=== PATIENT | female | born 1985 | race Caucasian/White ===

== ENCOUNTER 2025-01-03 09:51 | Outpatient (OUT) | payer BC, SELFPAY ==
[2025-01-03 11:17] LABS: Free T4 0.97 ng/dL (0.76-1.46)
[2025-01-03 11:21] LABS: Thyroid Stimulating Hormone 3.365 uIU/mL (0.358-3.740)
== END 2025-01-03 09:52 | disposition home or self-care (01) ==
LOC: LAB 10:00
PROVIDERS: Visit Provider Obstetrics & Gynecology
DX: N92.6 Irregular menstruation, unspecified (principal); N93.8 Other specified abnormal uterine and vaginal bleeding; R79.89 Other specified abnormal findings of blood chemistry; I10 Essential (primary) hypertension
CPT/HCPCS: 36415; 83516; 84439; 84443

== ENCOUNTER 2025-01-19 11:07 | Outpatient (OUT) | payer BC, SELFPAY ==
--- OUTSIDE RECORDS SUMMARY | 2025-01-30 11:30 | XMS_ITS | CCD ---
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 Anion gap [Moles/Vol] 11 mmol/L Normal 5-15 [facility] Comment on above: Performed By: #### C BCA, CMP, 12961-3 ####[facility] ([id number])[address] [place] [address] 28070#### 72427-0, HA1C ####[facility] ([id number])[address] [place] [address], [address] [place] [address] 17748 AST [Catalytic activity/Vol] 24 U/L Normal 0-41 [facility] Comment on above: Performed By: #### C BCA, CMP, 12663-7 ####[facility] ([id number])[address] [place] [address] 20105#### 11978-2, HA1C ####[facility] ([id number])[address] [facility], [address] [place] [address] 36004 Bilirubin [Mass/Vol] 0.2 mg/dL Low 0.3-1.2 [facility] Comment on above: Performed By: #### C BCA, CMP, ####[facility] ([id number])[address] [place] [address] 67566#### 89867-8, HA1C ####[facility] ([id number])[address] [facility], [address] [place] [address] 50004 Calcium [Mass/Vol] 8.8 mg/dL Normal 8.5-10.5 [facility] Comment on above: Performed By: #### C BCA, CMP, 20959-1 ####[facility] ([id number])[address] [place] [address] 18243#### 73041-3, HA1C ####[facility] ([id number])[address] [place] [address], [address] [place] [address] 88937 Chloride [Moles/Vol] 103 mmol/L Normal 98-109 [facility] Comment on above: Performed By: #### C BCA, CMP, 21885-2 ####[facility] ([id number])[address] [place] [address] 35852#### 37763-9, HA1C ####[facility] ([id number])[address] [place] [address], [address] [place] [address] 82853 CO2 [Moles/Vol] 23 mmol/L Normal 22-32 [facility] Comment on above: Performed By: #### C BCA, CMP, 32531-7 ####[facility] ([id number])[address] [place] [address] 61718#### 93252-9, HA1C ####[facility] ([id number])[address] [facility], [address], [place] [address] Creatinine [Mass/Vol] 0.86 mg/dL Normal 0.40-1.00 [facility] Comment on above: Result Comment: METH OD TRACEABLE TO IDMS STANDARD Performed By: #### C BCA, CMP, ####[facility] ([id number])[address] [place] [address] 01557#### 13620-2, HA1C ####[facility] ([id number])[address] [address] GFR/1.73 sq M.predicted among non-blacks MDRD (S/P/Bld) [Vol rate/Area] 89 mL/min/{1.73_m2} Normal >59 [facility] Comment on above: Result Comment: Reported eGFR is based on the CKD-EPI 2020 equation that does not use a race coefficient. Performed By: #### C BCA, CMP, 03018-2 ####[facility] ([id number])[address] [place] [address] 80964#### 59122-1, HA1C ####[facility] ([id number])[address] [address] Glucose [Mass/Vol] 102 mg/dL High 65-99 [facility] Comment on above: Performed By: #### C BCA, CMP, 05770-1 ####[facility] ([id number])[address] [place] [address] 01113#### 94239-5, HA1C ####[facility] ([id number])[address] [address] Potassium [Moles/Vol] 3.8 mmol/L Normal 3.5-5.0 [facility] Comment on above: Performed By: #### C BCA, CMP, 30343-0 ####[facility] ([id number])[address] [place] [address] 44498#### 14548-0, HA1C ####[facility] ([id number])[address] [address] Protein [Mass/Vol] 6.6 g/dL Normal 6.0-8.0 [facility] Comment on above: Performed By: #### C BCA, CMP, 88433-0 ####[facility] ([id number])[address] [place] [address] 60219#### 64772-8, HA1C ####[facility] ([id number])[address], [address] [address] Sodium [Moles/Vol] 137 mmol/L Normal 134-146 [facility] Comment on above: Performed By: #### C BCA, CMP, 85297-7 ####[facility] ([id number])[address] [place] [address] 99779#### 80115-3, HA1C ####[facility] ([id number])[address], [address], [place] [address] Urea nitrogen [Mass/Vol] 18 mg/dL Normal 5-23 [facility] Comment on above: Performed By: #### C BCA, CMP, 17940-1 ####[facility] ([id number])[address] [place] [address] 24920#### 69016-6, HA1C ####[facility] ([id number])[address], [address] [place] [address] HGB A1C (GLYCO-HGB)on 2024 Glucose [Mass/Vol] 117 mg/dL Normal [facility] Comment on above: Performed By: #### C BCA, CMP, 62325-2 ####[facility] ([id number])[address] [place] [address] 09418#### 42290-6, HA1C ####[facility] ([id number])[address], [place] [address] HbA1c (Bld) [Mass fraction] 5.7 % High 4.4-5.6 [facility] Comment on above: Result Comment: NOTE ADA Guidelines Result HgbA1c Normal : less than 5.7 % Prediabetes : 5.7 % to 6.4 % Diabetes : > 6.4 % Use with caution in patients with abnormal hemoglobin variants as the half-life of red blood cells and in vivo glycation rates are affected. Performed By: #### C BRENDA, THAO, 31364-6 ####[facility] ([id number])[address] [place] [address] 47276#### 72004-7, HA1C ####[facility] ([id number])[address] [place] [address], [address] [address] Lipid 1996 panelon 5 Cholesterol [Mass/Vol] 166 mg/dL Normal 150-200 [facility] Comment on above: Performed By: #### Reid GUTIERREZ CMP, 91724-4 ####[facility] ([id number])[address] [place] [address] 75293#### 21525-4, HA1C ####[facility] ([id number])[address] [place] [address], [address] [address] Cholesterol in HDL [Mass/Vol] 51 mg/dL Normal >39 [facility] Comment on above: Result Comment: HDL <40 mg/dL - High Risk HDL > or = 40mg/dL- Desirable HDL >60 mg/dL - Negative Risk Performed By: #### Reid GUTIERREZ, CMP, 63472-8 ####[facility] ([id number])[address] [place] [address] 40453#### 75294-6, HA1C ####[facility] ([id number])[address], [address] [place] [address] 13815 Cholesterol in LDL [Mass/Vol] 85 mg/dL Normal <130 [facility] Comment on above: Result Comment: LDL <100 mg/dL - Desirable LDL >160 mg/dL - High Risk Performed By: #### C BCA, CMP, 33927-8 ####[facility] ([id number])[address] [place] [address] 53294#### 60311-0, HA1C ####[facility] ([id number])[address] [facility], [address] [address] Cholesterol in VLDL [Mass/Vol] 30 mg/dL Normal 0-30 [facility] Comment on above: Performed By: #### C BCA, CMP, 51782-8 ####[facility] ([id number])[address] [place] [address] 06720#### 28512-6, HA1C ####[facility] ([id number])[address] [facility], [address] [address] CHOLESTEROL:HDL 3.3 Normal 1.0-5.0 [facility] Comment on above: Performed By: #### C BCA, CMP, 23976-7 ####[facility] ([id number])[address] [place] [address] 83819#### 35823-0, HA1C ####[facility] ([id number])[address], [address] [place] [address]6734 Triglyceride [Mass/Vol] 152 mg/dL High 27-150 [facility] Comment on above: Performed By: #### C BCA, CMP, ####[facility] ([id number])[address] [place] [address] 68431#### 67482-9, HA1C ####[facility] ([id number])[address] [place] [address], [address] [place] [address] MAGNESIUMon 11-02-2024 Magnesium [Mass/Vol] 2.0 mg/dL Normal 1.8-2.6 [facility] Comment on above: Performed By: #### C BCA, CMP, 69643-4 ####[facility] ([id number])[address] [place] [address] 70285#### 94492-1, HA1C ####[facility] ([id number])[address] [place] [address], [address] [place] [address] 32528 MR BRAIN WO CONTon 5 MR BRAIN WO CONT MR BRAIN WO CONT MR BRAIN WO CONT CLINICAL HISTORY: Transient ischemic attack COMPARISON: No prior Multiplanar T1 and T2-weighted MR imaging conducted no contrast administered obtained. FINDINGS: Ventricles, sulci and basal cisterns are periods orbits are unremarkable. Small polyp or retention cyst in the left maxillary sinus No acute infarct on diffusion weighted images. Midline structures in appropriate position on T1 sagittal images. No FLAIR signal abnormality No mass effect or midline shift. IMPRESSION: * No acute intracranial abnormality. No diffusion evidence of acute infarct. Finalized by Matt Wasserman MD on 11/02/2024 7:51 AM Normal [facility] BASIC METABOLIC PANLon 11-01 Anion gap [Moles/Vol] 10 mmol/L Normal 5-15 [facility] Comment on above: Performed By: #### C BCA, PINR, 02140-4, BMP, 53500-3 #### [facility] ([id number]) [address] [place] [address]39 Calcium [Mass/Vol] 9.0 mg/dL Normal 8.5-10.5 [facility] Comment on above: Performed By: #### C BCA, PINR, 89032-7, BMP, 22055-9 #### [facility] ([id number]) [address] [place] [address] 10181 Chloride [Moles/Vol] 98 mmol/L Normal 98-109 [facility] Comment on above: Performed By: #### C BCA, PINR, 01067-1, BMP, 64193-6 #### [facility] ([id number]) [address] [place] [address] 89194 CO2 [Moles/Vol] 29 mmol/L Normal 22-32 [facility] Comment on above: Performed By: #### C BCA, PINR, 98208-4, BMP, 21041-6 #### [facility] ([id number]) [address] [place] [address] 36401 Creatinine [Mass/Vol] 0.86 mg/dL Normal 0.40-1.00 [facility] Comment on above: Result Comment: METH OD TRACEABLE TO IDMS STANDARD Performed By: #### C BCA, PINR, 30625-9, BMP, 16362-4 #### [facility] ([id number]) [address] [place] [address] 28507 GFR/1.73 sq M.predicted among non-blacks MDRD (S/P/Bld) [Vol rate/Area] 89 mL/min/{1.73_m2} Normal >59 [facility] Comment on above: Result Comment: Reported eGFR is based on the CKD-EPI 1 equation that does not use a race coefficient. Performed By: #### C BCA, PINR, 29268-3, BMP, 97872-9 #### [facility] ([id number]) [address] [place] [address] 36488 Glucose [Mass/Vol] 112 mg/dL High 65-99 [facility] Comment on above: Performed By: #### C BCA, PINR, 77455-9, BMP, 16407-1 #### [facility] ([id number]) [address] [place] [address] 83993 Potassium [Moles/Vol] 4.1 mmol/L Normal 3.5-5.0 [facility] Comment on above: Performed By: #### C BCA, PINR, 96222-5, BMP, 80463-1 #### [facility] ([id number]) [address] [place] [address] 84280 Sodium [Moles/Vol] 137 mmol/L Normal 134-146 [facility] Comment on above: Performed By: #### C BCA, PINR, 93123-8, BMP, 93446-6 #### [facility] ([id number]) [address] [place] [address] 25847 Urea nitrogen [Mass/Vol] 15 mg/dL Normal 5-23 [facility] Comment on above: Performed By: #### C BCA, PINR, 14907-7, BMP, 13630-3 #### [facility] ([id number]) [address] [place] [address] 65301 CBC AND AUTO DIFFon 11-01-19 25 ABSOLUTE BASOPHIL 0.0 X10E9/L Normal 0.0-0.2 [facility] Comment on above: Performed By: #### C BCA, PINR, 66291-1, BMP, 16983-7 #### [facility] ([id number]) [address] [place] [address] 55994 ABSOLUTE NEUTROPHIL 2.0 X10E9/L Normal 1.5-6.6 [facility] Comment on above: Performed By: #### C BCA, PINR, 31345-6, BMP, 14235-8 #### [facility] ([id number]) [address] [place] [address] 16235 Basophils/100 WBC (Bld) 0.9 % Normal [facility] Comment on above: Performed By: #### C BCA, PINR, 43063-4, BMP, 14800-6 #### [facility] ([id number]) [address] [place] [address] 05959 Eosinophils (Bld) [#/Vol] 0.1 10*3/uL Normal 0.0-0.4 [facility] Comment on above: Performed By: #### C BCA, PINR, 50448-3, BMP, 00639-6 #### [facility] ([id number]) [address] [place] [address] 49870 Eosinophils/100 WBC (Bld) 2.0 % Normal [facility] Comment on above: Performed By: #### C BCA, PINR, 65155-3, BMP, 79822-7 #### [facility] ([id number]) [address] [place] [address] 19364 Erythrocyte distribution width (RBC) [Ratio] 13.6 % Normal 11.5-15.0 [facility] Comment on above: Performed By: #### C BCA, PINR, 72593-0, BMP, 12982-0 #### [facility] ([id number]) [address] [place] [address] 99584 Hematocrit (Bld) [Volume fraction] 39.8 % Normal 35-47 [facility] Comment on above: Performed By: #### C BCA, PINR, 49312-4, BMP, 00038-0 #### [facility] ([id number]) [address] [place] [address] 66190 Hemoglobin (Bld) [Mass/Vol] 13.4 g/dL Normal 11.7-15.5 [facility] Comment on above: Performed By: #### C BCA, PINR, 47225-0, BMP, 25515-5 #### [facility] ([id number]) [address] [place] [address] 91184 Lymphocytes (Bld) [#/Vol] 1.8 10*3/uL Normal 1.0-3.5 [facility] Comment on above: Performed By: #### C BCA, PINR, 17691-3, BMP, 19752-4 #### [facility] ([id number]) [address] [place] [address] 61432 Lymphocytes/100 WBC (Bld) 39.4 % Normal [facility] Comment on above: Performed By: #### C BCA, PINR, 18749-1, BMP, 57338-2 #### [facility] ([id number]) [address] [place] [address] 02357 MCH (RBC) [Entitic mass] 28.3 pg Normal 27-34 [facility] Comment on above: Performed By: #### Reid BCA, PINR, 83590-7, BMP, 30498-4 #### [facility] ([id number]) [address] [place] [address] 39666 MCHC (RBC) [Mass/Vol] 33.6 g/dL Normal 32-36 [facility] Comment on above: Performed By: #### Reid BCA, PINR, 71971-7, BMP, 66214-9 #### [facility] ([id number]) [address] [place] [address] 09001 MCV (RBC) [Entitic vol] 84 fL Normal 80-100 [facility] Comment on above: Performed By: #### C BCA, PINR, 21429-1, BMP, 02274-5 #### [facility] ([id number]) [address] [place] [address] 02645 Monocytes (Bld) [#/Vol] 0.6 10*3/uL Normal 0-0.9 [facility] Comment on above: Performed By: #### Reid BCA, PINR, 25239-5, BMP, 34489-6 #### [facility] ([id number]) [address] [place] [address] 20304 Monocytes/100 WBC (Bld) 13.3 % Normal [facility] Comment on above: Performed By: #### C BCA, PINR, 41845-1, BMP, 15875-1 #### [facility] ([id number]) [address] [place] [address] 13370 Neutrophils/100 WBC (Bld) 44.4 % Normal [facility] Comment on above: Performed By: #### C BCA, PINR, 61739-0, BMP, 44289-7 #### [facility] ([id number]) [address] [place] [address] 48589 Platelet mean volume (Bld) [Entitic vol] 8.4 fL Normal 7-12 [facility] Comment on above: Performed By: #### Reid BCA, PINR, 00411-7, BMP, 72560-9 #### [facility] ([id number]) [address] [place] [address] 56127 Platelets (Bld) [#/Vol] 252 10*3/uL Normal 150-450 [facility] Comment on above: Performed By: #### C BCA, PINR, 03423-3, BMP, 25748-8 #### [facility] ([id number]) [address] [place] [address] 91550 RBC COUNT 4.73 X10E12/L Normal 3.80-5.20 [facility] Comment on above: Performed By: #### C BCA, PINR, 90343-0, BMP, 99821-4 #### [facility] ([id number]) [address] [place] [address] 63671 WBC (Bld) [#/Vol] 4.5 10*3/uL Normal 4.0-11.0 [facility] Comment on above: Performed By: #### C BCA, PINR, 40913-7, [facility], 91787-8 #### [facility] ([id number]) [address] [facility] [place] [address] CT BRAIN WO CONT STROKE ALER Britton 11-01-2024 CT BRAIN WO CONT STROKE ALERT CT BRAIN WO CONT STROKE ALERT Examination: Noncontrast brain CT Date of Exam:11/01/2024 Clinical History:Right facial numbness, dizziness Comparison:None Procedure: Multi-detector CT performed through the brain without IV contrast. Automatic exposure control (AEC) was utilized. Findings: There is no intracranial hemorrhage, extra-axial fluid collection, mass effect, or hydrocephalus. Velásquez-white matter differentiation is appropriate. Infarcts may be occult on CT, but grossly no acute infarct identified There is no midline shift. The sinuses are clear. IMPRESSION: 1. No acute findings. All CT scans at this facility use dose modulation, iterative reconstruction, and/or weight based dosing when appropriate to reduce radiation dose to as low as reasonably achievable. Finalized by Terry Sam MD on 11/01/2024 7:36 PM Normal [facility] CT CTA CAROTIDon 11-01-[address] CTA CAROTID STUDY: CT angiogram carotid artery with contrast CLINICAL HISTORY: CVA, TIA, Stroke acute neurologic symptoms. Right-sided facial numbness. Dizziness. CVA. TIA. COMPARISON: None. TECHNIQUE: CT angiogram performed following intravenous administration of 100 mL Omnipaque 350 nonionic intravenous contrast. Coronal and sagittal and 3-D volume rendered maximum intensity projection images generated and reviewed under concurrent physician supervision. Automated exposure control utilized. The [place] Symptomatic Carotid Endarterectomy Trial (NASCET) method for calculating the degree of stenosis was utilized for stenosis measurements. FINDINGS: 3 vessel aortic arch. Bilateral common carotid arteries are patent. Bilateral internal carotid arteries are patent. There is no hemodynamically stable stenosis or plaque. Bilateral vertebral arteries are patent throughout their cervical course. There is unremarkable appearance of the visualized lung apices. Parotid and submandibular glands are symmetric. Thyroid is grossly unremarkable. No prevertebral soft tissue swelling. Mild mucosal thickening of the maxillary sinuses. IMPRESSION: 1. No evidence of large vessel vascular occlusion or hemodynamically severe stenosis identified. All CT scans at this facility use dose modulation, iterative reconstruction, and/or weight based dosing when appropriate to reduce radiation dose to as low as reasonably achievable. Finalized by Sai Garvey MD on 11/01/2024 8:04 PM Normal [facility] CT CTA HEADon 11-01-[address] HEAD CT angiogram head with contrast History: Stroke. CVA. TIA. Facial numbness. Dizziness. Blurred vision. Hypertension. Technique: CT angiogram of the head was performed following intravenous administration of 100 cc Omnipaque 350 nonionic intravenous contrast. 3-D maximum intensity projection images generated and reviewed under concurrent physician supervision. Automated exposure control was utilized. Arterial blood flow was measured to assist the stroke clinical team in the diagnosis of large vessel occlusion in patients undergoing screening for acute ischemic stroke using Rapid AI software when clinically indicated. Findings: The visualized extracranial internal carotid arteries are patent. The petrosal, cavernous or supraclinoid internal carotid arteries are patent. There is symmetric arborization of the middle cerebral anterior cerebral arteries. Anatomic variant of the anterior circulation is noted. The vertebral arteries converge to form a normal-appearing basilar artery. The posterior cerebral arteries are symmetric. Impression: No evidence of large vessel vascular occlusion or intracranial aneurysm identified within the limitations of the CT angiographic technique. All CT scans at this facility use dose modulation, iterative reconstruction, and/or weight based dosing when appropriate to reduce radiation dose to as low as reasonably achievable. Finalized by Sai Garvey MD on 11/01/2024 7:56 PM Normal [facility] Glucose Glucometer (BldC) [M ass/Vol]on 11-01-2024 Glucose [Mass/Vol] 110 mg/dL High 65-99 [facility] HCG ( test) Ql (U)o n 11-01-2024 Beta HCG ( test) Ql (U) Negative Normal NEG [facility] Comment on above: Performed By: #### 2 106-3 #### [facility] ([id number]) [address] [place] [address], [place] [address] PROTIME AND INRon 11-01-2024 INR Coag (PPP) [Relative time] 1.0 {INR} Normal 0.8-1.1 [facility] Comment on above: Performed By: #### C BCA, PINR, 09905-4, BMP, 53607-9 #### [facility] ([id number]) [address] [place] [id number] PT Coag (PPP) [Time] 11.5 s Normal 9.8-13.2 [facility] Comment on above: Result Comment: NEW REFERENCE RANGE Performed By: #### C BCA, PINR, 11742-8, BMP, 73307-5 #### [facility] ([id number]) [address] [place] [id number] Troponin I.cardiac High sens itivity method [Mass/Vol]on 11-01-2024 1 HOUR TROP I, HIGH SENSITIVITY 4 ng/L Normal <16 [facility] Comment on above: Performed By: #### 8 9579-7 ####[facility] [facility] ([id number])[address] [place] [address] TROPONIN I, HIGH SENSITIVITY 3 ng/L Normal <16 [facility] Comment on above: Performed By: #### C BCA, PINR, 56331-3, BMP, 34921-3 #### [facility] ([id number]) [address] [place] [address] URN MACROSCOPIC NURon 2024 BILIRUBIN SAMAN Negative Normal NEG [facility] Comment on above: Performed By: #### N UM ####[facility] ([id number])[address] [place] [address], [place] [address] BLOOD/HGB SAMAN Negative Normal NEG [facility] Comment on above: Performed By: #### N UM ####[facility] ([id number])[address] [place] [address], [place] [address] GLUCOSE SAMAN Negative Normal NEG [facility] Comment on above: Performed By: #### N UM ####[facility] ([id number])[address] [place] [address] [place] [address] KETONES SAMAN Negative Normal NEG [facility] Comment on above: Performed By: #### N UM ####[facility] ([id number])[address] [place] [address] [place] [address] LEUKOCYTE ESTERASE SAMAN Negative Normal NEG [facility] Comment on above: Performed By: #### N UM ####[facility] ([id number])[address] [place] [address] [place] [address] NITRITE SAMAN Negative Normal NEG [facility] Comment on above: Performed By: #### N UM ####[facility] ([id number])[address] [place] [address] PH SAMAN 7.0 Normal 5.0-8.5 [facility] Comment on above: Performed By: #### N UM ####[facility] ([id number])[address] [place] [address] PROTEIN SAMAN Negative Normal NEG [facility] Comment on above: Performed By: #### N UM ####[facility] ([id number])[address] [place] [address] [place] [address] SPECIFIC GRAVITY SAMAN 1.010 Normal 1.003-1 .03 5 [facility] Comment on above: Performed By: #### N UM ####[facility] ([id number])[address] [place] [address] [place] [address] UROBILINOGEN SAMAN 0.2 eu/dL Normal <1.1 [facility] Comment on above: Performed By: #### N UM ####[facility] ([id number])[address] [place] [address] [place] [address] aPTT Coag (PPP) [Time]on aPTT Coag (Bld) [Time] 34 s Normal 26-37 [facility] Comment on above: Result Comment: NEW REFERENCE RANGE Performed By: #### C BCA, PINR, 24205-5, BMP, 68320-8 #### [facility] ([id number]) [address] [place] [address], [place] [address] THYROID PROFILEon 05-24-2024 Free T4 [Mass/Vol] 0.81 ng/dL Normal 0.61-1.60 [facility] Comment on above: Performed By: #### T HYR #### [facility] ([id number]) [address] [place] [address] TSH 4.17 uIU/mL Normal 0.49-4.67 [facility] Comment on above: Performed By: #### T HYR #### [facility] ([id number]) [address], [address] [place] [address] US PELVIS TRANSVAGINALon US PELVIS TRANSVAGINAL TITLE OF EXAM: US PELVIC AND ENDOVAGINAL REASON FOR EXAM: Thick endometrium TECHNIQUE: Grayscale, color, and spectral Doppler ultrasound evaluation of the pelvis. COMPARISON: Pelvic ultrasound 05/05/2024 FINDINGS: Measurements: Uterus: 7.3 x 5.6 x 4.7 cm Right ovary: 2.5 x 0.8 x 1.3 cm Left ovary: 2.3 x 1.6 x 1.6 cm Endometrium: 0.5 cm thickness The uterus is anteverted. There are no fibroids. The endometrial stripe is normal in thickness for early proliferative or late proliferative/preovulatory phases. The right ovary demonstrates physiologic follicles and normal low resistance arterial inflow and present venous flow on color and pulsed Doppler. The left ovary demonstrates physiologic follicles and normal low resistance arterial inflow and present venous flow on color and pulsed Doppler. Thin-walled, anechoic, avascular cyst or dominant follicle measures 1.0 x 1.1 x 0.8 cm. There is no urinary bladder wall thickening. Anechoic luminal contents. Ureteral jets were visualized bilaterally. Physiologic volume/distribution free fluid in the pelvis. No concerning adnexal mass visualized. IMPRESSION: No acute/concerning sonographic abnormality of the evaluated structures of the pelvis. DICTATED ON: 05/20/2024 2:27 PM This report has been electronically signed and approved by the interpreting radiologist. Electronically Signed Varun Frost M.D. 2024-05-20 14:28:57 Normal Not Available US PELVIS TRANSVAGINALon US PELVIS TRANSVAGINAL EXAM: Pelvic Ultrasound, Transvaginal. REASON FOR EXAM: Irregular bleeding. COMPARISON: None TECHNIQUE: High-resolution ultrasound is performed in the pelvis with color Doppler. FINDINGS: Transabdominal imaging is not performed. Transvaginal Imaging: Uterus is slightly lobulated in contour. Endometrium is mixed hypo and hyperechoic, measuring at least 1.6 cm, particularly in the fundal segment. Right ovary is not well visualized but is typical in size. Doppler flow is difficult to demonstrate. Left ovary contains a dominant follicle at 1 cm and appears to demonstrate color Doppler flow. There is mild free pelvic fluid. Measurements: Uterus: 8.98 x 6.27 x 5.16 cm EM: 1.52 cm Right Ovary: 3.24 x 1.73 x 2.12 cm Left Ovary: 2.47 x 1.99 x 1.24 cm IMPRESSION: 1. Thickened and heterogeneous endometrium particularly near the fundus. This should be carefully correlated with patients menstrual status. In the setting of abnormal bleeding, hyperplasia or neoplasia would be a possibility. 2. Mild free pelvic fluid, nonspecific. *This report is generated using voice recognition reporting ([email or web address]). On occasion [email or web address].[email or web address] erroneously drops words from the report or replaces the spoken word with similar sounding words. Please call with any questions/concerns regarding this report.* Dictated and transcribed 05/05/2024/ This report has been electronically signed and approved by the interpreting radiologist. Electronically Signed Javed Samuel M.D. 2024-05-05 16:43:20 Normal Not Available BI MAMMOGRAM SCREENING TOMOS YNTHESIS BILATERALon 04-01-2024 BI MAMMOGRAM SCREENING TOMOSYNTHESIS BILATERAL This is a summary report. The complete report is available in the patient's medical record. If you cannot access the medical record, please contact the sending organization for a detailed fax or copy. EXAMINATION: BI MAMMOGRAM SCREENING TOMOSYNTHESIS BILATERAL CLINICAL HISTORY:screening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 the administration of 75 mL Isovue 370 intravenous contrast. Multiplanar reformatted images are provided for review. Automated exposure control, iterative reconstruction, and/or weight based adjustment of the mA/kV was utilized to reduce the radiation dose to as low as reasonably achievable. COMPARISON: None. HISTORY: Intermittent right upper quadrant pain for the past few weeks. FINDINGS: Lower Chest: Unremarkable. Organs: Hepatomegaly with possible mild steatosis. Remaining solid abdominal organs and the gallbladder are unremarkable. GI/Bowel: No acute abnormality. Normal appendix. Minimal sigmoid diverticulosis. Pelvis: Bladder and uterus are unremarkable. No lymphadenopathy. Mild free fluid is typically physiologic. Peritoneum/Retroperitoneum : No lymphadenopathy or ascites. Bones/Soft Tissues: 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 [facility] Chan Blakely MD - 02/05/2022 EXAMINATION: CT OF THE ABDOMEN AND PELVIS WITH CONTRAST 02/04/2022 11:32 pm TECHNIQUE: CT of the abdomen and pelvis was performed with the administration of 75 mL Isovue 370 intravenous contrast. Multiplanar reformatted images are provided for review. Automated exposure control, iterative reconstruction, and/or weight based adjustment of the mA/kV was utilized to reduce the radiation dose to as low as reasonably achievable. COMPARISON: None. HISTORY: Intermittent right upper quadrant pain for the past few weeks. FINDINGS: Lower Chest: Unremarkable. Organs: Hepatomegaly with possible mild steatosis. Remaining solid abdominal organs and the gallbladder are unremarkable. GI/Bowel: No acute abnormality. Normal appendix. Minimal sigmoid diverticulosis. Pelvis: Bladder and uterus are unremarkable. No lymphadenopathy. Mild free fluid is typically physiologic. Peritoneum/Retroperitoneum : No lymphadenopathy or ascites. Bones/Soft Tissues: 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 IMPRESSION: Hepatomegaly with possible mild steatosis. Minimal sigmoid diverticulosis. [employer] Work Phone: CT ABDOMEN PELVIS W IV CONTR AST Additional Contrast? NoneOrdered By: Chan Olivas on 02-05-2022 [employer] Work Phone: Hepatic Function Panelon Albumin [Mass/Vol] 4.1 g/dL 3.5 - 5.2 g/dL [employer] ALP (Bld) [Catalytic activity/Vol] 105 U/L High 35 - 104 U/L [employer] ALT [Catalytic activity/Vol] 16 U/L 5 - 33 U/L [facility] AST [Catalytic activity/Vol] 20 U/L <32 [facility] Bilirubin [Mass/Vol] 0.19 mg/dL Low 0.3 - 1 .2 mg/dL [facility] Bilirubin, Indirect Can not be calculated 0.00 - 1.00 mg/dL [facility] Bilirubin.indirect [Mass/Vol] mg/dL <0.31 mg/dL [facility] Free PSA/Total PSA [Mass fraction] 7.0 g/dL 6.4 - 8.3 g/dL [facility] Magnesiumon 02-05-2022 Magnesium [Mass/Vol] 2.0 mg/dL 1.6 - 2 .6 mg/dL [facility] NM HEPATOBILIARYon No acute cholecystit is. Gallbladder ejection fraction is approximately 34%. [facility] CONSOLIDATED EXAMINATION: NUCLEAR MEDICINE HEPATOBILIARY SCINTIGRAPHY (HIDA SCAN) WITH EJECTION FRACTION. TECHNIQUE: Approximately 5.4 millicuries Tc99m Mebrofenin (Choletec) was administered IV. Then, dynamic images of the abdomen were obtained in the anterior projection for 60 mins. Due to a shortage/inavailability of CCK, one can (237 ml) Ensure plus was substitued orally. Images were obtained in the GERMAN projection and regions of interest were drawn around the gallbladder and ejection fraction was calculated. COMPARISON: No prior for comparison. HISTORY: ORDERING SYSTEM PROVIDED HISTORY: upper abd pain TECHNOLOGIST PROVIDED HISTORY: upper abd pain Decision Support Exception - unselect if not a suspected or confirmed emergency medical condition->Emergency Medical Condition (MA) Is the patient ?->No Reason for Exam: upper abd pain FINDINGS: Prompt, homogenous uptake by the liver is noted with normal appearance of radiotracer excretion into the biliary system. Clearance of bloodpool activity appears appropriate. Gallbladder and small bowel is visualized in appropriate sequence and time. Gallbladder ejection fraction measured 34%. Normal value is >33% for Ensure protocol. Note, Ensure normal range is based on a limited study. [facility] CONSOLIDATED Clement Elder MD - 02/05/2022 EXAMINATION: NUCLEAR MEDICINE HEPATOBILIARY SCINTIGRAPHY (HIDA SCAN) WITH EJECTION FRACTION. TECHNIQUE: Approximately 5.4 millicuries Tc99m Mebrofenin (Choletec) was administered IV. Then, dynamic images of the abdomen were obtained in the anterior projection for 60 mins. Due to a shortage/inavailability of CCK, one can (237 ml) Ensure plus was substitued orally. Images were obtained in the GERMAN projection and regions of interest were drawn around the gallbladder and ejection fraction was calculated. COMPARISON: No prior for comparison. HISTORY: ORDERING SYSTEM PROVIDED HISTORY: upper abd pain TECHNOLOGIST PROVIDED HISTORY: upper abd pain Decision Support Exception - unselect if not a suspected or confirmed emergency medical condition->Emergency Medical Condition (MA) Is the patient ?->No Reason for Exam: upper abd pain FINDINGS: Prompt, homogenous uptake by the liver is noted with normal appearance of radiotracer excretion into the biliary system. Clearance of bloodpool activity appears appropriate. Gallbladder and small bowel is visualized in appropriate sequence and time. Gallbladder ejection fraction measured 34%. Normal value is >33% for Ensure protocol. Note, Ensure normal range is based on a limited study. IMPRESSION: No acute cholecystitis. Gallbladder ejection fraction is approximately 34%. [employer] Work Phone: Radiology Study observation (narrative) [employer] Phone: [place] HEPATOBILIARYOrdered By: Clement Elder on 02-05-2022 [employer] Phone: No Panel Informationon 02-05 Interpretation and review of laboratory results Abnormal [employer] US GALLBLADDER RUQon 2 022 Pancreas/right kidne y: Limited visualization/assessment Increased echogenicity of the hepatic parenchyma suggests steatosis Otherwise unremarkable right upper quadrant sonogram RECOMMENDATIONS: Unavailable [facility] RIS CONSOLIDATED EXAMINATION: RIGHT UPPER QUADRANT ULTRASOUND 02/05/2022 11:44 am COMPARISON: CT abdomen pelvis February 04, 2022 HISTORY: ORDERING SYSTEM PROVIDED HISTORY: upper abd pain TECHNOLOGIST PROVIDED HISTORY: upper abd pain FINDINGS: LIVER: The liver demonstrates increased echogenicity without evidence of intrahepatic biliary ductal dilatation. 16 cm craniocaudad dimension, hepatopedal flow BILIARY SYSTEM: Gallbladder is unremarkable without evidence of pericholecystic fluid, wall thickening or stones. Negative sonographic Arambula's sign. Common bile duct is within normal limits measuring 3 mm. RIGHT KIDNEY: Was not assessed PANCREAS: Limited visualization/assessment OTHER: No evidence of right upper quadrant ascites. [facility] RIS CONSOLIDATED Rosangela Cortes M D - 02/05/2022 EXAMINATION: RIGHT UPPER QUADRANT ULTRASOUND 02/05/2022 11:44 am COMPARISON: CT abdomen pelvis February 04, 2022 HISTORY: ORDERING SYSTEM PROVIDED HISTORY: upper abd pain TECHNOLOGIST PROVIDED HISTORY: upper abd pain FINDINGS: LIVER: The liver demonstrates increased echogenicity without evidence of intrahepatic biliary ductal dilatation. 16 cm craniocaudad dimension, hepatopedal flow BILIARY SYSTEM: Gallbladder is unremarkable without evidence of pericholecystic fluid, wall thickening or stones. Negative sonographic Arambula's sign. Common bile duct is within normal limits measuring 3 mm. RIGHT KIDNEY: Was not assessed PANCREAS: Limited visualization/assessment OTHER: No evidence of right upper quadrant ascites. IMPRESSION: Pancreas/right kidney: Limited visualization/assessment Increased echogenicity of the hepatic parenchyma suggests steatosis Otherwise unremarkable right upper quadrant sonogram RECOMMENDATIONS: Unavailable [employer] Work Phone: Radiology Study observation (narrative) [employer] Work Phone: [place] GALLBLADDER RUQOrdered By : Rosangela Cortes on 02-05-2022 [employer] Work Phone: CBC with Auto Differentialon 02-04-2022 Absolute Eos # 0.10 [facility] [address] [employer] Absolute Lymph # 2.00 [facility] [place] # 0.50 [facility] [place] [employer] Basophils (Bld) [#/Vol] 0.10 10*3/uL [facility] Basophils/100 WBC (Bld) 1 % 0 - 2 % [facility] Eosinophils/100 WBC (Bld) 1 % 0 - 4 % [facility] Hematocrit (Bld) [Volume fraction] 40.9 % 36 - 46 % [facility] Hemoglobin.gastrointe stinal spec 1 Ql (Stl) 14.0 g/dL 12.0 - 16.0 g/dL [facility] Interpretation and review of laboratory results Abnormal [facility] Lymphocytes/100 WBC (Bld) 17 % Low 24 - 44 % [facility] MCH (RBC) [Entitic mass] 28.6 pg 26 - 34 pg [facility] MCHC (RBC) [Mass/Vol] 34.3 g/dL 31 - 3 7 g/dL [facility] MCV (RBC) [Entitic vol] 83.3 fL 80 - 100 fL [facility] Monocytes/100 WBC (Bld) 4 % 1 - 7 % [facility] Platelet distribution width (Bld) [Ratio] 14.7 % 11.5 - 14.9 % [facility] Platelet mean volume (Bld) [Entitic vol] 8.2 fL 6.0 - 12.0 fL [facility] Platelets (Bld) [#/Vol] 350 10*3/uL [facility] RBC (Bld) [#/Vol] 4.91 10*6/uL 4.0 - 5.2 m/uL [facility] Segmented neutrophils/100 WBC (Bld) 77 % High 36 - 66 % [facility] Segs Absolute 9.00 [facility] WBC (Bld) [#/Vol] 11.7 10*3/uL High [facility] S [facility] CT ABDOMEN PELVIS W IV CONTR AST Additional Contrast? Noneon 02-04-2022 Radiology Study observation (narrative) [facility] Work Phone: Comprehensive Metabolic Pane john 02-04-2022 Albumin [Mass/Vol] 4.8 g/dL 3.5 - 5.2 g/dL [facility] ALP (Bld) [Catalytic activity/Vol] 120 U/L High 35 - 104 U/L [facility] ALT [Catalytic activity/Vol] 18 U/L 5 - 33 U/L [facility] Anion gap [Moles/Vol] 12 mmol/L 9 - 17 mmol/L [facility] AST [Catalytic activity/Vol] 23 U/L <32 [facility] Bilirubin [Mass/Vol] 0.16 mg/dL Low 0.3 - 1 .2 mg/dL [facility] Calcium [Mass/Vol] 9.9 mg/dL 8.6 - 10. 4 mg/dL [facility] Chloride [Moles/Vol] 98 mmol/L 98 - 10 7 mmol/L [facility] CO2 [Moles/Vol] 28 mmol/L 20 - 31 mmol/L [facility] Creatinine [Mass/Vol] 1 mg/dL High 0.50 - 0.90 mg/dL [facility] Free PSA/Total PSA [Mass fraction] 7.9 g/dL 6.4 - 8.3 g/dL [facility] GFR >60 >60 mL/min [facility] GFR Non- >60 >60 mL/min [facility] GFR/1.73 sq M.predicted MDRD (S/P/Bld) [Vol rate/Area] [facility] Comment on above: Average GFR for 30-3 9 years old: 107 mL/min/1.73sq m Chronic Kidney Disease: <60 mL/min/1.73sq m Kidney failure: <15 mL/min/1.73sq m eGFR calculated using average adult body mass. Additional eGFR calculator available at: http://www.ClinicalBox/multiple_crcl_2012.htm Glucose [Mass/Vol] 115 mg/dL High 70 - 99 mg/dL [facility] Interpretation and review of laboratory results Abnormal [facility] Potassium [Moles/Vol] 3.7 mmol/L 3.7 - 5.3 mmol/L [facility] Sodium [Moles/Vol] 138 mmol/L 135 - 144 mmol/L [facility] Urea nitrogen (BldV) [Mass/Vol] 13 mg/dL 6 - 20 mg/dL [facility] HCG Qualitative, Serumon hCG Qual Negative NEGATIVE [facility] Comment on above: Specimens with hCG l evels near the threshold of the test (25 mIU/mL) may give a negative or indeterminate result. In such cases, another test should be performed with a new specimen in 48-72 hours. If early is suspected clinically in this setting, correlation with quantitative serum b-hCG level is suggested. [facility] Lipaseon 02-04-2022 Lipase [Catalytic activity/Vol] 41 U/L 13 - 60 U/L [facility] Microscopic Urinalysison Bacteria, UA FEW Abnormal None [facility] Casts UA 0 TO 2 /LPF [facility] Epithelial Cells UA 3 to 5 /HPF [facility] Interpretation and review of laboratory results Abnormal [facility] RBC, UA 0 TO 2 /HPF [facility] WBC, UA 3 to 5 /HPF [facility] No Panel Informationon 02-04 [facility] Urinalysis with Reflex to Cu ltureon 02-04-2022 Bilirubin Urine Negative NEGATIVE [facility] Color, UA Yellow Yellow [facility] Glucose, Ur Negative NEGATIVE [facility] Interpretation and review of laboratory results Abnormal [facility] Ketones Ql (U) TRACE Abnormal NEGATIVE [facility] Leukocyte esterase Test strip Ql (U) SMALL Abnormal NEGATIVE [facility] Nitrite, Urine Negative NEGATIVE [facility] pH, UA 6.5 [facility] Protein, UA Negative NEGATIVE [facility] Specific [place], UA 1.018 [facility] Turbidity UA Cloudy Abnormal Clear [facility] Urine Hgb Negative NEGATIVE [facility] Urobilinogen, Urine Normal Normal [facility] US Gallbladderon 01-23-2022 US Gallbladder FINDINGS: The liver is somewhat homogeneous, appearance suggestive of diffuse fatty infiltration. with focal sparing near the gallbladder fossa. No focal mass lesions or biliary dilatation, however, is identified. The gallbladder and biliary tree are unremarkable. No gallstones, pericholecystic fluid or gallbladder wall thickening is identified. The biliary tree is non-dilated. The common bile duct measures 4 mm in greatest dimension. The pancreas and right kidney are grossly unremarkable. No ascites is seen. IMPRESSION: 1. Normal gallbladder and biliary tree 2. 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 However, the narrative phrase printed from the coding software may appear abbreviated, or result in slightly different terminology. Coded By: Mina Murrieta Date Saved: 06/29/2018 12:10 pm [facility] Provider Orderson 06-14-2018 Protein mass conc [id number] [facility] .Auto Diff 106-11-2018 Auto Baso % 0.6 % Normal 0.2-2.0 [facility] Comment on above: Performed By: #### 1 0303002, 5265891017, 1262619, 3914211475, 2414054, 7697331 ####[facility] (DEFAULT)[address] [place] [address] Auto [place] % 6 % Normal 1-12 [facility] Comment on above: Performed By: #### 1 6395274, 2343611648, 2319453, 0642411609, 0647480, 2478479 ####[facility] (DEFAULT)[address] [place] [address] Auto Neut % 59 % Normal 44-88 [facility] Comment on above: Performed By: #### 1 2798600, 8237692647, 5538992, 0514105811, 8481623, 0359852 ####[facility] (DEFAULT)[address] [place] [address] Baso Abs# 0.0 x10 Normal 0.0-0.2 [facility] Comment on above: Performed By: #### 1 2875292, 3651527780, 3309052, 7507282492, 7566833, 9156949 ####[facility] (DEFAULT)[address] [place] [address] Eos Abs# 0.2 x10 Normal 0.0-0.4 [facility] Comment on above: Performed By: #### 1 1407087, 3572508218, 8538057, 7899726376, 7307404, 1074519 ####[facility] (DEFAULT)[address] [place] [address] 76640 Eosinophils/100 WBC Auto (Bld) 2.9 % Normal 0.9-4.0 [facility] Comment on above: Performed By: #### 1 2025218, 7707166018, 8939358, 7538818134, 1185954, 8504920 ####[facility] (DEFAULT)[address] [place] [address] 55931 Lymphocytes Auto #/vol (Bld) 2.2 x10 Normal 1.3-2.9 [facility] Comment on above: Performed By: #### 1 8106814, 9119709784, 0327199, 2770839923, 6721096, 8980755 ####[facility] (DEFAULT)[address] [place] [address] 48166 Lymphocytes/100 WBC Auto (Bld) 32 % Normal 14-48 [facility] Comment on above: Performed By: #### 1 1017332, 4069088011, 6821490, 0627238969, 6555458, 8284061 ####[facility] (DEFAULT)[address] [place] [address] [place] Abs# 0.4 x10 Normal 0.0-0.8 [facility] Comment on above: Performed By: #### 1 7562733, 1713269167, 9802952, 9332581052, 4956572, 4827794 ####[facility] (DEFAULT)[address] [place] [address] Neut Abs# 4.1 x10 Normal 1.5-9.2 [facility] Comment on above: Performed By: #### 1 2511100, 8510535569, 1693510, 3375436188, 9186676, 3884726 ####[facility] (DEFAULT)[address] [place] [address] CBC w/ Auto Diffon 8 Erythrocyte distribution width Auto Ratio (RBC) 13.0 % Normal 11.5-15.0 [facility] Comment on above: Performed By: #### 1 3363596, 8406103637, 8227529, 8472347651, 3819577, 7628655 ####[facility] (DEFAULT)[address] [place] [address] Hematocrit Auto Volume Fraction (Bld) 40.1 % Normal 33.7-40.4 [facility] Comment on above: Performed By: #### 1 2560292, 3350687031, 2065531, 6863639475, 6081502, 1230110 ####[facility] (DEFAULT)[address] [place] [address] Hemoglobin mass conc (Bld) 14.1 g/dL Normal 11.3-15.9 [facility] Comment on above: Performed By: #### 1 8178828, 0513433388, 6805825, 3503454518, 1929224, 9653060 ####[facility] (DEFAULT)[address] [place] [address] Man Diff? Auto Normal [facility] Comment on above: Performed By: #### 1 0095705, 4771773572, 8171528, 6022776040, 1814894, 3298087 ####[facility] (DEFAULT)[address] [place] [address] MCH Auto Entitic mass (RBC) 30 pg Normal 24-34 [facility] Comment on above: Performed By: #### 1 0163455, 9981046990, 1182776, 9647751984, 3521409, 0427652 ####[facility] (DEFAULT)[address] [place] [address] MCHC Auto mass conc (RBC) 35 g/dL Normal 26-37 [facility] Comment on above: Performed By: #### 1 6681728, 1893965878, 0911347, 2722475799, 2582453, 9824080 ####[facility] (DEFAULT)[address] [place] [address] MCV Auto Entitic volume (RBC) 84 fL Normal 81-100 [facility] Comment on above: Performed By: #### 1 4055178, 9204567058, 7983098, 7980464051, 9938645, 2870170 ####[facility] (DEFAULT)[address] [place] [address] Platelet mean volume Auto Entitic volume (Bld) 10.2 fL Normal 6.3-10.2 [facility] Comment on above: Performed By: #### 1 3419999, 7623401716, 2216130, 2978756270, 0000742, 1083702 ####[facility] (DEFAULT)[address] [place] [address] Platelets Auto #/vol (Bld) 289 x10 Normal 138-427 [facility] Comment on above: Performed By: #### 1 3016309, 0501159531, 7428811, 7081641361, 6231718, 5697864 ####[facility] (DEFAULT)[address] [place] [address] RBC Auto #/vol (Bld) 4.76 x10 Normal 3.70-5.30 [facility] Comment on above: Performed By: #### 1 6593790, 6284595976, 0127765, 8813260132, 9004690, 7568391 ####[facility] (DEFAULT)[address] [place] [address] WBC Auto #/vol (Bld) 7.0 x10 Normal 3.5-10.5 [facility] Comment on above: Performed By: #### 1 2005869, 7999476672, 2355916, 9106640316, 6233401, 5836711 ####[facility] (DEFAULT)[address] [place] [address] CMP Standardon 06-11-2018 eGFR Non AA >60 Invalid Interpretation Code [facility] Comment on above: Performed By: #### 1 2808405, 7453362502, 9164344, 0319014141, 0834662, 7141987 ####[facility] (DEFAULT)[address] [place] [address] eGFR AA >60 Invalid Interpretation Code [facility] Comment on above: Result Comment: Drosophere Operator daryl Kidney disease could be indicated at eGFRs of less than 60 ml/min/1.73m2. Kidney Failure is indicated at less than 15 ml/min/1.73m2 Performed By: #### 1 3207789, 4732329419, 5293875, 8864130266, 2307280, 6196658 ####[facility] (DEFAULT)[address] [place] [address] 38696 Albumin mass conc 4.1 g/dL Normal 3.5-5.0 [facility] Comment on above: Performed By: #### 1 0046459, 0437515797, 1471977, 5115218437, 0297275, 5000624 ####[facility] (DEFAULT)[address] [place] [address] Albumin/Globulin mass ratio 1.1 {ratio} Low 1.4-2.6 [facility] Comment on above: Performed By: #### 1 2189432, 3901615148, 4686819, 0701138166, 5367646, 6330749 ####[facility] (DEFAULT)[address] [place] [address] 79497 Alk Phos 76 IU/L Normal 32-91 [facility] Comment on above: Performed By: #### 1 1669185, 2081499287, 2243045, 7095212447, 3660934, 6472595 ####[facility] (DEFAULT)[address] [place] [address] 91514 ALT/SGPT 21.0 IU/L Normal 14.0-54.0 [facility] Comment on above: Performed By: #### 1 4403987, 4006523413, 8825546, 6679442331, 2269463, 3777535 ####[facility] (DEFAULT)[address] [place] [address] 40050 Anion gap 3 molar conc 12.0 mmol/L Normal 5.0-19.0 [facility] Comment on above: Performed By: #### 1 7539927, 8863260760, 1175805, 5348412474, 8975611, 2387060 ####[facility] (DEFAULT)[address] [place] [address] 87236 AST/SGOT 23 IU/L Normal 15-41 [facility] Comment on above: Performed By: #### 1 9915482, 1230743195, 1195197, 3440754007, 0360989, 9431643 ####[facility] (DEFAULT)[address] [place] [address] Bili Total 0.5 mg/dL Normal 0.3-1.2 [facility] Comment on above: Performed By: #### 1 8890097, 6941742482, 3960825, 4131247061, 4149564, 9748327 ####[facility] (DEFAULT)[address] [place] [address] Calcium mass conc 9.3 mg/dL Normal 8.9-10.3 [facility] Comment on above: Performed By: #### 1 4692670, 6837962353, 3219140, 5731199646, 9019116, 6400398 ####[facility] (DEFAULT)[address] [place] [address] Chloride molar conc 102 mmol/L Normal 101-111 [facility] Comment on above: Performed By: #### 1 1830910, 0191229489, 9618652, 8809244579, 0915327, 1651605 ####[facility] (DEFAULT)[address] [place] [address] CO2 molar conc 26 mmol/L Normal 21-32 [facility] Comment on above: Performed By: #### 1 7027404, 9754242150, 4347965, 8861046941, 0098905, 7416692 ####[facility] (DEFAULT)[address] [place] [address] 08620 Creatinine mass conc 0.90 mg/dL Normal 0.60-1.30 [facility] Comment on above: Performed By: #### 1 3912361, 6400943458, 2552053, 6353870443, 7226997, 1755190 ####[facility] (DEFAULT)[address] [place] [address] 23533 Globulin Calculated mass conc (S) 3.6 g/dL Normal 1.5-4.3 [facility] Comment on above: Performed By: #### 1 1583097, 2395358474, 8557722, 7002385011, 1099647, 8971761 ####[facility] (DEFAULT)[address] [place] [address] 40594 Glucose mass conc 99.0 mg/dL Normal 74.0-118.0 [facility] Comment on above: Performed By: #### 1 5314600, 1027756960, 7009170, 4574925983, 9974199, 3734682 ####[facility] (DEFAULT)[address] [place] [address] 78005 Osmolality 273 mOsm/L Invalid Interpretation Code [facility] Comment on above: Performed By: #### 1 2564234, 6690328412, 2149449, 4828102487, 7607458, 7097143 ####[facility] (DEFAULT)[address] [place] [address] 73328 Potassium molar conc 4.4 mmol/L Normal 3.6-5.1 [facility] Comment on above: Performed By: #### 1 1469469, 6533919029, 3776621, 0221802614, 7435703, 0187160 ####[facility] (DEFAULT)[address] [place] [address] 23734 Protein mass conc 7.7 g/dL Normal 6.5-8.1 [facility] Comment on above: Performed By: #### 1 0649715, 2206099143, 0744567, 4842892789, 5740825, 1387517 ####[facility] (DEFAULT)[address] [place] [address] 71891 Sodium molar conc 136.0 mmol/L Normal 136.0-144. 0 [facility] Comment on above: Performed By: #### 1 6835098, 3141634212, 8519864, 3056122809, 2664864, 9726795 ####[facility] (DEFAULT)[address] [place] [address] 55951 Urea nitrogen mass conc 16 mg/dL Normal 8-26 [facility] Comment on above: Performed By: #### 1 3324977, 0588316710, 3492418, 1762444833, 1871944, 2532066 ####[facility] (DEFAULT)[address] [place] [address] 17451 Urea nitrogen/Creatinine mass ratio 18.0 mg/mg High 4.6-16.2 [facility] Comment on above: Performed By: #### 1 6000889, 2709182905, 4338811, 5956942241, 2674202, 4095519 ####[facility] (DEFAULT)[address] [place] [address] 62887 Lipid Panel Standardon 06-11 Cholesterol in HDL mass conc 65 mg/dL Normal 40-71 [facility] Comment on above: Result Comment: High risk - <40 mg/dL. Performed By: #### 1 8376463, 4205620444, 9275761, 2490920313, 9702133, 5220811 ####[facility] (DEFAULT)[address] [place] [address] 51105 Cholesterol in LDL mass conc 126 mg/dL High 1-100 [facility] Comment on above: Result Comment: Opti mal - Less than 100 mg/dL Borderline high risk - 130-159 mg/dL High risk - 160-189 mg/dL. Performed By: #### 1 4223897, 9353084514, 0909133, 1050440578, 6554013, 5708470 ####[facility] (DEFAULT)[address] [place] [address] 45873 Cholesterol mass conc 215.0 mg/dL High 66.0-200.0 [facility] Comment on above: Result Comment: Erica rable - Less than 200 mg/dL Borderline high risk - 200-239 mg/dL High risk - 240 mg/dL and over. Performed By: #### 1 8540414, 2843797796, 0140941, 6340301799, 0653852, 7495098 ####[facility] (DEFAULT)[address] [place] [address] 59605 Cholesterol.total/Cho lesterol in HDL mass ratio 3.3 {ratio} Normal 0.0-4.5 [facility] Comment on above: Performed By: #### 1 2544060, 1975051409, 3960177, 9494256868, 5569171, 1445898 ####[facility] (DEFAULT)[address] [place] [address] 16516 Triglyceride mass conc 123.0 mg/dL Normal 0.0-150.0 [facility] Comment on above: Performed By: #### 1 2591738, 6432694615, 1843573, 0751614344, 7155732, 9660563 ####[facility] (DEFAULT)[address] [place] [address] 31007 VLDL. 25 mg/dL Normal 5-40 [facility] Comment on above: Performed By: #### 1 5787651, 0601766206, 5893498, 4189942962, 6800929, 8242422 ####[facility] (DEFAULT)[address] [place] [address] 37842 Provider Orderson 01-08-2018 Protein mass conc [id number]#[id number] [facility] Coding Summaryon 01-07-2018 Coding Summary CODING DATE: 018 [facility] STATUS: Home 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 APC DESCRIPTION 5722 Level 2 Diagnostic Tests and Related Services ADMIT DX: REASON FOR VISIT DX: R06.02 Shortness of breath FINAL DX: PRINCIPAL: R06.02 Shortness of breath SECONDARY: PYMT PROC APC STAT DESCRIPTION DOCTOR NAME DATE NOTE: The code number assigned matches the documented diagnosis and / or procedure in the patient's chart. However, the narrative phrase printed from the coding software may appear abbreviated, or result in slightly different terminology. Coded By: Laura Lu Date Saved: 01/07/2018 01:43 pm [facility] Consultation/Specialist Note on 01-06-2018 Consultation/Speciali st Note Patient: DYAN JONES : 32 years Sex: FEMALE : 87Associated Diagnoses: Shortness of breathAuthor: Mummert DO, TimothyProcedurePulmonary function test with bronchodilator challenge procedureDate/ Time: 01/05/18 09:59:00.Performed by: [facility] .Referred by: TASH ESTEBAN.Indication: R06.02.Spirometry: FVC was 2.84 L which is 73% of that predicted, FEV1 was 2.06 L which is 67% of predicted, the FEV1 FVC ratio was 72.33% which is 91% of predicted, and the FEF 25-75% is 0.7 L which is 25% of the predicted. Following bronchodilator therapy the FEV1 improved by 50% and the FEF 2575 percent improved by 233% indicating a marked positive response to bronchodilator therapy.Lung volumes by body plethysmograph: The total lung capacity is 4.72 L which is 85% of predicted, the residual vomitus 1.95 L which is 117% of predicted and the residual volume to total lung capacity is 41.3% which is 138% of predicted. This indicates borderline air trapping but no hyperinflation.Diffusion capacity: The diffusion capacity is normalFlow volume loop: Flow volume loop has normal pink cavity and expiratory flow loop on the pre-bronchodilator attempt, with marked improvement on the post bronchodilator attempt. There is no evidence of a fixed or variable intrathoracic or extrathoracic obstruction..Impression and PlanDiagnosisShortness of breath (QCP85-SD R06.02).In summary the patient demonstrates 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 There is a marked bronchodilator response. There is no evidence of a diffusion impairment. There is no hyperinflation, borderline air trapping is noted. There is no evidence of fixed or variable intrathoracic or extrathoracic obstruction. Please correlate clinically.[Electronically Signed on: 01/06/2018 15:47 EDT] Flaco Tran DO[Verified on: 01/06/2018 15:47 EDT] Flaco Tran DO Normal [facility] Pulmonary Procedureon 2017 Protein mass conc [id number]#[id number] [facility] Coding Summaryon 01-04-2018 Coding Summary CODING DATE: [facility] STATUS: Home 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 ADMIT DX: REASON FOR VISIT DX: R06.02 Shortness of breath FINAL DX: PRINCIPAL: R06.00 Dyspnea, unspecified SECONDARY: R07.89 Other chest pain I10 Essential (primary) hypertension PROCEDURES DOCTOR NAME DATE NOTE: The code number assigned matches the documented diagnosis and / or procedure in the patient's chart. However, the narrative phrase printed from the coding software may appear abbreviated, or result in slightly different terminology. Coded By: Celeste Cai Date Saved: 01/04/2018 04:58 pm [facility] Coding Summary CODING DATE: [facility] STATUS: Home 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 APC DESCRIPTION 5791 Pulmonary Treatment ADMIT DX: REASON FOR VISIT DX: R06.02 Shortness of breath FINAL DX: PRINCIPAL: R06.00 Dyspnea, unspecified SECONDARY: R07.89 Other chest pain I10 Essential (primary) hypertension PYMT PROC APC STAT DESCRIPTION DOCTOR NAME DATE NOTE: The code number assigned matches the documented diagnosis and / or procedure in the patient's chart. However, the narrative phrase printed from the coding software may appear abbreviated, or result in slightly different terminology. Coded By: Celeste Cai Date Saved: 01/04/2018 04:57 pm [facility] Coding Summaryon 12-31-2017 Coding Summary CODING DATE: [facility] STATUS: Home 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 APC DESCRIPTION 5521 Level 1 Imaging without Contrast ADMIT DX: REASON FOR VISIT DX: R06.02 Shortness of breath FINAL DX: PRINCIPAL: R06.02 Shortness of breath SECONDARY: PYMT PROC APC STAT DESCRIPTION DOCTOR NAME DATE NOTE: The code number assigned matches the documented diagnosis and / or procedure in the patient's chart. However, the narrative phrase printed from the coding software may appear abbreviated, or result in slightly different terminology. Coded By: Laura Lu Date Saved: 12/31/2017 08:02 am [facility] Provider Orderson 12-31-2017 Protein mass conc [id number] Normal [facility] .Auto Diff 1on 12-30-2017 Auto Baso % 0.4 % Normal 0.2-2.0 [facility] Comment on above: Performed By: #### 1 3193321, 0797493291, 5794056, 9043210250, 2747979, 1443174 ####[facility] (DEFAULT)[address] [place] [address] Auto [place] % 6 % Normal 1-12 [facility] Comment on above: Performed By: #### 1 0880197, 2487283743, 4704795, 7260018889, 7925824, 3887549 ####[facility] (DEFAULT)[address] [place] [address] Auto Neut % 58 % Normal 44-88 [facility] Comment on above: Performed By: #### 1 0521844, 9456745727, 5411707, 7702308487, 6039511, 7256539 ####[facility] (DEFAULT)[address] [place] [address] Baso Abs# 0.0 x10 Normal 0.0-0.2 [facility] Comment on above: Performed By: #### 1 1464975, 2466172647, 1034114, 6225806356, 5734400, 6095758 ####[facility] (DEFAULT)[address] [place] [address] Eos Abs# 0.2 x10 Normal 0.0-0.4 [facility] Comment on above: Performed By: #### 1 6641553, 1329502012, 9615159, 2591149564, 9586415, 2667146 ####[facility] (DEFAULT)[address] [place] [address] Eosinophils/100 WBC Auto (Bld) 2.0 % Normal 0.9-4.0 [facility] Comment on above: Performed By: #### 1 3650477, 2939701456, 4184133, 6815557984, 4782302, 0106803 ####[facility] (DEFAULT)[address] [place] [address] Lymphocytes Auto #/vol (Bld) 3.2 x10 High 1.3-2.9 [facility] Comment on above: Performed By: #### 1 1040785, 8556886330, 5202722, 9205314278, 6828243, 8200440 ####[facility] (DEFAULT)[address] [place] [address] Lymphocytes/100 WBC Auto (Bld) 33 % Normal 14-48 [facility] Comment on above: Performed By: #### 1 1791933, 7260390776, 1077576, 9338717036, 0692270, 7302283 ####[facility] (DEFAULT)[address] [place] [address] [place] Abs# 0.6 x10 Normal 0.0-0.8 [facility] Comment on above: Performed By: #### 1 6933869, 6807220651, 8881323, 2694738332, 6001441, 7485856 ####[facility] (DEFAULT)[address] [place] [address] Neut Abs# 5.5 x10 Normal 1.5-9.2 [facility] Comment on above: Performed By: #### 1 2555588, 8977765786, 3071340, 7841414119, 3480140, 8088249 ####[facility] (DEFAULT)[address] [place] [address] CBC w/ Auto Diffon 8 Erythrocyte distribution width Auto Ratio (RBC) 13.5 % Normal 11.5-15.0 [facility] Comment on above: Performed By: #### 1 9509402, 0588661332, 3847851, 2392360521, 7870096, 4298810 ####[facility] (DEFAULT)[address] [place] [address] Hematocrit Auto Volume Fraction (Bld) 38.8 % Normal 33.7-40.4 [facility] Comment on above: Performed By: #### 1 1237918, 5917851965, 4021843, 2353836234, 9667658, 0274057 ####[facility] (DEFAULT)[address] [place] [address] Hemoglobin mass conc (Bld) 13.7 g/dL Normal 11.3-15.9 [facility] Comment on above: Performed By: #### 1 0306850, 9883114981, 0361068, 9769083408, 8280796, 9572758 ####[facility] (DEFAULT)[address] [place] [address] Man Diff? Auto Normal [facility] Comment on above: Performed By: #### 1 4084328, 8832291077, 6907673, 7283567618, 2033891, 7634777 ####[facility] (DEFAULT)[address] [place] [address] MCH Auto Entitic mass (RBC) 30 pg Normal 24-34 [facility] Comment on above: Performed By: #### 1 8425196, 4349905818, 7701914, 5088785341, 6477584, 3289295 ####[facility] (DEFAULT)[address] [place] [address] MCHC Auto mass conc (RBC) 35 g/dL Normal 26-37 [facility] Comment on above: Performed By: #### 1 8073374, 9151290515, 7543849, 6131953255, 1837683, 6436585 ####[facility] (DEFAULT)[address] [place] [address] MCV Auto Entitic volume (RBC) 85 fL Normal 81-100 [facility] Comment on above: Performed By: #### 1 3902624, 5222089325, 5102624, 4480966412, 5757864, 4192631 ####[facility] (DEFAULT)[address] [place] [address] Platelet mean volume Auto Entitic volume (Bld) 10.1 fL Normal 6.3-10.2 [facility] Comment on above: Performed By: #### 1 9228719, 1961635616, 4938072, 6549003515, 1478791, 8985266 ####[facility] (DEFAULT)[address] [place] [address] Platelets Auto #/vol (Bld) 336 x10 Normal 138-427 [facility] Comment on above: Performed By: #### 1 8233373, 3128239105, 4738126, 0852178608, 3006493, 4468862 ####[facility] (DEFAULT)[address] [place] [address] RBC Auto #/vol (Bld) 4.57 x10 Normal 3.70-5.30 [facility] Comment on above: Performed By: #### 1 3578443, 0101455258, 9716282, 9285831217, 1845062, 2231416 ####[facility] (DEFAULT)[address] [place] [address] WBC Auto #/vol (Bld) 9.5 x10 Invalid Interpretation Code [facility] Comment on above: Performed By: #### 1 [id number], [id number], [id number], [id number], [id number], [id number] ####[facility] (DEFAULT)[address] [place] [address] CMP Standardon 12-30-2017 eGFR Non AA >60 Invalid Interpretation Code [facility] Comment on above: Performed By: #### 1 [id number], [id number], [id number], [id number], 6025255, [id number] ####[facility] (DEFAULT)[address] [place] [address] eGFR AA >60 Invalid Interpretation Code [facility] Comment on above: Result Comment: Drosophere Operator daryl Kidney disease could be indicated at eGFRs of less than 60 ml/min/1.73m2. Kidney Failure is indicated at less than 15 ml/min/1.73m2 Performed By: #### 1 [id number], [id number], 2548448, [id number], 1030093, [id number] ####[facility] (DEFAULT)[address] [place] [address] Albumin mass conc 4.3 g/dL Normal 3.5-5.0 [facility] Comment on above: Performed By: #### 1 [id number], [id number], 0571652, [id number], 8201123, 7679450 ####[facility] (DEFAULT)[address] [place] [address] Albumin/Globulin mass ratio 1.4 {ratio} Normal 1.4-2.6 [facility] Comment on above: Performed By: #### 1 [id number], [id number], 0836997, [id number], 1527818, 3181155 ####[facility] (DEFAULT)[address] [place] [address] Alk Phos 70 IU/L Normal 32-91 [facility] Comment on above: Performed By: #### 1 [id number], [id number], 9543527, [id number], 7528821, 6615166 ####[facility] (DEFAULT)[address] [place] [address] ALT/SGPT 19.0 IU/L Normal 14.0-54.0 [facility] Comment on above: Performed By: #### 1 [id number], [id number], 2105893, [id number], 5566233, 1957651 ####[facility] (DEFAULT)[address] [place] [address] Anion gap 3 molar conc 12.0 mmol/L Normal 5.0-19.0 [facility] Comment on above: Performed By: #### 1 4757810, [id number], 3053755, [id number], 3383574, 7417554 ####[facility] (DEFAULT)[address] [place] [address] AST/SGOT 24 IU/L Normal 15-41 [facility] Comment on above: Performed By: #### 1 [id number], [id number], 0415957, [id number], 0860267, 8226770 ####[facility] (DEFAULT)[address] [place] [address] Bili Total 0.2 mg/dL Low 0.3-1.2 [facility] Comment on above: Performed By: #### 1 [id number], [id number], 4923026, [id number], 6860774, 0049324 ####[facility] (DEFAULT)[address] [place] [address] Calcium mass conc 9.3 mg/dL Normal 8.9-10.3 [facility] Comment on above: Performed By: #### 1 [id number], [id number], 5842379, [id number], 5815310, 4949568 ####[facility] (DEFAULT)[address] [place] [address] Chloride molar conc 99 mmol/L Low 101-111 [facility] Comment on above: Performed By: #### 1 6995575, [id number], 1009569, [id number], 6344923, 8830495 ####[facility] (DEFAULT)[address] [place] [address] CO2 molar conc 28 mmol/L Normal 21-32 [facility] Comment on above: Performed By: #### 1 [id number], [id number], 5993695, [id number], 7490433, 3340648 ####[facility] (DEFAULT)[address] [place] [address] Creatinine mass conc 0.94 mg/dL Normal 0.60-1.30 [facility] Comment on above: Performed By: #### 1 [id number], [id number], 6580208, [id number], 6172811, 9394144 ####[facility] (DEFAULT)[address] [place] [address] Globulin Calculated mass conc (S) 3.1 g/dL Normal 1.5-4.3 [facility] Comment on above: Performed By: #### 1 [id number], [id number], 9142691, [id number], 7489044, 5499901 ####[facility] (DEFAULT)[address] [place] [address] Glucose mass conc 114.0 mg/dL Normal 74.0-118.0 [facility] Comment on above: Performed By: #### 1 7566835, [id number], 4745438, [id number], 5033823, 0986254 ####[facility] (DEFAULT)[address] [place] [address] Osmolality 272 mOsm/L Invalid Interpretation Code [facility] Comment on above: Performed By: #### 1 4806063, [id number], 0823146, [id number], 3626078, 5102208 ####[facility] (DEFAULT)[address] [place] [address] Potassium molar conc 4.0 mmol/L Normal 3.6-5.1 [facility] Comment on above: Performed By: #### 1 6915618, [id number], 3093552, 0129291350, 3646322, 3967006 ####[facility] (DEFAULT)[address] [place] [address] Protein mass conc 7.4 g/dL Normal 6.5-8.1 [facility] Comment on above: Performed By: #### 1 5326049, [id number], 9409212, 4468926547, 0968217, 9557799 ####[facility] (DEFAULT)[address] [place] [address] Sodium molar conc 135.0 mmol/L Low 136.0-144. 0 [facility] Comment on above: Performed By: #### 1 [id number], [id number], 4030884, [id number], 1751299, 4288503 ####[facility] (DEFAULT)[address] [place] [address] Urea nitrogen mass conc 17 mg/dL Normal 8-26 [facility] Comment on above: Performed By: #### 1 8437071, [id number], 9358141, [id number], 9829985, 1054725 ####[facility] (DEFAULT)[address] [place] [address] Urea nitrogen/Creatinine mass ratio 18.0 mg/mg High 4.6-16.2 [facility] Comment on above: Performed By: #### 1 4317349, [id number], 1242306, 0480725232, 0083484, 4605119 ####[facility] (DEFAULT)[address] [place] [address] D-Dimeron 12-30-2017 D-Dimer 0.28 mg/L FEU Normal 0.19-0.50 [facility] Comment on above: Performed By: #### 1 8277528, [id number], 6417207, [id number], 3720167, 9128567 ####[facility] (DEFAULT)[address] [place] [address] ED Clinical Summaryon 2017 ED Clinical Summary [facility] - Emergency [address] [place] [id number] ed Clinical SummaryPERSON INFORMATIONName: DYAN JONES Age: 32 Years Sex: FEMALEDOB: [birth year] MRN: Acct#:Visit Reason: Chest pain; Shortness of breath; SOB, MID BACK PAIN Arrival: 12/30/17 19:08:00 Discharge: 12/30/17 20:26:00LOS: 000 01:18 Check In: 12/30/17 19:08:00 Checkout:12/30/17 20:26:00Address:[address] [place] [id number]: TASH ESTEBANPROSEKOU INFORMATIONProvider Role Assigned UnassSoila Nuñez ED PA 12/30/17 19:12:27NesGaye santizo ED Nurse 12/30/17 19:14:25VITALS INFORMATIONVital Sign Triage LatestTemperature TympanicTemperature Temporal ArteryPulse Rate 89 bpm 69 bpmO2 Sat 100 % 97 %Respiratory Rate 18 br/min 14 br/minBlood Pressure 118 mmHg/88 mmHg 118 mmHg/88 mmHgMEDICAL INFORMATIONMedications Given:Medication Dose Routealbuterol-ipratropium 3 mL NEBaspirin 324 mg Chewedlorazepam 0.5 mg POketorolac 60 mg IMAllergy Information:No Known Medication AllergiesPHYSICIAN DOCUMENTATIONDISCHARGE INFORMATION:Discharge Disposition: HomeDischarge Location:PATIENT EDUCATION INFORMATIONInstructions: Shortness of Breath, Adult; Nonspecific Chest PainFollow-Up:With: Address: When:TASH ESTEBAN [address] [place] [address], [address] [place], [place] [id number] Business (1) Within 3 to 5 daysDIAGNOSIS:Atypical chest pain; DyspneaPatient Understands: Yes - Patient/family/caregiver verbalizes understanding of instructions givenComment: Normal [facility] ED Note - Physicianon 2017 ED Note - Physician Patient: BYRON JONES : 32 years Sex: FEMALE : [birth year]Associated Diagnoses: Dyspnea; Atypical chest painAuthor: Dino Rivas InformationTime seen: Date & time 12/30/17 19:12:00.History source: Patient.Arrival mode: Private vehicle.History limitation: None.Additional information: Chief Complaint from Nursing Triage Note : Chief Djvtfccne50/18/18 19:12 EDT Chief Complaint Patient states she became SOB a few days ago and can't catch her breath/feel like she can fully expand. Was seen by her PCP today and had a CXR, but this afternoon states she developed chest pressure and L shoulder pain, radiating to her jaw 4/10 .History of Present Fzdcici80-wwzi-gef female presents to the emergency department complaining of shortness of breath. She states her symptoms started a few days ago. She states she feels like she can't get her breath. She was seen by her primary care physician today and had a chest x-ray completed which was read as normal by the radiologist. She states upon her function test is ordered as well. She states that today she began having some chest pressure that radiated into her posterior left shoulder and her jaw. She stated was a 4 and a 10 scale. She did not take any eqat-iwd-bnupltn or prescriptions medication for her symptoms. She denies any history of asthma. She is a nonsmoker. She denies any leg pain or swelling. She denied any recent travel, hospitalizations or surgeries.Review of SystemsConstitutional symptoms: No fever, no chills.ENMT symptoms: No ear pain, no sore throat.Respiratory symptoms: Shortness of breath, no cough, no stridor, no wheezing.Cardiovascular symptoms: Chest pain, no palpitations, no tachycardia, no syncope, no diaphoresis.Gastrointestin al symptoms: Negative except as documented in HPI.Musculoskeletal symptoms: Negative except as documented in HPI. Additional review of systems information: All other systems reviewed and otherwise negative.Health StatusAllergies:Allergic Reactions (Selected)No known allergies.Medications: (Selected)PrescriptionsPre scribedZithromax Z-Jr 250 mg oral tablet: 1 packet(s), PO, Once, as directed on package labeling, 6 tab(s), 0 Refill(s)cyclobenzaprine 5 mg oral tablet: 5 mg, 1 tab(s), PO, TID, Take 1 tab every 8 hours as needed for muscle pain, can take 2 tabs prior to bed. Do not drink alcohol when taking this medication. Do not drive or operate machinery when taking this medication., 10 tab(s), 0 Refill(s)Documented MedicationsDocumentedhydro CHLOROthiazide-losartan 12.5 mg-100 mg oral tablet: 1 tab(s), PO, Daily, 0 Refill(s).Past Medical/ Family/ Social HistoryMedical history:No active or resolved past medical history items have been selected or recorded..Surgical history:No active procedure history items have been selected or recorded..Family history:No family history items have been selected or recorded..Social history:Social & Psychosocial OaportKwqgilz47/09/2016 Smoking tobacco use: Never Smoker.Problem list:Active Problems (1)HTN (hypertension).Physical Examination Vital SignsVital Signs12/30/17 20:14 EDT Peripheral Pulse Rate 69 bpm Respiratory Rate 14 br/min Systolic Blood Pressure 117 mmHg Diastolic Blood Pressure 78 mmHg SpO2 97 % Oxygen Therapy Room air12/30/17 19:25 EDT Peripheral Pulse Rate 96 bpm Peripheral Pulse Rate 89 bpm Respiratory Rate 18 br/min Respiratory Rate 18 br/min SpO2 98 % SpO2 100 %12/30/17 19:12 EDT Temperature Oral 36.7 DegC Peripheral Pulse Rate 84 bpm Respiratory Rate 18 br/min Systolic Blood Pressure 118 mmHg Diastolic Blood Pressure 88 mmHg SpO2 99 % Oxygen Therapy Room air.General: Alert, no acute distress.Skin: Warm, dry, pink, intact.Head: Normocephalic, atraumatic.Neck: Supple, trachea midline, no tenderness, no JVD.Eye: Pupils are equal, round and reactive to light, normal conjunctiva.Ears, nose, mouth and throat: Oral mucosa moist.Cardiovascular: Regular rate and rhythm, No murmur, Normal peripheral perfusion, No edema.Respiratory: Lungs are clear to auscultation, respirations are non-labored, breath sounds are equal, Symmetrical chest wall expansion.Gastrointestinal : Soft, Nontender.Musculoskeletal: Normal ROM, normal strength.Neurological: Alert and oriented to person, place, time, and situation, normal motor observed, normal speech observed, normal coordination observed.Psychiatric: Cooperative, appropriate mood & affect.Medical Decision MakingDifferential Diagnosis: Bronchitis, asthma, anxiety not pulmonary embolism, not upper respiratory infection, not influenza, not sinusitis.Documents reviewed: Emergency department nurses' notes, prior records.Orders Launch OrdersPharmacy:DuoNeb 0.5 mg-2.5 mg/3 mL inhalation solution (Order): 3 mL, NEB, Once, Launch OrdersLaboratory:D-Dimer (Order): Blood, Stat collect, 12/30/17 19:18 EDT, Lab CollectTroponin I (Order): Blood, Stat collect, 12/30/17 19:17 EDT, Lab CollectCMP Standard (Order): Blood, Stat collect, 12/30/17 19:17 EDT, Lab CollectCBC w/ Auto Diff (Order): Blood, Stat collect, 12/30/17 19:17 EDT, Lab CollectPatient Care:Cardiac Monitoring (Order): 12/30/17 19:17 EDT, Constant OrderPharmacy:Toradol (Order): 60 mg, IM, OnceAtivan (Order): 0.5 mg, PO, Onceaspirin (Order): 324 mg, Chewed, OnceCardiovascular:EKG (Order): 12/30/17 19:17 EDT, Dyspnea[SOB], No.Results review: Lab results : Lab Sscaotnft00/18/18 19:37 EDT Sodium Level 135.0 mmol/L LOW Potassium Level 4.0 mmol/L Chloride Level 99 mmol/L LOW CO2 28 mmol/L Anion Gap 12.0 mmol/L Glucose Level 114.0 mg/dL BUN 17 mg/dL Creatinine Level 0.94 mg/dL BUN/Creat Ratio 18.0 HI eGFR AA >60 mL/min/1.73m2 NA eGFR Non AA >60 mL/min/1.73m2 NA Calcium Level 9.3 mg/dL Bili Total 0.2 mg/dL LOW Alk Phos 70 IU/L AST/SGOT 24 IU/L ALT/SGPT 19.0 IU/L Protein Total 7.4 gm/dL Albumin Level 4.3 gm/dL Globulin 3.1 gm/dL A/G Ratio 1.4 Osmolality 272 mOsm/L NA Troponin-I <0.03 ng/mL WBC 9.5 x103/mcL RBC 4.57 x106/mcL Hgb 13.7 gm/dL Hct 38.8 % MCV 85 fL MCH 30 pg MCHC 35 gm/dL RDW 13.5 % Platelet 336 x103/mcL MPV 10.1 fL Auto Neut % 58 % Auto Lymph % 33 % Auto [place] % 6 % Auto Eos % 2.0 % Auto Baso % 0.4 % Neut Abs# 5.5 x103/mcL Lymph Abs# 3.2 x103/mcL HI [place] Abs# 0.6 x103/mcL Eos Abs# 0.2 x103/mcL Baso Abs# 0.0 x103/mcL D-Dimer 0.28 mg/L FEU Tube Collected Yes.Chest X-Ray: Chest x-ray was completed earlier in the day as an outpatient. This was interpreted by the radiologist and showed no active disease..Impression and PlanDiagnosisDyspnea (VKM10-TC R06.0, Discharge, Medical)Atypical chest pain (KAD07-LY R07.89, Discharge, Medical)PlanCondition: Improved, Stable.Disposition: Discharged: Time 12/30/17 20:18:00, to home.Patient was given the following educational materials: Nonspecific Chest Pain, Shortness of Breath, Adult.Follow up with: TASH ESTEBAN Within 3 to 5 days.Counseled: Patient, Regarding diagnosis, Regarding diagnostic results, Regarding treatment plan, Regarding prescription, Patient indicated understanding of instructions.Notes: This young lady presented to the emergency department complaining of feeling short of breath for a few days and today developed anterior chest pain. EKG showed sinus rhythm. Chest x-ray was completed as an outpatient earlier today and shows no disease. Laboratory studies that showed a leukocytosis. Troponin is normal and d-dimer was negative as well. Patient was given a nebulizer treatment although her lung sounds are clear. She did state that she felt slightly better after treatment. Patient was reassured that all results tonight are normal. We did discuss possible need of asthma type medications, however I feel that it is low primary care to prescribe these after pulmonary function testing is completed. Patient is aware to follow up with primary care and return for any worsening or concerning symptoms..[Electronically Signed on: 12/30/2017 21:10 EDT] Soila Rivas[Electronically Signed on: 01/01/2018 00:12 EDT] HandMaurice sharma MD[Verified on: 12/30/2017 21:10 EDT] Soila Rivas [facility] ED Patient Education Noteon 12-30-2017 ED Patient Education Note Education MaterialsGastroenterologyN onspecific Chest PainChest pain can be caused by many different conditions. There is always a chance that your pain could be related to something serious, such as a heart attack or a blood clot in your lungs. Chest pain can also be caused by conditions that are not life-threatening. If you have chest pain, it is very important to follow up with your health care provider. What are the causes?Causes of this condition include:? Heartburn.? Pneumonia or bronchitis.? Anxiety or stress.? Inflammation around your heart (pericarditis) or lung (pleuritis orpleurisy).? A blood clot in your lung.? A collapsed lung (pneumothorax). This can develop suddenly on its own (spontaneous pneumothorax) or from trauma to the chest.? Shingles infection (varicella-zoster virus).? Heart attack.? Damage to the bones, muscles, and cartilage that make up your chest wall. This can include:? Bruised bones due to injury.? Strained muscles or cartilage due to frequent or repeated coughing or overwork.? Fracture to one or more ribs.? Sore cartilage due to inflammation (costochondritis).What increases the risk?Risk factors for this condition may include:? Activities that increase your risk for trauma or injury to your chest.? Respiratory infections or conditions that cause frequent coughing.? Medical conditions or overeating that can cause heartburn.? Heart disease or family history of heart disease.? Conditions or health behaviors that increase your risk of developing a blood clot.? Having had chicken pox (varicella zoster).What are the signs or symptoms?Chest pain can feel like:? Burning or tingling on the surface of your chest or deep in your chest.? Crushing, pressure, aching, or squeezing pain.? Dull or sharp pain that is worse when you move, cough, or take a deep breath.? Pain that is also felt in your back, neck, shoulder, or arm, or pain that spreads to any of these areas.Your chest pain may come and go, or it may stay constant.How is this diagnosed?Lab tests or other studies may be needed to find the cause of your pain. Your health care provider may have you take a test called an ECG (electrocardiogram). An ECG records your heartbeat patterns at the time the test is performed. You may also have other tests, such as:? Transthoracic echocardiogram (TTE). In this test, sound waves are used to create a picture of the heart structures and to look at how blood flows through your heart.? Transesophageal echocardiogram (YAYA).?This is a more advanced imaging test that takes images from inside your body. It allows your health care provider to see your heart in finer detail.? Cardiac monitoring. This allows your health care provider to monitor your heart rate and rhythm in real time.? Holter monitor. This is a portable device that records your heartbeat and can help to diagnose abnormal heartbeats. It allows your health care provider to track your heart activity for several days, if needed.? Stress tests. These can be done through exercise or by taking medicine that makes your heart beat more quickly.? Blood tests.? Other imaging tests.How is this treated?Treatment depends on what is causing your chest pain. Treatment may include:? Medicines. These may include:? Acid blockers for heartburn.? Anti-inflammatory medicine.? Pain medicine for inflammatory conditions.? Antibiotic medicine, if an infection is present.? Medicines to dissolve blood clots.? Medicines to treat coronary artery disease (CAD).? Supportive care for conditions that do not require medicines. This may include:? Resting.? Applying heat or cold packs to injured areas.? Limiting activities until pain decreases.Follow these instructions at home:Medicines? If you were prescribed an antibiotic, take it as told by your health care provider. Do not stop taking the antibiotic even if you start to feel better.? Take cpdb-tnw-njgmnwc and prescription medicines only as told by your health care provider.Lifestyle? Do notuse any products that contain nicotine or tobacco, such as cigarettes and e-cigarettes. If you need help quitting, ask your health care provider.? Do notdrink alcohol.? Make lifestyle changes as directed by your health care provider. These may include: ? Getting regular exercise. Ask your health care provider to suggest some activities that are safe for you.? Eating a heart-healthy diet. A registered dietitian can help you to learn healthy eating options.? Maintaining a healthy weight.? Managing diabetes, if necessary.? Reducing stress, such as with yoga or relaxation techniques.General instructions? Avoid any activities that bring on chest pain.? If heartburn is the cause for your chest pain, raise (elevate) the head of your bed about 6 inches (15 cm) by putting blocks under the legs. Sleeping with more pillows does not effectively relieve heartburn because it only changes the position of your head.? Keep all follow-up visits as told by your health care provider. This is important. This includes any further testing if your chest pain does not go away.Contact a health care provider if:? Your chest pain does not go away.? You have a rash with blisters on your chest.? You have a fever.? You have chills.Get help right away if:? Your chest pain is worse.? You have a cough that gets worse, or you cough up blood.? You have severe pain in your abdomen.? You have severe weakness.? You faint.? You have sudden, unexplained chest discomfort.? You have sudden, unexplained discomfort in your arms, back, neck, or jaw.? You have shortness of breath at any time.? You suddenly start to sweat, or your skin gets clammy.? You feel nauseous or you vomit.? You suddenly feel light-headed or dizzy.? Your heart begins to beat quickly, or it feels like it is skipping beats.These symptoms may represent a serious problem that is an emergency. Do not wait to see if the symptoms will go away. Get medical help right away. Call your local emergency services (911 in the [place] Do not drive yourself to the hospital.This information is not intended to replace advice given to you by your health care provider. Make sure you discuss any questions you have with your health care provider.Document Released: 06/10/2006 Document Revised: 05/25/2017 Document Reviewed: 05/25/2017[employer] Patient Education ? 2017 LP Amina.Pulmonary MedicineShortness of Breath, AdultShortness of breath is when a person has trouble breathing enough air, or when a person feels like she or he is having trouble breathing in enough air. Shortness of breath could be a sign of medical problem. Follow these instructions at home:Pay attention to any changes in your symptoms. Take these actions to help with your condition:? Do notsmoke. Smoking is a common cause of shortness of breath. If you smoke and you need help quitting, ask your health care provider.? Avoid things that can irritate your airways, such as:? Mold.? Dust.? Air pollution.? Chemical fumes.? Things that can cause allergy symptoms (allergens), if you have allergies.? Keep your living space clean and free of mold and dust.? Rest as needed. Slowly return to your usual activities.? Take fxfx-teo-eyxznhh and prescription medicines, including oxygen and inhaled medicines, only as told by your health care provider.? Keep all follow-up visits as told by your health care provider. This is important.Contact a health care provider if:? Your condition does not improve as soon as expected.? You have a hard time doing your normal activities, even after you rest.? You have new symptoms.Get help right away if:? Your shortness of breath gets worse.? You have shortness of breath when you are resting.? You feel light-headed or you faint.? You have a cough that is not controlled with medicines.? You cough up blood.? You have pain with breathing.? You have pain in your chest, arms, shoulders, or abdomen.? You have a fever.? You cannot walk up stairs or exercise the way that you normally do.This information is not intended to replace advice given to you by your health care provider. Make sure you discuss any questions you have with your health care provider.Document Released: 05/26/2002 Document Revised: 03/21/2017 Document Reviewed: 02/05/2017[employer] Patient Education ? 2017 LP Amina. Normal [facility] ED Patient Summaryon 018 ED Patient Summary [facility] - Emergency [address] [place] [id number] pATIENT DISCHARGE INSTRUCTIONSPatient InformationName: DYAN JONES Age: 32 YearsDate of : [birth year]MRN: [id number] For Visit: Chest pain; Shortness of breath; SOB, MID BACK PAINArrival Time: 12/30/17 19:08:00Phone: [facility] Physician: Kiersten ESTEBAN Physician: Edison Mcallister MDComment:Visit Diagnosis:Diagnoses This Visit Atypical chest pain (R07.89) Chest pain ([id number]) Dyspnea (R06.0) Shortness of breath ([id number])If you received any narcotics, sedation, or any other medication that causes drowsiness for the next 24 hours, unless otherwise directed:? Do not drive a car.? Do not operate machinery such as power tools, lawn mowers, drills, sewing machines, or stoves? Avoid alcoholic beverages and drugs for allergies, nerves, or sleep? Do not make important personal or business decisions or sign any legal documentsWith: Address: When:TASH EULALIA [address] [place] [address], [address] [place], [place] [id number] Business (1) Within 3 to 5 daysMedication Information:The exam and treatment you received today in the [facility] Emergency Department were for an urgent problem and are not intended as complete care. It is important for you to follow up with a doctor, nurse practitioner, or physician?s sales assistant for ongoing care. If your symptoms become worse or you do not improve as expected and you are unable to reach your usual health care provider, you should return to the Emergency Department, we are available 24 hours a day.For those patients who have received Radiology results, the interpretation of your X-ray as given to you by our Emergency Department physician is only a preliminary report. The Radiologist will review your films and if there is a change in the diagnosis you will be notified by phone. Please make sure you have provided a working phone number so we can reach you if necessary.In the event that you had a lab culture while you were a patient in the Emergency Department, you will be notified by phone if there is a need to change your antibiotic. Please make sure you have provided a working phone number so we can reach you if necessary.[facility] Emergency Department has provided you with a complete list of medications post discharge. Please inform your patent drafter/provider of your visit and for further instruction on these medications. Any specific questions regarding your chronic medications and dosages should be discussed with your primary care physician(s) and/or pharmacist. Medications to Continue That Have Not ChangedOther Medicationshydrochlorothia zide-losartan (hydrochlorothiazide-losar joy 12.5 mg-50 mg oral tablet) 1 tab(s) Oral every day.Visit InformationAllergies:Subst ance Reaction Symptoms Type CommentsNo Known Medication Allergies DrugVital Signs: Vitals and Measurements this Visit (last charted value for your 12/30/2017 visit) Vital Signs This Visit Temperature Oral: 36.7 DegC Peripheral Pulse Rate: 69 bpm Respiratory Rate: 14 br/min Systolic Blood Pressure: 117 mmHg Diastolic Blood Pressure: 78 mmHg SpO2: 97 % Oxygen Therapy: Room air Measurements This Visit Height/Length Dosin.000 cm Height/Length Estimated: 165.000 cm Weight Dosin.000 kg Weight Estimated: 98.000 kgProblems List:Problem Onset CommentsHTN (hypertension)Patient EducationShortness of Breath, AdultShortness of breath is when a person has trouble breathing enough air, or when a person feels like she or he is having trouble breathing in enough air. Shortness of breath could be a sign of medical problem. Follow these instructions at home:Pay attention to any changes in your symptoms. Take these actions to help with your condition:? Do notsmoke. Smoking is a common cause of shortness of breath. If you smoke and you need help quitting, ask your health care provider.? Avoid things that can irritate your airways, such as:? Mold.? Dust.? Air pollution.? Chemical fumes.? Things that can cause allergy symptoms (allergens), if you have allergies.? Keep your living space clean and free of mold and dust.? Rest as needed. Slowly return to your usual activities.? Take wzwj-qks-mueuxea and prescription medicines, including oxygen and inhaled medicines, only as told by your health care provider.? Keep all follow-up visits as told by your health care provider. This is important.Contact a health care provider if:? Your condition does not improve as soon as expected.? You have a hard time doing your normal activities, even after you rest.? You have new symptoms.Get help right away if:? Your shortness of breath gets worse.? You have shortness of breath when you are resting.? You feel light-headed or you faint.? You have a cough that is not controlled with medicines.? You cough up blood.? You have pain with breathing.? You have pain in your chest, arms, shoulders, or abdomen.? You have a fever.? You cannot walk up stairs or exercise the way that you normally do.This information is not intended to replace advice given to you by your health care provider. Make sure you discuss any questions you have with your health care provider.Document Released: 05/26/2002 Document Revised: 03/21/2017 Document Reviewed: 02/05/2017[employer] Patient Education ? 2017 [employer]Nonspecific Chest PainChest pain can be caused by many different conditions. There is always a chance that your pain could be related to something serious, such as a heart attack or a blood clot in your lungs. Chest pain can also be caused by conditions that are not life-threatening. If you have chest pain, it is very important to follow up with your health care provider. What are the causes?Causes of this condition include:? Heartburn.? Pneumonia or bronchitis.? Anxiety or stress.? Inflammation around your heart (pericarditis) or lung (pleuritis orpleurisy).? A blood clot in your lung.? A collapsed lung (pneumothorax). This can develop suddenly on its own (spontaneous pneumothorax) or from trauma to the chest.? Shingles infection (varicella-zoster virus).? Heart attack.? Damage to the bones, muscles, and cartilage that make up your chest wall. This can include:? Bruised bones due to injury.? Strained muscles or cartilage due to frequent or repeated coughing or overwork.? Fracture to one or more ribs.? Sore cartilage due to inflammation (costochondritis).What increases the risk?Risk factors for this condition may include:? Activities that increase your risk for trauma or injury to your chest.? Respiratory infections or conditions that cause frequent coughing.? Medical conditions or overeating that can cause heartburn.? Heart disease or family history of heart disease.? Conditions or health behaviors that increase your risk of developing a blood clot.? Having had chicken pox (varicella zoster).What are the signs or symptoms?Chest pain can feel like:? Burning or tingling on the surface of your chest or deep in your chest.? Crushing, pressure, aching, or squeezing pain.? Dull or sharp pain that is worse when you move, cough, or take a deep breath.? Pain that is also felt in your back, neck, shoulder, or arm, or pain that spreads to any of these areas.Your chest pain may come and go, or it may stay constant.How is this diagnosed?Lab tests or other studies may be needed to find the cause of your pain. Your health care provider may have you take a test called an ECG (electrocardiogram). An ECG records your heartbeat patterns at the time the test is performed. You may also have other tests, such as:? Transthoracic echocardiogram (TTE). In this test, sound waves are used to create a picture of the heart structures and to look at how blood flows through your heart.? Transesophageal echocardiogram (YAYA).?This is a more advanced imaging test that takes images from inside your body. It allows your health care provider to see your heart in finer detail.? Cardiac monitoring. This allows your health care provider to monitor your heart rate and rhythm in real time.? Holter monitor. This is a portable device that records your heartbeat and can help to diagnose abnormal heartbeats. It allows your health care provider to track your heart activity for several days, if needed.? Stress tests. These can be done through exercise or by taking medicine that makes your heart beat more quickly.? Blood tests.? Other imaging tests.How is this treated?Treatment depends on what is causing your chest pain. Treatment may include:? Medicines. These may include:? Acid blockers for heartburn.? Anti-inflammatory medicine.? Pain medicine for inflammatory conditions.? Antibiotic medicine, if an infection is present.? Medicines to dissolve blood clots.? Medicines to treat coronary artery disease (CAD).? Supportive care for conditions that do not require medicines. This may include:? Resting.? Applying heat or cold packs to injured areas.? Limiting activities until pain decreases.Follow these instructions at home:Medicines? If you were prescribed an antibiotic, take it as told by your health care provider. Do not stop taking the antibiotic even if you start to feel better.? Take nwht-qnt-bzchdfy and prescription medicines only as told by your health care provider.Lifestyle? Do notuse any products that contain nicotine or tobacco, such as cigarettes and e-cigarettes. If you need help quitting, ask your health care provider.? Do notdrink alcohol.? Make lifestyle changes as directed by your health care provider. These may include: ? Getting regular exercise. Ask your health care provider to suggest some activities that are safe for you.? Eating a heart-healthy diet. A registered dietitian can help you to learn healthy eating options.? Maintaining a healthy weight.? Managing diabetes, if necessary.? Reducing stress, such as with yoga or relaxation techniques.General instructions? Avoid any activities that bring on chest pain.? If heartburn is the cause for your chest pain, raise (elevate) the head of your bed about 6 inches (15 cm) by putting blocks under the legs. Sleeping with more pillows does not effectively relieve heartburn because it only changes the position of your head.? Keep all follow-up visits as told by your health care provider. This is important. This includes any further testing if your chest pain does not go away.Contact a health care provider if:? Your chest pain does not go away.? You have a rash with blisters on your chest.? You have a fever.? You have chills.Get help right away if:? Your chest pain is worse.? You have a cough that gets worse, or you cough up blood.? You have severe pain in your abdomen.? You have severe weakness.? You faint.? You have sudden, unexplained chest discomfort.? You have sudden, unexplained discomfort in your arms, back, neck, or jaw.? You have shortness of breath at any time.? You suddenly start to sweat, or your skin gets clammy.? You feel nauseous or you vomit.? You suddenly feel light-headed or dizzy.? Your heart begins to beat quickly, or it feels like it is skipping beats.These symptoms may represent a serious problem that is an emergency. Do not wait to see if the symptoms will go away. Get medical help right away. Call your local emergency services (911 in the [place] Do not drive yourself to the hospital.This information is not intended to replace advice given to you by your health care provider. Make sure you discuss any questions you have with your health care provider.Document Released: 06/10/2006 Document Revised: 05/25/2017 Document Reviewed: 05/25/2017[employer] Patient Education ? 2017 [employer]. Viruses or BacteriaWhat?s got you sick?Antibiotics only treat bacterial infections. Viral illnesses cannot be treated with antibiotics. When an antibiotic is not prescribed, ask your healthcare professional for tips on how to relieve symptoms and feel better. Usual CauseIllnessVirusesBacteri a Antibiotic NeededCold/Runny Nose NOBronchitis/Chest Cold (in otherwise healthy children and adults) NOWhooping Cough YesFlu NOStrep Throat YesSore Throat (except strep) NOFluid in the middle ear (otitis media with effusion) NOUrinary Tract Infection YesAntibiotics Aren?t Always the Answerwww.cdc.gov/getsmart GET SMART Know When Antibiotics [place] Department of Health and Human ServicesCenters for Disease Control and Prevention May 2014 Normal [facility] Extra Redon 12-30-2017 Tube Collected Yes Invalid Interpretation Code [facility] Comment on above: Performed By: #### 1 [id number] ####[facility] (DEFAULT)[address] [place] [address] Troponin Ion 12-30-2017 Troponin I.cardiac mass conc ng/mL Normal <=0.03 [facility] Comment on above: Performed By: #### 1 [id number] ####[facility] (DEFAULT)[address] [place] [address] XR Chest 2 Viewson 8 XR Chest 2 Views ADDENDUMAdditional l ateral view of the chest was obtained which fails to demonstratethe small linear opacity overlying the thoracic spine noted originally,confirming that the original finding is related to overlying artifact and notan opaque foreign body.JEY Rae #: [id number]: 12/31/2017T: 12/31/2017 Final Dictated by: Eliseo Lyn MD DT/TM: 12/31/17 6:29Signed (Electronic Signature): Eliseo Lyn MD 12/31/17 10:27 aTechnologist: ANALI TWO VIEWSCLINICAL DATA: Shortness of breath for over one weekPA and lateral views of the chest were obtained and compared to the priorexam dated 07/23/2013. Heart and mediastinal contours are unremarkable inappearance. No acute infiltrate or consolidations are seen. There is slightconvexity of the dorsal spine to the right. There are minimal degenerativechanges in the dorsal spine. On the lateral view, there is small linearopacity overlying the thoracic spine felt to be related to overlyingartifact, not identified on the PA view.IMPRESSION: NO ACUTE PROCESS SEEN IN THE CHEST.JEY Rae #: [id number]: 12/30/2017T: 12/30/2017 Final Dictated by: Eliseo Lyn MD DT/TM: 12/30/17 1:02Signed (Electronic Signature): Eliseo Lyn MD 12/31/17 5:39 amTechnologist: ASHELY Samaniego [facility] Coding Summaryon 07-15-2017 Coding Summary CODING DATE: 017 [facility] STATUS: Home 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 APC DESCRIPTION 5692 Level 2 Drug Administration ADMIT DX: REASON FOR VISIT DX: M25.561 Pain in right knee M25.551 Pain in right hip FINAL DX: PRINCIPAL: M54.31 Sciatica, right side SECONDARY: I10 Essential (primary) hypertension PYMT PROC APC STAT DESCRIPTION DOCTOR NAME DATE NOTE: The code number assigned matches the documented diagnosis and / or procedure in the patient's chart. However, the narrative phrase printed from the coding software may appear abbreviated, or result in slightly different terminology. Revised Coded By: Mihir Cai' Revised Date Saved: 04/06/2017 04:11 pm [facility] Vital Signs Date Time Vital Sign Value Performing Clinician Facility 01-19-2025 10:05-0400 Body mass index (BMI) [Ratio] 40.83 kg/m2 Matt Blanquita DO Work Phone: [facility] 01-19-2025 10:05-0400 Body weight 112.15 kg Matt Blanquita DO Work Phone: [facility] 01-19-2025 10:05-0400 Diastolic blood pressure 86 mm[Hg] Matt Blanquita DO Work Phone: [facility] 01-19-2025 10:05-0400 Systolic blood pressure 128 mm[Hg] Matt Blanquita DO Work Phone: [facility] 01-03-2025 08:47-0400 Body mass index (BMI) [Ratio] 41.28 kg/m2 Matt Blanquita DO Work Phone: [facility] 01-03-2025 08:47-0400 Body weight 113.4 kg Matt Blanquita DO Work Phone: [facility] 01-03-2025 08:47-0400 Diastolic blood pressure 90 mm[Hg] Matt Blanquita DO Work Phone: [facility] 01-03-2025 08:47-0400 Systolic blood pressure 128 mm[Hg] Matt Blanquita DO Work Phone: [facility] 12-07-2024 08:52-0400 Body mass index (BMI) [Ratio] 39.94 kg/m2 Lon Bustos MD Work Phone: [facility] 12-07-2024 08:52-0400 Body weight 108.86 kg Lon Bustos MD Work Phone: [facility] 12-07-2024 08:52-0400 Diastolic blood pressure 106 mm[Hg] Lon Bustos MD Work Phone: [facility] 12-07-2024 08:52-0400 Heart rate 83 /min Lon Bustos MD Work Phone: [facility] 12-07-2024 08:52-0400 Systolic blood pressure 141 mm[Hg] Lon Bustos MD Work Phone: [facility] 09-20-2024 08:42-0500 Body mass index (BMI) [Ratio] 39.14 kg/m2 Tiffanie Waters CNM Work Phone: [facility] 09-20-2024 08:42-0500 Body weight 107.5 kg Tiffanie Waters CNM Work Phone: [facility] 09-20-2024 08:42-0500 Diastolic blood pressure 80 mm[Hg] Tiffanie Waters CNM Work Phone: [facility] 09-20-2024 08:42-0500 Systolic blood pressure 122 mm[Hg] Tiffanie Waters CNM Work Phone: [facility] 02-07-2022 15:40-0400 Body temperature 97.7 [degF] Edilma Chan DO [facility] 02-07-2022 15:40-0400 Diastolic blood pressure 90 mm[Hg] Edilma Chan DO [facility] 02-07-2022 15:40-0400 Heart rate 86 /min Edilma Chan DO Work Phone[facility] [place] Ayi Laile 02-07-2022 15:40-0400 Respiratory rate 16 /min Edilma Chan DO Work Phone: [facility] Ayi Laile 02-07-2022 15:40-0400 SaO2% (BldA) [Mass fraction] 93 % Edilma Chan [employer] Work Phone: [employer] 02-07-2022 15:40-0400 Systolic blood pressure 137 mm[Hg] Edilma Chan [employer] Work Phone: [facility] 02-04-2022 20:33-0400 Body height 165.1 cm Edilma Chan [employer] Work Phone: [employer] 02-04-2022 20:33-0400 Body mass index (BMI) [Ratio] 39.11 kg/m2 Edilma Chan [employer] Work Phone: [facility] 02-04-2022 20:33-0400 Body weight 106.59 kg Edilma Chan [employer] Phone: [employer] Encounters Encounter Date Encounter Type Care Provider Facility Start: 01-19-2025 End: 01-24-2025 External Result Encounter Matt Blanquita DO Work Phone: [facility] External Department Unsolicited Start: 01-19-2025 End: 01-24-2025 External Result Encounter Matt Blanquita DO Work Phone: [facility] External Department Unsolicited Start: 01-19-2025 End: 01-19-2025 Patient encounter procedure Matt Blanquita DO Work Phone: [facility] Comment on above: Pre-op examination; Menorrhagia with regular cycle; Abnormal uterine bleeding; Pelvic pain in female; Skin tag of labia Start: 01-19-2025 End: 01-19-2025 Preprocedural examination done Matt Blanquita DO Work Phone: [facility] Start: 01-19-2025 End: 01-19-2025 ambulatory MATT BLANQUITA Not Available Start: 01-16-2025 End: 01-16-2025 ambulatory MATT BLANQUITA Not Available Start: 01-03-2025 End: 01-03-2025 Bamboo flowsheet Matt Blanquita DO Work Phone: [facility] Start: 01-03-2025 End: 01-03-2025 Bamboo flowsheet Matt Blanquita DO Work Phone: [facility] Start: 01-03-2025 End: 01-03-2025 Clinisync Result Encounter Matt Blanquita DO Work Phone: [facility] External Department Unsolicited Start: 01-03-2025 End: 01-03-2025 Office outpatient visit 15 minutes Matt Blanquita DO Work Phone: [facility] Comment on above: Irregular bleeding; DUB (dysfunctional uterine bleeding); Elevated TSH; Hypertension, unspecified type ([facility]/HCC) Start: 01-03-2025 End: 01-03-2025 ambulatory MATT BLANQUITA Not Available Start: 12-07-2024 End: 12-07-2024 Office outpatient new 45 minutes Lon Bustos MD Work Phone: [facility] - Lon Bustos MD Comment on above: TIA (transient ische kellen attack) (Primary Dx); Hypertensive crisis Start: 12-07-2024 End: 12-07-2024 ambulatory LON BUSTOS [facility] Start: 11-29-2024 End: 11-29-2024 Telephone encounter Amee Kan [facility], A Department of [facility] Comment on above: New Patient Start: 11-28-2024 End: 11-28-2024 Refolegario Addison MD Work Phone: [facility] Start: 11-01-2024 End: 11-02-2024 [facility] Start: 09-20-2024 End: 09-20-2024 Bamboo flowsheet Tiffanie CARRILLO Work Phone: [facility] Start: 09-20-2024 End: 09-20-2024 Bamboo flowsheet Tiffanie CARRILLO Work Phone: [facility] Start: 09-20-2024 End: 09-20-2024 Office outpatient visit 15 minutes Tiffanie Waters CNM Work Phone: [facility] Comment on above: Irregular bleeding ( Primary Dx) Start: 09-20-2024 End: 09-20-2024 ambulatory TIFFANIE Howell FLORO Not Available Start: 05-24-2024 End: 05-24-2024 ambulatory ISAIAH Ortega [facility] Start: 05-20-2024 End: 05-20-2024 ambulatory TIFFANIE KAURO Not Available Start: 05-05-2024 End: 05-05-2024 ambulatory TIFFANIE Dante FLORO Not Available Start: 04-21-2024 End: 04-21-2024 ambulatory TIFFANIE Dante FLORO Not Available Start: 04-01-2024 End: 04-01-2024 ambulatory ISAIAH DAVIS Not Available Start: 03-02-2024 End: 03-02-2024 ambulatory ISAIAH Ortega [facility] Start: 12-26-2023 End: 12-29-2023 ambulatory ISAIAH Ortega [facility] Start: 11-26-2023 End: 11-27-2023 ambulatory ISAIAH [facility] Start: 11-26-2023 Encounter for genera l adult medical examination without abnormal findings [facility] Start: 09-01-2023 End: 09-01-2023 Emergency department patient visit CRISTINA FUNEZ [facility] Start: 02-04-2022 End: 02-07-2022 Emergency department patient visit Edilma Chan DO Work Phone: [facility] Comment on above: Pain of upper abdome n (Primary Dx); Chronic GERD; Cholecystitis Start: 06-12-2018 End: 06-12-2018 Patient encounter TASH M [facility] Facility:[facility] Start: 01-05-2018 End: 01-06-2018 Patient encounter [facility] Facility:[facility] Start: 12-31-2017 End: 01-04-2018 Patient encounter TASH Hernandez [facility] Facility:[facility] Start: 12-30-2017 End: 01-04-2018 [facility] Procedures Date Procedure Procedure Detail Performing Clinician Start: 01-19-2025 PATHOLOGY REQUEST FO R LAB BETSEY Matt Bainso DO Work Phone: Start: 01-03-2025 ALL THYROID STIM HORMONE Matt Blanquita DO Work Phone: Start: 01-03-2025 ALL THYROXINE (T4) FREE Conversion Sound DO Work Phone: Start: 04-21-2024 Microscopic observat ion [Identifier] in Cervix by Cyto stain RallyCauseo DO Work Phone: Start: 02-07-2022 End: 02-07-2022 Laparoscopy surg cholecystectomy Alejandro Vora MD Work Phone: Start: 02-07-2022 BASIC METABOLIC PANE L W/ REFLEX TO MG FOR LOW K Alejandro Vora MD Work Phone: Start: 02-07-2022 Blood count complete auto&auto difrntl wbc Alejandro Vora MD Work Phone: Start: 02-07-2022 Hepatic function panel Alejandro Vora MD Work Phone: Start: 02-06-2022 SURGICAL PATHOLOGY REPORT Alejandro Vora MD Work Phone: Start: 02-06-2022 End: 02-06-2022 Egd transoral biopsy single/multiple Alejandro Vora MD Work Phone: Start: 02-06-2022 BASIC METABOLIC PANE L W/ REFLEX TO MG FOR LOW K Alejandro Vora MD Work Phone: Start: 02-06-2022 Blood count complete auto&auto difrntl wbc Alejandro Vora MD Work Phone: Start: 02-06-2022 Hepatic function panel Alejandro Vora MD Work Phone: Start: 02-05-2022 Hepatobiliary syst i maging including gallbladder Vera Arteaga MD Work Phone: Start: 02-05-2022 Us abdominal real ti me w/image limited Vera Arteaga MD Work Phone: Start: 02-05-2022 Assay of magnesium Santos n Matrisciano PA Start: 02-05-2022 BASIC METABOLIC PANE L W/ REFLEX TO MG FOR LOW K Latonia Matrisciano PA Start: 02-05-2022 Hepatic function panel Latonia Kelvinisciano PA Start: 02-04-2022 Ct abdomen & pelvis w/contrast material Edilma Salcidorodolfo DO Work Phone: Start: 02-04-2022 Urinalysis microscopic only Edilma Salcidolesallyson DO Work Phone: Start: 02-04-2022 Urnls dip stick/tabl et rgnt auto w/o microscopy Edilma Salcidorodolfo DO Work Phone: Start: 02-04-2022 Comprehensive metabo lic panel Edilma Salcidolesallyson DO Work Phone: Start: 11-23-2018 Microscopic observat ion [Identifier] in Cervix by Cyto stain Félix Addison MD Work Phone: Plan of Treatment Date Care Activity Detail Author Start: 04-21-2027 Screening for malign ant neoplasm of cervix [facility] Start: 02-20-2026 DTaP,Tdap and Td Vaccines (7 - Td or Tdap) DTaP,Tdap and Td Vaccines (7 - Td or Tdap) [facility] Start: 02-20-2026 DTaP/Tdap/Td vaccine (7 - Td or Tdap) DTaP/Tdap/Td vaccine (7 - Td or Tdap) [facility] Start: 12-07-2025 Adult BMI Screening Adult BMI Screen ing [facility] Start: 12-07-2025 Tobacco Screening Tobacco Screening [facility] Start: 11-02-2025 Tobacco Screening Tobacco Screening [facility] Start: 11-01-2025 Adult BMI Screening Adult BMI Screen ing [facility] Start: 06-20-2025 Screening for malign ant neoplasm of cervix [facility] Start: 05-15-2025 Influenza vaccination Influenz a Vaccine (Season Ended) [facility] Start: 04-26-2025 End: 04-26-2025 Patient encounter procedure 04/26/2025 9:00 AM EDT Office Visit [facility] [address] [facility] [place] [id number] Evelin Tiffanie L, CNM [address] [facility], [place] [id number] [facility] Start: 03-07-2025 End: 03-07-2025 Patient encounter procedure 03/07/2025 8:45 AM EDT Office Visit [facility] - Lon Bustos MD [address] [place] [address] [address] [place] [address] Lon Bustos MD [address] [place] [address] [address] [place] [address] [facility] - Lon Bustos MD Start: 03-01-2025 End: 03-01-2025 Patient encounter procedure 03/01/2025 9:00 AM EDT Procedure visit [facility] - Vargas Valdivia MD [address] [place] [address] [address] [place] [address] [facility] Renetta Valdivia MD Start: 02-23-2025 End: 02-23-2025 Patient encounter procedure 02/23/2025 8:30 AM EDT Office Visit [facility] [address] [place] [address] Parvin Moreland PA [address] [place], [place] [address] [facility] Start: 01-19-2025 End: 01-19-2025 Patient encounter procedure 01/19/2025 9:30 AM EDT Procedure Visit [facility] [address] [place] [address] Matt Juares, DO [address] [place] [address] [facility] Start: 01-03-2025 End: 01-03-2026 21 HYDROXYLASE ANTIBODY 21 HYDROXYLASE ANTIBODY Lab Routine Irregular bleeding DUB (dysfunctional uterine bleeding) Hypertension, unspecified type (CMS/HCC) Expected: 01/03/2025 (Approximate), Expires: 01/03/2026 [facility] Work Phone: Comment on above: Expected: 01/03/2025 (Approximate), Expires: 01/03/2026 Start: 01-03-2025 End: 07-05-2025 US Pelvis US Pelvis w/ TV Imaging Routine Irregular bleeding DUB (dysfunctional uterine bleeding) Expected: 01/03/2025, Expires: 07/05/2025 [facility] Comment on above: Expected: 01/03/2025 , Expires: 07/05/2025 Start: 01-03-2025 End: 01-03-2025 Patient encounter procedure 01/03/2025 8:50 AM EDT Office Visit [facility] [address] [place] [phone] Matt Juares, DO [address] [place] [address] Irregular bleeding; DUB (dysfunctional uterine bleeding) [facility] Comment on above: Irregular bleeding; DUB (dysfunctional uterine bleeding) Start: 12-07-2024 End: 12-07-2024 Patient encounter procedure 12/07/2024 9:00 AM EDT Office Visit [facility] - Lon Bustos MD [address] [place] [phone] Lon Bustos MD [address] [place] [phone] [facility] - Lon Bustos MD Start: 09-20-2024 End: 09-20-2024 Patient encounter procedure 09/20/2024 8:30 AM EST Office Visit [facility] [address] [place] [address] Tiffanie Waters, LISETTE [address] [place] [address] Arrived [facility] Comment on above: Arrived Start: 05-15-2024 COVID-19 Vaccine ( season) COVID-19 Vaccine ( season) [facility] [employer] [facility] Start: 05-15-2024 Influenza vaccination [facility] Start: 05-15-2022 Influenza vaccination Flu vacc ine (Season Ended) [facility] Start: 11-23-2021 Screening for malign ant neoplasm of cervix Pap Smear [facility] Start: 2021 Diabetes screen Diabetes screen [facility] Start: 08-01-2021 COVID-19 Vaccine (3 - Booster for Moderna series) COVID-19 Vaccine (3 - Booster for Moderna series) [facility] Start: 2016 Screening for malign ant neoplasm of cervix [facility] Start: 11-17-2007 Screening for malign ant neoplasm of cervix Pap smear [facility] Start: 2004 Adult BMI Follow Up Plan Adult BMI Follow Up Plan [facility] [employer] Start: 2004 Hepatitis C screening Hepatitis C sc reen [facility] Start: 2001 HIV screening HIV screen [facility] [employer] Start: 1998 Depression Screen Depression Screen [facility] [facility] Start: 1998 Depression Screening Depression Scre ening [facility] [employer] Start: 11-17-1987 Varicella vaccine (1 of 2 - 2-dose childhood series) Varicella vaccine (1 of 2 - 2-dose childhood series) [facility] [email or web address] Basic Metabolic Pane l w/ Reflex to MG Basic Metabolic Panel w/ Reflex to MG Lab Routine Daily until discontinued starting 02/05/2022, 2 completed [facility] Work Phone: Comment on above: Daily until disconti nued starting 02/05/2022, 2 completed CBC W Auto Different ial panel - Blood CBC with Auto Differential Lab Routine Daily until discontinued starting 02/05/2022, 2 completed [employer] Phone: Comment on above: Daily until disconti nued starting 02/05/2022, 2 completed End: 12-07-2025 EEG EEG Neurology Routine Hypertensive crisis 1 Occurrences starting 12/07/2024 until 12/07/2025 [facility] Work Phone: Comment on above: 1 Occurrences starti ng 12/07/2024 until 12/07/2025 Hepatic function 200 0 panel - Serum or Plasma Hepatic Function Panel Lab Routine Daily until discontinued starting 02/05/2022, 2 completed [employer] Phone: Comment on above: Daily until disconti nued starting 02/05/2022, 2 completed Oxygen therapy [[facility] Data Set] Initiate Oxygen Therapy Protocol Respiratory Care Routine As Needed until discontinued starting 02/05/2022 [employer] Phone: Comment on above: As Needed until disc ontinued starting 02/05/2022 Surgical Pathology Surgical Path ology Lab Routine Chronic GERD Release Upon Ordering for 1 Occurrences starting 02/06/2022 [employer] Phone: Comment on above: Release Upon Orderin g for 1 Occurrences starting 02/06/2022 Surgical Pathology Surgical Path ology Lab Routine Cholecystitis Release Upon Ordering for 1 Occurrences starting 02/07/2022 [employer] Phone: Comment on above: Release Upon Orderin g for 1 Occurrences starting 02/07/2022 End: 02-07-2022 SURGICAL PATHOLOGY REPORT SURGICAL PATHOLOGY REPORT Lab Routine Once for 1 Occurrences starting 02/07/2022 until 02/07/2022 [employer] Phone: Comment on above: Once for 1 Occurrenc es starting 02/07/2022 until 02/07/2022 Thyrotropin [Units/volume] in Serum or Plasma TSH Lab Routine Irregular bleeding DUB (dysfunctional uterine bleeding) Elevated TSH Ordered: 01/03/2025 [facility] Comment on above: Ordered: 01/03/2025 Thyroxine (T4) free [Mass/volume] in Serum or Plasma T4, free Lab Routine Irregular bleeding DUB (dysfunctional uterine bleeding) Elevated TSH Ordered: 01/03/2025 [facility] Comment on above: Ordered: 01/03/2025 Immunizations Immunization Date Immunization Notes Care Provider Urvashi rosebal 11-23-2018 influenza virus vaccine, unspecified formulation Félix Addison MD [facility]2016 tetanus toxoid, redu amer[place] diphtheria toxoid, and acellular pertussis vaccine, adsorbed Tiffanie Floro CNM Work Phone: [facility] Payers Date Payer Category Payer Blue [place] [employer] [facility] Managed Care - Other ANTHEM [id number] 2023 Unknown [id number] 2023 Unknown [id number] [id number] 2021 Unknown [id number]. [id number] 2021 Unknown [id number] 2017 Unknown [id number] 1986 Unknown [id number] 2.16.840.1.137823.3.579.2. 1286 1986 Unknown [id number] 2.16.840.1.669990.3.579.2. 176 1986 Unknown [id number] 2.16.840.1.717689.3.579.2. 176 1986 Unknown [id number] 2.16.840.1.036152.3.579.2. 1286 1986 Unknown [id number] 2.16.840.1.998794.3.579.2. 1286 1986 Unknown [id number] 2.16.840.1.244808.3.579.2. 1286 1986 Unknown [id number] 2.16.840.1.169389.3.579.2. 1286 1986 Unknown [id number] 2.16.840.1.562894.3.579.2. 1259 1986 Unknown [id number] 2.16.840.1.048345.3.579.2. 1259 1986 Unknown [id number] 2.16.840.1.297096.3.579.2. 1259 1986 Unknown [id number] 2.16.840.1.293093.3.579.2. 1259 1986 Unknown [id number] 2.16.840.1.613729.3.579.2. 1259 1986 Unknown [id number] 2.16.840.1.242069.3.579.2. 1259 1986 Unknown [id number] 2.16.840.1.499364.3.579.2. 1259 1986 Unknown [id number] 2.16.840.1.449806.3.579.2. 1259 Social History Date Type Detail Facility Start: 01-28-2013 End: 04-21-2024 Tobacco smoking status NHIS Never smoked tobacco [employer] Phone: Start: 01-28-2013 End: 04-21-2024 Tobacco use and exposure Smokeless tobacco non-user [employer] Phone: Start: 02-07-2022 Alcohol intake Current non-drinker of alcohol (finding) [employer] Phone: Start: 02-07-2022 End: 09-20-2024 Alcohol intake [facility] Start: 02-05-2022 History SDOH Alcohol Frequency 1 [employer] Phone: Start: 1985 Sex Assigned At Not on file [employer] Phone: Start: 01-26-2022 End: 02-05-2022 Exposure to SARS-CoV-2 (event) Not sure [employer] Phone: Start: 04-21-2024 End: 01-03-2025 Alcoholic beverage intake Current drinker of alcohol (finding) [facility] Start: 04-21-2024 End: 09-20-2024 Tobacco use panel [facility] Start: 1985 Sex assigned at Female [facility] Start: 11-26-2022 Gender identity Identifies as female gender (finding) [facility] Start: 04-20-2024 Sexual orientation Choose not to disclose [facility] Has the electric, ga s, oil, or water company threatened to shut off services in your home in past 12Mo No [facility] In the past 12 month s, has lack of transportation kept you from medical appointments or from getting medications? No [facility] Start: 11-23-2018 Alcohol [facility] Start: 04-19-2015 Sex Female (finding) [facility] [employer] [facility] Goals Date Patient Goal Desired Activity /State Personal health goal Comment on above: Formatting of this n ote might be different from the original. Evaluation of progress towards goal: feeling most issues resolved, some hand numbness, await testing Clinical Notes 02-07-2022 to 01-19-2025 Rosangela Roach LPN - 01/19/2025 9:30 AM EDTTash Weber LPN - 01/03/2025 8:50 AM Sosa Bustos MD - 12/07/2024 9:00 AM EDTTelephone Encounter - Amee Loreta - 11/29/2024 10:02 AM EDT Note Date & Type Note Facility 01-19-2025 History of Presen t illness Narrative Reason for Appointment: Patient ID: Dyan Aguilar is a 39 y.o. female who presents for Pre-op Visit and Endometrial Biopsy Patient presents today for Pre Op/Endometrial Biopsy appointment. Patient is scheduled to undergo Endometrial Ablation with Azra and skin tag removal left labia on 02/10/[address] Juares at [facility]. MEDICATIONS Current Outpatient Medications Medication Instructions amLODIPine (Norvasc) 10 MG tablet Daily aspirin 81 mg, Daily RT atorvastatin (LIPITOR) 20 mg, Daily RT levothyroxine (Synthroid, Levoxyl) 25 MCG tablet TAKE 1 TABLET BY MOUTH ONCE DAILY IN THE MORNING ON AN EMPTY STOMACH losartan (COZAAR) 100 mg, Daily metFORMIN XR (GLUCOPHAGE-XR) 500 mg, Daily with breakfast ALLERGIES No Known Allergies PROBLEMS Active Ambulatory Problems Diagnosis Date Noted Abnormal mammogram 07/08/2023 Acquired hypothyroidism (CMS/HCC) 07/08/2023 Anxiety 07/08/2023 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 07/08/2023 Chronic fatigue 07/08/2023 Chronic obstructive pulmonary disease (CMS/HCC) 07/08/2023 Daytime hypersomnia 07/08/2023 Hyperlipidemia (CMS/HCC) 07/08/2023 Hypertension (CMS/HCC) 07/08/2023 Hypoglycemia 07/08/2023 Lipoprotein deficiency disorder (CMS/HCC) 07/08/2023 Major depressive disorder, single episode, unspecified (CMS/HCC) 07/08/2023 Moderate asthma with exacerbation (CMS/HCC) 07/08/2023 Obesity 07/08/2023 Resolved Ambulatory Problems Diagnosis Date Noted No Resolved Ambulatory Problems Past Medical History: Diagnosis Date Hypothyroid (CMS/HCC) TIA (transient ischemic attack) 11/02/2024 HISTORY PAST MEDICAL HISTORY SOCIAL HISTORY Past Medical History: Diagnosis Date Hypertension (CMS/HCC) Hypothyroid (CMS/HCC) TIA (transient ischemic attack) 11/02/2024 Social History Tobacco Use Smoking status: Never Smokeless tobacco: Never Substance Use Topics Alcohol use: Yes Drug use: Never FAMILY HISTORY Family History Problem Relation Name Age of Onset Uterine cancer Mother Prostate cancer Father Melanoma Father Breast cancer Father's Sister All 4 Aunts had Breast Cancer Ovarian cancer Maternal Grandmother Cervical cancer Paternal Grandmother SURGICAL HISTORY Past Surgical History: Procedure Laterality Date CT GUIDED TRANSVAGINAL TRANSRECTAL FLUID DRAIN 11/01/2024 CT GUIDED TRANSVAGINAL TRANSRECTAL FLUID DRAIN 11/01/2024 [facility] 2021 REVIEW OF SYSTEMS Review of Systems: Review of Systems Constitutional: Negative. HENT: Negative. Eyes: Negative. Respiratory: Negative. Cardiovascular: Negative. Gastrointestinal: Negative. Genitourinary: Positive for menstrual problem, pelvic pain and vaginal bleeding. Musculoskeletal: Negative. Skin: Negative. Neurological: Negative. All other systems reviewed and are negative. Hematological: Negative. Endocrine: Negative. Allergic/Immunologic: Negative. OBJECTIVE Objective: Physical Exam Constitutional: Appearance: Normal appearance. Genitourinary: Genitourinary Comments: Skin tag noted/visualized during exam on left labia Right Adnexa: not tender and no mass present. Left Adnexa: not tender and no mass present. No cervical discharge. HENT: Head: Normocephalic. Nose: Nose normal. Mouth/Throat: Mouth: Mucous membranes are moist. Cardiovascular: Rate and Rhythm: Normal rate. Pulmonary: Effort: Pulmonary effort is normal. Abdominal: General: Bowel sounds are normal. Palpations: Abdomen is soft. Musculoskeletal: General: Normal range of motion. Cervical back: Normal range of motion. Neurological: General: No focal deficit present. Mental Status: She is alert. Skin: General: Skin is warm and dry. Psychiatric: Mood and Affect: Mood normal. Vitals and nursing note reviewed. Exam conducted with a pattern illustrator present. Vitals: Estimated body mass index is 40.83 kg/m as calculated from the following: Height as of 01/01/23: 5' 5.25 . Weight as of this encounter: 247 lb 4 oz. BP: 128/86 Patient's last menstrual period was 01/08/2025 (exact date). ASSESSMENT & PLAN ICD-10-CM 1. Pre-op examination Z01.818 POCT , urine manually resulted 2. Menorrhagia with regular cycle N92.0 3. Abnormal uterine bleeding N93.9 4. Pelvic pain in female R10.2 5. Skin tag of labia N90.89 EMBX: Patient was placed in dorsal lithotomy position with feet in stirrups. A sterile speculum was placed into the vagina and the cervix was visualized. The cervix was grasped with a single tooth tenaculum. The endometrial pipette was placed through the cervix into the uterus, endometrial curettage was performed and sampling was obtained, endometrial curettings were placed in formalin, and single tooth tenaculum was removed. Excellent hemostasis was assured. All instruments were removed from vagina. Pre Op: Patient is doing well but has complaints of bleeding and pelvic pain. Patient has tried hormone therapy in the past but all attempts to subside patients issues have failed. I have discussed conservative management vs. surgical management with the patient in detail and patient desires surgical management at this time. Patient will undergo Endometrial Ablation with Azra and skin tag removal left labia on 02/10/2025. Surgical consents were signed, mmc was reviewed, and patient is to proceed to [facility] OR. Follow Up: Patient is to follow up between 1-2 weeks post op to assess proper healing and recovery from procedure. Documented by Rosangela Roach LPN on behalf of: Matt Juares DO documented in this encounter [facility] 01-16-2025 Note EXAM: US PELVIC COMP LETE W/ TV HISTORY: Heavy menses, pre-ablation surgery evaluation. COMPARISON: Pelvic ultrasound 05/20/2024. TECHNIQUE: Two-dimensional transabdominal grayscale ultrasound imaging of the pelvis was performed. Color flow Doppler imaging of the ovaries was also performed. Transvaginal was performed. FINDINGS: UTERUS 8.3 x 5.3 x 5.7 cm The uterus is anteverted in position and demonstrates a normal, homogeneous echotexture. ENDOMETRIUM 0.4 cm The endometrium demonstrates a normal, homogeneous echotexture. RIGHT OVARY 3.5 x 1.8 x 2.9 cm The right ovary demonstrates a normal echotexture. There is normal color Doppler flow. LEFT OVARY 2.4 x 1.2 x 1.5 cm The left ovary demonstrates a normal echotexture. There is normal color Doppler flow. No fluid is present within the cul-de-sac. IMPRESSION: 1. Unremarkable ultrasound of the pelvis. 2. Normal color Doppler flow within the bilateral ovaries. Interpreted by: Electronically signed by EDILMA HANSON II, MD, PHD at 24-Jan-2025 08:11:53 AM [facility] Not Available Comment on above: Order Comment: US PE LVIS-TRANSVAG IF INDICATED Patient's last menstrual period was 12/12/2024. 01-03-2025 History of Presen t illness Narrative Reason for Appointment: Patient ID: Dyan Aguilar is a 39 y.o. female who presents for Irregular Bleeding Patient presents today for Acute Visit. and Consult appointment. MEDICATIONS Current Outpatient Medications Medication Instructions amLODIPine (NORVASC) 5 mg, Daily aspirin 81 mg, Daily RT atorvastatin (LIPITOR) 20 mg, Daily RT levothyroxine (Synthroid, Levoxyl) 25 MCG tablet TAKE 1 TABLET BY MOUTH ONCE DAILY IN THE MORNING ON AN EMPTY STOMACH losartan (COZAAR) 100 mg, Daily metFORMIN XR (GLUCOPHAGE-XR) 500 mg, Daily with breakfast metoprolol succinate XL (TOPROL-XL) 25 mg, Daily ALLERGIES No Known Allergies PROBLEMS Active Ambulatory Problems Diagnosis Date Noted Abnormal mammogram 07/08/2023 Acquired hypothyroidism (CMS/HCC) 07/08/2023 Anxiety 07/08/2023 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 07/08/2023 Chronic fatigue 07/08/2023 Chronic obstructive pulmonary disease (CMS/HCC) 07/08/2023 Daytime hypersomnia 07/08/2023 Hyperlipidemia (CMS/HCC) 07/08/2023 Hypertension (CMS/HCC) 07/08/2023 Hypoglycemia 07/08/2023 Lipoprotein deficiency disorder (CMS/HCC) 07/08/2023 Major depressive disorder, single episode, unspecified (CMS/HCC) 07/08/2023 Moderate asthma with exacerbation (CMS/HCC) 07/08/2023 Obesity 07/08/2023 Resolved Ambulatory Problems Diagnosis Date Noted No Resolved Ambulatory Problems Past Medical History: Diagnosis Date Hypothyroid (CMS/HCC) TIA (transient ischemic attack) 11/02/2024 HISTORY PAST MEDICAL HISTORY SOCIAL HISTORY Past Medical History: Diagnosis Date Hypertension (CMS/HCC) Hypothyroid (CMS/HCC) TIA (transient ischemic attack) 11/02/2024 Social History Tobacco Use Smoking status: Never Smokeless tobacco: Never Substance Use Topics Alcohol use: Yes Drug use: Never FAMILY HISTORY Family History Problem Relation Name Age of Onset Uterine cancer Mother Prostate cancer Father Melanoma Father Breast cancer Father's Sister All 4 Aunts had Breast Cancer Ovarian cancer Maternal Grandmother Cervical cancer Paternal Grandmother SURGICAL HISTORY Past Surgical History: Procedure Laterality Date CT GUIDED TRANSVAGINAL TRANSRECTAL FLUID DRAIN 11/01/2024 CT GUIDED TRANSVAGINAL TRANSRECTAL FLUID DRAIN 11/01/2024 GALLBLADDER SURGERY 2021 REVIEW OF SYSTEMS Review of Systems: Review of Systems Constitutional: Negative. HENT: Negative. Eyes: Negative. Respiratory: Negative. Cardiovascular: Negative. Gastrointestinal: Negative. Genitourinary: Negative. Musculoskeletal: Negative. Skin: Negative. Neurological: Negative. All other systems reviewed and are negative. Hematological: Negative. Endocrine: Negative. Allergic/Immunologic: Negative. OBJECTIVE Objective: Physical Exam Constitutional: Appearance: Normal appearance. She is well-developed. Cardiovascular: Rate and Rhythm: Normal rate and regular rhythm. Pulmonary: Effort: Pulmonary effort is normal. Breath sounds: Normal breath sounds. Abdominal: General: Bowel sounds are normal. There is no distension. Palpations: Abdomen is soft. Tenderness: There is no abdominal tenderness. There is no guarding or rebound. Musculoskeletal: General: No swelling. Normal range of motion. Right lower leg: No edema. Left lower leg: No edema. Neurological: Mental Status: She is alert and oriented to person, place, and time. Skin: General: Skin is warm and dry. Psychiatric: Mood and Affect: Mood normal. Behavior: Behavior normal. Vitals and nursing note reviewed. Exam conducted with a pattern illustrator present. Vitals: Estimated body mass index is 41.28 kg/m as calculated from the following: Height as of 01/01/23: 5' 5.25 . Weight as of this encounter: 250 lb. BP: 128/90 Patient's last menstrual period was 12/12/2024. ASSESSMENT & PLAN ICD-10-CM 1. Irregular bleeding N92.6 Ambulatory referral to Obstetrics / Gynecology 2. DUB (dysfunctional uterine bleeding) N93.8 Ambulatory referral to Obstetrics / Gynecology Pt presents as a referral from [facility] with complaints of heavy irregular bleeding. Pt given labs to have obtained, pt partner has had a vasectomy. Pt had a TIA in October- has had high blood pressure since 24 y/o given labs. Pt given ultrasound as well to have obtained. Pt to be scheduled for endometrial ablation. Pt to return for preop/embx. Documented by Tash Weber LPN on behalf of: Matt Juares DO documented in this encounter [facility] 12-07-2024 History of Presen t illness Narrative Images from the original note were not included. Neurology 12/07/2024 History of Present Illness: I appreciate being asked to see this nice lady for a neurologic evaluation. She is 39 years old in his here because of a recent episode of confusion and probable TIA. About a month ago, she had onset of right facial numbness along with some dizziness. There was confusion at the time. Her is a passementerie worker who assessed her and took her to the emergency room. An NIH stroke scale was 3. She has a headache at the time. Her presenting blood pressure was significantly elevated at 186/129. Testing including a normal CT of the brain. A CT angiogram of the head neck showed no significant vascular stenosis. An MRI of the brain was normal. An echocardiogram showed no embolic source. She now is on 81 mg of aspirin and Lipitor 20 mg daily. She feels back to normal. Very occasionally she feels a little fogginess in her thinking. She has started a new job recently, which she tells me she loves. There is a custody campbell with her and ex-, which contributes to her stress. Past Medical History: Diagnosis Date Hypertension Mononucleosis Family History Problem Relation Age of Onset Hypertension Father Hyperlipidemia Father Thyroid disease Father Breast cancer Maternal Aunt Heart disease Maternal Uncle Stroke Paternal Aunt Ovarian cancer Maternal Grandmother Cervical cancer Paternal Grandmother Stroke Paternal Grandfather Diabetes Mother Diverticulitis Mother Hypertension Mother Colon cancer Paternal Uncle No Known Allergies Current Outpatient Medications Medication Instructions aspirin 81 mg, Daily atorvastatin (LIPITOR) 20 mg, Daily levothyroxine (SYNTHROID, LEVOTHROID) 25 mcg, Daily losartan (COZAAR) 100 mg, Daily metFORMIN XR (GLUCOPHAGE XR) 500 mg, Daily with breakfast Review of systems: Other than what is mentioned above, a review of systems is negative for HEENT, cardiovascular, pulmonary, gastrointestinal, urinary, musculoskeletal, skin, endocrine, and immunologic. Physical Examination: Vitals: 12/07/24 0852 BP: (!) 141/106 BP Site: Left Wrist BP Postition: Sitting Pulse: 83 Weight: 108.9 kg (240 lb) Neurological Examination: Normal conjugate ocular movements. Equal pupils. Symmetric face. Intact speech. No dysarthria or aphasia. Oriented. Friendly and pleasant. No deficit of sensation to light touch. 5/5 motor strength in her arms and legs. 1+ deep tendon reflexes throughout. No tremor or other abnormal movements. Eyes closed opukbi-[id number] testing is accurate. No ataxia. Normal gait. Assessment/Plan: 1. TIA (transient ischemic attack) - [facility] - [place], [place] 2. Hypertensive crisis - EEG; Future In summary, her symptoms were likely secondary to hypertensive crisis. A TIA is an appropriate term for what happened to her. She has had testing as described above. Because of some mild intermittent confusion, an EEG will be arranged. She shows me blood pressures on her phone that she keeps track of. Almost all of them are significantly elevated, and I have told her to please see Isaiah Cartagena regarding treatment for this. Low-dose aspirin and Lipitor should continue. Follow Up: Three months. Lon Bustos MD documented in this encounter [facility] [facility] 11-29-2024 Miscellaneous Notes Please ask the following questions to the new patient that you are scheduling: Patient scheduled from New Patient Referral 1. IS THIS DUE TO AN ACCIDENT? - NO 2. IS THIS WORKER'S COMP? PLEASE VERIFY IF THIS IS WORKERS COMP AND DOCUMENT (We do not accept any new workers comp cases) - NO 3. WHAT INSURANCE? - [place]/ BCBS out of state o/trust 4. HAVE YOU EVER BEEN SEEN BY A NEUROLOGIST BEFORE? IF YES, WHO AND WHEN? IS THIS A SECOND OPINION? -NO 5. ANY CHANCE OF NOW OR BEFORE YOUR APPOINTMENT? - NO 6. OFFERED RAIN FOR SOONER APPOINTMENT? -NO 7. PATIENT IS SCHEDULED ON/WITH: - 12/07/[address] at [address] Bustos 8. WHO CALLED TO SCHEDULE APPOINTMENT? -[facility] Telephone encounter Note Please ask the following questions to the new patient that you are scheduling: Patient scheduled from New Patient Referral 1. IS THIS DUE TO AN ACCIDENT? - NO 2. IS THIS WORKER'S COMP? PLEASE VERIFY IF THIS IS WORKERS COMP AND DOCUMENT (We do not accept any new workers comp cases) - NO 3. WHAT INSURANCE? - [place]/ BCBS out of state o/trust 4. HAVE YOU EVER BEEN SEEN BY A NEUROLOGIST BEFORE? IF YES, WHO AND WHEN? IS THIS A SECOND OPINION? -NO 5. ANY CHANCE OF NOW OR BEFORE YOUR APPOINTMENT? - NO 6. OFFERED RAIN FOR SOONER APPOINTMENT? -NO 7. PATIENT IS SCHEDULED ON/WITH: - 12/07/24 at [address] Bustos 8. WHO CALLED TO SCHEDULE APPOINTMENT? -[facility] History of Presen t illness Narrative PROBLEM VISIT Dyan Aguilar is 38 y.o. a patient of [facility] for heavy periods Last pap: 04/21/24 Last mammogram: Patient's last menstrual period was 09/20/2024 (exact date). History: Past Medical History: Diagnosis Date Hypertension (CMS/HCC) Hypothyroid (CMS/HCC) Past Surgical History: Procedure Laterality Date GALLBLADDER SURGERY 2021 Family History Problem Relation Name Age of Onset Uterine cancer Mother Prostate cancer Father Melanoma Father Ovarian cancer Maternal Grandmother Cervical cancer Paternal Grandmother @[email or web address]@ Allergies: No Known Allergies Medications: Current Outpatient Medications on File Prior to Visit Medication Sig Dispense Refill levothyroxine (Synthroid, Levoxyl) 25 MCG tablet TAKE 1 TABLET BY MOUTH ONCE DAILY IN THE MORNING ON AN EMPTY STOMACH 30 tablet 0 losartan (Cozaar) 50 MG tablet Take 1 tablet by mouth once daily 90 tablet 0 No current facility-administered medications on file prior to visit. Vitals: 09/20/24 0842 BP: 122/80 HPI: ROS: Review of Systems Physical exam: Physical Exam Cardiovascular: Rate and Rhythm: Normal rate and regular rhythm. Pulses: Normal pulses. Heart sounds: Normal heart sounds. Pulmonary: Effort: Pulmonary effort is normal. Breath sounds: Normal breath sounds. Abdominal: General: Bowel sounds are normal. Palpations: Abdomen is soft. Tenderness: There is no abdominal tenderness. Assessment and Plan: There are no diagnoses linked to this encounter. Patient and I discussed options for her heavy bleeding such as OCPs, endometrial ablation, IUD. She will let me know if the periods continue to be heavy and abnormal. No follow-ups on file. There are no Patient Instructions on file for this visit. Laura Boothe MA,09/20/2024 8:50 AM documented in this encounter [facility] 02-07-2022 History of Presen t illness Narrative Patient discharged from unit to home. Follow up appointments gone over with patient. Instructions and education also provided to patient before departure from unit. All questions answered at this time. Patient taken down for surgery at this time. Patient in bathroom for CHG shower. Hospitalist Progress Note 02/06/2022 2:37 PM Subjective: Admit Date: 02/04/2022 PCP: Adilene Gracia APRN - [facility] Full Code C/c: Chief Complaint Patient presents with Abdominal Pain Interval History: planning for gb surgery tomorrow, pt had hida scan Negative for cholecystitis, had egd Which showed smaall gastritis Diet: ADULT DIET; Regular Diet NPO ip days:0 Medications: Scheduled Meds: losartan 50 mg Oral Daily sodium chloride flush 5-40 mL IntraVENous 2 times per day [Held by provider] enoxaparin 30 mg SubCUTAneous BID famotidine (PEPCID) injection 20 mg IntraVENous Daily Continuous Infusions: sodium chloride sodium chloride 125 mL/hr at 02/06/22 1334 PRN Meds:.sodium chloride flush, sodium chloride, ondansetron OR ondansetron, polyethylene glycol, acetaminophen OR acetaminophen, sodium chloride flush, potassium chloride OR potassium alternative oral replacement OR potassium chloride, morphine, sodium chloride flush CBC: Recent Labs 02/04/22222602/05/22 0848 02/06/22 0520 WBC 11.7* 7.1 6.8 HGB 14.0 13.4 13.4 PLT 350 301 316 BMP: Recent Labs 02/04/22222602/05/22 0848 02/06/22 0520 NA 138 136 141 K 3.7 3.5* 4.2 CL 98 100 106 CO2 28 24 27 BUN 13 9 9 CREATININE 1.00* 0.75 0.78 GLUCOSE 115* 94 94 Hepatic: Recent Labs 02/04/22222602/05/22 0848 02/06/22 0520 AST 23 20 17 ALT 18 16 13 BILITOT 0.16* 0.19* 0.17* ALKPHOS 120* 105* 102 Troponin: No results for input(s): TROPONINI in the last 72 hours. BNP: No results for input(s): BNP in the last 72 hours. Lipids: No results for input(s): CHOL, HDL in the last 72 hours. Invalid input(s): LDLCALCU INR: No results for input(s): INR in the last 72 hours. Objective: Vitals: BP (!) 148/104 Pulse 88 Temp 97.9 F (36.6 C) (Oral) Resp 18 Ht 5' 5 (1.651 m) Wt 235 lb (106.6 kg) SpO2 100% BMI 39.11 kg/m General appearance: alert, appears stated age and cooperative Skin: Skin color, texture, turgor normal. No rashes or lesions Lungs: clear to auscultation bilaterally Heart: regular rate and rhythm, S1, S2 normal, no murmur, click, rub or gallop Abdomen: soft, non-tender; bowel sounds normal; no masses, no organomegaly Extremities: extremities normal, atraumatic, no cyanosis or edema Neurologic: Mental status: Alert, oriented, thought content appropriate Prophylaxis: DVT with [] lovenox [] heparin [] Scd [x] none: Radiology: NM HEPATOBILIARY Result Date: 02/05/2022 EXAMINATION: NUCLEAR MEDICINE HEPATOBILIARY SCINTIGRAPHY (HIDA SCAN) WITH EJECTION FRACTION. TECHNIQUE: Approximately 5.4 millicuries Tc99m Mebrofenin (Choletec) was administered IV. Then, dynamic images of the abdomen were obtained in the anterior projection for 60 mins. Due to a shortage/inavailability of CCK, one can (237 ml) Ensure plus was substitued orally. Images were obtained in the GERMAN projection and regions of interest were drawn around the gallbladder and ejection fraction was calculated. COMPARISON: No prior for comparison. HISTORY: ORDERING SYSTEM PROVIDED HISTORY: upper abd pain TECHNOLOGIST PROVIDED HISTORY: upper abd pain Decision Support Exception - unselect if not a suspected or confirmed emergency medical condition->Emergency Medical Condition (MA) Is the patient ?->No Reason for Exam: upper abd pain FINDINGS: Prompt, homogenous uptake by the liver is noted with normal appearance of radiotracer excretion into the biliary system. Clearance of bloodpool activity appears appropriate. Gallbladder and small bowel is visualized in appropriate sequence and time. Gallbladder ejection fraction measured 34%. Normal value is >33% for Ensure protocol. Note, Ensure normal range is based on a limited study. No acute cholecystitis. Gallbladder ejection fraction is approximately 34%. CT ABDOMEN PELVIS W IV CONTRAST Additional Contrast? None Result Date: 02/05/2022 EXAMINATION: CT OF THE ABDOMEN AND PELVIS WITH CONTRAST 02/04/2022 11:32 pm TECHNIQUE: CT of the abdomen and pelvis was performed with the administration of 75 mL Isovue 370 intravenous contrast. Multiplanar reformatted images are provided for review. Automated exposure control, iterative reconstruction, and/or weight based adjustment of the mA/kV was utilized to reduce the radiation dose to as low as reasonably achievable. COMPARISON: None. HISTORY: Intermittent right upper quadrant pain for the past few weeks. FINDINGS: Lower Chest: Unremarkable. Organs: Hepatomegaly with possible mild steatosis. Remaining solid abdominal organs and the gallbladder are unremarkable. GI/Bowel: No acute abnormality. Normal appendix. Minimal sigmoid diverticulosis. Pelvis: Bladder and uterus are unremarkable. No lymphadenopathy. Mild free fluid is typically physiologic. Peritoneum/Retroperitoneum: No lymphadenopathy or ascites. Bones/Soft Tissues: 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 Hepatomegaly with possible mild steatosis. Minimal sigmoid diverticulosis. US GALLBLADDER RUQ Result Date: 02/05/2022 EXAMINATION: RIGHT UPPER QUADRANT ULTRASOUND 02/05/2022 11:44 am COMPARISON: CT abdomen pelvis February 04, 2022 HISTORY: ORDERING SYSTEM PROVIDED HISTORY: upper abd pain TECHNOLOGIST PROVIDED HISTORY: upper abd pain FINDINGS: LIVER: The liver demonstrates increased echogenicity without evidence of intrahepatic biliary ductal dilatation. 16 cm craniocaudad dimension, hepatopedal flow BILIARY SYSTEM: Gallbladder is unremarkable without evidence of pericholecystic fluid, wall thickening or stones. Negative sonographic Arambula's sign. Common bile duct is within normal limits measuring 3 mm. RIGHT KIDNEY: Was not assessed PANCREAS: Limited visualization/assessment OTHER: No evidence of right upper quadrant ascites. Pancreas/right kidney: Limited visualization/assessment Increased echogenicity of the hepatic parenchyma suggests steatosis Otherwise unremarkable right upper quadrant sonogram RECOMMENDATIONS: Unavailable Assessment : 1. RUQ PAIN/SURGERY SEEING 2. h hernia Plan: 1. As per surgery 2. Possible d/c soon Patient Active Problem List: Anxiety Migraine headache Hypertension Upper abdominal pain Anticipated Disposition upon discharge: [] Home [] Home with Home Health [] Retirement Facility [] [facility] Patient is admitted as inpatient status because of co-morbidities listed above, severity of signs and symptoms as outlined, requirement for current medical therapies and most importantly because of direct risk to patient if care not provided in a hospital setting. Sanford Saldaña MD, MD [facility] Hospitalist [facility]per spoke with Dr. Saldaña regarding patients increase in pain that was not controlled by Tylenol. Hog Scraper received order for Morphine 1 mg q6hPRN. Order placed at this time. Dr. Vora notified of consult. Admitted to room 2057 from ED per wheelchair. Oriented to room and call light. Vitals and assessment completed. No distress noted. documented in this encounter [facility] [employer] Phone: 02-07-2022 Hospital course Narrative Hospitalist Discharge Summary Dyan Aguilar : 1985 Admit date: 02/04/2022 Discharge date: 02/07/22 Admitting Physician: Vera Arteaga MD Discharge Diagnoses: Patient Active Problem List Diagnosis Anxiety Migraine headache Hypertension Pain of upper abdomen Admission Condition: fair Discharged Condition: good Hospital Course/Treatments Admitted with ac abdomen, pt had hida scan and was consulted with general surgery, pt Had egd which positive for Gastritis, pt was taken to OR and had robotic gall bladder removal, pt tolerated procedure well. Pt will be d/c with following meds Discharge Medications: Medication List START taking these medications cephALEXin 500 MG capsule Commonly known as: KEFLEX 500 mgTake three times daily ondansetron 4 MG tablet Commonly known as: Zofran Take every six hours as needed oxyCODONE-acetaminophen 5-325 MG per tablet Commonly known as: Percocet Take 1 tablet by mouth every 6 hours as needed for Pain for up to 7 days. . Take lowest dose possible to manage pain CONTINUE taking these medications escitalopram 10 MG tablet Commonly known as: LEXAPRO famotidine 40 MG tablet Commonly known as: PEPCID losartan 50 mg tablet Commonly known as: COZAAR losartan-hydroCHLOROthiazide 50-12.5 MG per tablet Commonly known as: Hyzaar Take 1 tablet by mouth daily Where to Get Your Medications These medications were sent to [facility] [address] - [place], [place] - [address] [address] - P [phone] - F [phone] [address] [address] [address] cephALEXin 500 MG capsule ondansetron 4 MG tablet oxyCODONE-acetaminophen 5-325 MG per tablet Consults: IP CONSULT TO GENERAL SURGERY Significant Diagnostic Studies: NM HEPATOBILIARY Result Date: 02/05/2022 EXAMINATION: NUCLEAR MEDICINE HEPATOBILIARY SCINTIGRAPHY (HIDA SCAN) WITH EJECTION FRACTION. TECHNIQUE: Approximately 5.4 millicuries Tc99m Mebrofenin (Choletec) was administered IV. Then, dynamic images of the abdomen were obtained in the anterior projection for 60 mins. Due to a shortage/inavailability of CCK, one can (237 ml) Ensure plus was substitued orally. Images were obtained in the GERMAN projection and regions of interest were drawn around the gallbladder and ejection fraction was calculated. COMPARISON: No prior for comparison. HISTORY: ORDERING SYSTEM PROVIDED HISTORY: upper abd pain TECHNOLOGIST PROVIDED HISTORY: upper abd pain Decision Support Exception - unselect if not a suspected or confirmed emergency medical condition->Emergency Medical Condition (MA) Is the patient ?->No Reason for Exam: upper abd pain FINDINGS: Prompt, homogenous uptake by the liver is noted with normal appearance of radiotracer excretion into the biliary system. Clearance of bloodpool activity appears appropriate. Gallbladder and small bowel is visualized in appropriate sequence and time. Gallbladder ejection fraction measured 34%. Normal value is >33% for Ensure protocol. Note, Ensure normal range is based on a limited study. No acute cholecystitis. Gallbladder ejection fraction is approximately 34%. CT ABDOMEN PELVIS W IV CONTRAST Additional Contrast? None Result Date: 02/05/2022 EXAMINATION: CT OF THE ABDOMEN AND PELVIS WITH CONTRAST 02/04/2022 11:32 pm TECHNIQUE: CT of the abdomen and pelvis was performed with the administration of 75 mL Isovue 370 intravenous contrast. Multiplanar reformatted images are provided for review. Automated exposure control, iterative reconstruction, and/or weight based adjustment of the mA/kV was utilized to reduce the radiation dose to as low as reasonably achievable. COMPARISON: None. HISTORY: Intermittent right upper quadrant pain for the past few weeks. FINDINGS: Lower Chest: Unremarkable. Organs: Hepatomegaly with possible mild steatosis. Remaining solid abdominal organs and the gallbladder are unremarkable. GI/Bowel: No acute abnormality. Normal appendix. Minimal sigmoid diverticulosis. Pelvis: Bladder and uterus are unremarkable. No lymphadenopathy. Mild free fluid is typically physiologic. Peritoneum/Retroperitoneum: No lymphadenopathy or ascites. Bones/Soft Tissues: 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 Hepatomegaly with possible mild steatosis. Minimal sigmoid diverticulosis. US GALLBLADDER RUQ Result Date: 02/05/2022 EXAMINATION: RIGHT UPPER QUADRANT ULTRASOUND 02/05/2022 11:44 am COMPARISON: CT abdomen pelvis February 04, 2022 HISTORY: ORDERING SYSTEM PROVIDED HISTORY: upper abd pain TECHNOLOGIST PROVIDED HISTORY: upper abd pain FINDINGS: LIVER: The liver demonstrates increased echogenicity without evidence of intrahepatic biliary ductal dilatation. 16 cm craniocaudad dimension, hepatopedal flow BILIARY SYSTEM: Gallbladder is unremarkable without evidence of pericholecystic fluid, wall thickening or stones. Negative sonographic Arambula's sign. Common bile duct is within normal limits measuring 3 mm. RIGHT KIDNEY: Was not assessed PANCREAS: Limited visualization/assessment OTHER: No evidence of right upper quadrant ascites. Pancreas/right kidney: Limited visualization/assessment Increased echogenicity of the hepatic parenchyma suggests steatosis Otherwise unremarkable right upper quadrant sonogram RECOMMENDATIONS: Unavailable Disposition: home Discharge Instructions: Activity: activity as tolerated Diet: regular diet Follow up with RADHA Amador CNP in 1 weeks. Signed: Sanford Saldaña MD 02/07/2022, 5:54 PM Time spent in discharge of this pt is more than 30 minutes in examination,evaluvation, counseling and review of medication and discharge plan documented in this encounter [facility] [employer] Phone: 02-07-2022 Hospital Discharg e Alex Selby RN - 02/07/2022 Your information: Name: Dyan Aguilar DOB: 1985 Your instructions: What to do after you leave the hospital: Recommended diet: regular diet Recommended activity: activity as tolerated and no heavy lifting for 2 weeks The following personal items were collected during your admission and were returned to you: Belongings Dental Appliances: None Vision - Corrective Lenses: Eyeglasses (with pt) Hearing Aid: None Clothing: Footwear,Shirt,Shorts,Socks,Und ergarments Jewelry: Ring (in glass case) Body Piercings Removed: Yes (nipple rings in glass case) Electronic Devices: Cell Phone Other Valuables: Purse,Wallet Home Medications: None Valuables Given To: Patient Responsible person(s) in the waiting room: -Halrey Patient approves for provider to speak to responsible person post operatively: Yes Information obtained by: By signing below, I understand that if any problems occur once I leave the hospital I am to contact my PCP or go to the ER. I understand and acknowledge receipt of the instructions indicated above. Dr. Vora Post-Op Orders for Outpatient 1.) Diet: [x] As tolerated [] Special 2.) Activity: [x] No lifting more than five to ten pounds 2 weeks [x] May Shower tomorrow [x] No driving until off pain medications 3.) Dressing: [x] Remove top dressing in 48 hours [x] Leave steri strips on [x] Remove and change dressing sooner if soaked 4.) Medication: [x] Take medication as prescribed [] Resume blood thinners in days [x] Resume home medications per AVS Summary 5.) Office visit: Follow up with Dr. Vora. Call to schedule an appointment if one has not been made. 6.) Call [phone] if you have any questions or concerns. The following attachments cannot be sent through Care Everywhere.cephalexin (Mosotho)ondansetron (oral) (Mosotho)acetaminophen and oxycodone (Mosotho)Cholecystectomy: Post-op (Mosotho)documented in this encounter [facility] [employer] Phone: Evaluation note Diagnosis Pain of upper abdomen- Primary Abdominal pain, other specified site Chronic GERD Cholecystitis Cholecystitis, unspecified documented in this encounter [employer] [employer] Work Phone: evaluation note* Diagnosis Irregular bleeding- Primary Irregular menstrual cycle [facility] Diagnosis TIA (transient ischemic attack)- Primary Unspecified transient cerebral ischemia Hypertensive crisis Hypertensive encephalopathy [facility] Diagnosis Irregular bleeding Irregular menstrual cycle DUB (dysfunctional uterine bleeding) Other disorder of menstruation and other abnormal bleeding from female genital tract Elevated TSH Other abnormal blood chemistry Hypertension, unspecified type (CMS/HCC) documented [facility]* Diagnosis Pre-op examination Menorrhagia with regular cycle Abnormal uterine bleeding Unspecified disorder of menstruation and other abnormal bleeding from female genital tract Pelvic pain in female Unspecified symptom associated with female genital organs Skin tag of labia documented in this encounter [facility] HealthcareInstructionsNot on filedocumented in this encounterProWay[facility] SystemInstructionsNot on filedocumented in this encounterProWayne Healthcare [facility] SystemInstructionsNot on filedocumented in this encounterProWayne Healthcare [facility] System Summary Purpose Family History No Family History Records FoundNo Family History Records FoundNo Family History Records FoundNo Family History Records FoundNo Family History Records FoundNo Family History Records FoundNo Family History Records FoundNo Family History Records Found Advance Directives No Advanced Directives Records FoundDocuments on File Type Date Recorded Patient Sap Ppm Consultant Expl anation ACP-Advance Directive ACP-Power of Juvenile Officer Latest Code Status on File Code Status Date Activated Date Inactivated Comments Full Code 02/05/2022 3:12 AM Date Activated Date Inactivated Comments 11/01/2024 8:38 PM 11/02/2024 5:58 PM Date Activated Date Inactivated Comments 11/01/2024 8:38 PM 11/02/2024 5:58 PM Additional Source Comments INFORMATION SOURCE (unrecogn ized section and content) DATE CREATED AUTHOR 07/12/2018 [facility] DATE CREATED AUTHOR AUTHOR'S ORGANIZ ATION 07/22/2022 [facility] dical Specialist DATE CREATED AUTHOR AUTHOR'S ORGANIZ ATION 11/27/2023 [facility] DATE CREATED AUTHOR AUTHOR'S ORGANIZ ATION 12/29/2023 [facility] DATE CREATED AUTHOR AUTHOR'S ORGANIZ ATION 05/26/2024 [facility] DATE CREATED AUTHOR AUTHOR'S ORGANIZ ATION 11/03/2024 [facility] DATE CREATED AUTHOR AUTHOR'S ORGANIZ ATION 12/08/2024 [facility] DATE CREATED AUTHOR AUTHOR'S ORGANIZ ATION 01/25/2025 [facility] dical Specialists EPIC Reason for Visit (unrecogniz ed section and content) Reason Comments Abdominal Pain Specialty Diagnoses / Procedures Referred By Jasmine kilgore Referred To Contact Diagnoses Upper abdominal pain Pain of upper abdomen Vera Arteaga MD [address] [place] [address] [facility] [address] [place] [address] Referral ID Status Reason Start Date Expiration Date Visits Re quested Visits Authorized [id number] 1 1 Reason Comments Menstrual Problem Reason Comments Med Refill Reason Onset Date Comments New Patient 11/29/2024 Reason Comments 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 Ct was done and results on chart. Specialty Diagnoses / Procedures Referred By Jasmine kilgore Referred To Contact Neurology Diagnoses TIA (transient ischemic attack) Vera Arteaga MD [address] , [address] [address] Phone: tel: fax: [facility] [address] [facility] [place] [address] Phone: tel: fax: Referral ID Status Reason Start Date Expiration Date Visits Requested Visits Authorized [id number] Pending Review Specialty Services Required 11/02/2024 11/02/2025 1 1 Reason Comments Irregular Bleeding Specialty Diagnoses / Procedures Referred By Jasmine kilgore Referred To Contact Obstetrics and Gynecology Diagnoses Irregular bleeding DUB (dysfunctional uterine bleeding) Procedures CA OFFICE/OUTPATIENT NEW HIGH MDM 60 MINUTES Tiffanie Waters, CNM [address] [place] [address] Phone: tel: fax: Matt Juares, [address] Richard Mathews [place], [place] [id number] Phone: tel: fax: Referral ID Status Reason Start Date Expiration Date V isits Requested Visits Authorized [id number] Closed Specialty Services Required 11/01/2024 04/30/2025 1 1 Reason Comments Pre-op Visit Endometrial Biopsy Ordered Prescriptions (unrec ognized section and content) Prescription Sig Dispensed Refills Start Date End Da te oxyCODONE-acetaminophen (PERCOCET) 5-325 MG per tabletIndications:Ran cystitis Take 1 tablet by mouth every 6 hours as needed for Pain for up to 7 days. . Take lowest dose possible to manage pain 28 tablet 0 02/07/2022 02/14/2022 ondansetron (ZOFRAN) 4 MG tablet Take every six hours as needed 20 tablet 0 02/07/2022 cephALEXin (KEFLEX) 500 MG capsule 500 mgTake three times daily 21 capsule 0 02/07/2022 Scheduled Active and Recently Administ ered Medications (unrecognized section and content) Medication Order 02/05/2022 02/06/2022 02/07/2022 ceFAZolin (ANCEF) 2000 mg in dextrose 5 % 50 mL IVPB (COMPLETED) 2,000 mg, IntraVENous, ONCE, 1 dose, On Thu02/07/22 at 1245, Antimicrobial Indications: Surgical Prophylaxis, Pre-op (day of surgery) 1308 (Given - Provider: Edilma Chakraborty APRN - CAREER SERVICES DIRECTOR) ceFAZolin (ANCEF) 2000 mg in dextrose 5 % 50 mL IVPB 2,000 mg, IntraVENous, EVERY 8 HOURS, 3 doses, First dose on Thu02/07/22 at 2100, Last dose on Thu02/08/22 at 1300, Antimicrobial Indications: Surgical Prophylaxis 2100 (Due) enoxaparin Sodium (LOVENOX) injection 30 mg 30 mg, SubCUTAneous, 2 TIMES DAILY, First dose on Thu02/05/22 at 0900, Until Discontinued, Indication of Use: Prophylaxis-DVT/PE 0801 (Given - Provider: Karlo Mccray RN)1618 (Held by provider - Provider: Alejandro Vora MD - Reason: Other)2100 (Automatically Held - Provider: Alejandro Vora MD) 0900 (Automatically Held - Provider: Alejandro Vora MD)2100 (Automatically Held - Provider: Alejandro Vora MD) 0900 (Not Given - Provider: Alex Robbins RN - Reason: Other - Comment: Held by provider for procedure)2100 (Automatically Held - Provider: Alejandro Vora MD) escitalopram (LEXAPRO) tablet 10 mg (COMPLETED) 10 mg, Oral, ONCE, 1 dose, On Thu02/05/22 at 0100 0056 (Given - Provider: Kaley Carrasco RN) famotidine (PEPCID) 20 mg in sodium chloride (PF) 10 mL injection 20 mg, IntraVENous, DAILY, First dose on Thu02/05/22 at 0900, Until Discontinued, IV Push over minimum of 2 minutes - Dilute with 10 mL NS 0813 (Given - Provider: Karlo Mccray RN) 0824 (Given - Provider: Karlo Mccray RN)1028 (MAR Hold - Provider: Annie Autohold - Reason: Unreviewed Transfer Orders)1319 ([facility] Unhold - Provider: Karlo Mccray RN) 0759 (Given - Provider: Alex Robbins RN)1205 ([facility] Hold - Provider: [facility] - Reason: Unreviewed Transfer Orders)1534 ([facility] Unhold - Provider: Alex Robbins RN) famotidine (PEPCID) tablet 40 mg (COMPLETED) 40 mg, Oral, ONCE, 1 dose, On Thu02/05/22 at 0100 0056 (Given - Provider: Kaley Carrasco RN) lidocaine viscous hcl (XYLOCAINE) 2 % solution 15 mL (COMPLETED) 15 mL, Mouth/Throat, ONCE, 1 dose, On Thu02/06/22 at 1100 1110 (Given - Provider: Shahid Saravia RN) losartan (COZAAR) tablet 50 mg 50 mg, Oral, DAILY, First dose on Thu02/06/22 at 1430, Until Discontinued 1501 (Given - Provider: Karlo Mccray RN) 0758 (Given - Provider: Alex Robbins RN)1205 ([facility] Hold - Provider: Annie Autohold - Reason: Unreviewed Transfer Orders)1534 (N[facility] Unhold - Provider: Alex Robbins RN) morphine sulfate (PF) injection 4 mg (COMPLETED) 4 mg, IntraVENous, ONCE, 1 dose, On Thu02/05/22 at 0015 0036 (Given - Provider: Kaley Carrasco RN) sodium chloride flush 0.9 % injection 5-40 mL 5-40 mL, IntraVENous, EVERY 12 HOURS SCHEDULED (2 times per day), First dose on Thu02/05/22 at 0900, Until Discontinued, For Line Patency: Peripheral IV = 5 mL; Midline or Central Line = 10 mL/lumen. If following IV push medication, administer flush at same rate as the IV push. Flush volume is determined by type of infusion therapy being given. For non-viscous solutions use: Peripheral IV = 5 mL Midline or Central Line = 10 mL/lumen For viscous solutions (i.e. blood components, parenteral nutrition, contrast media, or after obtaining blood sample) use: Peripheral IV = 10 mL Midline or Central Line = 20 mL/lumen 0816 (Given - Provider: Karlo Mccray RN)2014 (Not Given - Provider: Enoc Mendes RN - Reason: IV Fluid Infusing) 0824 (Given - Provider: Karlo Mccray RN)1028 (MAR Hold - Provider: Annie Autohold - Reason: Unreviewed Transfer Orders)1319 (MAR Unhold - Provider: Karlo Mccray RN)2037 (Not Given - Provider: Enoc Mendes RN - Reason: IV Fluid Infusing) 0807 (Given - Provider: Alex Robbins RN)1205 (MAR Hold - Provider: Annie Autohold - Reason: Unreviewed Transfer Orders)1534 (MAR Unhold - Provider: Alex Robbins RN)2100 (Due - Provider: Alex Robbins RN) Continuous Medication Order 02/05/2022 02/06/2022 02/07/2022 0.9 % sodium chloride infusion IntraVENous, at 125 mL/hr, CONTINUOUS, Starting on Thu02/05/22 at 0330 0322 (New Bag - Provider: Meaghan Anguiano RN)0325 (Rate/Dose Verify - Provider: Enoc Mendes RN)1251 (Rate/Dose Change - Provider: Enoc Mendes RN)1251 (Paused - Provider: Enoc Mendes RN)1444 (Rate/Dose Change - Provider: Enoc Mendes RN) 0503 (Rate/Dose Verify - Provider: Enoc Mendes RN)0713 (Rate/Dose Change - Provider: Enoc Mendes RN)0815 (Paused - Provider: Enoc Mendes RN)0815 (New Bag - Provider: Karlo Mccray RN)1028 (MAR Hold - Provider: Mar Autohold - Reason: Unreviewed Transfer Orders)1319 (MAR Unhold - Provider: Karlo Mccray RN)1334 (New Bag - Provider: Kalro Mccray RN)2108 (New Bag - Provider: Enoc Mendes RN) 0510 (Rate/Dose Change - Provider: Enoc Mendes RN)0515 (Paused - Provider: Enoc Mendes RN)0515 (New Bag - Provider: Enoc Mendes RN)0705 (Rate/Dose Verify - Provider: Enoc Mendes RN)1205 (MAR Hold - Provider: Mar Autohold - Reason: Unreviewed Transfer Orders)1213 (New Bag - Provider: Kaley Payne RN)1534 (MAR Unhold - Provider: Alex Robbins RN)1612 (New Bag - Provider: Alex Robbins, IZABELLA)1757 (Stopped - Provider: Alex Robbins RN) PRN Medication Order 02/05/2022 02/06/2022 02/07/2022 0.9 % sodium chloride infusion IntraVENous, at 5-250 mL/hr, PRN, if patient receiving piggyback infusions and maintenance fluids are not ordered OR KVO fluids to protect IV site / prevent frequent line interruptions/ long duration, Starting on Thu02/05/22 at 0312, For piggyback infusion, administer at same rate as piggyback for a total of 25 mL. Enter 25 mL into dose field and piggyback rate into rate field of order. If piggyback is infusing at a rate less than 100 mL/hr, enter 25 mL into dose field and 100 mL/hr into rate field of order. For KVO fluids, enter rate of 20 mL/hr or less into rate field of order. 1028 (MAR Hold - Provider: Mar Autohold - Reason: Unreviewed Transfer Orders)1138 (New Bag - Provider: Kristy Pritchett)1155 (Anesthesia Volume Adjustment - Provider: Kristy Pritchett)1319 ([facility] Unhold - Provider: Karlo Mccray RN) 1205 ([facility] Hold - Provider: [facility] [employer] - Reason: Unreviewed Transfer Orders)1534 (MAR Unhold - Provider: Alex Robbins RN)1758 (Stopped - Provider: Alex Robbins RN) acetaminophen (TYLENOL) suppository 650 mg(Linked Group 1) 650 mg, Rectal, EVERY 6 HOURS PRN, Starting on Thu02/05/22 at 0312, Until Discontinued, Pain Mild (1-3), Fever, For temp greater than 100.4 F (38 C), Administer if oral route cannot be used. 1449 (See Alternative - Provider: Alex Robbins RN) 1028 ([facility] Hold - Provider: [facility] [employer] - Reason: Unreviewed Transfer Orders)1319 ([facility] Unhold - Provider: Karlo Mccray RN) 1205 ([facility] Hold - Provider: [facility] [employer] - Reason: Unreviewed Transfer Orders)1534 ([facility] Unhold - Provider: Alex Robbins RN) acetaminophen (TYLENOL) tablet 650 mg(Linked Group 1) 650 mg, Oral, EVERY 6 HOURS PRN, Starting on Thu02/05/22 at 0312, Until Discontinued, Pain Mild (1-3), Fever, For temp greater than 100.4 F (38 C), Maximum dose of acetaminophen is 4000 mg from all sources in 24 hours. 1449 (Given - Provider: Alex Robbins RN) 1028 ([facility] Hold - Provider: [facility] [employer] - Reason: Unreviewed Transfer Orders)1319 ([facility] Unhold - Provider: Karlo Mccray RN) 1205 ([facility] Hold - Provider: [facility] [employer] - Reason: Unreviewed Transfer Orders)1534 ([facility] Unhold - Provider: Alex Robbins RN) bupivacaine (PF) (MARCAINE) 0.5 % injection (CANCELED) PRN, Starting on Thu02/07/22 at 1403, Until Thu02/07/22 at 1425, Intra-op 1403 (Given - Provider: Alejandro Vora MD - Comment: OP SITES) fentaNYL (SUBLIMAZE) injection 100 mcg 100 mcg, IntraVENous, EVERY 2 HOURS PRN, Starting on Thu02/07/22 at 1534, Until Discontinued, Pain Severe (7-10), If oral and IV narcotics ordered, use oral first and only use IV if oral is ineffective or cannot take oral. Do Not give oral and IV within 1 hour of each other unless specifically ordered. fentaNYL (SUBLIMAZE) injection 50 mcg 50 mcg, IntraVENous, EVERY 2 HOURS PRN, Starting on Thu02/07/22 at 1534, Until Discontinued, Pain Moderate (4-6), If oral and IV narcotics ordered, use oral first and only use IV if oral is ineffective or cannot take oral. Do Not give oral and IV within 1 hour of each other unless specifically ordered. HYDROmorphone (DILAUDID) injection 0.5 mg (CANCELED) HYDROmorphone (DILAUDID) 1.5mg IV is equivalent to morphine 10mg IV, 0.5 mg, IntraVENous, EVERY 5 MIN PRN, 4 doses, Starting on Thu02/07/22 at 1446, Until Thu02/07/22 at 1535, Pain Moderate (4-6), If oral and IV narcotics ordered, use oral first and only use IV if oral is ineffective or cannot take oral. Do Not give oral and IV within 1 hour of each other unless specifically ordered., PACU only 1453 (Given - Provider: Alexandr Brothers RN)1515 (Given - Provider: Alexandr Brothers RN) morphine (PF) injection 1 mg 1 mg, IntraVENous, EVERY 6 HOURS PRN, Starting on Thu02/05/22 at 1644, Until Discontinued, Pain Moderate (4-6), Pain Severe (7-10), If oral and IV narcotics ordered, use oral first and only use IV if oral is ineffective or cannot take oral. Do Not give oral and IV within 1 hour of each other unless specifically ordered. 1718 (Given - Provider: Alex Robbins RN) 1028 (MAR Hold - Provider: Mar Autohold - Reason: Unreviewed Transfer Orders)1319 (MAR Unhold - Provider: Karlo Mccray RN) 1205 (MAR Hold - Provider: Mar Autohold - Reason: Unreviewed Transfer Orders)1534 ([facility] Unhold - Provider: Alex Robbins RN) ondansetron (ZOFRAN) injection 4 mg(Linked Group 2) 4 mg, IntraVENous, EVERY 6 HOURS PRN, Starting on Thu02/05/22 at 0312, Until Discontinued, Nausea, Vomiting, Administer if oral route cannot be used. 1028 ([facility] Hold - Provider: [facility] [employer] - Reason: Unreviewed Transfer Orders)1319 ([facility] Unhold - Provider: Karlo Mccray RN) 1205 ([facility] Hold - Provider: [facility] [employer] - Reason: Unreviewed Transfer Orders)1534 ([facility] Unhold - Provider: Alex Robbins RN) ondansetron (ZOFRAN-ODT) disintegrating tablet 4 mg(Linked Group 2) 4 mg, Oral, EVERY 8 HOURS PRN, Starting on Thu02/05/22 at 0312, Until Discontinued, Nausea, Vomiting 1028 ([facility] Hold - Provider: [facility] [employer] - Reason: Unreviewed Transfer Orders)1319 ([facility] Unhold - Provider: Karlo Mccray RN) 1205 ([facility] Hold - Provider: [facility] [employer] - Reason: Unreviewed Transfer Orders)1534 ([facility] Unhold - Provider: Alex Robbins RN) oxyCODONE-acetaminophen (PERCOCET) 5-325 MG per tablet 1 tablet Mg/kg dosing is based on the oxycodone component., 1 tablet, Oral, EVERY 4 HOURS PRN, Starting on Thu02/07/22 at 1534, Until Discontinued, Pain Moderate (4-6), Maximum dose of acetaminophen is 4000 mg from all sources in 24 hours. 1607 (Given - Provider: Alex Robbins RN) polyethylene glycol (GLYCOLAX) packet 17 g 17 g, Oral, DAILY PRN, Starting on Thu02/05/22 at 0312, Until Discontinued, Constipation, First line therapy for constipation 1028 ([facility] Hold - Provider: [facility] [employer] - Reason: Unreviewed Transfer Orders)1319 ([facility] Unhold - Provider: Karlo Mccray RN) 1205 ([facility] Hold - Provider: [facility] [employer] - Reason: Unreviewed Transfer Orders)1534 ([facility] Unhold - Provider: Alex Robbins RN)1608 (Given - Provider: Alex Robbins RN) potassium bicarb-citric acid (EFFER-K) effervescent tablet 40 mEq(Linked Group 3) 40 mEq, Oral, PRN, Starting on Thu02/05/22 at 1231, Until Discontinued, Per Potassium Replacement Protocol, Administer as alternative if patient unable to tolerate oral tablet. K Lab Replacement Action 3.1 to 3.5 40 mEq ORAL x 1 Under 3.1 Refer to IV replacement protocol Recheck K level in AM. Protocol not for use in patients with CrCl less than 30 mL/min. Do not chew or crush. Dissolve flavored tablets completely in 3 to 4 ounces of cold water; unflavored tablets may be dissolved in 3 to 4 ounces of cold juice. Patient to sip slowly over a 5 to 10 minute period. May further dilute if GI adverse effects occur. 1449 (See Alternative - Provider: Alex Robbins RN) 1028 (MAR Hold - Provider: Annie Autohold - Reason: Unreviewed Transfer Orders)1319 (MAR Unhold - Provider: Karlo Mccray RN) 1205 (MAR Hold - Provider: Mar Autohold - Reason: Unreviewed Transfer Orders)1534 (MAR Unhold - Provider: Alex Robbins RN) potassium chloride (KLOR-CON M) extended release tablet 40 mEq(Linked Group 3) 40 mEq, Oral, PRN, Starting on Thu02/05/22 at 1231, Until Discontinued, Potassium Replacement, May give alternative linked oral order (ordered as effervescent, packet, or liquid solution) if patient unable to tolerate tablet. K Lab Replacement Action 3.1 to 3.5 40 mEq ORAL x 1 Under 3.1 Refer to IV replacement protocol Recheck K level in AM. Protocol not for use in patients with CrCl less than 30 mL/min. 1449 (Given - Provider: Alex Robbins RN) 1028 (MAR Hold - Provider: Annie Autohold - Reason: Unreviewed Transfer Orders)1319 (MAR Unhold - Provider: Karlo Mccray RN) 1205 (MAR Hold - Provider: [facility] [employer] - Reason: Unreviewed Transfer Orders)1534 (MAR Unhold - Provider: Alex Robbins RN) potassium chloride 10 mEq/100 mL IVPB (Peripheral Line)(Linked Group 3) 10 mEq, IntraVENous, PRN, Starting on Thu02/05/22 at 1231, Until Discontinued, at 100 mL/hr, Potassium Replacement, K Lab Replacement Action 2.7 to 3.0 10 mEq IVPB x 6 doses (60 mEq Total) Under 2.7 CALL PROVIDER and administer 10 mEq IVPB x 6 doses (60 mEq Total) Infuse at 10 mEq/hr. Repeat Potassium lab 1 hour after final administration. Protocol not for use in patients with CrCl less than 30 mL/min. 1449 (See Alternative - Provider: Alex Robbins RN) 1028 ([facility] Hold - Provider: Annie Autohold - Reason: Unreviewed Transfer Orders)1319 ([facility] Unhold - Provider: Karlo Mccray RN) 1205 ([facility] Hold - Provider: [facility] [employer] - Reason: Unreviewed Transfer Orders)1534 ([facility] Unhold - Provider: Alex Robbins RN) sodium chloride flush 0.9 % injection 10 mL 10 mL, IntraVENous, PRN, Starting on Thu02/05/22 at 1129, Until Discontinued, Line Care, Other, flushing radioactive doses 1202 (Given - Provider: Allie Reynoso) 1028 ([facility] Hold - Provider: [facility] [employer] - Reason: Unreviewed Transfer Orders)1319 ([facility] Unhold - Provider: Karlo Mccray RN) 1205 ([facility] Hold - Provider: [facility] [employer] - Reason: Unreviewed Transfer Orders)1534 ([facility] Unhold - Provider: Alex Robbins RN) sodium chloride flush 0.9 % injection 10 mL 10 mL, IntraVENous, PRN, Starting on Thu02/04/22 at 2337, Until Discontinued, Line Care 1028 ([facility] Hold - Provider: [facility] [employer] - Reason: Unreviewed Transfer Orders)1319 ([facility] Unhold - Provider: Karlo Mccray RN) 1205 ([facility] Hold - Provider: [facility] [employer] - Reason: Unreviewed Transfer Orders)1534 ([facility] Unhold - Provider: Alex Robbins RN) sodium chloride flush 0.9 % injection 5-40 mL 5-40 mL, IntraVENous, PRN, Starting on Thu02/05/22 at 0312, Until Discontinued, Line Care, After every IV line use, For Line Patency: Peripheral IV = 5 mL; Midline or Central Line = 10 mL/lumen. If following IV push medication, administer flush at same rate as the IV push. Flush volume is determined by type of infusion therapy being given. For non-viscous solutions use: Peripheral IV = 5 mL Midline or Central Line = 10 mL/lumen For viscous solutions (i.e. blood components, parenteral nutrition, contrast media, or after obtaining blood sample) use: Peripheral IV = 10 mL Midline or Central Line = 20 mL/lumen 1028 (NOV Hold - Provider: Annie Autohold - Reason: Unreviewed Transfer Orders)1319 (NOV Unhold - Provider: Karlo Mccray, IZABELLA) 1205 (NOV Hold - Provider: [facility] [employer] - Reason: Unreviewed Transfer Orders)1534 (NOV Unhold - Provider: Alex Robbins RN) technetium mebrofenin (CHOLETEC) injection 6 millicurie (COMPLETED) 6 millicurie, IntraVENous, IMG ONCE PRN, 1 dose, Starting on Thu02/05/22 at 1129, Until Thu02/05/22 at 1202, Other 1202 (Given - Provider: Allie Reynoso) Linked Groups Order Group 1: acetaminophen (TYLENOL) tablet 650 mgJump to med 650 mg, Oral, EVERY 6 HOURS PRN, Starting on Thu02/05/22 at 0312, Until Discontinued, Pain Mild (1-3), Fever, For temp greater than 100.4 F (38 C)
Maximum dose of acetaminophen is 4000 mg from all sources in 24 hours.
Or acetaminophen (TYLENOL) suppository 650 mgJump to med 650 mg, Rectal, EVERY 6 HOURS PRN, Starting on Thu02/05/22 at 0312, Until Discontinued, Pain Mild (1-3), Fever, For temp greater than 100.4 F (38 C)
Administer if oral route cannot be used.
Group 2: ondansetron (ZOFRAN-ODT) disintegrating tablet 4 mgJump to med 4 mg, Oral, EVERY 8 HOURS PRN, Starting on Thu02/05/22 at 0312, Until Discontinued, Nausea, Vomiting Or ondansetron (ZOFRAN) injection 4 mgJump to med 4 mg, IntraVENous, EVERY 6 HOURS PRN, Starting on Thu02/05/22 at 0312, Until Discontinued, Nausea, Vomiting
Administer if oral route cannot be used.
Group 3: potassium chloride (KLOR-CON M) extended release tablet 40 mEqJump to med 40 mEq, Oral, PRN, Starting on Thu02/05/22 at 1231, Until Discontinued, Potassium Replacement
May give alternative linked oral order (ordered as effervescent, packet, or liquid solution) if patient unable to tolerate tablet. K Lab Repla cemen t Action 3.1 to 3.5 40 mEq ORAL x 1 Under 3.1 Refer to IV replacement protocol Recheck K level in AM. Protocol not for use in patients with CrCl less than 30 mL/min.
Or potassium bicarb-citric acid (EFFER-K) effervescent tablet 40 mEqJump to med 40 mEq, Oral, PRN, Starting on Thu02/05/22 at 1231, Until Discontinued, Per Potassium Replacement Protocol
Administer as alternative if patient unable to tolerate oral tablet. K Lab Repla cemen t Action 3.1 to 3.5 40 mEq ORAL x 1 Under 3.1 Refer to IV replacement protocol Recheck K level in AM. Protocol not for use in patients with CrCl less than 30 mL/min. Do not chew or crush. Dissolve flavored tablets completely in 3 to 4 ounces of cold water; unflavored tablets may be dissolved in 3 to 4 ounces of cold juice. Patient to sip slowly over a 5 to 10 minute period. May further dilute if GI adverse effects occur.
Or potassium chloride 10 mEq/100 mL IVPB (Peripheral Line)Jump to med 10 mEq, IntraVENous, PRN, Starting on Thu02/05/22 at 1231, Until Discontinued, at 100 mL/hr, Potassium Replacement
K Lab Replacement Action 2.7 to 3.0 10 mEq IVPB x 6 doses (60 mEq Total) Under 2.7 CALL PROVIDER and administer 10 mEq IVPB x 6 doses (60 mEq Total) Infuse at 10 mEq/hr. Repeat Potassium lab 1 hour after final administration. Protocol not for use in patients with CrCl less than 30 mL/min.
Care Teams (unrecognized sec tion and content) Commercial Sales Manager Relationship Specialty Start Date End Date Adilene Gracia, ASSOCIATE PROFESSOR OF BIOSTATISTICS - ORTHOPEDIC TECH [address] [place] [address] PCP - General Family Medicine 02/05/22 Commercial Sales Manager Relationship Specialty Start Date End Date Isaiah Davis NP [address] [place] [address] PCP - General Family Medicine 03/03/24 Commercial Sales Manager Relationship Specialty Start Date End Date Isaiah Davis, SHEET METAL DUCT INSTALLER [address] [facility] [place] [address] PCP - General Family Medicine 03/03/24 Commercial Sales Manager Relationship Specialty Start Date End Date Isaiah Santos, ASSOCIATE PROFESSOR OF BIOSTATISTICS-ORTHOPEDIC TECH [address] [place] [address] PCP - General Family Medicine 11/26/23 Commercial Sales Manager Relationship Specialty Start Date End Date Isaiah Santos, ASSOCIATE PROFESSOR OF BIOSTATISTICS-ORTHOPEDIC TECH [address] [place] [address] PCP - General Family Medicine 11/26/23 Commercial Sales Manager Relationship Specialty Start Date End Date Isaiah Santos, ASSOCIATE PROFESSOR OF BIOSTATISTICS-ORTHOPEDIC TECH [address] [place] [address] PCP - General Family Medicine 11/26/23 Commercial Sales Manager Relationship Specialty Start Date End Date Isaiah Davis, SHEET METAL DUCT INSTALLER [address] [place] [address] PCP - General Family Medicine 03/03/24 Commercial Sales Manager Relationship Specialty Start Date End Date Isaiah Davis, SHEET METAL DUCT INSTALLER [address] [place] [address] PCP - General Family Medicine 03/03/24 Commercial Sales Manager Relationship Specialty Start Date End Date Isaiah Davis, SHEET METAL DUCT INSTALLER [address] [place] [address] PCP - General Family Medicine 03/03/24 Commercial Sales Manager Relationship Specialty Start Date End Date Isaiah Davis NP [address] [place] [address] PCP - General Family Medicine 03/03/24 FOR RECORDS PERTAINING TO PATIENTS WHO ARE OR HAVE BEEN ENROLLED IN A CHEMICAL DEPENDENCY/SUBSTANCEABUSE PROGRAM, SOME INFORMATION MAY BE OMITTED. This clinical summary was aggregated from multiple sources. Caution should be exercised in using it in the provision of clinical care. This summary normalizes information from multiple sources, and as a consequence, information in this document may materially change the coding, format and clinical context of patient data. In addition, data may be omitted in some cases. CLINICAL DECISIONS SHOULD BE BASED ON THE PRIMARY CLINICAL RECORDS. [facility]. provides no warranty or guarantee of the accuracy or completeness of information in this document.
--- OUTSIDE RECORDS SUMMARY | 2025-01-31 00:47 | XMS_ITS | CCD ---
Author Organization [facility] Care Team Providers Care Knowledge Architect Name Role Phone HEMMER, TASH M Unavailable Unavailable HEMMER, TASH M Unavailable Unavailable HEMMER, TASH M Unavailable Unavailable HEMMER, TSAH M Unavailable Unavailable Joseph, Soila Unavailable Unavailable [...] Adilene Westbrook APRN, CNP Primary Care Provider [phone] ISAIAH SANTOS Referring Unavail able ISAIAH SANTOS [...] Propensity to adverse reactions to drug (disorder) [facility] Repository (1 source) No known allergies; Translations: [No known allergies] Propensity to adverse reactions to drug (disorder) [facility] Repository Medications Current Medications Medication Drug Class(es) [...] Daily 12/30/2024 01/19/2025 Discontinued polyethylene glycol 3350 43408 mg powder for oral solution (1 source) [...] RPon 01-24-2025 PATHOLOGY REQUEST FOR LAB BETSEY [facility] Comment on above: See report. Scanned copy available in EMR. [facility] ALL THYROID STIM HORMONEon 0 01-03-2025 TSH Qn 3.365 m[IU]/L [facility] ALL THYROXINE (T4) FREEon Free T4 [Mass/Vol] 0.97 ng/dL 0.76 - 1.46 ng/dL [facility] No Panel Informationon 01-03 [facility] CBC AND AUTO DIFFon 11-02-19 25 ABSOLUTE BASOPHIL 0.0 X10E9/L Normal 0.0-0.2 [facility] Comment on above: Performed By: #### C BRENDA CMP, 59950-7 ####[facility] ([id number])[address] [place] [address], [place] [address]#### 33897-6, HA ####[facility] ([id number])2130 [facility], [address] [place] [address] ABSOLUTE NEUTROPHIL 1.6 X10E9/L Normal 1.5-6.6 [facility] Comment on above: Performed By: #### C BRENDA CMP, ####[facility] ([id number])[address] [place] [address]#### 09221-7, HA1C ####[facility] ([id number])[address], [address], [place] [address] Basophils/100 WBC (Bld) 0.8 % Normal [facility] Comment on above: Performed By: #### C BCA, CMP, ####[facility] ([id number])[address] [place] [address] 87113#### 27093-5, HA1C ####[facility] ([id number])[address], [address], [place] [address] Eosinophils (Bld) [#/Vol] 0.1 10*3/uL Normal 0.0-0.[address] [facility] Comment on above: Performed By: #### C BCA, CMP, ####[facility] ([id number])[address] [place] [address] 38965#### 71548-2, HA1C ####[facility] ([id number])[address], [address], [place] [address] Eosinophils/100 WBC (Bld) 3.2 % Normal [facility] Comment on above: Performed By: #### C BCA, CMP, ####[facility] ([id number])[address] [place] [address] 36646#### 93315-7, HA1C ####[facility] ([id number])[address], [address], [place] [address] Erythrocyte distribution width (RBC) [Ratio] 13.6 % Normal 11.5-15.[address] [facility] Comment on above: Performed By: #### C BCA, CMP, ####[facility] ([id number])[address] [place] [address] 62635#### 79034-7, HA1C ####[facility] ([id number])[address], [address], [place] [address] Hematocrit (Bld) [Volume fraction] 38.4 % Normal 35-[address] [facility] Comment on above: Performed By: #### C BCA, CMP, ####[facility] ([id number])[address] [place] [address] 59899#### 51734-1, HA1C ####[facility] ([id number])[address], [address] [place] [address] Hemoglobin (Bld) [Mass/Vol] 13.3 g/dL Normal 11.7-15.[address] [facility] Comment on above: Performed By: #### C BCA, CMP, ####[facility] ([id number])[address] [place] [address] 37716#### 28766-2, HA1C ####[facility] ([id number])[address], [address] [place] [address] Lymphocytes (Bld) [#/Vol] 1.8 10*3/uL Normal 1.0-3.[address] [facility] Comment on above: Performed By: #### C BCA, CMP, ####[facility] ([id number])[address] [place] [address] 55648#### 81501-3, HA1C ####[facility] ([id number])[address], [address], [place] [address] Lymphocytes/100 WBC (Bld) 44.6 % Normal [facility] Comment on above: Performed By: #### C BCA, CMP, ####[facility] ([id number])[address] [place] [address] 97616#### 95347-0, HA1C ####[facility] ([id number])[address], [address], [place] [address] MCH (RBC) [Entitic mass] 29.1 pg Normal 27-[address] [facility] Comment on above: Performed By: #### C BCA, CMP, ####[facility] ([id number])[address] [place] [address] 40129#### 42955-8, HA1C ####[facility] ([id number])[address] [facility], [address] [place] [address] MCHC (RBC) [Mass/Vol] 34.6 g/dL Normal 32-36 [facility] Comment on above: Performed By: #### C BCA, CMP, ####[facility] ([id number])[address] [place] [address] 36310#### 50577-1, HA1C ####[facility] ([id number])[address], [address] [place] [address] 17347 MCV (RBC) [Entitic vol] 84 fL Normal 80-[address] [facility] Comment on above: Performed By: #### C BCA, CMP, ####[facility] ([id number])[address] [place] [address] 23087#### 88622-1, HA1C ####[facility] ([id number])[address], [address] [place] [address] 51918 Monocytes (Bld) [#/Vol] 0.5 10*3/uL Normal 0-0.[address] [facility] Comment on above: Performed By: #### C BCA, CMP, ####[facility] ([id number])[address] [place] [address] 34951#### 07988-0, HA1C ####[facility] ([id number])[address] [facility], [address], [place] [address] Monocytes/100 WBC (Bld) 11.9 % Normal [facility] Comment on above: Performed By: #### C BCA, CMP, 36842-3 ####[facility] ([id number])[address] [place] [address] 03444#### 88116-7, HA1C ####[facility] ([id number])[address] [facility], [address] [place] [address] 96445 Neutrophils/100 WBC (Bld) 39.5 % Normal [facility] Comment on above: Performed By: #### Reid BCA, CMP, 66814-6 ####[facility] ([id number])[address] [place] [address] 16731#### 41228-3, HA1C ####[facility] ([id number])[address] [facility], [address] [place] [address] 72094 Platelet mean volume (Bld) [Entitic vol] 8.6 fL Normal 7-[address] [facility] Comment on above: Performed By: #### Reid BCA, CMP, 47803-2 ####[facility] ([id number])[address] [place] [address] 59342#### 37771-9, HA1C ####[facility] ([id number])[address] [facility], [address], [place] [address] Platelets (Bld) [#/Vol] 249 10*3/uL Normal 150-[address] [facility] Comment on above: Performed By: #### C BCA, CMP, ####[facility] ([id number])[address] [place] [address] 36727#### 91889-8, HA1C ####[facility] ([id number])[address] [place] [address], [address] [place] [address] 86[address] RBC COUNT 4.57 X10E12/L Normal 3.80-5.[address] [facility] Comment on above: Performed By: #### C BCA, CMP, 30591-2 ####[facility] ([id number])[address] [place] [address] 68238#### 40101-4, HA1C ####[facility] ([id number])[address] [place] [address], [address] [place] [address] 91582 WBC (Bld) [#/Vol] 4.0 10*3/uL Normal 4.0-11.0 [facility] Comment on above: Performed By: #### C BCA, CMP, 80240-9 ####[facility] ([id number])[address] [place] [address] 04394#### 32275-1, HA1C ####[facility] ([id number])[address] [place] [address], [address] [place] [address] 14741 COMPREHENSIVE METABOLIC PANE John 11-02-2024 Albumin [Mass/Vol] 3.6 g/dL Normal 3.2-5.3 [facility] Comment on above: Performed By: #### C BCA, CMP, 06460-7 ####[facility] ([id number])[address] [place] [address] 36187#### 85676-4, HA1C ####[facility] ([id number])[address] [place] [address], [address] [place] [address] 76519 ALP [Catalytic activity/Vol] 76 U/L Normal 39-[address] [facility] Comment on above: Performed By: #### C BCA, CMP, ####[facility] ([id number])[address] [place] [address] 96320#### 13177-6, HA1C ####[facility] ([id number])[address] [facility], [address], [place] [address] ALT [Catalytic activity/Vol] 30 U/L Normal 0-[address] [facility] Comment on above: Performed By: #### C BCA, CMP, 60931-5 ####[facility] ([id number])[address] [place] [address] 36714#### 90342-4, HA1C ####[facility] ([id number])[address] [facility], [address] [place] [address] Anion gap [Moles/Vol] 11 mmol/L Normal 5-15 [facility] Comment on above: Performed By: #### C BCA, CMP, 83479-5 ####[facility] ([id number])[address] [place] [address] 86053#### 48950-5, HA1C ####[facility] ([id number])[address] [place] [address], [address] [place] [address] 19505 AST [Catalytic activity/Vol] 24 U/L Normal 0-[address] [facility] Comment on above: Performed By: #### C BCA, CMP, 40993-8 ####[facility] ([id number])[address] [place] [address] 70467#### 27476-9, HA1C ####[facility] ([id number])[address] [facility], [address] [place] [address] 34925 Bilirubin [Mass/Vol] 0.2 mg/dL Low 0.3-1.2 [facility] Comment on above: Performed By: #### C BCA, CMP, ####[facility] ([id number])[address] [place] [address] 17690#### 48645-2, HA1C ####[facility] ([id number])[address] [facility], [address] [place] [address] 46298 Calcium [Mass/Vol] 8.8 mg/dL Normal 8.5-10.5 [facility] Comment on above: Performed By: #### C BCA, CMP, 25817-6 ####[facility] ([id number])[address] [place] [address] 54474#### 17058-3, HA1C ####[facility] ([id number])[address] [place] [address], [address] [place] [address] 98229 Chloride [Moles/Vol] 103 mmol/L Normal 98-109 [facility] Comment on above: Performed By: #### C BCA, CMP, 00450-5 ####[facility] ([id number])[address] [place] [address] 34007#### 94847-4, HA1C ####[facility] ([id number])[address] [place] [address], [address] [place] [address] 85257 CO2 [Moles/Vol] 23 mmol/L Normal 22-[address] [facility] Comment on above: Performed By: #### C BCA, CMP, 85983-5 ####[facility] ([id number])[address] [place] [address] 71428#### 56798-2, HA1C ####[facility] ([id number])[address] [facility], [address], [place] [address] Creatinine [Mass/Vol] 0.86 mg/dL Normal 0.40-1.00 [facility] Comment on above: Result Comment: METH OD TRACEABLE TO IDMS STANDARD Performed By: #### C BCA, CMP, ####[facility] ([id number])[address] [place] [address] 04366#### 76420-0, HA1C ####[facility] ([id number])[address] [address] GFR/1.73 sq M.predicted among non-blacks MDRD (S/P/Bld) [Vol rate/Area] 89 mL/min/{1.73_m2} Normal >[address] [facility] Comment on above: Result Comment: Reported eGFR is based on the CKD-EPI 2020 equation that does not use a race coefficient. Performed By: #### C BCA, CMP, 91685-2 ####[facility] ([id number])[address] [place] [address] 73143#### 35682-4, HA1C ####[facility] ([id number])[address] [address] Glucose [Mass/Vol] 102 mg/dL High 65-99 [facility] Comment on above: Performed By: #### C BCA, CMP, 54195-8 ####[facility] ([id number])[address] [place] [address] 08153#### 89127-1, HA1C ####[facility] ([id number])[address] [address] Potassium [Moles/Vol] 3.8 mmol/L Normal 3.5-5.0 [facility] Comment on above: Performed By: #### C BCA, CMP, 71965-9 ####[facility] ([id number])[address] [place] [address] 01858#### 73856-3, HA1C ####[facility] ([id number])[address] [address] Protein [Mass/Vol] 6.6 g/dL Normal 6.0-8.0 [facility] Comment on above: Performed By: #### C BCA, CMP, 65118-9 ####[facility] ([id number])[address] [place] [address] 45585#### 25639-5, HA1C ####[facility] ([id number])[address], [place] [address] Sodium [Moles/Vol] 137 mmol/L Normal 134-146 [facility] Comment on above: Performed By: #### C BCA, CMP, 87950-6 ####[facility] ([id number])[address] [place] [address] 69881#### 75404-9, HA1C ####[facility] ([id number])[address], [address], [place] [address] Urea nitrogen [Mass/Vol] 18 mg/dL Normal 5-[address] [facility] Comment on above: Performed By: #### C BCA, CMP, 70963-2 ####[facility] ([id number])[address] [place] [address] 48047#### 90657-8, HA1C ####[facility] ([id number])[address], [address] [place] [place] [address] HGB A1C (GLYCO-HGB)on 2024 Glucose [Mass/Vol] 117 mg/dL Normal [facility] Comment on above: Performed By: #### C BCA, CMP, 49181-2 ####[facility] ([id number])[address] [place] [address] 06820#### 92765-3, HA1C ####[facility] ([id number])[address], [place] [address] HbA1c (Bld) [Mass fraction] 5.7 % High 4.4-5.[address] [facility] Comment on above: Result Comment: NOTE ADA Guidelines Result HgbA1c Normal : less than 5.7 % Prediabetes : 5.7 % to 6.4 % Diabetes : > 6.4 % Use with caution in patients with abnormal hemoglobin variants as the half-life of red blood cells and in vivo glycation rates are affected. Performed By: #### C BRENDA, THAO, 49722-3 ####[facility] ([id number])[address] [place] [address] 30488#### 38828-5, HA1C ####[facility] ([id number])[address] [place] [address], [address] [address] Lipid 1996 panelon 5 Cholesterol [Mass/Vol] 166 mg/dL Normal 150-[address] [facility] Comment on above: Performed By: #### Reid GUTIERREZ CMP, 63127-3 ####[facility] ([id number])[address] [place] [address] 57027#### 60156-2, HA1C ####[facility] ([id number])[address] [place] [address], [address] [address] Cholesterol in HDL [Mass/Vol] 51 mg/dL Normal >[address] [facility] Comment on above: Result Comment: HDL <40 mg/dL - High Risk HDL > or = 40mg/dL- Desirable HDL >60 mg/dL - Negative Risk Performed By: #### Reid GUTIERREZ, CMP, 83915-6 ####[facility] ([id number])[address] [place] [address] 56256#### 26048-0, HA1C ####[facility] ([id number])[address], [address] [place] [address] 03222 Cholesterol in LDL [Mass/Vol] 85 mg/dL Normal <[address] [facility] Comment on above: Result Comment: LDL <100 mg/dL - Desirable LDL >160 mg/dL - High Risk Performed By: #### C BCA, CMP, 01784-1 ####[facility] ([id number])[address] [place] [address] 88676#### 23210-1, HA1C ####[facility] ([id number])[address] [facility], [address] [address] Cholesterol in VLDL [Mass/Vol] 30 mg/dL Normal 0-[address] [facility] Comment on above: Performed By: #### C BCA, CMP, 82793-7 ####[facility] ([id number])[address] [place] [address] 60708#### 19957-2, HA1C ####[facility] ([id number])[address] [facility], [address] [address] CHOLESTEROL:HDL 3.3 Normal 1.0-5.[address] [facility] Comment on above: Performed By: #### C BCA, CMP, 33149-8 ####[facility] ([id number])[address] [place] [address] 42326#### 05931-5, HA1C ####[facility] ([id number])[address], [address] [place] [address]383 Triglyceride [Mass/Vol] 152 mg/dL High 27-[address] [facility] Comment on above: Performed By: #### C BCA, CMP, ####[facility] ([id number])[address] [place] [address] 72809#### 34322-4, HA1C ####[facility] ([id number])[address] [place] [address], [address] [place] [address] MAGNESIUMon 11-02-2024 Magnesium [Mass/Vol] 2.0 mg/dL Normal 1.8-2.6 [facility] Comment on above: Performed By: #### C BCA, CMP, 82678-7 ####[facility] ([id number])[address] [place] [address] 73934#### 96901-7, HA1C ####[facility] ([id number])[address] [place] [address], [address] [place] [address] 44652 MR BRAIN WO CONTon 5 MR BRAIN [...] Wasserman MD on 11/02/2024 7:51 AM Normal [facility] BASIC METABOLIC PANLon 11-01 Anion gap [Moles/Vol] 10 mmol/L Normal 5-15 [facility] Comment on above: Performed By: #### C BCA, PINR, 69588-7, BMP, 21550-7 #### [facility] ([id number]) [address] [place] [address]328 Calcium [Mass/Vol] 9.0 mg/dL Normal 8.5-10.5 [facility] Comment on above: Performed By: #### C BCA, PINR, 91723-7, BMP, 43205-4 #### [facility] ([id number]) [address] [place] [address]0734 Chloride [Moles/Vol] 98 mmol/L Normal 98-109 [facility] Comment on above: Performed By: #### C BCA, PINR, 87397-5, BMP, 01917-7 #### [facility] ([id number]) [address] [place] [address] 10458 CO2 [Moles/Vol] 29 mmol/L Normal 22-[address] [facility] Comment on above: Performed By: #### C BCA, PINR, 18822-9, BMP, 63753-3 #### [facility] ([id number]) [address] [place] [address] 87766 Creatinine [Mass/Vol] 0.86 mg/dL Normal 0.40-1.00 [facility] Comment on above: Result Comment: METH OD TRACEABLE TO IDMS STANDARD Performed By: #### C BCA, PINR, 97686-9, BMP, 13384-2 #### [facility] ([id number]) [address] [place] [address] 01336 GFR/1.73 sq M.predicted among non-blacks MDRD (S/P/Bld) [Vol rate/Area] 89 mL/min/{1.73_m2} Normal >[address] [facility] Comment on above: Result Comment: Reported eGFR is based on the CKD-EPI 1 equation that does not use a race coefficient. Performed By: #### C BCA, PINR, 04283-8, BMP, 81370-7 #### [facility] ([id number]) [address] [place] [address] 84018 Glucose [Mass/Vol] 112 mg/dL High 65-99 [facility] Comment on above: Performed By: #### C BCA, PINR, 07232-2, BMP, 28205-2 #### [facility] ([id number]) [address] [place] [address] 39962 Potassium [Moles/Vol] 4.1 mmol/L Normal 3.5-5.0 [facility] Comment on above: Performed By: #### C BCA, PINR, 59147-1, BMP, 09291-4 #### [facility] ([id number]) [address] [place] [address] 82004 Sodium [Moles/Vol] 137 mmol/L Normal 134-146 [facility] Comment on above: Performed By: #### C BCA, PINR, 62247-1, BMP, 03196-6 #### [facility] ([id number]) [address] [place] [address] 40718 Urea nitrogen [Mass/Vol] 15 mg/dL Normal 5-[address] [facility] Comment on above: Performed By: #### C BCA, PINR, 07365-8, BMP, 03184-4 #### [facility] ([id number]) [address] [place] [address] 15148 CBC AND AUTO DIFFon 11-01-19 25 ABSOLUTE BASOPHIL 0.0 X10E9/L Normal 0.0-0.2 [facility] Comment on above: Performed By: #### C BCA, PINR, 52420-6, BMP, 62785-2 #### [facility] ([id number]) [address] [place] [address]64[address] ABSOLUTE NEUTROPHIL 2.0 X10E9/L Normal 1.5-6.6 [facility] Comment on above: Performed By: #### C BCA, PINR, 27556-2, BMP, 79656-6 #### [facility] ([id number]) [address] [place] [address] 46319 Basophils/100 WBC (Bld) 0.9 % Normal [facility] Comment on above: Performed By: #### C BCA, PINR, 14158-7, BMP, 43634-9 #### [facility] ([id number]) [address] [place] [address] 03259 Eosinophils (Bld) [#/Vol] 0.1 10*3/uL Normal 0.0-0.[address] [facility] Comment on above: Performed By: #### C BCA, PINR, 47134-6, BMP, 36281-6 #### [facility] ([id number]) [address] [place] [address] 51724 Eosinophils/100 WBC (Bld) 2.0 % Normal [facility] Comment on above: Performed By: #### C BCA, PINR, 62142-2, BMP, 19263-0 #### [facility] ([id number]) [address] [place] [address] 32941 Erythrocyte distribution width (RBC) [Ratio] 13.6 % Normal 11.5-15.[address] [facility] Comment on above: Performed By: #### C BCA, PINR, 80582-6, BMP, 07549-2 #### [facility] ([id number]) [address] [place] [address] 09501 Hematocrit (Bld) [Volume fraction] 39.8 % Normal 35-[address] [facility] Comment on above: Performed By: #### C BCA, PINR, 12469-5, BMP, 98551-3 #### [facility] ([id number]) [address] [place] [address] 47253 Hemoglobin (Bld) [Mass/Vol] 13.4 g/dL Normal 11.7-15.[address] [facility] Comment on above: Performed By: #### C BCA, PINR, 10183-2, BMP, 45485-7 #### [facility] ([id number]) [address] [place] [address] 24425 Lymphocytes (Bld) [#/Vol] 1.8 10*3/uL Normal 1.0-3.[address] [facility] Comment on above: Performed By: #### C BCA, PINR, 96161-4, BMP, 72246-6 #### [facility] ([id number]) [address] [place] [address] 21072 Lymphocytes/100 WBC (Bld) 39.4 % Normal [facility] Comment on above: Performed By: #### C BCA, PINR, 85882-7, BMP, 46090-7 #### [facility] ([id number]) [address] [place] [address] 91156 MCH (RBC) [Entitic mass] 28.3 pg Normal 27-[address] [facility] Comment on above: Performed By: #### Reid BCA, PINR, 92895-0, BMP, 43457-2 #### [facility] ([id number]) [address] [place] [address] 12114 MCHC (RBC) [Mass/Vol] 33.6 g/dL Normal 32-36 [facility] Comment on above: Performed By: #### Reid BCA, PINR, 66589-3, BMP, 13475-2 #### [facility] ([id number]) [address] [place] [address] 19394 MCV (RBC) [Entitic vol] 84 fL Normal 80-[address] [facility] Comment on above: Performed By: #### C BCA, PINR, 14208-5, BMP, 44114-5 #### [facility] ([id number]) [address] [place] [address] 78246 Monocytes (Bld) [#/Vol] 0.6 10*3/uL Normal 0-0.[address] [facility] Comment on above: Performed By: #### Reid BCA, PINR, 32070-9, BMP, 12856-7 #### [facility] ([id number]) [address] [place] [address] 09435 Monocytes/100 WBC (Bld) 13.3 % Normal [facility] Comment on above: Performed By: #### C BCA, PINR, 61453-2, BMP, 51036-6 #### [facility] ([id number]) [address] [place] [address] 73422 Neutrophils/100 WBC (Bld) 44.4 % Normal [facility] Comment on above: Performed By: #### C BCA, PINR, 42880-9, BMP, 35050-4 #### [facility] ([id number]) [address] [place] [address] 78746 Platelet mean volume (Bld) [Entitic vol] 8.4 fL Normal 7-[address] [facility] Comment on above: Performed By: #### Reid BCA, PINR, 47642-9, BMP, 44825-1 #### [facility] ([id number]) [address] [place] [address] 57472 Platelets (Bld) [#/Vol] 252 10*3/uL Normal 150-[address] [facility] [facility] Comment on above: Performed By: #### C BCA, PINR, 72895-0, BMP, 22888-7 #### [facility] ([id number]) [address] [place] [address] RBC COUNT 4.73 X10E12/L Normal 3.80-5.[address] [facility] Comment on above: Performed By: #### C BCA, PINR, 83981-4, BMP, 33222-7 #### [facility] ([id number]) [address] [place] [address] WBC (Bld) [#/Vol] 4.5 10*3/uL Normal 4.0-11.0 [facility] Comment on above: Performed By: #### C BCA, PINR, 13326-8, [facility], 06993-7 #### [facility] ([id number]) 5 [facility], [place] [address] CT BRAIN WO CONT STROKE ALER Britton [...] Sam MD on 11/01/2024 7:36 PM Normal [facility] CT CTA CAROTIDon 11-01-2024 CT CTA CAROTID [...] supervision. Automated exposure control utilized. The [place] Symptomatic Carotid Endarterectomy Trial (NASCET) method for [...] Garvey MD on 11/01/2024 8:04 PM Normal [facility] CT CTA HEADon 11-01-2024 CT CTA HEAD [...] Garvey MD on 11/01/2024 7:56 PM Normal [facility] Glucose Glucometer (BldC) [M ass/Vol]on 11-01-2024 Glucose [Mass/Vol] 110 mg/dL High 65-99 [facility] HCG ( test) Ql (U)o n 11-01-2024 Beta HCG ( test) Ql (U) Negative Normal NEG [facility] Comment on above: Performed By: #### 2 106-3 #### [facility] ([id number]) [address] [place] [address], [place] [address] PROTIME AND INRon 11-01-2024 INR Coag (PPP) [Relative time] 1.0 {INR} Normal 0.8-1.[address] [facility] Comment on above: Performed By: #### C BCA, PINR, 16521-8, BMP, 88418-7 #### [facility] ([id number]) [address] [place] [address] PT Coag (PPP) [Time] 11.5 s Normal 9.8-13.2 [facility] Comment on above: Result Comment: NEW REFERENCE RANGE Performed By: #### C BCA, PINR, 26308-9, BMP, 83286-7 #### [facility] ([id number]) [address] [place] [address] Troponin I.cardiac High sens itivity method [Mass/Vol]on 11-01-2024 1 HOUR TROP I, HIGH SENSITIVITY 4 ng/L Normal <[address] [facility] Comment on above: Performed By: #### 8 9579-7 ####[facility] ([id number])[address] [place] [address] TROPONIN I, HIGH SENSITIVITY 3 ng/L Normal <[address] [facility] Comment on above: Performed By: #### C BCA, PINR, 10139-8, BMP, 70078-3 #### [facility] ([id number]) [address] [place] [address] URN MACROSCOPIC NURon 2024 BILIRUBIN SAMAN Negative Normal NEG [facility] Comment on above: Performed By: #### N UM ####[facility] ([id number])[address] [place] [address], [place] [address] BLOOD/HGB SAMAN Negative Normal NEG [facility] Comment on above: Performed By: #### N UM ####[facility] ([id number])[address] [place] [address], [place] [address] GLUCOSE SAMAN Negative Normal NEG [facility] Comment on above: Performed By: #### N UM ####[facility] ([id number])[address] [place] [address] [place] [address] KETONES SAMAN Negative Normal NEG [facility] Comment on above: Performed By: #### N UM ####[facility] ([id number])[address] [place] [address] [place] [address] LEUKOCYTE ESTERASE SAMAN Negative Normal NEG [facility] Comment on above: Performed By: #### N UM ####[facility] ([id number])[address] [place] [address] [place] [address] NITRITE SAMAN Negative Normal NEG [facility] Comment on above: Performed By: #### N UM ####[facility] ([id number])[address] [place] [address] PH SAMAN 7.0 Normal 5.0-8.[address] [facility] Comment on above: Performed By: #### N UM ####[facility] ([id number])[address] [place] [address] PROTEIN SAMAN Negative Normal NEG [facility] Comment on above: Performed By: #### N UM ####[facility] ([id number])[address] [place] [address] [place] [address] SPECIFIC GRAVITY SAMAN 1.010 Normal 1.003-1 .[address] [facility] Comment on above: Performed By: #### N UM ####[facility] ([id number])[address] [place] [address] [place] [address] UROBILINOGEN SAMAN 0.2 eu/dL Normal <1.1 [facility] Comment on above: Performed By: #### N UM ####[facility] ([id number])[address] [place] [address] [place] [address] aPTT Coag (PPP) [Time]on aPTT Coag (Bld) [Time] 34 s Normal 26-37 [facility] Comment on above: Result Comment: NEW REFERENCE RANGE Performed By: #### C BCA, PINR, 84330-9, BMP, 30428-7 #### [facility] ([id number]) [address] [place] [address], [place] [address] THYROID PROFILEon 05-24-2024 Free T4 [Mass/Vol] 0.81 ng/dL Normal 0.61-1.60 [facility] Comment on above: Performed By: #### T HYR #### [facility] ([id number]) [address] [place] [address] TSH 4.17 uIU/mL Normal 0.49-4.67 [facility] Comment on above: Performed By: #### T HYR #### [facility] ([id number]) [address], [address] [place] [address] US PELVIS TRANSVAGINALon US PELVIS TRANSVAGINAL TITLE [...] report is generated using voice recognition reporting (Recommend). On occasion [employer] erroneously drops words from the report or [...] IS VERY IMPORTANT TO YOUR HEALTH. THE [employer] GUIDELINES RECOMMEND THAT WOMEN 40 [...] Free T4 [Mass/Vol] 0.69 ng/dL Normal 0.61-1.60 [facility] Comment on above: Performed By: #### T [facility], 3024-7 #### [facility] ([id number]) [address], [address] [place] [address] TSH WITH REFLEXon 03-02-2024 TSH 4.80 uIU/mL High 0.49-4.67 [facility] Comment on above: Performed By: #### T [facility], 3024-7 #### [facility] ([id number]) [address], [address] [place] [address] CBC AND AUTO DIFFon 11-26-19 24 ABSOLUTE BASOPHIL 0.1 X10E9/L Normal 0.0-0.2 [facility] Comment on above: Performed By: #### C BCA, CMP, 17688-2, TSHR, 4-7, 2132-9, 56543-1 #### [facility] ([id number]) [address], [address] [place] [address] ABSOLUTE NEUTROPHIL 4.2 X10E9/L Normal 1.5-6.[address] [facility] Comment on above: Performed By: #### C BCA, CMP, 63203-5, TSHR, 4-7, 2132-05, 90816-7 #### [facility] ([id number]) [address], [address] [place] [address] Basophils/100 WBC (Bld) 1.2 % Normal [facility] Comment on above: Performed By: #### C BCA, CMP, 09405-4, TSHR, 3023-7, 2132-05, 76737-0 #### [facility] ([id number]) [address], [address] [place] [address] Eosinophils (Bld) [#/Vol] 0.3 10*3/uL Normal 0.0-0.4 [facility] Comment on above: Performed By: #### C BCA, CMP, 27680-8, TSHR, 7, 2132-05, 48807-8 #### [facility] ([id number]) [address], [address] [place] [address] Eosinophils/100 WBC (Bld) 3.6 % Normal [facility] Comment on above: Performed By: #### C BCA, CMP, 96273-1, TSHR, 3024-03, 2132-05, 86729-3 #### [facility] ([id number]) [address], [address] [place] [address] Erythrocyte distribution width (RBC) [Ratio] 13.9 % Normal 11.5-15.0 [facility] Comment on above: Performed By: #### C BCA, CMP, 05215-3, TSHR, 3023-7, 2132-05, 06871-6 #### [facility] ([id number]) [address], [address] [place] [address] Hematocrit (Bld) [Volume fraction] 39.4 % Normal 35-47 [facility] Comment on above: Performed By: #### C BCA, CMP, 43947-1, TSHR, 3024-7, 9, 93146-4 #### [facility] ([id number]) [address], [address] [place] [address] Hemoglobin (Bld) [Mass/Vol] 13.3 g/dL Normal 11.7-15.5 [facility] Comment on above: Performed By: #### C BCA, CMP, 69588-5, TSHR, 3024-7, 9, 92159-7 #### [facility] ([id number]) [address], [address] [place] [address] Lymphocytes (Bld) [#/Vol] 2.3 10*3/uL Normal 1.0-3.5 [facility] Comment on above: Performed By: #### C BCA, CMP, 14514-1, TSHR, 3023-7, 2132-05, 58464-9 #### [facility] ([id number]) [address], [address] [place] [address] Lymphocytes/100 WBC (Bld) 30.9 % Normal [facility] Comment on above: Performed By: #### C BCA, CMP, 11147-5, TSHR, 3023-7, 2132-05, 60099-9 #### [facility] ([id number]) [address], [address] [place] [address] MCH (RBC) [Entitic mass] 28.6 pg Normal 27-34 [facility] Comment on above: Performed By: #### C BCA, CMP, 28222-1, TSHR, 3024-7, 9, 08605-0 #### [facility] ([id number]) [address], [address] [place] [address] MCHC (RBC) [Mass/Vol] 33.6 g/dL Normal 32-36 [facility] Comment on above: Performed By: #### C BCA, CMP, 99945-1, TSHR, 3024-7, 2132-05, 58737-5 #### [facility] ([id number]) [address], [address] [place] [address] MCV (RBC) [Entitic vol] 85 fL Normal 80-100 [facility] Comment on above: Performed By: #### C BCA, CMP, 68039-5, TSHR, 3023-7, 2132-05, 94488-2 #### [facility] ([id number]) [address], [address] [place] [address] Monocytes (Bld) [#/Vol] 0.5 10*3/uL Normal 0-0.9 [facility] Comment on above: Performed By: #### C BCA, CMP, 06368-7, TSHR, 3023-7, 2132-05, 90443-1 #### [facility] ([id number]) [address], [address] [place] [address] Monocytes/100 WBC (Bld) 6.3 % Normal [facility] Comment on above: Performed By: #### C BCA, CMP, 76108-2, TSHR, 3023-7, 2132-05, 24862-4 #### [facility] ([id number]) [address], [address] [place] [address] Neutrophils/100 WBC (Bld) 58.0 % Normal [facility] Comment on above: Performed By: #### C BCA, CMP, 20526-2, TSHR, 3023-7, 2132-05, 44897-6 #### [facility] ([id number]) [address], [address] [place] [address] Platelet mean volume (Bld) [Entitic vol] 8.7 fL Normal 7-12 [facility] Comment on above: Performed By: #### C BCA, CMP, 79226-2, TSHR, 3024-7, 2132-05, 53613-9 #### [facility] ([id number]) [address], [address] [place] [address] Platelets (Bld) [#/Vol] 278 10*3/uL Normal 150-450 [facility] Comment on above: Performed By: #### C BCA, CMP, 07443-6, TSHR, 3024-7, 9, 24030-2 #### [facility] ([id number]) [address], [address] [place] [address] RBC COUNT 4.63 X10E12/L Normal 3.80-5.20 [facility] Comment on above: Performed By: #### C BCA, CMP, 74246-9, TSHR, 4-7, 9, 94058-3 #### [facility] ([id number]) [address], [address] [place] [address] WBC (Bld) [#/Vol] 7.3 10*3/uL Normal 4.0-11.0 [facility] Comment on above: Performed By: #### C BCA, CMP, 14056-5, TSHR, 3024-7, 2132-05, 45462-4 #### [facility] ([id number]) [address], [address] [place] [address] COMPREHENSIVE METABOLIC PANE John 11-26-2023 Albumin [Mass/Vol] 4.2 g/dL Normal 3.2-5.3 [facility] Comment on above: Performed By: #### C BCA, CMP, 21689-7, TSHR, 3024-7, 2131-9, 59933-8 #### [facility] ([id number]) [address], [address] [place] [address] ALP [Catalytic activity/Vol] 92 U/L Normal 39-130 [facility] Comment on above: Performed By: #### C BCA, CMP, 48382-4, TSHR, 3024-7, 2132-05, 66540-4 #### [facility] ([id number]) [address], [address] [place] [address] ALT [Catalytic activity/Vol] 27 U/L Normal 0-31 [facility] Comment on above: Performed By: #### C BCA, CMP, 55128-7, TSHR, 3024-7, 2131-9, 13501-2 #### [facility] ([id number]) [address], [address] [place] [address] Anion gap [Moles/Vol] 11 mmol/L Normal 5-15 [facility] Comment on above: Performed By: #### C BCA, CMP, 18716-6, TSHR, 3023-7, 2132-05, 28814-4 #### [facility] ([id number]) [address], [address] [place] [address] AST [Catalytic activity/Vol] 27 U/L Normal 0-41 [facility] Comment on above: Performed By: #### C BCA, CMP, 47585-7, TSHR, 4-7, 9, 11516-0 #### [facility] ([id number]) [address], [address] [place] [address] Bilirubin [Mass/Vol] 0.4 mg/dL Normal 0.3-1.[address] [facility] Comment on above: Performed By: #### C BCA, CMP, 39361-6, TSHR, 4-7, 9, 10245-2 #### [facility] ([id number]) [address], [address] [place] [address] Calcium [Mass/Vol] 9.0 mg/dL Normal 8.5-10.5 [facility] Comment on above: Performed By: #### C BCA, CMP, 48052-3, TSHR, 4-7, 9, 35890-3 #### [facility] ([id number]) [address], [address] [place] [address] Chloride [Moles/Vol] 103 mmol/L Normal 98-[address] [facility] Comment on above: Performed By: #### C BCA, CMP, 48968-7, TSHR, 3024-7, 9, 69897-9 #### [facility] ([id number]) [address], [address] [place] [address] CO2 [Moles/Vol] 24 mmol/L Normal 22-32 [facility] Comment on above: Performed By: #### C BCA, CMP, 95049-9, TSHR, 3023-7, 9, 46535-3 #### [facility] ([id number]) [address], [address] [place] [address] Creatinine [Mass/Vol] 0.92 mg/dL Normal 0.40-1.00 [facility] Comment on above: Result Comment: METH OD TRACEABLE TO IDMS STANDARD Performed By: #### C BCA, CMP, 79700-0, TSHR, 3023-7, 9, 70999-2 #### [facility] ([id number]) [address], [address] [place] [address] GFR/1.73 sq M.predicted among non-blacks MDRD (S/P/Bld) [Vol rate/Area] 82 mL/min/{1.73_m2} Normal >59 [facility] Comment on above: Result Comment: Reported eGFR is based on the CKD-EPI 2020 equation that does not use a race coefficient. Performed By: #### C BCA, CMP, 24869-9, TSHR, 4-7, 9, 30886-4 #### [facility] ([id number]) [address], [address] [place] [address] Glucose [Mass/Vol] 96 mg/dL Normal 65-99 [facility] Comment on above: Performed By: #### C BCA, CMP, 98436-8, TSHR, 3024-7, 2131-9, 68786-1 #### [facility] ([id number]) [address], [address] [place] [address] Potassium [Moles/Vol] 3.8 mmol/L Normal 3.5-5.0 [facility] Comment on above: Performed By: #### C BCA, CMP, 13536-8, TSHR, 3024-7, 9, 58256-5 #### [facility] ([id number]) [address], [address] [place] [address] Protein [Mass/Vol] 7.2 g/dL Normal 6.0-8.0 [facility] Comment on above: Performed By: #### C BCA, CMP, 34718-9, TSHR, 4-7, 9, 80669-9 #### [facility] ([id number]) [address], [address] [place] [address] Sodium [Moles/Vol] 138 mmol/L Normal 134-146 [facility] Comment on above: Performed By: #### C BCA, CMP, 84478-4, TSHR, 3023-7, 9, 22036-7 #### [facility] ([id number]) [address], [address] [place] [address] Urea nitrogen [Mass/Vol] 14 mg/dL Normal 5-23 [facility] Comment on above: Performed By: #### C BCA, CMP, 78764-3, TSHR, 3024-7, 2131-9, 61562-2 #### [facility] ([id number]) [address] [place] [address] FREE T4on 11-26-2023 Free T4 [Mass/Vol] 0.75 ng/dL Normal 0.61-1.60 [facility] Comment on above: Performed By: #### C BCA, CMP, 77404-2, TSHR, 3023-7, 2132-05, 97851-3 #### [facility] ([id number]) [address], [facility] [place] [address] HGB A1C (GLYCO-HGB)on 2023 Glucose [Mass/Vol] 117 mg/dL Normal [facility] Comment on above: Performed By: #### C BCA, CMP, 64900-8, TSHR, 7, 2132-05, 44158-4 #### [facility] ([id number]) [address], [facility] [place] [address] HbA1c (Bld) [Mass fraction] 5.7 % High 4.4-5.6 [facility] Comment on above: Result Comment: NOTE ADA Guidelines Result HgbA1c Normal : less than 5.7 % Prediabetes : 5.7 % to 6.4 % Diabetes : > 6.4 % Use with caution in patients with abnormal hemoglobin variants as the half-life of red blood cells and in vivo glycation rates are affected. Performed By: #### C BCA, CMP, 47134-7, TSHR, 7, 2132-05, 93415-4 #### [facility] ([id number]) [address], [address] [place] [address] Lipid 1996 panelon 4 Cholesterol [Mass/Vol] 202 mg/dL High 150-200 [facility] Comment on above: Performed By: #### C BCA, CMP, 62497-3, TSHR, 7, 2132-05, 50761-8 #### [facility] ([id number]) [address], [address] [place] [address] Cholesterol in HDL [Mass/Vol] 51 mg/dL Normal >39 [facility] Comment on above: Result Comment: HDL <40 mg/dL - High Risk HDL > or = 40mg/dL- Desirable HDL >60 mg/dL - Negative Risk Performed By: #### C BCA, CMP, 73074-1, TSHR, 3024-7, 2132-9, 95314-7 #### [facility] ([id number]) [address], [address] [place] [address] Cholesterol in LDL [Mass/Vol] 117 mg/dL Normal <130 [facility] Comment on above: Result Comment: LDL <100 mg/dL - Desirable LDL >160 mg/dL - High Risk Performed By: #### C BCA, CMP, 76414-2, TSHR, 3024-7, 2132-9, 34692-9 #### [facility] ([id number]) [address], [address] [place] [address] Cholesterol in VLDL [Mass/Vol] 34 mg/dL High 0-30 [facility] Comment on above: Performed By: #### C BCA, CMP, 39079-0, TSHR, 3024-7, 2132-9, 21614-9 #### [facility] ([id number]) [address], [address] [place] [address] CHOLESTEROL:HDL 4.0 Normal 1.0-5.0 [facility] Comment on above: Performed By: #### C BCA, CMP, 98677-1, TSHR, 3024-7, 2132-9, 84177-8 #### [facility] ([id number]) [address], [address] [place] [address] Triglyceride [Mass/Vol] 171 mg/dL High 27-150 [facility] Comment on above: Performed By: #### C BCA, CMP, 66801-8, TSHR, 3024-7, 2131-9, 22565-7 #### [facility] ([id number]) [address], [address] [place] [address] TSH WITH REFLEXon 11-26-2023 TSH 6.46 uIU/mL High 0.49-4.67 [facility] Comment on above: Performed By: #### C BCA, CMP, 18144-8, TSHR, 4-7, 2131-9, 00106-5 #### [facility] ([id number]) [address], [address] [place] [address] VITAMIN B12on 11-26-2023 Cobalamin (Vitamin B12) [Mass/Vol] 415 pg/mL Normal 180-914 [facility] Comment on above: Performed By: #### C BCA, CMP, 43515-9, TSHR, 3023-7, 9, 98338-5 #### [facility] ([id number]) [address], [address] [place] [address] Vitamin D+Metabolites [Mass/ Vol]on 11-26-2023 VITAMIN D 25 HYD TOT 18.4 ng/mL Low 30-[address] [facility] Comment on above: Result Comment: Vitamin D status 25 [place] Vitamin D Deficiency <20 ng/mL Insufficiency 20-29 ng/mL Sufficiency 30-100 ng/mL Toxicity >100 ng/mL NOTE: A pediatric reference range has not been established by the strap making machine operator of this kit. The [place] [employer] recommends a Vitamin D level of = or >20ng/mL in infants and children. Performed By: #### C BCA, CMP, 70346-6, TSHR, 3024-7, 2131-9, 44461-3 #### [facility] ([id number]) [address], [address] [place] [address] XR SHOULDER LEFT (MIN 2 VIEW S)on [...] Edilma Richter MD 09/01/23 Final result Normal [facility] SCREENING MAMMOGRAM W/DAYDAY, BILATERAL*on 07-18-2022 [...] VERY IMPORTANT TO YOUR HEALTH. THE CURRENT [employer] GUIDELINES RECOMMENDS ANNUAL MAMMOGRAPHY BEGINNING AT AGE 40 THIS FACILITY USES A REMINDER SYSTEM TO ENSURE ALL PATIENTS RECEIVE REMINDER NOTIFICATIONS AT THE APPROPRIATE TIME BASED ON THE RECOMMENDATIONS OF THIS EXAM. Report reported and signed by Rudolph Dixon on 07/22/2022 0744 Normal [facility] [employer] Basic Metabolic Panel w/ Ref whitney to MGon 02-07-2022 Anion gap [Moles/Vol] 8 mmol/L Low 9 - 17 mmol/L [email or web address] Calcium [Mass/Vol] 8.8 mg/dL 8.6 - 10. 4 mg/dL [facility] Chloride [Moles/Vol] 105 mmol/L 98 - 10 7 mmol/L [facility] CO2 [Moles/Vol] 25 mmol/L 20 - 31 mmol/L [facility] Creatinine [Mass/Vol] 0.83 mg/dL 0.50 - 0.90 mg/dL [facility] GFR >60 >60 mL/min [facility] GFR Non- >60 >60 mL/min [facility] GFR/1.73 sq M.predicted MDRD (S/P/Bld) [Vol rate/Area] [facility] Comment on above: Average GFR for 30-3 9 years old: 107 mL/min/1.73sq m Chronic Kidney Disease: <60 mL/min/1.73sq m Kidney failure: <15 mL/min/1.73sq m eGFR calculated using average adult body mass. Additional eGFR calculator available at: http://[email or web address]/multiple_crcl_2012.htm Glucose [Mass/Vol] 105 mg/dL High 70 - 99 mg/dL [facility] Interpretation and review of laboratory results Abnormal [facility] Potassium [Moles/Vol] 4.1 mmol/L 3.7 - 5.3 mmol/L [facility] Sodium [Moles/Vol] 138 mmol/L 135 - 144 mmol/L [facility] Urea nitrogen (BldV) [Mass/Vol] 12 mg/dL 6 - 20 mg/dL [facility] CBC with Auto Differentialon 02-07-2022 [facility] Absolute Lymph # 2.[facility] Absolute [place] # 0.40 [facility] Basophils (Bld) [#/Vol] 0.00 10*3/uL [facility] Basophils/100 WBC (Bld) 1 % 0 - 2 % [facility] Eosinophils/100 WBC (Bld) 5 % High 0 - 4 % [facility] Hematocrit (Bld) [Volume fraction] 37.5 % 36 - 46 % [facility] Hemoglobin.gastrointe stinal spec 1 Ql (Stl) 12.7 g/dL 12.0 - 16.0 g/dL [facility] Interpretation and review of laboratory results Abnormal [facility] Lymphocytes/100 WBC (Bld) 32 % 24 - 44 % [facility] MCH (RBC) [Entitic mass] 28.7 pg 26 - 34 pg [facility] MCHC (RBC) [Mass/Vol] 33.9 g/dL 31 - 3 7 g/dL [facility] MCV (RBC) [Entitic vol] 84.8 fL 80 - 100 fL [facility] Monocytes/100 WBC (Bld) 6 % 1 - 7 % [facility] Platelet distribution width (Bld) [Ratio] 14.6 % 11.5 - 14.9 % [facility] Platelet mean volume (Bld) [Entitic vol] 8.0 fL 6.0 - 12.0 fL [facility] Platelets (Bld) [#/Vol] 280 10*3/uL [facility] RBC (Bld) [#/Vol] 4.42 10*6/uL 4.0 - 5.2 m/uL [facility] Segmented neutrophils/100 WBC (Bld) 56 % 36 - 66 % [facility] Segs Absolute 3.90 [facility] WBC (Bld) [#/Vol] 7.0 10*3/uL [facility] Hepatic Function Panelon Albumin [Mass/Vol] 3.7 g/dL 3.5 - 5.2 g/dL [facility] ALP (Bld) [Catalytic activity/Vol] 90 U/L 35 - 104 U/L [facility] ALT [Catalytic activity/Vol] 12 U/L 5 - 33 U/L [facility] AST [Catalytic activity/Vol] 13 U/L <32 [facility] Bilirubin [Mass/Vol] mg/dL Low 0.3 - 1 .2 mg/dL [facility] Bilirubin, Indirect Can not be calculated 0.00 - 1.00 mg/dL [facility] Bilirubin.indirect [Mass/Vol] mg/dL <0.31 mg/dL [facility] Free PSA/Total PSA [Mass fraction] 6.4 g/dL 6.4 - 8.3 g/dL [facility] Interpretation and review of laboratory results Abnormal [facility] PATHOLOGY REPORTon 02-07-2022 Surgical Pathology Report [...] SURGICAL PATHOLOGY CONSULTATION Patient Name: DYAN AGUILAR [facility] Rec: [id number] Path Number: [id number] [facility] ANATOMIC PATHOLOGY [address] [place] [address]. [place], [place] [address] [facility] Basic Metabolic Panel w/ Ref whitney to MGon 02-06-2022 Anion gap [Moles/Vol] 8 mmol/L Low 9 - 17 mmol/L [facility] Calcium [Mass/Vol] 8.8 mg/dL 8.6 - 10. 4 mg/dL [facility] Chloride [Moles/Vol] 106 mmol/L 98 - 10 7 mmol/L [facility] CO2 [Moles/Vol] 27 mmol/L 20 - 31 mmol/L [facility] Creatinine [Mass/Vol] 0.78 mg/dL 0.50 - 0.90 mg/dL [facility] GFR >60 >60 mL/min [facility] GFR Non- >60 >60 mL/min [facility] GFR/1.73 sq M.predicted MDRD (S/P/Bld) [Vol rate/Area] [facility] Comment on above: Average GFR for 30-3 9 years old: 107 mL/min/1.73sq m Chronic Kidney Disease: <60 mL/min/1.73sq m Kidney failure: <15 mL/min/1.73sq m eGFR calculated using average adult body mass. Additional eGFR calculator available at: http://www.Baremetrics/multiple_crcl_2011.htm Glucose [Mass/Vol] 94 mg/dL 70 - 99 mg/dL [facility] Potassium [Moles/Vol] 4.2 mmol/L 3.7 - 5.3 mmol/L [facility] Sodium [Moles/Vol] 141 mmol/L 135 - 144 mmol/L [facility] Urea nitrogen (BldV) [Mass/Vol] 9 mg/dL 6 - 20 mg/dL [facility] CBC with Auto Differentialon 02-06-2022 Absolute Eos # 0.50 High [facility] Absolute Lymph # 2.30 [facility] SEC[facility] Absolute [place] # 0.40 [facility] RS [facility] Basophils (Bld) [#/Vol] 0.00 10*3/uL [facility] Basophils/100 WBC (Bld) 1 % 0 - 2 % [facility] Eosinophils/100 WBC (Bld) 8 % High 0 - 4 % [facility] Hematocrit (Bld) [Volume fraction] 39.4 % 36 - 46 % [facility] Hemoglobin.gastrointe stinal spec 1 Ql (Stl) 13.4 g/dL 12.0 - 16.0 g/dL [facility] Interpretation and review of laboratory results Abnormal [facility] Lymphocytes/100 WBC (Bld) 34 % 24 - 44 % [facility] MCH (RBC) [Entitic mass] 28.6 pg 26 - 34 pg [facility] MCHC (RBC) [Mass/Vol] 34.0 g/dL 31 - 3 7 g/dL [facility] MCV (RBC) [Entitic vol] 84.3 fL 80 - 100 fL [facility] Monocytes/100 WBC (Bld) 6 % 1 - 7 % [facility] Platelet distribution width (Bld) [Ratio] 14.5 % 11.5 - 14.9 % [facility] Platelet mean volume (Bld) [Entitic vol] 7.9 fL 6.0 - 12.0 fL [facility] Platelets (Bld) [#/Vol] 316 10*3/uL [facility] RBC (Bld) [#/Vol] 4.67 10*6/uL 4.0 - 5.2 m/uL [facility] Segmented neutrophils/100 WBC (Bld) 51 % 36 - 66 % [facility] Segs Absolute 3.60 [facility] WBC (Bld) [#/Vol] 6.8 10*3/uL [facility] Hepatic Function Panelon Albumin [Mass/Vol] 4.1 g/dL 3.5 - 5.2 g/dL [facility] ALP (Bld) [Catalytic activity/Vol] 102 U/L 35 - 104 U/L [facility] ALT [Catalytic activity/Vol] 13 U/L 5 - 33 U/L [facility] AST [Catalytic activity/Vol] 17 U/L <32 [facility] Bilirubin [Mass/Vol] 0.17 mg/dL Low 0.3 - 1 .2 mg/dL [facility] Bilirubin, Indirect Can not be calculated 0.00 - 1.00 mg/dL [facility] Bilirubin.indirect [Mass/Vol] mg/dL <0.31 mg/dL [facility] Free PSA/Total PSA [Mass fraction] 6.8 g/dL 6.4 - 8.3 g/dL [facility] No Panel Informationon 02-06 Interpretation and review of laboratory results Abnormal [facility] Basic Metabolic Panel w/ Ref whitney to MGon 02-05-2022 Anion gap [Moles/Vol] 12 mmol/L 9 - 17 mmol/L [facility] Calcium [Mass/Vol] 8.7 mg/dL 8.6 - 10. 4 mg/dL [facility] Chloride [Moles/Vol] 100 mmol/L 98 - 10 7 mmol/L [facility] CO2 [Moles/Vol] 24 mmol/L 20 - 31 mmol/L [facility] Creatinine [Mass/Vol] 0.75 mg/dL 0.50 - 0.90 mg/dL [facility] GFR >60 >60 mL/min [facility] GFR Non- >60 >60 mL/min [facility] GFR/1.73 sq M.predicted MDRD (S/P/Bld) [Vol rate/Area] [facility] Comment on above: Average GFR for 30-3 9 years old: 107 mL/min/1.73sq m Chronic Kidney Disease: <60 mL/min/1.73sq m Kidney failure: <15 mL/min/1.73sq m eGFR calculated using average adult body mass. Additional eGFR calculator available at: http://www.Baremetrics/multiple_crcl_2011.htm Glucose [Mass/Vol] 94 mg/dL 70 - 99 mg/dL [facility] Potassium [Moles/Vol] 3.5 mmol/L Low 3.7 - 5.3 mmol/L [facility] Sodium [Moles/Vol] 136 mmol/L 135 - 144 mmol/L [facility] Urea nitrogen (BldV) [Mass/Vol] 9 mg/dL 6 - 20 mg/dL [facility] CBC with Auto Differentialon 02-05-2022 Absolute Eos # 0.40 [facility] Absolute Lymph # 1.90 [facility] Absolute [place] # 0.40 [facility] RS [facility] Basophils (Bld) [#/Vol] 0.00 10*3/uL [facility] Basophils/100 WBC (Bld) 1 % 0 - 2 % [facility] Eosinophils/100 WBC (Bld) 5 % High 0 - 4 % [facility] Hematocrit (Bld) [Volume fraction] 37.9 % 36 - 46 % [facility] Hemoglobin.gastrointe stinal spec 1 Ql (Stl) 13.4 g/dL 12.0 - 16.0 g/dL [facility] Interpretation and review of laboratory results Abnormal [facility] Lymphocytes/100 WBC (Bld) 27 % 24 - 44 % [facility] MCH (RBC) [Entitic mass] 29.3 pg 26 - 34 pg [facility] MCHC (RBC) [Mass/Vol] 35.2 g/dL 31 - 3 7 g/dL [facility] MCV (RBC) [Entitic vol] 83.3 fL 80 - 100 fL [facility] Monocytes/100 WBC (Bld) 5 % 1 - 7 % [facility] Platelet distribution width (Bld) [Ratio] 14.6 % 11.5 - 14.9 % [facility] Platelet mean volume (Bld) [Entitic vol] 7.7 fL 6.0 - 12.0 fL [facility] Platelets (Bld) [#/Vol] 301 10*3/uL [facility] RBC (Bld) [#/Vol] 4.55 10*6/uL 4.0 - 5.2 m/uL [facility] Segmented neutrophils/100 WBC (Bld) 62 % 36 - 66 % [facility] Segs Absolute 4.40 [facility] WBC (Bld) [#/Vol] 7.1 10*3/uL [facility] CT ABDOMEN PELVIS W IV CONTR [...] 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 [facility] Chan Blakely MD - 02/05/2022 [...] with possible mild steatosis. Minimal sigmoid diverticulosis. [employer] Work Phone: CT ABDOMEN PELVIS W IV CONTR AST Additional Contrast? NoneOrdered By: Chan Olivas on 02-05-2022 [employer] Work Phone: Hepatic Function Panelon Albumin [Mass/Vol] 4.1 g/dL 3.5 - 5.2 g/dL [employer] ALP (Bld) [Catalytic activity/Vol] 105 U/L High 35 - 104 U/L [employer] ALT [Catalytic activity/Vol] 16 U/L 5 - 33 U/L [facility] AST [Catalytic activity/Vol] 20 U/L <32 [facility] Bilirubin [Mass/Vol] 0.19 mg/dL Low 0.3 - 1 .2 mg/dL [facility] Bilirubin, Indirect Can not be calculated 0.00 - 1.00 mg/dL [facility] Bilirubin.indirect [Mass/Vol] mg/dL <0.31 mg/dL [facility] Free PSA/Total PSA [Mass fraction] 7.0 g/dL 6.4 - 8.3 g/dL [facility] Magnesiumon 02-05-2022 Magnesium [Mass/Vol] 2.0 mg/dL 1.6 - 2 .6 mg/dL [facility] NM HEPATOBILIARYon No acute cholecystit is. Gallbladder ejection fraction is approximately 34%. [facility] CONSOLIDATED EXAMINATION: NUCLEAR MEDICINE HEPATOBILIARY SCINTIGRAPHY (HIDA SCAN) WITH EJECTION FRACTION. TECHNIQUE: Approximately 5.4 millicuries Tc99m Mebrofenin (Choletec) was administered IV. Then, dynamic images of the abdomen were obtained in the anterior projection for 60 mins. Due to a shortage/inavailability of CCK, one can (237 ml) Ensure plus was substitued orally. Images were obtained in the BOLIVIAN projection and regions of interest were drawn [...] range is based on a limited study. [facility] CONSOLIDATED Clement Elder MD - 02/05/2022 EXAMINATION: NUCLEAR MEDICINE HEPATOBILIARY SCINTIGRAPHY (HIDA SCAN) WITH EJECTION FRACTION. TECHNIQUE: Approximately 5.4 millicuries Tc99m Mebrofenin (Choletec) was administered IV. Then, dynamic images of the abdomen were obtained in the anterior projection for 60 mins. Due to a shortage/inavailability of CCK, one can (237 ml) Ensure plus was substitued orally. Images were obtained in the BOLIVIAN projection and regions of interest were drawn [...] cholecystitis. Gallbladder ejection fraction is approximately 34%. [employer] Work Phone: Radiology Study observation (narrative) [email or web address] Phone: NM HEPATOBILIARYOrdered By: Clement Elder on 02-05-2022 [email or web address] Phone: No Panel Informationon 02-05 Interpretation and review of laboratory results Abnormal [employer] US GALLBLADDER RUQon 2 022 Pancreas/right kidne y: Limited visualization/assessment Increased echogenicity of the hepatic parenchyma suggests steatosis Otherwise unremarkable right upper quadrant sonogram RECOMMENDATIONS: Unavailable [facility] RIS CONSOLIDATED EXAMINATION: RIGHT UPPER QUADRANT ULTRASOUND [...] No evidence of right upper quadrant ascites. [facility] RIS CONSOLIDATED Rosangela Cortes M D - [...] unremarkable right upper quadrant sonogram RECOMMENDATIONS: Unavailable [employer] Work Phone: Radiology Study observation (narrative) [employer] Work Phone: US GALLBLADDER RUQOrdered By : Rosangela Cortes on 02-05-2022 [employer] Work Phone: CBC with Auto Differentialon 02-04-2022 Absolute Eos # 0.10 [facility] [employer] Absolute Lymph # 2.00 [facility] Absolute [place] # 0.50 [facility] [employer] Basophils (Bld) [#/Vol] 0.10 10*3/uL [facility] Basophils/100 WBC (Bld) 1 % 0 - 2 % [facility] Eosinophils/100 WBC (Bld) 1 % 0 - 4 % [facility] Hematocrit (Bld) [Volume fraction] 40.9 % 36 - 46 % [facility] Hemoglobin.gastrointe stinal spec 1 Ql (Stl) 14.0 g/dL 12.0 - 16.0 g/dL [facility] Interpretation and review of laboratory results Abnormal [facility] Lymphocytes/100 WBC (Bld) 17 % Low 24 - 44 % [facility] MCH (RBC) [Entitic mass] 28.6 pg 26 - 34 pg [facility] MCHC (RBC) [Mass/Vol] 34.3 g/dL 31 - 3 7 g/dL [facility] MCV (RBC) [Entitic vol] 83.3 fL 80 - 100 fL [facility] Monocytes/100 WBC (Bld) 4 % 1 - 7 % [facility] Platelet distribution width (Bld) [Ratio] 14.7 % 11.5 - 14.9 % [facility] Platelet mean volume (Bld) [Entitic vol] 8.2 fL 6.0 - 12.0 fL [facility] Platelets (Bld) [#/Vol] 350 10*3/uL [facility] RBC (Bld) [#/Vol] 4.91 10*6/uL 4.0 - 5.2 m/uL [facility] Segmented neutrophils/100 WBC (Bld) 77 % High 36 - 66 % [facility] Segs Absolute 9.00 [facility] WBC (Bld) [#/Vol] 11.7 10*3/uL High [facility] S [facility] CT ABDOMEN PELVIS W IV CONTR AST Additional Contrast? Noneon 02-04-2022 Radiology Study observation (narrative) [facility] Work Phone: Comprehensive Metabolic Pane john 02-04-2022 Albumin [Mass/Vol] 4.8 g/dL 3.5 - 5.2 g/dL [facility] ALP (Bld) [Catalytic activity/Vol] 120 U/L High 35 - 104 U/L [facility] ALT [Catalytic activity/Vol] 18 U/L 5 - 33 U/L [facility] Anion gap [Moles/Vol] 12 mmol/L 9 - 17 mmol/L [facility] AST [Catalytic activity/Vol] 23 U/L <32 [facility] Bilirubin [Mass/Vol] 0.16 mg/dL Low 0.3 - 1 .2 mg/dL [facility] Calcium [Mass/Vol] 9.9 mg/dL 8.6 - 10. 4 mg/dL [facility] Chloride [Moles/Vol] 98 mmol/L 98 - 10 7 mmol/L [facility] CO2 [Moles/Vol] 28 mmol/L 20 - 31 mmol/L [facility] Creatinine [Mass/Vol] 1 mg/dL High 0.50 - 0.90 mg/dL [facility] Free PSA/Total PSA [Mass fraction] 7.9 g/dL 6.4 - 8.3 g/dL [facility] GFR >60 >60 mL/min [facility] GFR Non- >60 >60 mL/min [facility] GFR/1.73 sq M.predicted MDRD (S/P/Bld) [Vol rate/Area] [facility] Comment on above: Average GFR for 30-3 9 years old: 107 mL/min/1.73sq m Chronic Kidney Disease: <60 mL/min/1.73sq m Kidney failure: <15 mL/min/1.73sq m eGFR calculated using average adult body mass. Additional eGFR calculator available at: http://www.Baremetrics/multiple_crcl_2012.htm Glucose [Mass/Vol] 115 mg/dL High 70 - 99 mg/dL [facility] Interpretation and review of laboratory results Abnormal [facility] Potassium [Moles/Vol] 3.7 mmol/L 3.7 - 5.3 mmol/L [facility] Sodium [Moles/Vol] 138 mmol/L 135 - 144 mmol/L [facility] Urea nitrogen (BldV) [Mass/Vol] 13 mg/dL 6 - 20 mg/dL [facility] HCG Qualitative, Serumon hCG Qual Negative NEGATIVE [facility] Comment on above: Specimens with hCG l evels near the threshold of the test (25 mIU/mL) may give a negative or indeterminate result. In such cases, another test should be performed with a new specimen in 48-72 hours. If early is suspected clinically in this setting, correlation with quantitative serum b-hCG level is suggested. [facility] Lipaseon 02-04-2022 Lipase [Catalytic activity/Vol] 41 U/L 13 - 60 U/L [facility] Microscopic Urinalysison Bacteria, UA FEW Abnormal None [facility] Casts UA 0 TO 2 /LPF [facility] Epithelial Cells UA 3 to 5 /HPF [facility] Interpretation and review of laboratory results Abnormal [facility] RBC, UA 0 TO 2 /HPF [facility] WBC, UA 3 to 5 /HPF [facility] No Panel Informationon 02-04 [facility] Urinalysis with Reflex to Cu ltureon 02-04-2022 Bilirubin Urine Negative NEGATIVE [facility] Color, UA Yellow Yellow [facility] Glucose, Ur Negative NEGATIVE [facility] Interpretation and review of laboratory results Abnormal [facility] Ketones Ql (U) TRACE Abnormal NEGATIVE [facility] Leukocyte esterase Test strip Ql (U) SMALL Abnormal NEGATIVE [facility] Nitrite, Urine Negative NEGATIVE [facility] pH, UA 6.5 [facility] Protein, UA Negative NEGATIVE [facility] Specific [place], UA 1.018 [facility] Turbidity UA Cloudy Abnormal Clear [facility] Urine Hgb Negative NEGATIVE [facility] Urobilinogen, Urine Normal Normal [facility] US Gallbladderon 01-23-2022 US Gallbladder [...] by Rudolph Dixon on 01/23/2022 1007 Normal [facility] [employer] Coding Summaryon 06-29-2018 Coding Summary CODING DATE: [...] Mina Murri[place] Date Saved: 06/29/2018 12:10 pm [facility] Provider Orderson 06-14-2018 Protein mass conc [id number] [facility] .Auto Diff 106-11-2018 Auto Baso % 0.6 % Normal 0.2-2.0 [facility] Comment on above: Performed By: #### 1 [id number], [id number], 0640605, [id number], 5259432, [id number] ####[facility] (DEFAULT)[address] [place] [address] Auto [place] % 6 % Normal 1-12 [facility] Comment on above: Performed By: #### 1 [id number], [id number], 5326650, [id number], 7139179, 2093237 ####[facility] (DEFAULT)[address] [place] [address] Auto Neut % 59 % Normal 44-88 [facility] Comment on above: Performed By: #### 1 [id number], [id number], 6267067, [id number], 2651349, 5047257 ####[facility] (DEFAULT)[address] [place] [address] Baso Abs# 0.0 x10 Normal 0.0-0.2 [facility] Comment on above: Performed By: #### 1 [id number], [id number], 0281823, [id number], 7590810, 8758966 ####[facility] (DEFAULT)[address] [place] [address] Eos Abs# 0.2 x10 Normal 0.0-0.4 [facility] Comment on above: Performed By: #### 1 [id number], [id number], 6565955, [id number], 7275444, 8760551 ####[facility] (DEFAULT)[address] [place] [address] Eosinophils/100 WBC Auto (Bld) 2.9 % Normal 0.9-4.0 [facility] Comment on above: Performed By: #### 1 [id number], [id number], 6835054, [id number], 3067106, 5778966 ####[facility] (DEFAULT)[address] [place] [address] Lymphocytes Auto #/vol (Bld) 2.2 x10 Normal 1.3-2.9 [facility] Comment on above: Performed By: #### 1 [id number], [id number], 4075734, [id number], 3843334, 5822297 ####[facility] (DEFAULT)[address] [place] [address] Lymphocytes/100 WBC Auto (Bld) 32 % Normal 14-48 [facility] Comment on above: Performed By: #### 1 6902600, [id number], 4098457, [id number], 0401868, 2634569 ####[facility] (DEFAULT)[address] [place] [address] Uvalde Abs# 0.4 x10 Normal 0.0-0.8 [facility] Comment on above: Performed By: #### 1 0842707, [id number], 7918903, [id number], 0905033, 0640245 ####[facility] (DEFAULT)[address] [place] [address] Neut Abs# 4.1 x10 Normal 1.5-9.2 [facility] Comment on above: Performed By: #### 1 [id number], [id number], 7968978, 5620584125, 7331957, 5702248 ####[facility] (DEFAULT)[address] [place] [address] CBC w/ Auto Diffon 8 Erythrocyte distribution width Auto Ratio (RBC) 13.0 % Normal 11.5-15.0 [facility] Comment on above: Performed By: #### 1 5082959, [id number], 6193525, [id number], 1616744, 0382975 ####[facility] (DEFAULT)[address] [place] [address] Hematocrit Auto Volume Fraction (Bld) 40.1 % Normal 33.7-40.4 [facility] Comment on above: Performed By: #### 1 [id number], [id number], 0755443, [id number], 9054955, 8003068 ####[facility] (DEFAULT)[address] [place] [address] Hemoglobin mass conc (Bld) 14.1 g/dL Normal 11.3-15.9 [facility] Comment on above: Performed By: #### 1 5997599, [id number], 8267525, [id number], 2941517, 4868130 ####[facility] (DEFAULT)[address] [place] [address] Man Diff? Auto Normal [facility] Comment on above: Performed By: #### 1 9816595, [id number], 3362179, 4976251886, 4376413, 9567369 ####[facility] (DEFAULT)[address] [place] [address] MCH Auto Entitic mass (RBC) 30 pg Normal 24-34 [facility] Comment on above: Performed By: #### 1 1251590, [id number], 5661744, 8708411248, 9116812, 5018507 ####[facility] (DEFAULT)[address] [place] [address] MCHC Auto mass conc (RBC) 35 g/dL Normal 26-37 [facility] Comment on above: Performed By: #### 1 [id number], [id number], 2672945, 6343341714, 5225085, 9638822 ####[facility] (DEFAULT)[address] [place] [address] MCV Auto Entitic volume (RBC) 84 fL Normal 81-100 [facility] Comment on above: Performed By: #### 1 6264816, [id number], 4819563, 1129269702, 1894417, 2599647 ####[facility] (DEFAULT)[address] [place] [address] Platelet mean volume Auto Entitic volume (Bld) 10.2 fL Normal 6.3-10.2 [facility] Comment on above: Performed By: #### 1 3501654, [id number], 5103468, 4340638051, 5472261, 3577731 ####[facility] (DEFAULT)[address] [place] [address] Platelets Auto #/vol (Bld) 289 x10 Normal 138-427 [facility] Comment on above: Performed By: #### 1 7111244, [id number], 6700662, 8794953122, 7688621, 3926730 ####[facility] (DEFAULT)[address] [place] [address] RBC Auto #/vol (Bld) 4.76 x10 Normal 3.70-5.30 [facility] Comment on above: Performed By: #### 1 8046981, [id number], 2208634, 8630946436, 6920707, 1575352 ####[facility] (DEFAULT)[address] [place] [address] WBC Auto #/vol (Bld) 7.0 x10 Normal 3.5-10.5 [facility] Comment on above: Performed By: #### 1 9849969, [id number], 8413278, [id number], 9574975, 6048066 ####[facility] (DEFAULT)[address] [place] [address] CMP Standardon 06-11-2018 eGFR Non AA >60 Invalid Interpretation Code [facility] Comment on above: Performed By: #### 1 [id number], [id number], [id number], [id number], [id number], [id number] ####[facility] (DEFAULT)[address] [place] [address] eGFR AA >60 Invalid Interpretation Code [facility] Comment on above: Result Comment: Security Professional daryl Kidney disease could be indicated at eGFRs of less than 60 ml/min/1.73m2. Kidney Failure is indicated at less than 15 ml/min/1.73m2 Performed By: #### 1 [id number], [id number], [id number], [id number], [id number], [id number] ####[facility] (DEFAULT)[address] [place] [address] [id number] Albumin mass conc 4.1 g/dL Normal 3.5-5.0 [facility] Comment on above: Performed By: #### 1 [id number], [id number], [id number], [id number], [id number], [id number] ####[facility] (DEFAULT)[address] [place] [address] Albumin/Globulin mass ratio 1.1 {ratio} Low 1.4-2.6 [facility] Comment on above: Performed By: #### 1 [id number], [id number], [id number], [id number], 9857005, [id number] ####[facility] (DEFAULT)[address] [place] [address] 73437 Alk Phos 76 IU/L Normal 32-91 [facility] Comment on above: Performed By: #### 1 [id number], [id number], [id number], [id number], [id number], [id number] ####[facility] (DEFAULT)[address] [place] [address] 53275 ALT/SGPT 21.0 IU/L Normal 14.0-54.0 [facility] Comment on above: Performed By: #### 1 [id number], [id number], [id number], [id number], 2474200, 9846887 ####[facility] (DEFAULT)[address] [place] [address] 99504 Anion gap 3 molar conc 12.0 mmol/L Normal 5.0-19.0 [facility] Comment on above: Performed By: #### 1 6578871, 1352744215, 3314951, 5722278702, 8596668, 1822203 ####[facility] (DEFAULT)[address] [place] [address] 14707 AST/SGOT 23 IU/L Normal 15-41 [facility] Comment on above: Performed By: #### 1 3712850, 7340374897, 6408352, 2076800786, 3429887, 6985844 ####[facility] (DEFAULT)[address] [place] [address] Bili Total 0.5 mg/dL Normal 0.3-1.2 [facility] Comment on above: Performed By: #### 1 1505754, 4643625968, 9007860, 4175214520, 6241943, 1133883 ####[facility] (DEFAULT)[address] [place] [address] Calcium mass conc 9.3 mg/dL Normal 8.9-10.3 [facility] Comment on above: Performed By: #### 1 2857507, 7328422542, 1367213, 7814812244, 3586511, 0025234 ####[facility] (DEFAULT)[address] [place] [address] Chloride molar conc 102 mmol/L Normal 101-111 [facility] Comment on above: Performed By: #### 1 9411275, 0438582999, 4971341, 7311258507, 1570954, 8019896 ####[facility] (DEFAULT)[address] [place] [address] CO2 molar conc 26 mmol/L Normal 21-32 [facility] Comment on above: Performed By: #### 1 2452306, 4158407381, 7685939, 6466660307, 0400166, 6783985 ####[facility] (DEFAULT)[address] [place] [address] 14230 Creatinine mass conc 0.90 mg/dL Normal 0.60-1.30 [facility] Comment on above: Performed By: #### 1 0933981, 1834589669, 4655119, 5099419057, 8420372, 1569378 ####[facility] (DEFAULT)[address] [place] [address] 61192 Globulin Calculated mass conc (S) 3.6 g/dL Normal 1.5-4.3 [facility] Comment on above: Performed By: #### 1 1166695, 3747372186, 2163350, 7420931575, 6445178, 7952922 ####[facility] (DEFAULT)[address] [place] [address] 73688 Glucose mass conc 99.0 mg/dL Normal 74.0-118.0 [facility] Comment on above: Performed By: #### 1 2745988, 9630747737, 2573743, 3053136746, 2874096, 0335958 ####[facility] (DEFAULT)[address] [place] [address] 81704 Osmolality 273 mOsm/L Invalid Interpretation Code [facility] Comment on above: Performed By: #### 1 2249400, 6081910865, 1639481, 4764357661, 4524833, 1727245 ####[facility] (DEFAULT)[address] [place] [address] 84724 Potassium molar conc 4.4 mmol/L Normal 3.6-5.1 [facility] Comment on above: Performed By: #### 1 2652029, 7949032805, 0432244, 4436005555, 7488784, 6405989 ####[facility] (DEFAULT)[address] [place] [address] 30929 Protein mass conc 7.7 g/dL Normal 6.5-8.1 [facility] Comment on above: Performed By: #### 1 7865540, 8209758358, 4994591, 2683002924, 8056634, 4111128 ####[facility] (DEFAULT)[address] [place] [address] 57588 Sodium molar conc 136.0 mmol/L Normal 136.0-144. 0 [facility] Comment on above: Performed By: #### 1 5217650, 7266945735, 9676245, 7084155204, 7340820, 1178514 ####[facility] (DEFAULT)[address] [place] [address] 91744 Urea nitrogen mass conc 16 mg/dL Normal 8-26 [facility] Comment on above: Performed By: #### 1 7208223, 2450423674, 4140047, 3344459670, 1625596, 9891659 ####[facility] (DEFAULT)[address] [place] [address] 59897 Urea nitrogen/Creatinine mass ratio 18.0 mg/mg High 4.6-16.2 [facility] Comment on above: Performed By: #### 1 3670876, 6549355743, 0655866, 7140649574, 8091230, 8682373 ####[facility] (DEFAULT)[address] [place] [address] 49150 Lipid Panel Standardon 06-11 Cholesterol in HDL mass conc 65 mg/dL Normal 40-71 [facility] Comment on above: Result Comment: High risk - <40 mg/dL. Performed By: #### 1 1111943, 5039023989, 2858416, 9249526204, 4664641, 5268864 ####[facility] (DEFAULT)[address] [place] [address] 77788 Cholesterol in LDL mass conc 126 mg/dL High 1-100 [facility] Comment on above: Result Comment: Opti mal - Less than 100 mg/dL Borderline high risk - 130-159 mg/dL High risk - 160-189 mg/dL. Performed By: #### 1 1066254, 0716380003, 5253440, 4949211366, 6083226, 6203032 ####[facility] (DEFAULT)[address] [place] [address] 48840 Cholesterol mass conc 215.0 mg/dL High 66.0-200.0 [facility] Comment on above: Result Comment: Erica rable - Less than 200 mg/dL Borderline high risk - 200-239 mg/dL High risk - 240 mg/dL and over. Performed By: #### 1 2996555, 9695053356, 7168598, 0422393147, 1315184, 6111326 ####[facility] (DEFAULT)[address] [place] [address] 35496 Cholesterol.total/Cho lesterol in HDL mass ratio 3.3 {ratio} Normal 0.0-4.5 [facility] Comment on above: Performed By: #### 1 1456708, 8364544737, 3235697, 6852836998, 6316785, 3950443 ####[facility] (DEFAULT)[address] [place] [address] 60490 Triglyceride mass conc 123.0 mg/dL Normal 0.0-150.0 [facility] Comment on above: Performed By: #### 1 0318093, 4598879045, 5472188, 0243867687, 9179040, 9435734 ####[facility] (DEFAULT)[address] [place] [address] 73689 VLDL. 25 mg/dL Normal 5-40 [facility] Comment on above: Performed By: #### 1 0080807, 7042947874, 0998205, 1310891485, 9116340, 8000491 ####[facility] (DEFAULT)[address] [place] [address] 44634 Provider Orderson 01-08-2018 Protein mass conc [id number]#1.00OTGTIFF [facility] Coding Summaryon 01-07-2018 Coding Summary CODING DATE: 018 [facility] STATUS: Home 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 DESCRIPTION [...] Laura Lu Date Saved: 01/07/2018 01:43 pm [facility] Consultation/Specialist Note on 01-06-2018 Consultation/Speciali st Note Patient: DYAN JONES : 32 years Sex: FEMALE : [birth year]Associated Diagnoses: Shortness of breathAuthor: Mummert DO, TimothyProcedurePulmonary function test with bronchodilator challenge procedureDate/ Time: 01/05/18 09:59:00.Performed by: [facility] .Referred by: TASH ESTEBAN.Indication: R06.02.Spirometry: FVC was [...] or extrathoracic obstruction..Impression and PlanDiagnosisShortness of breath (EVP17-JP R06.02).In summary the patient demonstrates evidence of [...] 01/06/2018 15:47 EDT] Flaco Tran DO Normal [facility] Pulmonary Procedureon 2017 Protein mass conc [id number]#1.00OTGTIFF [facility] Coding Summaryon 01-04-2018 Coding Summary CODING DATE: [facility] STATUS: Home 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 ADMIT DX: [...] Celeste Cai Date Saved: 01/04/2018 04:58 pm [facility] Coding Summary CODING DATE: [facility] STATUS: Home 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 DESCRIPTION [...] Celeste Cai Date Saved: 01/04/2018 04:57 pm [facility] Coding Summaryon 12-31-2017 Coding Summary CODING DATE: [facility] STATUS: Home 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 DESCRIPTION [...] Laura Lu Date Saved: 12/31/2017 08:02 am [facility] Provider Orderson 12-31-2017 Protein mass conc [id number]#1.00OTGTIFF Normal [facility] .Auto Diff 1on 12-30-2017 Auto Baso % 0.4 % Normal 0.2-2.0 [facility] Comment on above: Performed By: #### 1 8469112, 0019109353, 9183898, 4200835942, 8376929, 3615864 ####[facility] (DEFAULT)[address] [place] [address] Auto Uvalde % 6 % Normal 1-12 [facility] Comment on above: Performed By: #### 1 7162975, 4222279394, 8490797, 7911221848, 6039387, 9897817 ####[facility] (DEFAULT)[address] [place] [address] Auto Neut % 58 % Normal 44-88 [facility] Comment on above: Performed By: #### 1 0556825, 8099216245, 7902489, 1468731824, 7385652, 2707869 ####[facility] (DEFAULT)[address] [place] [address] Baso Abs# 0.0 x10 Normal 0.0-0.2 [facility] Comment on above: Performed By: #### 1 4579492, 2144897999, 0271972, 2384994492, 6829637, 4795865 ####[facility] (DEFAULT)[address] [place] [address] Eos Abs# 0.2 x10 Normal 0.0-0.4 [facility] Comment on above: Performed By: #### 1 8580089, 1365656975, 8444360, 0904311000, 7504825, 6393054 ####[facility] (DEFAULT)[address] [place] [address] Eosinophils/100 WBC Auto (Bld) 2.0 % Normal 0.9-4.0 [facility] Comment on above: Performed By: #### 1 2130741, 8824348407, 6078085, 6623217591, 0549978, 1003463 ####[facility] (DEFAULT)[address] [place] [address] Lymphocytes Auto #/vol (Bld) 3.2 x10 High 1.3-2.9 [facility] Comment on above: Performed By: #### 1 9164986, 9634293628, 2445405, 8341157996, 6714052, 9104562 ####[facility] (DEFAULT)[address] [place] [address] Lymphocytes/100 WBC Auto (Bld) 33 % Normal 14-48 [facility] Comment on above: Performed By: #### 1 6555959, 4159925899, 6355051, 3771564888, 9159823, 1898063 ####[facility] (DEFAULT)[address] [place] [address] Uvalde Abs# 0.6 x10 Normal 0.0-0.8 [facility] Comment on above: Performed By: #### 1 0446961, 5384662418, 4512407, 3956369684, 3937282, 6987681 ####[facility] (DEFAULT)[address] [place] [address] Neut Abs# 5.5 x10 Normal 1.5-9.2 [facility] Comment on above: Performed By: #### 1 8760863, 7030421730, 9241260, 1723193756, 1035818, 2233648 ####[facility] (DEFAULT)[address] [place] [address] CBC w/ Auto Diffon 8 Erythrocyte distribution width Auto Ratio (RBC) 13.5 % Normal 11.5-15.0 [facility] Comment on above: Performed By: #### 1 4909161, 2118564233, 5582996, 6035037000, 9990157, 0013163 ####[facility] (DEFAULT)[address] [place] [address] Hematocrit Auto Volume Fraction (Bld) 38.8 % Normal 33.7-40.4 [facility] Comment on above: Performed By: #### 1 0398657, 0820109170, 3623561, 9002174916, 1404452, 8227037 ####[facility] (DEFAULT)[address] [place] [address] Hemoglobin mass conc (Bld) 13.7 g/dL Normal 11.3-15.9 [facility] Comment on above: Performed By: #### 1 6855090, 0216705083, 8170924, 5941278128, 4214384, 8049053 ####[facility] (DEFAULT)[address] [place] [address] Man Diff? Auto Normal [facility] Comment on above: Performed By: #### 1 8123029, 9148975753, 3405001, 0536665469, 5386297, 5462280 ####[facility] (DEFAULT)[address] [place] [address] MCH Auto Entitic mass (RBC) 30 pg Normal 24-34 [facility] Comment on above: Performed By: #### 1 3406367, 8951545884, 7645462, 8031916524, 6378231, 4923442 ####[facility] (DEFAULT)[address] [place] [address] MCHC Auto mass conc (RBC) 35 g/dL Normal 26-37 [facility] Comment on above: Performed By: #### 1 2187741, 2288392842, 2916232, 8734387645, 4903822, 1619435 ####[facility] (DEFAULT)[address] [place] [address] MCV Auto Entitic volume (RBC) 85 fL Normal 81-100 [facility] Comment on above: Performed By: #### 1 3366107, 8828866928, 4217203, 6320818032, 3402371, 3569919 ####[facility] (DEFAULT)[address] [place] [address] Platelet mean volume Auto Entitic volume (Bld) 10.1 fL Normal 6.3-10.2 [facility] Comment on above: Performed By: #### 1 8968454, 5467261862, 6497144, 3714732672, 4476347, 1671779 ####[facility] (DEFAULT)[address] [place] [address] Platelets Auto #/vol (Bld) 336 x10 Normal 138-427 [facility] Comment on above: Performed By: #### 1 8781638, 0817537959, 7632439, 2076521847, 1080948, 2360235 ####[facility] (DEFAULT)[address] [place] [address] RBC Auto #/vol (Bld) 4.57 x10 Normal 3.70-5.30 [facility] Comment on above: Performed By: #### 1 3501124, 0387813349, 9970092, 3116694844, 6724593, 7456935 ####[facility] (DEFAULT)[address] [place] [address] WBC Auto #/vol (Bld) 9.5 x10 Invalid Interpretation Code [facility] Comment on above: Performed By: #### 1 4590354, 1296259059, 8286744, 3924140809, 2422693, 6970727 ####[facility] (DEFAULT)[address] [place] [address] CMP Standardon 12-30-2017 eGFR Non AA >60 Invalid Interpretation Code [facility] Comment on above: Performed By: #### 1 1328263, 3221770883, 1778641, 2165501944, 5061009, 8749685 ####[facility] (DEFAULT)[address] [place] [address] eGFR AA >60 Invalid Interpretation Code [facility] Comment on above: Result Comment: Security Professional daryl Kidney disease could be indicated at eGFRs of less than 60 ml/min/1.73m2. Kidney Failure is indicated at less than 15 ml/min/1.73m2 Performed By: #### 1 4843976, 2397002252, 6885548, 7764986662, 6276049, 3818830 ####[facility] (DEFAULT)[address] [place] [address] Albumin mass conc 4.3 g/dL Normal 3.5-5.0 [facility] Comment on above: Performed By: #### 1 8062352, 8442632316, 5818890, 6053119580, 1570536, 3205303 ####[facility] (DEFAULT)[address] [place] [address] Albumin/Globulin mass ratio 1.4 {ratio} Normal 1.4-2.6 [facility] Comment on above: Performed By: #### 1 7370779, 0406048542, 8574771, 1990178743, 9594687, 9800434 ####[facility] (DEFAULT)[address] [place] [address] Alk Phos 70 IU/L Normal 32-91 [facility] Comment on above: Performed By: #### 1 3292897, 2405427088, 7146315, 1101690794, 0567721, 9300933 ####[facility] (DEFAULT)[address] [place] [address] ALT/SGPT 19.0 IU/L Normal 14.0-54.0 [facility] Comment on above: Performed By: #### 1 1013473, 2120187710, 7231585, 4466738708, 8015107, 0197270 ####[facility] (DEFAULT)[address] [place] [address] Anion gap 3 molar conc 12.0 mmol/L Normal 5.0-19.0 [facility] Comment on above: Performed By: #### 1 0613575, 2929374750, 6682395, 4431205730, 1441461, 7907479 ####[facility] (DEFAULT)[address] [place] [address] 30166 AST/SGOT 24 IU/L Normal 15-41 [facility] Comment on above: Performed By: #### 1 5630395, 8387844155, 1556963, 2130022205, 9075782, 7624921 ####[facility] (DEFAULT)[address] [place] [address] Bili Total 0.2 mg/dL Low 0.3-1.2 [facility] Comment on above: Performed By: #### 1 0770329, 4008046215, 9661780, 9912691527, 4828326, 6909691 ####[facility] (DEFAULT)[address] [place] [address] 72647 Calcium mass conc 9.3 mg/dL Normal 8.9-10.3 [facility] Comment on above: Performed By: #### 1 3974028, 2121091246, 6291741, 1805299572, 9250040, 5166297 ####[facility] (DEFAULT)[address] [place] [address] Chloride molar conc 99 mmol/L Low 101-111 [facility] Comment on above: Performed By: #### 1 4413452, 1158904893, 3687288, 2671197989, 8752722, 1792884 ####[facility] (DEFAULT)[address] [place] [address] CO2 molar conc 28 mmol/L Normal 21-32 [facility] Comment on above: Performed By: #### 1 9376262, 2957354728, 0572690, 9458019341, 3508023, 3017559 ####[facility] (DEFAULT)[address] [place] [address] Creatinine mass conc 0.94 mg/dL Normal 0.60-1.30 [facility] Comment on above: Performed By: #### 1 2470384, 3496609091, 4973600, 4319221796, 9044034, 6531838 ####[facility] (DEFAULT)[address] [place] [address] Globulin Calculated mass conc (S) 3.1 g/dL Normal 1.5-4.3 [facility] Comment on above: Performed By: #### 1 7571634, 8966985429, 4817730, 8304564600, 7010316, 4178647 ####[facility] (DEFAULT)[address] [place] [address] Glucose mass conc 114.0 mg/dL Normal 74.0-118.0 [facility] Comment on above: Performed By: #### 1 2878241, 5728088968, 5610457, 7376136395, 5689906, 7794357 ####[facility] (DEFAULT)[address] [place] [address] Osmolality 272 mOsm/L Invalid Interpretation Code [facility] Comment on above: Performed By: #### 1 2560419, 6066223906, 5973441, 3010137573, 2382420, 3297786 ####[facility] (DEFAULT)[address] [place] [address] Potassium molar conc 4.0 mmol/L Normal 3.6-5.1 [facility] Comment on above: Performed By: #### 1 6751818, 1464737005, 9772868, 5918938354, 9769464, 3018534 ####[facility] (DEFAULT)[address] [place] [address] Protein mass conc 7.4 g/dL Normal 6.5-8.1 [facility] Comment on above: Performed By: #### 1 3739883, 0776548267, 3960847, 8793272675, 5556688, 5990593 ####[facility] (DEFAULT)[address] [place] [address] Sodium molar conc 135.0 mmol/L Low 136.0-144. 0 [facility] Comment on above: Performed By: #### 1 3765924, 3087819803, 6906184, 1261834174, 6012992, 7298198 ####[facility] (DEFAULT)[address] [place] [address] Urea nitrogen mass conc 17 mg/dL Normal 8-26 [facility] Comment on above: Performed By: #### 1 5546467, 7892520923, 8873470, 3464755547, 6373583, 6152961 ####[facility] (DEFAULT)[address] [place] [address] Urea nitrogen/Creatinine mass ratio 18.0 mg/mg High 4.6-16.2 [facility] Comment on above: Performed By: #### 1 0815057, 6338347512, 4178160, 6222868656, 2855328, 2816645 ####[facility] (DEFAULT)[address] [place] [address] D-Dimeron 12-30-2017 D-Dimer 0.28 mg/L FEU Normal 0.19-0.50 [facility] Comment on above: Performed By: #### 1 6997178, 3719827688, 3993311, 0209914972, 9623797, 4434000 ####[facility] (DEFAULT)[address] [place] [address] ED Clinical Summaryon 2017 ED Clinical Summary [facility] - Emergency [address] [place] [address] ed Clinical SummaryPERSON INFORMATIONName: DYAN JONES Age: 32 Years Sex: FEMALEDOB: [birth year] MRN: Acct#:Visit Reason: Chest pain; Shortness of breath; SOB, MID BACK PAIN Arrival: 12/30/17 19:08:00 Discharge: 12/30/17 20:26:00LOS: 000 01:18 Check In: 12/30/17 19:08:00 Checkout:12/30/17 20:26:00Address:[address] [place] [id number]: TASH ESTEBANPROSEKOU INFORMATIONProvider Role Assigned UnassSoila Nuñez [...] Adult; Nonspecific Chest PainFollow-Up:With: Address: When:TASH ESTEBAN [address] [place] [address], [address] [place], [place] [id number] Business (1) Within 3 to 5 daysDIAGNOSIS:Atypical chest pain; DyspneaPatient Understands: Yes - Patient/family/caregiver verbalizes understanding of instructions givenComment: Normal [facility] ED Note - Physicianon 2017 ED Note - Physician Patient: BYRON JONES : 32 years Sex: FEMALE : [birth year]Associated Diagnoses: Dyspnea; Atypical chest painAuthor: Dino Rivas InformationTime seen: Date & time 12/30/17 19:12:00.History source: Patient.Arrival mode: Private vehicle.History limitation: None.Additional information: Chief Complaint from Nursing Triage Note : Chief Pvczmtsmz19/18/18 19:12 EDT Chief Complaint Patient states she became SOB a few days ago and can't catch her breath/feel like she can fully expand. Was seen by her PCP today and had a CXR, but this afternoon states she developed chest pressure and L shoulder pain, radiating to her jaw 4/10 .History of Present Tvyumed38-oldx-rgo female presents to the emergency department complaining [...] 10 scale. She did not take any tqrg-cbx-zeohist or prescriptions medication for her symptoms. She [...] been selected or recorded..Social history:Social & Psychosocial HoiaraXjzbank77/09/2016 Smoking tobacco use: Never Smoker.Problem list:Active Problems [...] Dyspnea[SOB], No.Results review: Lab results : Lab Ldiatrano24/18/18 19:37 EDT Sodium Level 135.0 mmol/L LOW [...] % Auto Lymph % 33 % Auto Uvalde % 6 % Auto Eos % 2.0 % Auto Baso % 0.4 % Neut Abs# 5.5 x103/mcL Lymph Abs# 3.2 x103/mcL HI Uvalde Abs# 0.6 x103/mcL Eos Abs# 0.2 x103/mcL Baso Abs# 0.0 x103/mcL D-Dimer 0.28 mg/L FEU Tube Collected Yes.Chest X-Ray: Chest x-ray was completed earlier in the day as an outpatient. This was interpreted by the radiologist and showed no active disease..Impression and PlanDiagnosisDyspnea (ZPM26-JW R06.0, Discharge, Medical)Atypical chest pain (KKF57-CC R07.89, Discharge, Medical)PlanCondition: Improved, Stable.Disposition: Discharged: Time [...] MD[Verified on: 12/30/2017 21:10 EDT] Soila Rivas [facility] ED Patient Education Noteon 12-30-2017 ED Patient [...] if you start to feel better.? Take ecuq-xkg-rfnwyow and prescription medicines only as told by [...] Reviewed: 05/25/2017[employer] Patient Education ? 2017 [employer].Pulmonary MedicineShortness of Breath, AdultShortness of breath is [...] Slowly return to your usual activities.? Take bsom-wxj-tjcuigk and prescription medicines, including oxygen and inhaled [...] Reviewed: 02/05/2017[employer] Patient Education ? 2017 [employer]. Normal [facility] ED Patient Summaryon 018 ED Patient Summary [facility] - Emergency [address] [place] [address] pATIENT DISCHARGE INSTRUCTIONSPatient InformationName: DYAN JONES Age: 32 YearsDate of : [birth year]MRN: [id number] For Visit: Chest pain; Shortness of breath; SOB, MID BACK PAINArrival Time: 12/30/17 19:08:00[facility] Phys[facility]: Kiersten ESTEBAN Physician: Edison Mcallister MDComment:Visit Diagnosis:Diagnoses This Visit Atypical chest pain (R07.89) Chest pain ([id number]) Dyspnea (R06.0) Shortness of breath ([id number])If you received any narcotics, sedation, or any [...] or sign any legal documentsWith: Address: When:TASH UELALIA [address] [place] [address], [address] [place], [place] [id number] Business (1) Within 3 to 5 daysMedication Information:The exam and treatment you received today in the [facility] Emergency Department were for an urgent problem and are not intended as complete care. It is important for you to follow up with a doctor, nurse practitioner, or physician?s engineering inspection assistant for ongoing care. If your symptoms [...] number so we can reach you if necessary.[facility] Emergency Department has provided you with a complete list of medications post discharge. Please inform your casualty underwriter/provider of your visit and for further instruction [...] Slowly return to your usual activities.? Take ylpl-fwm-thjdwjn and prescription medicines, including oxygen and inhaled [...] Reviewed: 02/05/2017[employer] Patient Education ? 2017 [employer]Nonspecific Chest PainChest pain can be caused [...] if you start to feel better.? Take mffi-ahg-gxpxzll and prescription medicines only as told by [...] Reviewed: 05/25/2017Elsevangel Interactive Patient Education ? 2017 [employer]. Viruses or BacteriaWhat?s got you sick?Antibiotics only [...] Disease Control and Prevention May 2014 Normal [facility] Extra Redon 12-30-2017 Tube Collected Yes Invalid Interpretation Code [facility] Comment on above: Performed By: #### 1 [id number] ####[facility] (DEFAULT)[address] [place] [address] Troponin Ion 12-30-2017 Troponin I.cardiac mass conc ng/mL Normal <=0.03 [facility] Comment on above: Performed By: #### 1 [id number] ####[facility] (DEFAULT)[address] [place] [address] XR Chest 2 Viewson 8 XR Chest 2 Views ADDENDUMAdditional l ateral view of the chest was obtained which fails to demonstratethe small linear opacity overlying the thoracic spine noted originally,confirming that the original finding is related to overlying artifact and notan opaque foreign body.JEY Rae #: [id number]: 12/31/2017T: 12/31/2017 Final Dictated by: Eliseo Lyn [...] PROCESS SEEN IN THE CHEST.JEY Rae #: [id number]: 12/30/2017T: 12/30/2017 Final Dictated by: Eliseo Lyn MD DT/TM: 12/30/17 1:02Signed (Electronic Signature): Eliseo Lyn MD 12/31/17 5:39 amTechnologist: ASHELY Samaniego [facility] Coding Summaryon 07-15-2017 Coding Summary CODING DATE: 017 [facility] STATUS: Home 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 APC DESCRIPTION [...] Cai' Revised Date Saved: 04/06/2017 04:11 pm [facility] Vital Signs Date Time Vital Sign Value Performing Clinician Facility 01-19-2025 10:05-0400 Body mass index (BMI) [Ratio] 40.83 kg/m2 Matt Blanquita DO Work Phone: [facility] 01-19-2025 10:05-0400 Body weight 112.15 kg Matt Blanquita DO Work Phone: [facility] 01-19-2025 10:05-0400 Diastolic blood pressure 86 mm[Hg] Matt Blanquita DO Work Phone: [facility] 01-19-2025 10:05-0400 Systolic blood pressure 128 mm[Hg] Matt Blanquita DO Work Phone: [facility] 01-03-2025 08:47-0400 Body mass index (BMI) [Ratio] 41.28 kg/m2 Matt Blanquita DO Work Phone: [facility] 01-03-2025 08:47-0400 Body weight 113.4 kg Matt Blanquita DO Work Phone: [facility] 01-03-2025 08:47-0400 Diastolic blood pressure 90 mm[Hg] Matt Blanquita DO Work Phone: [facility] 01-03-2025 08:47-0400 Systolic blood pressure 128 mm[Hg] Matt Blanquita DO Work Phone: [facility] 12-07-2024 08:52-0400 Body mass index (BMI) [Ratio] 39.94 kg/m2 Lon Bustos MD Work Phone: [facility] 12-07-2024 08:52-0400 Body weight 108.86 kg Lon Bustos MD Work Phone: [facility] 12-07-2024 08:52-0400 Diastolic blood pressure 106 mm[Hg] Lon Bustos MD Work Phone: [facility] 12-07-2024 08:52-0400 Heart rate 83 /min Lon Bustos MD Work Phone: [facility] 12-07-2024 08:52-0400 Systolic blood pressure 141 mm[Hg] Lon Bustos MD Work Phone: [facility] 09-20-2024 08:42-0500 Body mass index (BMI) [Ratio] 39.14 kg/m2 Tiffanie Waters CNM Work Phone: [facility] 09-20-2024 08:42-0500 Body weight 107.5 kg Tiffanie Waters CNM Work Phone: [facility] 09-20-2024 08:42-0500 Diastolic blood pressure 80 mm[Hg] Tiffanie Waters CNM Work Phone: [facility] 09-20-2024 08:42-0500 Systolic blood pressure 122 mm[Hg] Tiffanie Waters CNM Work Phone: [facility] 02-07-2022 15:40-0400 Body temperature 97.7 [degF] Edilma Chan DO [facility] 02-07-2022 15:40-0400 Diastolic blood pressure 90 mm[Hg] Edilma Chan DO Work Phone: [facility] 02-07-2022 15:40-0400 Heart rate 86 /min Edilma Chan DO Work Phone[facility] [employer] 02-07-2022 15:40-0400 Respiratory rate 16 /min Edilma Chan DO Work Phone: [email or web address] [employer] 02-07-2022 15:40-0400 SaO2% (BldA) [Mass fraction] 93 % Edilam Chan [facility] Work Phone: [employer] 02-07-2022 15:40-0400 Systolic blood pressure 137 mm[Hg] Edilma Chan [facility] Work Phone: [employer] 02-04-2022 20:33-0400 Body height 165.1 cm Edilma Chan [facility] Work Phone: [employer] 02-04-2022 20:33-0400 Body mass index (BMI) [Ratio] 39.11 kg/m2 Edilma Chan [facility] Work Phone: [facility] 02-04-2022 20:33-0400 Body weight 106.59 kg Edilma Chan [employer]GL[employer] Phone: [employer] Encounters Encounter Date Encounter Type Care Provider Facility Start: 01-19-2025 End: 01-24-2025 External Result Encounter Matt Blanquita DO Work Phone: [facility] External Department Unsolicited Start: 01-19-2025 End: 01-24-2025 External Result Encounter Matt Blanquita DO Work Phone: [facility] External Department Unsolicited Start: 01-19-2025 End: 01-19-2025 Patient encounter procedure Matt Blanquita DO Work Phone: [facility] Comment on above: Pre-op examination; Menorrhagia with regular cycle; Abnormal uterine bleeding; Pelvic pain in female; Skin tag of labia Start: 01-19-2025 End: 01-19-2025 Preprocedural examination done Matt Blanquita DO Work Phone: [facility] Start: 01-19-2025 End: 01-19-2025 ambulatory MATT BLANQUITA [...] uterine bleeding); Elevated TSH; Hypertension, unspecified type ([facility]/HCC) Start: 01-03-2025 End: 01-03-2025 ambulatory MATT BLANQUITA Not Available Start: 12-07-2024 End: 12-07-2024 Office outpatient new 45 minutes Lon Bustos MD Work Phone: [facility] - Lon Bustos MD Comment on above: TIA (transient ische kellen attack) (Primary Dx); Hypertensive crisis Start: 12-07-2024 End: 12-07-2024 ambulatory LON BUSTOS [facility] Start: 11-29-2024 End: 11-29-2024 Telephone encounter Amee Kan [facility] Neurology, A Department of [facility] Comment on above: New Patient Start: 11-28-2024 End: 11-28-2024 Refolegario Addison MD Work Phone: [facility] Start: 11-01-2024 End: 11-02-2024 [facility] Start: 09-20-2024 End: 09-20-2024 Bamboo flowsheet Tiffanie [...] Start: 05-24-2024 End: 05-24-2024 ambulatory ISAIAH Ortega [facility] Start: 05-20-2024 End: 05-20-2024 ambulatory TIFFANIE KAURO Not Available Start: 05-05-2024 End: 05-05-2024 ambulatory TIFFANIE Dante FLORO Not Available Start: 04-21-2024 End: 04-21-2024 ambulatory TIFFANIE Dante FLORO Not Available Start: 04-01-2024 End: 04-01-2024 ambulatory ISAIAH DAVIS Not Available Start: 03-02-2024 End: 03-02-2024 ambulatory ISAIAH Ortega [facility] Start: 12-26-2023 End: 12-29-2023 ambulatory ISAIAH Ortega [facility] Start: 11-26-2023 End: 11-27-2023 ambulatory ISAIAH Shannon [facility] Start: 11-26-2023 Encounter for genera l adult medical examination without abnormal findings [facility] Start: 09-01-2023 End: 09-01-2023 Emergency department patient visit CRISTINA FUNEZ [facility] Start: 02-04-2022 End: 02-07-2022 Emergency department patient visit Edilma Chan DO Work Phone: [facility] Comment on above: Pain of upper abdome n (Primary Dx); Chronic GERD; Cholecystitis Start: 06-12-2018 End: 06-12-2018 Patient encounter [facility] Facility:[facility] Start: 01-05-2018 End: 01-06-2018 Patient encounter [facility] Facility:[facility] Start: 12-31-2017 End: 01-04-2018 Patient encounter TASH Hernandez [facility] Facility:[facility] Start: 12-30-2017 End: 01-04-2018 [facility] Procedures Date Procedure Procedure Detail Performing Clinician Start: 01-19-2025 PATHOLOGY REQUEST FO R LAB BETSEY Matt Bainso DO Work Phone: Start: 01-03-2025 ALL THYROID STIM HORMONE Matt Blanquita DO Work Phone: Start: 01-03-2025 ALL THYROXINE (T4) FREE [employer] DO Work Phone: Start: 04-21-2024 Microscopic observat ion [Identifier] in Cervix by Cyto stain KOJI Drinkso DO Work Phone: Start: 02-07-2022 End: 02-07-2022 [...] Screening for malign ant neoplasm of cervix [facility] Start: 02-20-2026 DTaP,Tdap and Td Vaccines (7 - Td or Tdap) DTaP,Tdap and Td Vaccines (7 - Td or Tdap) [facility] Start: 02-20-2026 DTaP/Tdap/Td vaccine (7 - Td or Tdap) DTaP/Tdap/Td vaccine (7 - Td or Tdap) [facility] Start: 12-07-2025 Adult BMI Screening Adult BMI Screen ing [facility] Start: 12-07-2025 Tobacco Screening Tobacco Screening [facility] Start: 11-02-2025 Tobacco Screening Tobacco Screening [facility] Start: 11-01-2025 Adult BMI Screening Adult BMI Screen ing [facility] Start: 06-20-2025 Screening for malign ant neoplasm of cervix [facility] Start: 05-15-2025 Influenza vaccination Influenz a Vaccine (Season Ended) [facility] Start: 04-26-2025 End: 04-26-2025 Patient encounter procedure 04/26/2025 9:00 AM EDT Office Visit [facility] [address] [place] [id number] Evelin Tiffanie L, CNM [address] [facility], [place] [id number] [facility] Start: 03-07-2025 End: 03-07-2025 Patient encounter procedure 03/07/2025 8:45 AM EDT Office Visit [facility] - Lon Bustos MD [address] [place] [address] [address] [place] [address] Lon Bustos MD [address] [place] [address] [address] [place] [address] [facility] - Lon Bustos MD Start: 03-01-2025 End: 03-01-2025 Patient encounter procedure 03/01/2025 9:00 AM EDT Procedure visit [facility] - Vargas Valdivia MD [address] [place] [address] [address] [place] [address] [facility] Renetta Valdivia MD Start: 02-23-2025 End: 02-23-2025 Patient encounter procedure 02/23/2025 8:30 AM EDT Office Visit [facility] [address] [place] [address] Parvin Moreland PA [address] [place] [place], [place] [address] [facility] Start: 01-19-2025 End: 01-19-2025 Patient encounter procedure 01/19/2025 9:30 AM EDT Procedure Visit [facility] [address] [place] [address] Matt Juares, DO [address] [place] [address] [facility] Start: 01-03-2025 End: 01-03-2026 [...] (dysfunctional uterine bleeding) Expected: 01/03/2025, Expires: 07/05/2025 [facility] Comment on above: Expected: 01/03/2025 , Expires: 07/05/2025 Start: 01-03-2025 End: 01-03-2025 Patient encounter procedure 01/03/2025 8:50 AM EDT Office Visit [facility] [address] [place] [phone] Matt Juares, DO [address] [place] [address] Irregular bleeding; DUB (dysfunctional uterine bleeding) [facility] Comment on above: Irregular bleeding; DUB (dysfunctional uterine bleeding) Start: 12-07-2024 End: 12-07-2024 Patient encounter procedure 12/07/2024 9:00 AM EDT Office Visit [facility] - Lon Bustos MD [address] [place] [address] Lon Bustos MD [address] [place] [id number] [facility] - Lon Bustos MD Start: 09-20-2024 End: 09-20-2024 Patient encounter procedure 09/20/2024 8:30 AM EST Office Visit [facility] [address] [place] [address] Tiffanie Waters, LISETTE [address] [place] [address] Arrived [facility] Comment on above: Arrived Start: 05-15-2024 COVID-19 Vaccine ( season) COVID-19 Vaccine ( season) [facility] [employer] [facility] Start: 05-15-2024 Influenza vaccination [facility] Start: 05-15-2022 Influenza vaccination Flu vacc ine (Season Ended) [employer] Start: 11-23-2021 Screening for malign ant neoplasm of cervix Pap Smear [facility] [employer] Start: 2021 Diabetes screen Diabetes screen [facility] Start: 08-01-2021 COVID-19 Vaccine (3 - Booster for Moderna series) COVID-19 Vaccine (3 - Booster for Moderna series) [facility] Start: 2016 Screening for malign ant neoplasm of cervix [facility] Start: 11-17-2007 Screening for malign ant neoplasm of cervix Pap smear [facility] Start: 2004 Adult BMI Follow Up Plan Adult BMI Follow Up Plan [facility] [employer] Start: 2004 Hepatitis C screening Hepatitis C sc reen [facility] Start: 2001 HIV screening HIV screen [facility] [employer] Start: 1998 Depression Screen Depression Screen [employer] [facility] Start: 1998 Depression Screening Depression Scre ening [facility] [employer] Start: 11-17-1987 Varicella vaccine (1 of 2 - 2-dose childhood series) Varicella vaccine (1 of 2 - 2-dose childhood series) [facility] [employer] Basic Metabolic Pane l w/ Reflex to MG Basic Metabolic Panel w/ Reflex to MG Lab Routine Daily until discontinued starting 02/05/2022, 2 completed [employer] Work Phone: Comment on above: Daily until disconti nued starting 02/05/2022, 2 completed CBC W Auto Different ial panel - Blood CBC with Auto Differential Lab Routine Daily until discontinued starting 02/05/2022, 2 completed [email or web address] Phone: Comment on above: Daily until disconti nued starting 02/05/2022, 2 completed End: 12-07-2025 EEG EEG Neurology Routine Hypertensive crisis 1 Occurrences starting 12/07/2024 until 12/07/2025 [facility] Work Phone: Comment on above: 1 Occurrences starti ng 12/07/2024 until 12/07/2025 Hepatic function 200 0 panel - Serum or Plasma Hepatic Function Panel Lab Routine Daily until discontinued starting 02/05/2022, 2 completed [email or web address] Phone: Comment on above: Daily until disconti nued starting 02/05/2022, 2 completed Oxygen therapy [[facility] Data Set] Initiate Oxygen Therapy Protocol Respiratory Care Routine As Needed until discontinued starting 02/05/2022 [email or web address] Phone: Comment on above: As Needed until disc ontinued starting 02/05/2022 Surgical Pathology Surgical Path ology Lab Routine Chronic GERD Release Upon Ordering for 1 Occurrences starting 02/06/2022 [email or web address] Phone: Comment on above: Release Upon Orderin g for 1 Occurrences starting 02/06/2022 Surgical Pathology Surgical Path ology Lab Routine Cholecystitis Release Upon Ordering for 1 Occurrences starting 02/07/2022 [email or web address] Phone: Comment on above: Release Upon Orderin g for 1 Occurrences starting 02/07/2022 End: 02-07-2022 SURGICAL PATHOLOGY REPORT SURGICAL PATHOLOGY REPORT Lab Routine Once for 1 Occurrences starting 02/07/2022 until 02/07/2022 [email or web address] Phone: Comment on above: Once for 1 Occurrenc es starting 02/07/2022 until 02/07/2022 Thyrotropin [Units/volume] in Serum or Plasma TSH Lab Routine Irregular bleeding DUB (dysfunctional uterine bleeding) Elevated TSH Ordered: 01/03/2025 [facility] Comment on above: Ordered: 01/03/2025 Thyroxine (T4) free [Mass/volume] in Serum or Plasma T4, free Lab Routine Irregular bleeding DUB (dysfunctional uterine bleeding) Elevated TSH Ordered: 01/03/2025 [facility] Comment on above: Ordered: 01/03/2025 Immunizations Immunization Date Immunization Notes Care Provider Urvashi rosebal 11-23-2018 influenza virus vaccine, unspecified formulation Félix Addison MD [facility] 02-21-2016 tetanus toxoid, redu amer[place] diphtheria toxoid, and acellular pertussis vaccine, adsorbed Tiffanie Floro CNM Work Phone: [facility] Payers Date Payer Category Payer Blue [place] Blue [facility] Managed Care - Other ANTHEM [id number] 2023 Unknown [id number] 2023 Unknown [id number] 2021 [facility] [id number] 2021 Unknown [id number] [id number]. [id number] 2021 Unknown [id number] 2017 Unknown [id number] 1986 Unknown [id number] 2.16.840.1.556785.3.579.2. 1286 1986 Unknown [id number] 2.16.840.1.304363.3.579.2. 176 1986 Unknown [id number] 2.16.840.1.569697.3.579.2. 176 1986 Unknown [id number] 2.16.840.1.493081.3.579.2. 1286 1986 Unknown [id number] 2.16.840.1.695491.3.579.2. 1286 1986 Unknown [id number] 2.16.840.1.505294.3.579.2. 1286 1986 Unknown [id number] 2.16.840.1.000424.3.579.2. 1286 1986 Unknown [id number] 2.16.840.1.091327.3.579.2. 1259 1986 Unknown [id number] 2.16.840.1.072237.3.579.2. 1259 1986 Unknown [id number] 2.16.840.1.339828.3.579.2. 1259 1986 Unknown [id number] 2.16.840.1.362589.3.579.2. 1259 1986 Unknown [id number] 2.16.840.1.380332.3.579.2. 1259 1986 Unknown [id number] 2.16.840.1.399636.3.579.2. 1259 1986 Unknown [id number] 2.16.840.1.914184.3.579.2. 1259 1986 Unknown [id number] 2.16.840.1.598870.3.579.2. 1259 Social History Date Type Detail Facility Start: 01-28-2013 End: 04-21-2024 Tobacco smoking status NHIS Never smoked tobacco [email or web address] Phone: Start: 01-28-2013 End: 04-21-2024 Tobacco use and exposure Smokeless tobacco non-user [email or web address] Phone: Start: 02-07-2022 Alcohol intake Current non-drinker of alcohol (finding) [email or web address] Phone: Start: 02-07-2022 End: 09-20-2024 Alcohol intake [facility] Start: 02-05-2022 History SDOH Alcohol Frequency 1 [email or web address] Phone: Start: 1985 Sex Assigned At Not on file [email or web address] Phone: Start: 01-26-2022 End: 02-05-2022 Exposure to SARS-CoV-2 (event) Not sure [email or web address] Phone: Start: 04-21-2024 End: 01-03-2025 Alcoholic beverage intake Current drinker of alcohol (finding) [facility] Start: 04-21-2024 End: 09-20-2024 Tobacco use panel [facility] Start: 1985 Sex assigned at Female [facility] Start: 11-26-2022 Gender identity Identifies as female gender (finding) [facility] Start: 04-20-2024 Sexual orientation Choose not to disclose [facility] Has the electric, ga s, oil, or water company threatened to shut off services in your home in past 12Mo No [facility] In the past 12 month s, has lack of transportation kept you from medical appointments or from getting medications? No [facility] Start: 11-23-2018 Alcohol Comment socially [facility] Start: 04-19-2015 Sex Female (finding) [facility] [employer] [facility] Goals Date Patient Goal Desired Activity [...] on 02/10/[address] Juares at [facility]. MEDICATIONS Current Outpatient Medications Medication Instructions amLODIPine [...] nursing note reviewed. Exam conducted with a cost estimating manager present. Vitals: Estimated body mass index is [...] reviewed, and patient is to proceed to [facility] OR. Follow Up: Patient is to follow up between 1-2 weeks post op to assess proper healing and recovery from procedure. Documented by Rosangela Rocah LPN on behalf of: Matt Juares DO documented in this encounter [facility] 01-16-2025 Note EXAM: US PELVIC COMP LETE [...] II, MD, PHD at 24-Jan-2025 08:11:53 AM [facility] Not Available Comment on above: Order [...] nursing note reviewed. Exam conducted with a cost estimating manager present. Vitals: Estimated body mass index is [...] Gynecology Pt presents as a referral from [facility] with complaints of heavy irregular bleeding. Pt [...] Matt Juares DO documented in this encounter [facility] 12-07-2024 History of Presen t illness Narrative [...] confusion at the time. Her is a construction management instructor who assessed her and took her to [...] tremor or other abnormal movements. Eyes closed ttoiwa-zg-keis testing is accurate. No ataxia. Normal gait. Assessment/Plan: 1. TIA (transient ischemic attack) - [facility] Neu[facility] - [place], [place] 2. Hypertensive crisis - EEG; Future [...] Lon Bustos MD documented [facility] 11-29-2024 Miscellaneous Notes Please ask the following questions to the new patient that you are scheduling: Patient scheduled from New Patient Referral 1. IS THIS DUE TO AN ACCIDENT? - NO 2. IS THIS WORKER'S COMP? PLEASE VERIFY IF THIS IS WORKERS COMP AND DOCUMENT (We do not accept any new workers comp cases) - NO 3. WHAT INSURANCE? - [place]/ BCBS out of state o/trust 4. HAVE [...] SCHEDULE APPOINTMENT? -Patient [facility]-29-2024 Telephone encounter Note Please ask the following questions to the new patient that you are scheduling: Patient scheduled from New Patient Referral 1. IS THIS DUE TO AN ACCIDENT? - NO 2. IS THIS WORKER'S COMP? PLEASE VERIFY IF THIS IS WORKERS COMP AND DOCUMENT (We do not accept any new workers comp cases) - NO 3. WHAT INSURANCE? - [place]/ BCBS out of state o/trust 4. HAVE [...] 8. WHO CALLED TO SCHEDULE APPOINTMENT? -[facility] 09-20-2024 History of Presen t illness Narrative PROBLEM VISIT Dyan Aguilar is 38 y.o. a patient of [facility] Here for heavy periods Last pap: 04/21/24 [...] MA,09/20/2024 8:50 AM documented in this encounter [facility] 02-07-2022 History of Presen t illness Narrative [...] substitued orally. Images were obtained in the BOLIVIAN projection and regions of interest were drawn [...] Home [] Home with Home Health [] Fdc Facility [] [facility] Patient is admitted as inpatient status because of co-morbidities listed above, severity of signs and symptoms as outlined, requirement for current medical therapies and most importantly because of direct risk to patient if care not provided in a hospital setting. Sanford Saldaña MD, MD [facility] Emergency Department Hospitalist Principal Biostatistician spoke with Dr. Saldaña regarding patients increase in pain that was not controlled by Tylenol. Principal Biostatistician received order for Morphine 1 mg q6hPRN. Order placed at this time. Dr. Vora notified of consult. Admitted to room 2057 from ED per wheelchair. Oriented to room and call light. Vitals and assessment completed. No distress noted. documented in this encounter [facility] [employer] Phone: 02-07-2022 Hospital course Narrative Hospitalist Discharge [...] sent to [facility] - [place], [place] - [address] [facility] [address] - P [phone] - F [phone] [address] [facility] [address] [address] cephALEXin 500 MG capsule ondansetron 4 MG [...] substitued orally. Images were obtained in the BOLIVIAN projection and regions of interest were drawn [...] discharge plan documented in this encounter [employer] Phone: 02-07-2022 Hospital Discharg e Alex Selby [...] Patient Responsible person(s) in the waiting room: -Harley Patient approves for provider to speak to [...] one has not been made. 6.) Call [phone] if you have any questions or concerns. The following attachments cannot be sent through Care Everywhere.cephalexin (Citizen [place])ondansetron (oral) (Citizen [place])acetaminophen and oxycodone (Citizen [place])Cholecystectomy: Post-op (Citizen [place])documented in this encounter [employer] Phone: Evaluation note Diagnosis Pain of upper abdomen- Primary Abdominal pain, other specified site Chronic GERD Cholecystitis Cholecystitis, unspecified documented in this encounter [employer]UST[employer] Phone: evaluation note* Diagnosis Irregular bleeding- Primary Irregular menstrual cycle documented [facility] this encounter [facility] Diagnosis TIA (transient ischemic attack)- Primary Unspecified transient cerebral ischemia Hypertensive crisis Hypertensive encephalopathy [facility] Diagnosis Irregular bleeding Irregular menstrual [...] tag of labia documented in this encounter [facility] HealthcareInstructionsNot on filedocumented in this encounterPro[facility] SystemInstructionsNot on filedocumented in this encounterProNorwalk Memorial Hospital SystemInstructionsNot on filedocumented in this encounterProNorwalk [facility] System Summary Purpose Family History No Family History Records FoundNo Family History Records FoundNo Family History Records FoundNo Family History Records FoundNo Family History Records FoundNo Family History Records FoundNo Family History Records FoundNo Family History Records Found Advance Directives No Advanced Directives Records FoundDocuments on File Type Date 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 ACP-Advance Directive ACP-Power of Senior Air Director Latest Code Status on File Code Status Date Activated Date Inactivated Comments Full Code 02/05/2022 3:12 AM Date Activated Date Inactivated Comments 11/01/2024 8:38 PM 11/02/2024 5:58 PM Date Activated Date Inactivated Comments 11/01/2024 8:38 PM 11/02/2024 5:58 PM Additional Source Comments INFORMATION SOURCE (unrecogn ized section and content) DATE CREATED AUTHOR 07/12/2018 [facility] DATE CREATED AUTHOR AUTHOR'S ORGANIZ ATION 07/22/2022 [facility] dical Specialist DATE CREATED AUTHOR AUTHOR'S ORGANIZ ATION 11/27/2023 [facility] DATE CREATED AUTHOR AUTHOR'S ORGANIZ ATION 12/29/2023 [facility] DATE CREATED AUTHOR AUTHOR'S ORGANIZ ATION 05/26/2024 [facility] DATE CREATED AUTHOR AUTHOR'S ORGANIZ ATION 11/03/2024 [facility] DATE CREATED AUTHOR AUTHOR'S ORGANIZ ATION 12/08/2024 [facility] DATE CREATED AUTHOR AUTHOR'S ORGANIZ ATION 01/25/2025 [facility] dical Specialists EPIC Reason for Visit (unrecogniz ed section and content) Reason Comments Abdominal Pain Specialty Diagnoses / Procedures Referred By Jasmine kilgore Referred To Contact Diagnoses Upper abdominal pain Pain of upper abdomen Vera Arteaga MD [address] [place] [address] [facility] [address] [place] [address] Referral ID Status Reason Start Date Expiration Date Visits Re quested Visits Authorized [id number] 1 1 Reason Comments Menstrual Problem Reason Comments Med Refill Reason Onset Date Comments New Patient 11/29/2024 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 Ct was done and results on chart. Specialty Diagnoses / Procedures Referred By Jasmine kilgore Referred To Contact Neurology Diagnoses TIA (transient ischemic attack) Vera Arteaga MD [address] [place] , [address] [address] Phone: tel: fax: [facility] [address] [facility] [address] Phone: tel: fax: Referral ID Status Reason Start Date Expiration Date Visits Requested Visits Authorized [id number] Pending Review Specialty Services Required 11/02/2024 11/02/2025 1 1 Reason Comments Irregular Bleeding Specialty Diagnoses / Procedures Referred By Jasmine kilgore Referred To Contact Obstetrics and Gynecology Diagnoses Irregular bleeding DUB (dysfunctional uterine bleeding) Procedures OK OFFICE/OUTPATIENT NEW HIGH MDM 60 MINUTES Tiffanie Waters, CNM [address] [place] [address] Phone: tel: fax: Matt Juares, [address] [place] [address] Phone: tel: fax: Referral ID Status Reason Start Date Expiration Date V isits Requested Visits Authorized [id number] Closed Specialty Services Required 11/01/2024 04/30/2025 1 [...] (Given - Provider: Edilma Chakraborty APRN - MESSENGER FLOORPERSON) ceFAZolin (ANCEF) 2000 mg in dextrose 5 [...] Annie Autohold - Reason: Unreviewed Transfer Orders)1319 ([facility] Unhold - Provider: Karlo Mccray RN) 0759 (Given - Provider: Alex Robbins RN)1205 ([facility] Hold - Provider: [facility] [place] [employer] - Reason: Unreviewed Transfer Orders)1534 ([facility] Unhold - Provider: Alex Robbins RN) [...] 0758 (Given - Provider: Alex Robbins RN)1205 ([facility] Hold - Provider: Annie Autohold - [...] Karlo Mccray RN)1334 (New Bag - Provider: Karlo Mccray RN)2108 (New Bag - Provider: Enoc [...] (Anesthesia Volume Adjustment - Provider: Kristy Pritchett)1319 ([facility] Unhold - Provider: Karlo Mccray RN) 1205 ([facility] Hold - Provider: [facility] [place] [employer] - Reason: Unreviewed Transfer Orders)1534 (MAR [...] Alternative - Provider: Alex Robbins RN) 1028 ([facility] Hold - Provider: [facility] [place] [employer] - Reason: Unreviewed Transfer Orders)1319 ([facility] Unhold - Provider: Karlo Mccray RN) 1205 ([facility] Hold - Provider: [facility] [place] [employer] - Reason: Unreviewed Transfer Orders)1534 ([facility] Unhold - Provider: Alex Robbins RN) acetaminophen (TYLENOL) tablet 650 mg(Linked Group 1) 650 mg, Oral, EVERY 6 HOURS PRN, Starting on Thu02/05/22 at 0312, Until Discontinued, Pain Mild (1-3), Fever, For temp greater than 100.4 F (38 C), Maximum dose of acetaminophen is 4000 mg from all sources in 24 hours. 1449 (Given - Provider: Alex Robbins RN) 1028 ([facility] Hold - Provider: [facility] [place] [employer] - Reason: Unreviewed Transfer Orders)1319 ([facility] Unhold - Provider: Karlo Mccray RN) 1205 ([facility] Hold - Provider: [facility] [place] [employer] - Reason: Unreviewed Transfer Orders)1534 ([facility] Unhold - Provider: Alex Robbins RN) [...] Mar Autohold - Reason: Unreviewed Transfer Orders)1534 ([facility] Unhold - Provider: Alex Robbins RN) ondansetron (ZOFRAN) injection 4 mg(Linked Group 2) 4 mg, IntraVENous, EVERY 6 HOURS PRN, Starting on Thu02/05/22 at 0312, Until Discontinued, Nausea, Vomiting, Administer if oral route cannot be used. 1028 ([facility] Hold - Provider: [facility] [place] [employer] - Reason: Unreviewed Transfer Orders)1319 ([facility] Unhold - Provider: Karlo Mccray RN) 1205 ([facility] Hold - Provider: [facility] [place] [employer] - Reason: Unreviewed Transfer Orders)1534 ([facility] Unhold - Provider: Alex Robbins RN) ondansetron (ZOFRAN-ODT) disintegrating tablet 4 mg(Linked Group 2) 4 mg, Oral, EVERY 8 HOURS PRN, Starting on Thu02/05/22 at 0312, Until Discontinued, Nausea, Vomiting 1028 ([facility] Hold - Provider: [facility] [place] [employer] - Reason: Unreviewed Transfer Orders)1319 ([facility] Unhold - Provider: Karlo Mccray RN) 1205 ([facility] Hold - Provider: [facility] [place] [employer] - Reason: Unreviewed Transfer Orders)1534 ([facility] Unhold - Provider: Alex Robbins RN) [...] Constipation, First line therapy for constipation 1028 ([facility] Hold - Provider: [facility] [place] [employer] - Reason: Unreviewed Transfer Orders)1319 ([facility] Unhold - Provider: Karlo Mccray RN) 1205 ([facility] Hold - Provider: [facility] [place] [employer] - Reason: Unreviewed Transfer Orders)1534 ([facility] Unhold - Provider: Alex Robbins RN)1608 [...] Mccray RN) 1205 (MAR Hold - Provider: [facility] [place] [employer] - Reason: Unreviewed Transfer Orders)1534 (MAR [...] Alternative - Provider: Alex Robbins RN) 1028 ([facility] Hold - Provider: Annie Autohold - Reason: Unreviewed Transfer Orders)1319 ([facility] Unhold - Provider: Karlo Mccray RN) 1205 ([facility] Hold - Provider: [facility] [place] [employer] - Reason: Unreviewed Transfer Orders)1534 ([facility] Unhold - Provider: Alex Robbins RN) sodium chloride flush 0.9 % injection 10 mL 10 mL, IntraVENous, PRN, Starting on Thu02/05/22 at 1129, Until Discontinued, Line Care, Other, flushing radioactive doses 1202 (Given - Provider: Allie Reynoso) 1028 ([facility] Hold - Provider: [facility] [place] [employer] - Reason: Unreviewed Transfer Orders)1319 ([facility] Unhold - Provider: Karlo Mccray RN) 1205 ([facility] Hold - Provider: [facility] [place] [employer] - Reason: Unreviewed Transfer Orders)1534 ([facility] Unhold - Provider: Alex Robbins RN) sodium chloride flush 0.9 % injection 10 mL 10 mL, IntraVENous, PRN, Starting on Thu02/04/22 at 2337, Until Discontinued, Line Care 1028 ([facility] Hold - Provider: [facility] [place] [employer] - Reason: Unreviewed Transfer Orders)1319 ([facility] Unhold - Provider: Karlo Mccray RN) 1205 ([facility] Hold - Provider: [facility] [place] [employer] - Reason: Unreviewed Transfer Orders)1534 ([facility] Unhold - Provider: Alex Robbins RN) [...] Mccray, IZABELLA) 1205 (NOV Hold - Provider: [facility] [place] [employer] - Reason: Unreviewed Transfer Orders)1534 (NOV [...]
Care Teams (unrecognized sec tion and content) Knowledge Architect Relationship Specialty Start Date End Date Adilene Gracia, RAILROAD YARD WORKER - AMMUNITION STOREKEEPER [address] [place] [address] PCP - General Family Medicine 02/05/22 Knowledge Architect Relationship Specialty Start Date End Date Isaiah Davis NP [address] [place] [address] PCP - General Family Medicine 03/03/24 Knowledge Architect Relationship Specialty Start Date End Date Isaiah Davis, TECHNICAL DATA ANALYST [address] [facility] [place] [address] PCP - General Family Medicine 03/03/24 Knowledge Architect Relationship Specialty Start Date End Date Isaiah Santos, RAILROAD YARD WORKER-AMMUNITION STOREKEEPER [address] [facility] [address] PCP - General Family Medicine 11/26/23 Knowledge Architect Relationship Specialty Start Date End Date Isaiah Santos, RAILROAD YARD WORKER-AMMUNITION STOREKEEPER [address] [facility] [place] [address] PCP - General Family Medicine 11/26/23 Knowledge Architect Relationship Specialty Start Date End Date Isaiah Santos, RAILROAD YARD WORKER-AMMUNITION STOREKEEPER [address] [place] [address] PCP - General Family Medicine 11/26/23 Knowledge Architect Relationship Specialty Start Date End Date Isaiah Davis, TECHNICAL DATA ANALYST [address] [facility] [place] [address] PCP - General Family Medicine 03/03/24 Knowledge Architect Relationship Specialty Start Date End Date Isaiah Davis, TECHNICAL DATA ANALYST [address] [facility] [place] [address] PCP - General Family Medicine 03/03/24 Knowledge Architect Relationship Specialty Start Date End Date Isaiah Davis, TECHNICAL DATA ANALYST [address] [facility] [place] [address] PCP - General Family Medicine 03/03/24 Knowledge Architect Relationship Specialty Start Date End Date Isaiah Davis NP [address] [place] [address] PCP - General Family Medicine 03/03/24 FOR [...] BE BASED ON THE PRIMARY CLINICAL RECORDS. [facility] [employer] [facility]. provides no warranty or guarantee of the accuracy or completeness of information in this document.
== END 2025-01-19 23:59 | disposition home or self-care (01) ==
PROVIDERS: Visit Provider Obstetrics & Gynecology
DX: N93.8 Other specified abnormal uterine and vaginal bleeding (principal)

== ENCOUNTER 2025-02-01 07:57 | Outpatient (OUT) | payer BC, SELFPAY ==
--- OUTSIDE RECORDS SUMMARY | 2025-02-01 08:02 | XMS_ITS | CCD ---
Author Organization [facility] Care Team Providers Care Substance Abuse Clinician Name Role Phone HEMMER, TASH M Unavailable [...] Adilene Westbrook APRN, CNP Primary Care Provider ISAIAH SANTOS Referring Unavail able ISAIAH SANTOS [...] adverse reactions to drug (disorder) [facility] Repository (1 source) No known allergies; Translations: [No known allergies] Propensity to adverse reactions to drug (disorder) [facility] Repository Medications Current Medications Medication Drug [...] Daily 12/30/2024 01/19/2025 Discontinued polyethylene glycol 3350 63161 mg powder for oral solution (1 source) [...] RPon 01-24-2025 PATHOLOGY REQUEST FOR LAB BETSE[facility] Comment on above: See report. Scanned copy available in EMR. [facility] ALL THYROID STIM HORMONEon 0 01-03-2025 TSH Qn 3.365 m[IU]/L [facility] ALL THYROXINE (T4) FREEon Free T4 [Mass/Vol] 0.97 ng/dL 0.76 - 1.46 ng/dL [facility] No Panel Informationon 01-03 [facility] CBC AND AUTO DIFFon 11-02-19 25 ABSOLUTE BASOPHIL 0.0 X10E9/L Normal 0.0-0.2 [facility] Comment on above: Performed By: #### C BRENDA CMP, 04985-7 ####[facility] ([id number])[address] [place] [address], [place] [address]#### 53986-3, HA ####[facility] ([id number])[address] [facility], [address] [place] [address] ABSOLUTE NEUTROPHIL 1.6 X10E9/L Normal 1.5-6.6 [facility] Comment on above: Performed By: #### C BRENDA CMP, ####[facility] ([id number])[address] [place] [address] 35948#### 57965-7, HA1C ####[facility] ([id number])[address], [address], [place] [address] Basophils/100 WBC (Bld) 0.8 % Normal [facility] Comment on above: Performed By: #### C BCA, CMP, ####[facility] ([id number])[address] [place] [address] 29[address]#### 74958-5, HA1C ####[facility] ([id number])[address], [address], [place] [address] Eosinophils (Bld) [#/Vol] 0.1 10*3/uL Normal 0.0-0.4 [facility] Comment on above: Performed By: #### C BCA, CMP, ####[facility] ([id number])[address] [place] [address]#### 90064-6, HA1C ####[facility] ([id number])[address], [address], [place] [address] Eosinophils/100 WBC (Bld) 3.2 % Normal [facility] Comment on above: Performed By: #### C BCA, CMP, ####[facility] ([id number])[address] [place] [address] 55794#### 60963-7, HA1C ####[facility] ([id number])[address], [address], [place] [address] Erythrocyte distribution width (RBC) [Ratio] 13.6 % Normal 11.5-15.0 [facility] Comment on above: Performed By: #### C BCA, CMP, ####[facility] ([id number])[address] [place] [address]#### 60808-8, HA1C ####[facility] ([id number])[address], [address], [place] [address] Hematocrit (Bld) [Volume fraction] 38.4 % Normal 35-47 [facility] Comment on above: Performed By: #### C BCA, CMP, ####[facility] ([id number])[address] [place] [address] 54268#### 61774-4, HA1C ####[facility] ([id number])[address], [address] [place] [address] Hemoglobin (Bld) [Mass/Vol] 13.3 g/dL Normal 11.7-15.5 [facility] Comment on above: Performed By: #### C BCA, CMP, ####[facility] ([id number])[address] [place] [address] 70683#### 38873-0, HA1C ####[facility] ([id number])[address], [address] [place] [address] Lymphocytes (Bld) [#/Vol] 1.8 10*3/uL Normal 1.0-3.5 [facility] Comment on above: Performed By: #### C BCA, CMP, ####[facility] ([id number])[address] [place] [address] 9[address]55#### 00116-8, HA1C ####[facility] ([id number])[address], [address], [place] [address] Lymphocytes/100 WBC (Bld) 44.6 % Normal [facility] Comment on above: Performed By: #### C BCA, CMP, ####[facility] ([id number])[address] [place] [address] 25694#### 12614-0, HA1C ####[facility] ([id number])[address], [address], [place] [address] MCH (RBC) [Entitic mass] 29.1 pg Normal 27-34 [facility] Comment on above: Performed By: #### C BCA, CMP, ####[facility] ([id number])[address] [place] [address] 7[address]40#### 45617-7, HA1C ####[facility] ([id number])0 [facility], [address] [place] [address] MCHC (RBC) [Mass/Vol] 34.6 g/dL Normal 32-36 [facility] Comment on above: Performed By: #### C BCA, CMP, ####[facility] ([id number])[address] [place] [address] 94373#### 61042-7, HA1C ####[facility] ([id number])[address], [address] [place] [address]57 MCV (RBC) [Entitic vol] 84 fL Normal 80-100 [facility] Comment on above: Performed By: #### C BCA, CMP, ####[facility] ([id number])[address] [place] [address] 33799#### 34866-6, HA1C ####[facility] ([id number])[address], [address] [place] [address] 22826 Monocytes (Bld) [#/Vol] 0.5 10*3/uL Normal 0-0.9 [facility] Comment on above: Performed By: #### C BCA, CMP, ####[facility] ([id number])[address] [place] [address] 70122#### 99570-4, HA1C ####[facility] ([id number])[address] [facility], [address], [place] [address] Monocytes/100 WBC (Bld) 11.9 % Normal [facility] Comment on above: Performed By: #### C BCA, CMP, 89522-3 ####[facility] ([id number])[address] [place] [address] 02579#### 18049-3, HA1C ####[facility] ([id number])[address] [facility], [address] [place] [address] 75544 Neutrophils/100 WBC (Bld) 39.5 % Normal [facility] Comment on above: Performed By: #### Reid BCA, CMP, 98595-1 ####[facility] ([id number])[address] [place] [address] 58267#### 93885-2, HA1C ####[facility] ([id number])[address] [facility], [address] [place] [address] 26234 Platelet mean volume (Bld) [Entitic vol] 8.6 fL Normal 7-12 [facility] Comment on above: Performed By: #### Reid BCA, CMP, 74979-3 ####[facility] ([id number])[address] [place] [address] 01502#### 60179-3, HA1C ####[facility] ([id number])[address] [facility], [address], [place] [address] Platelets (Bld) [#/Vol] 249 10*3/uL Normal 150-450 [facility] Comment on above: Performed By: #### C BCA, CMP, ####[facility] ([id number])[address] [place] [address] 18391#### 67758-7, HA1C ####[facility] ([id number])[address] [place] [address], [address] [place] [address] 89634 RBC COUNT 4.57 X10E12/L Normal 3.80-5.20 [facility] Comment on above: Performed By: #### C BCA, CMP, 59989-1 ####[facility] ([id number])[address] [place] [address] 04540#### 69951-9, HA1C ####[facility] ([id number])[address] [place] [address], [address] [place] [address] 93138 WBC (Bld) [#/Vol] 4.0 10*3/uL Normal 4.0-11.0 [facility] Comment on above: Performed By: #### C BCA, CMP, 83760-7 ####[facility] ([id number])[address] [place] [address] 99967#### 31456-0, HA1C ####[facility] ([id number])[address] [place] [address], [address] [place] [address] COMPREHENSIVE METABOLIC PANE John 11-02-2024 Albumin [Mass/Vol] 3.6 g/dL Normal 3.2-5.3 [facility] Comment on above: Performed By: #### C BCA, CMP, 35271-5 ####[facility] ([id number])[address] [place] [address] 47314#### 49920-2, HA1C ####[facility] ([id number])[address] [place] [address], [address] [place] [address] 66760 ALP [Catalytic activity/Vol] 76 U/L Normal 39-130 [facility] Comment on above: Performed By: #### C BCA, CMP, ####[facility] ([id number])[address] [place] [address] 09026#### 90487-3, HA1C ####[facility] ([id number])[address] [facility], [address], [place] [address] ALT [Catalytic activity/Vol] 30 U/L Normal 0-31 [facility] Comment on above: Performed By: #### C BCA, CMP, 07121-0 ####[facility] ([id number])[address] [place] [address] 83319#### 32372-5, HA1C ####[facility] ([id number])[address] [facility], [address] [place] [address] 43454 Anion gap [Moles/Vol] 11 mmol/L Normal 5-15 [facility] Comment on above: Performed By: #### C BCA, CMP, 05529-9 ####[facility] ([id number])[address] [place] [address] 49310#### 85766-0, HA1C ####[facility] ([id number])[address] [place] [address], [address] [place] [address] 51485 AST [Catalytic activity/Vol] 24 U/L Normal 0-41 [facility] Comment on above: Performed By: #### C BCA, CMP, 29041-4 ####[facility] ([id number])[address] [place] [address] 84209#### 98061-3, HA1C ####[facility] ([id number])[address] [facility], [address] [place] [address] 50267 Bilirubin [Mass/Vol] 0.2 mg/dL Low 0.3-1.2 [facility] Comment on above: Performed By: #### C BCA, CMP, ####[facility] ([id number])[address] [place] [address] 28773#### 62489-6, HA1C ####[facility] ([id number])[address] [facility], [address] [place] [address] 97720 Calcium [Mass/Vol] 8.8 mg/dL Normal 8.5-10.5 [facility] Comment on above: Performed By: #### C BCA, CMP, 03211-6 ####[facility] ([id number])[address] [place] [address] 63281#### 32933-5, HA1C ####[facility] ([id number])[address] [place] [address], [address] [place] [address] 71986 Chloride [Moles/Vol] 103 mmol/L Normal 98-109 [facility] Comment on above: Performed By: #### C BCA, CMP, 82396-1 ####[facility] ([id number])[address] [place] [address] 05665#### 84463-2, HA1C ####[facility] ([id number])[address] [place] [address], [address] [place] [address] 39946 CO2 [Moles/Vol] 23 mmol/L Normal 22-32 [facility] Comment on above: Performed By: #### C BCA, CMP, 75019-4 ####[facility] ([id number])[address] [place] [address] 65276#### 60143-7, HA1C ####[facility] ([id number])[address] [facility], [address], [place] [address] Creatinine [Mass/Vol] 0.86 mg/dL Normal 0.40-1.00 [facility] Comment on above: Result Comment: METH OD TRACEABLE TO IDMS STANDARD Performed By: #### C BCA, CMP, ####[facility] ([id number])[address] [place] [address] 61463#### 92160-0, HA1C ####[facility] ([id number])[address] [address] GFR/1.73 sq M.predicted among non-blacks MDRD (S/P/Bld) [Vol rate/Area] 89 mL/min/{1.73_m2} Normal >59 [facility] Comment on above: Result Comment: Reported eGFR is based on the CKD-EPI 2020 equation that does not use a race coefficient. Performed By: #### C BCA, CMP, 74531-7 ####[facility] ([id number])[address] [place] [address] 63188#### 80238-6, HA1C ####[facility] ([id number])[address] [address] Glucose [Mass/Vol] 102 mg/dL High 65-99 [facility] Comment on above: Performed By: #### C BCA, CMP, 33699-7 ####[facility] ([id number])[address] [place] [address] 86101#### 63921-2, HA1C ####[facility] ([id number])[address] [address] Potassium [Moles/Vol] 3.8 mmol/L Normal 3.5-5.0 [facility] Comment on above: Performed By: #### C BCA, CMP, 55249-2 ####[facility] ([id number])[address] [place] [address] 23394#### 06084-0, HA1C ####[facility] ([id number])[address] [address] Protein [Mass/Vol] 6.6 g/dL Normal 6.0-8.0 [facility] Comment on above: Performed By: #### C BCA, CMP, 38043-7 ####[facility] ([id number])[address] [place] [address] 13960#### 33878-3, HA1C ####[facility] ([id number])[address], [address], [place] [address] Sodium [Moles/Vol] 137 mmol/L Normal 134-146 [facility] Comment on above: Performed By: #### C BCA, CMP, 48771-3 ####[facility] ([id number])[address] [place] [address] 47715#### 57065-4, HA1C ####[facility] ([id number])[address], [address], [place] [address] Urea nitrogen [Mass/Vol] 18 mg/dL Normal 5-23 [facility] Comment on above: Performed By: #### C BCA, CMP, 28262-8 ####[facility] ([id number])[address] [place] [address] 71778#### 34017-0, HA1C ####[facility] ([id number])[address], [address] [place] [address] HGB A1C (GLYCO-HGB)on 2024 Glucose [Mass/Vol] 117 mg/dL Normal [facility] Comment on above: Performed By: #### C BCA, CMP, 89361-5 ####[facility] ([id number])[address] [place] [address] 80632#### 51466-8, HA1C ####[facility] ([id number])[address], [address], [place] [address] HbA1c (Bld) [Mass fraction] 5.7 % High 4.4-5.6 [facility] Comment on above: Result Comment: NOTE ADA Guidelines Result HgbA1c Normal : less than 5.7 % Prediabetes : 5.7 % to 6.4 % Diabetes : > 6.4 % Use with caution in patients with abnormal hemoglobin variants as the half-life of red blood cells and in vivo glycation rates are affected. Performed By: #### C BRENDA, THAO, 83162-8 ####[facility] ([id number])[address] [place] [address] 54004#### 27106-9, HA1C ####[facility] ([id number])[address] [place] [address], [address] [address] Lipid 1996 panelon 5 Cholesterol [Mass/Vol] 166 mg/dL Normal 150-200 [facility] Comment on above: Performed By: #### Reid GUTIERREZ CMP, 97024-5 ####[facility] ([id number])[address] [place] [address] 06510#### 05411-2, HA1C ####[facility] ([id number])[address] [place] [address], [address] [address] Cholesterol in HDL [Mass/Vol] 51 mg/dL Normal >39 [facility] Comment on above: Result Comment: HDL <40 mg/dL - High Risk HDL > or = 40mg/dL- Desirable HDL >60 mg/dL - Negative Risk Performed By: #### Reid GUTIERREZ, CMP, 81208-0 ####[facility] ([id number])[address] [place] [address] 21200#### 70396-2, HA1C ####[facility] ([id number])[address], [address] [place] [address] 48275 Cholesterol in LDL [Mass/Vol] 85 mg/dL Normal <130 [facility] Comment on above: Result Comment: LDL <100 mg/dL - Desirable LDL >160 mg/dL - High Risk Performed By: #### C BCA, CMP, 89413-9 ####[facility] ([id number])[address] [place] [address] 66672#### 26112-0, HA1C ####[facility] ([id number])0 [facility], [address] [address] Cholesterol in VLDL [Mass/Vol] 30 mg/dL Normal 0-30 [facility] Comment on above: Performed By: #### C BCA, CMP, 85148-9 ####[facility] ([id number])[address] [place] [address] 69831#### 76515-2, HA1C ####[facility] ([id number])0 [facility], [address] [address] CHOLESTEROL:HDL 3.3 Normal 1.0-5.0 [facility] Comment on above: Performed By: #### C BCA, CMP, 12049-8 ####[facility] ([id number])[address] [place] [address] 13763#### 87170-6, HA1C ####[facility] ([id number])[address], [address] [place] [address]30 Triglyceride [Mass/Vol] 152 mg/dL High 27-150 [facility] Comment on above: Performed By: #### C BCA, CMP, ####[facility] ([id number])[address] [place] [address] 74922#### 53796-9, HA1C ####[facility] ([id number])[address] [place] [address], [address] [place] [address] MAGNESIUMon 11-02-2024 Magnesium [Mass/Vol] 2.0 mg/dL Normal 1.8-2.6 [facility] Comment on above: Performed By: #### C BCA, CMP, 89755-1 ####[facility] ([id number])[address] [place] [address] 48036#### 52744-8, HA1C ####[facility] ([id number])[address] [place] [address], [address] [place] [address] 52028 MR BRAIN WO CONTon 5 MR BRAIN [...] Wasserman MD on 11/02/2024 7:51 AM Normal [facility] BASIC METABOLIC PANLon 11-01 Anion gap [Moles/Vol] 10 mmol/L Normal 5-15 [facility] Comment on above: Performed By: #### C BCA, PINR, 56281-9, BMP, 03922-1 #### [facility] ([id number]) [address] [place] [address]47 Calcium [Mass/Vol] 9.0 mg/dL Normal 8.5-10.5 [facility] Comment on above: Performed By: #### C BCA, PINR, 36569-8, BMP, 86870-5 #### [facility] ([id number]) [address] [place] [address]43 Chloride [Moles/Vol] 98 mmol/L Normal 98-109 [facility] Comment on above: Performed By: #### C BCA, PINR, 90567-7, BMP, 30399-1 #### [facility] ([id number]) [address] [place] [address] 68365 CO2 [Moles/Vol] 29 mmol/L Normal 22-32 [facility] Comment on above: Performed By: #### C BCA, PINR, 91147-4, BMP, 41581-2 #### [facility] ([id number]) [address] [place] [address] 47718 Creatinine [Mass/Vol] 0.86 mg/dL Normal 0.40-1.00 [facility] Comment on above: Result Comment: METH OD TRACEABLE TO IDMS STANDARD Performed By: #### C BCA, PINR, 99688-0, BMP, 11811-4 #### [facility] ([id number]) [address] [place] [address] 70102 GFR/1.73 sq M.predicted among non-blacks MDRD (S/P/Bld) [Vol rate/Area] 89 mL/min/{1.73_m2} Normal >59 [facility] Comment on above: Result Comment: Reported eGFR is based on the CKD-EPI 1 equation that does not use a race coefficient. Performed By: #### C BCA, PINR, 21166-0, BMP, 76147-1 #### [facility] ([id number]) [address] [place] [address]37 Glucose [Mass/Vol] 112 mg/dL High 65-99 [facility] Comment on above: Performed By: #### C BCA, PINR, 88082-3, BMP, 99094-0 #### [facility] ([id number]) [address] [place] [address] Potassium [Moles/Vol] 4.1 mmol/L Normal 3.5-5.0 [facility] Comment on above: Performed By: #### C BCA, PINR, 42602-1, BMP, 21776-8 #### [facility] ([id number]) [address] [place] [address] 48744 Sodium [Moles/Vol] 137 mmol/L Normal 134-146 [facility] Comment on above: Performed By: #### C BCA, PINR, 27404-9, BMP, 26881-3 #### [facility] ([id number]) [address] [place] [address] 08469 Urea nitrogen [Mass/Vol] 15 mg/dL Normal 5-23 [facility] Comment on above: Performed By: #### C BCA, PINR, 93948-7, BMP, 79034-8 #### [facility] ([id number]) [address] [place] [address] CBC AND AUTO DIFFon 11-01-19 25 ABSOLUTE BASOPHIL 0.0 X10E9/L Normal 0.0-0.2 [facility] Comment on above: Performed By: #### C BCA, PINR, 41229-2, BMP, 78781-6 #### [facility] ([id number]) [address] [place] [address] 10760 ABSOLUTE NEUTROPHIL 2.0 X10E9/L Normal 1.5-6.6 [facility] Comment on above: Performed By: #### C BCA, PINR, 54840-5, BMP, 12638-6 #### [facility] ([id number]) [address] [place] [address] Basophils/100 WBC (Bld) 0.9 % Normal [facility] Comment on above: Performed By: #### C BCA, PINR, 75467-4, BMP, 32983-9 #### [facility] ([id number]) [address] [place] [address] 23208 Eosinophils (Bld) [#/Vol] 0.1 10*3/uL Normal 0.0-0.4 [facility] Comment on above: Performed By: #### C BCA, PINR, 93081-7, BMP, 52520-4 #### [facility] ([id number]) [address] [place] [address] 21598 Eosinophils/100 WBC (Bld) 2.0 % Normal [facility] Comment on above: Performed By: #### C BCA, PINR, 73756-9, BMP, 62441-8 #### [facility] ([id number]) [address] [place] [address] 43926 Erythrocyte distribution width (RBC) [Ratio] 13.6 % Normal 11.5-15.0 [facility] Comment on above: Performed By: #### C BCA, PINR, 34744-0, BMP, 69384-6 #### [facility] ([id number]) [address] [place] [address] 99929 Hematocrit (Bld) [Volume fraction] 39.8 % Normal 35-47 [facility] Comment on above: Performed By: #### C BCA, PINR, 45128-5, BMP, 62648-1 #### [facility] ([id number]) [address] [place] [address] 00739 Hemoglobin (Bld) [Mass/Vol] 13.4 g/dL Normal 11.7-15.5 [facility] Comment on above: Performed By: #### C BCA, PINR, 01381-1, BMP, 34360-6 #### [facility] ([id number]) [address] [place] [address] 51885 Lymphocytes (Bld) [#/Vol] 1.8 10*3/uL Normal 1.0-3.5 [facility] Comment on above: Performed By: #### C BCA, PINR, 58014-0, BMP, 46884-0 #### [facility] ([id number]) [address] [place] [address] 79572 Lymphocytes/100 WBC (Bld) 39.4 % Normal [facility] Comment on above: Performed By: #### C BCA, PINR, 67392-2, BMP, 88475-1 #### [facility] ([id number]) [address] [place] [address] 42208 MCH (RBC) [Entitic mass] 28.3 pg Normal 27-34 [facility] Comment on above: Performed By: #### Reid BCA, PINR, 01794-5, BMP, 26648-1 #### [facility] ([id number]) [address] [place] [address] 08727 MCHC (RBC) [Mass/Vol] 33.6 g/dL Normal 32-36 [facility] Comment on above: Performed By: #### Reid BCA, PINR, 22977-7, BMP, 52112-9 #### [facility] ([id number]) [address] [place] [address] 37143 MCV (RBC) [Entitic vol] 84 fL Normal 80-100 [facility] Comment on above: Performed By: #### C BCA, PINR, 16396-0, BMP, 58907-4 #### [facility] ([id number]) [address] [place] [address] 21183 Monocytes (Bld) [#/Vol] 0.6 10*3/uL Normal 0-0.9 [facility] Comment on above: Performed By: #### Reid BCA, PINR, 36190-7, BMP, 75016-9 #### [facility] ([id number]) [address] [place] [address] 81509 Monocytes/100 WBC (Bld) 13.3 % Normal [facility] Comment on above: Performed By: #### C BCA, PINR, 51454-4, BMP, 62334-3 #### [facility] ([id number]) [address] [place] [address] 89508 Neutrophils/100 WBC (Bld) 44.4 % Normal [facility] Comment on above: Performed By: #### C BCA, PINR, 16138-6, BMP, 79622-6 #### [facility] [facility] ([id number]) [address] [place] [address] Platelet mean volume (Bld) [Entitic vol] 8.4 fL Normal 7-12 [facility] Comment on above: Performed By: #### Reid BCA, PINR, 75830-8, BMP, 23225-8 #### [facility] ([id number]) [address] [place] [address]6627 Platelets (Bld) [#/Vol] 252 10*3/uL Normal 150-450 [facility] Comment on above: Performed By: #### C BCA, PINR, 86322-0, BMP, 49414-2 #### [facility] ([id number]) [address] [place] [address] 070[address] RBC COUNT 4.73 X10E12/L Normal 3.80-5.20 [facility] Comment on above: Performed By: #### C BCA, PINR, 27051-7, BMP, 85902-1 #### [facility] ([id number]) [address] [place] [address]20 WBC (Bld) [#/Vol] 4.5 10*3/uL Normal 4.0-11.0 [facility] Comment on above: Performed By: #### C BCA, PINR, 51371-9, [facility], 57086-0 #### [facility] ([id number]) [address] [facility], [place] [address] CT BRAIN WO CONT STROKE ALER Britton [...] Sam MD on 11/01/2024 7:36 PM Normal [facility] CT CTA CAROTIDon 11-01-2024 CT CTA CAROTID [...] supervision. Automated exposure control utilized. The [place] Symptomatic Carotid Endarterectomy Trial (NASCET) method for [...] Garvey MD on 11/01/2024 8:04 PM Normal [facility] CT CTA HEADon 11-01-2024 CT CTA HEAD [...] Garvey MD on 11/01/2024 7:56 PM Normal [facility] Glucose Glucometer (BldC) [M ass/Vol]on 11-01-2024 Glucose [Mass/Vol] 110 mg/dL High 65-99 [facility] HCG ( test) Ql (U)o n 11-01-2024 Beta HCG ( test) Ql (U) Negative Normal NEG [facility] Comment on above: Performed By: #### 2 106-3 #### [facility] ([id number]) [address] [place] [address], [place] [address] PROTIME AND INRon 11-01-2024 INR Coag (PPP) [Relative time] 1.0 {INR} Normal 0.8-1.1 [facility] Comment on above: Performed By: #### C BCA, PINR, 34307-3, BMP, 97812-7 #### [facility] ([id number]) [address] [place] [address] PT Coag (PPP) [Time] 11.5 s Normal 9.8-13.2 [facility] Comment on above: Result Comment: NEW REFERENCE RANGE Performed By: #### C BCA, PINR, 00853-6, BMP, 23356-4 #### [facility] ([id number]) [address] [place] [address] Troponin I.cardiac High sens itivity method [Mass/Vol]on 11-01-2024 1 HOUR TROP I, HIGH SENSITIVITY 4 ng/L Normal <16 [facility] Comment on above: Performed By: #### 8 9579-7 ####[facility] ([id number])[address] [place] [address] TROPONIN I, HIGH SENSITIVITY 3 ng/L Normal <16 [facility] Comment on above: Performed By: #### C BCA, PINR, 83054-2, BMP, 50465-0 #### [facility] ([id number]) [address] [place] [address] URN MACROSCOPIC NURon 2024 BILIRUBIN SAMAN Negative Normal NEG [facility] Comment on above: Performed By: #### N UM ####[facility] ([id number])[address] [place] [address], [place] [address] BLOOD/HGB SAMAN Negative Normal NEG [facility] Comment on above: Performed By: #### N UM ####[facility] ([id number])[address] [place] [address], [place] [address] GLUCOSE SAMAN Negative Normal NEG [facility] Comment on above: Performed By: #### N UM ####[facility] ([id number])[address] [place] [address] [place] [address] KETONES SAMAN Negative Normal NEG [facility] Comment on above: Performed By: #### N UM ####[facility] ([id number])[address] [place] [address] [place] [address] LEUKOCYTE ESTERASE SAMAN Negative Normal NEG [facility] Comment on above: Performed By: #### N UM ####[facility] ([id number])[address] [place] [address] [place] [address] NITRITE SAMAN Negative Normal NEG [facility] Comment on above: Performed By: #### N UM ####[facility] ([id number])[address] [place] [address] PH SAMAN 7.0 Normal 5.0-8.5 [facility] Comment on above: Performed By: #### N UM ####[facility] ([id number])[address] [place] [address] PROTEIN SAMAN Negative Normal NEG [facility] Comment on above: Performed By: #### N UM ####[facility] ([id number])[address] [place] [address] [place] [address] SPECIFIC GRAVITY SAMAN 1.010 Normal 1.003-1 .03 5 [facility] Comment on above: Performed By: #### N UM ####[facility] ([id number])[address] [place] [address] [place] [address] UROBILINOGEN SAMAN 0.2 eu/dL Normal <1.1 [facility] Comment on above: Performed By: #### N UM ####[facility] ([id number])[address] [place] [address] [place] [address] aPTT Coag (PPP) [Time]on aPTT Coag (Bld) [Time] 34 s Normal 26-37 [facility] Comment on above: Result Comment: NEW REFERENCE RANGE Performed By: #### C BCA, PINR, 77164-3, BMP, 20452-3 #### [facility] ([id number]) [address] [place] [address], [place] [address] THYROID PROFILEon 05-24-2024 Free T4 [Mass/Vol] 0.81 ng/dL Normal 0.61-1.60 [facility] Comment on above: Performed By: #### T HYR #### [facility] ([id number]) [address] [place] [address] TSH 4.17 uIU/mL Normal 0.49-4.67 [facility] Comment on above: Performed By: #### T HYR #### [facility] ([id number]) [address], [address] [place] [address] US PELVIS TRANSVAGINALon US PELVIS TRANSVAGINAL TITLE [...] report is generated using voice recognition reporting ([employer]). On occasion [employer] erroneously drops words from the report or [...] IS VERY IMPORTANT TO YOUR HEALTH. THE [employer] GUIDELINES RECOMMEND THAT WOMEN 40 [...] Free T4 [Mass/Vol] 0.69 ng/dL Normal 0.61-1.60 [facility] Comment on above: Performed By: #### T [facility], 3024-7 #### [facility] ([id number]) [address], [address] [place] [address] TSH WITH REFLEXon 03-02-2024 TSH 4.80 uIU/mL High 0.49-4.67 [facility] Comment on above: Performed By: #### T [facility], 3024-7 #### [facility] ([id number]) [address], [address] [place] [address] CBC AND AUTO DIFFon 11-26-19 24 ABSOLUTE BASOPHIL 0.1 X10E9/L Normal 0.0-0.[address] [facility] Comment on above: Performed By: #### C BCA, CMP, 96134-8, TSHR, 4-7, 2132-9, 32310-4 #### [facility] ([id number]) [address], [address] [place] [address] ABSOLUTE NEUTROPHIL 4.2 X10E9/L Normal 1.5-6.6 [facility] Comment on above: Performed By: #### C BCA, CMP, 01173-1, TSHR, 4-7, 2132-05, 58918-3 #### [facility] ([id number]) [address], [address] [place] [address] Basophils/100 WBC (Bld) 1.2 % Normal [facility] Comment on above: Performed By: #### C BCA, CMP, 36767-8, TSHR, 3023-7, 2132-05, 78631-4 #### [facility] ([id number]) [address], [address] [place] [address] Eosinophils (Bld) [#/Vol] 0.3 10*3/uL Normal 0.0-0.4 [facility] Comment on above: Performed By: #### C BCA, CMP, 95609-4, TSHR, 7, 2132-05, 26824-7 #### [facility] ([id number]) [address], [address] [place] [address] Eosinophils/100 WBC (Bld) 3.6 % Normal [facility] Comment on above: Performed By: #### C BCA, CMP, 63093-0, TSHR, 3024-03, 2132-05, 37822-1 #### [facility] ([id number]) [address], [address] [place] [address] Erythrocyte distribution width (RBC) [Ratio] 13.9 % Normal 11.5-15.0 [facility] Comment on above: Performed By: #### C BCA, CMP, 37910-6, TSHR, 3023-7, 2132-05, 93459-7 #### [facility] ([id number]) [address], [address] [place] [address] Hematocrit (Bld) [Volume fraction] 39.4 % Normal 35-47 [facility] Comment on above: Performed By: #### C BCA, CMP, 80395-7, TSHR, 3024-7, 9, 33381-8 #### [facility] ([id number]) [address], [address] [place] [address] Hemoglobin (Bld) [Mass/Vol] 13.3 g/dL Normal 11.7-15.5 [facility] Comment on above: Performed By: #### C BCA, CMP, 13251-8, TSHR, 3024-7, 9, 54029-5 #### [facility] ([id number]) [address], [address] [place] [address] Lymphocytes (Bld) [#/Vol] 2.3 10*3/uL Normal 1.0-3.5 [facility] Comment on above: Performed By: #### C BCA, CMP, 78070-7, TSHR, 3023-7, 2132-05, 52578-9 #### [facility] ([id number]) [address], [address] [place] [address] Lymphocytes/100 WBC (Bld) 30.9 % Normal [facility] Comment on above: Performed By: #### C BCA, CMP, 11148-1, TSHR, 3023-7, 2132-05, 02149-7 #### [facility] ([id number]) [address], [address] [place] [address] MCH (RBC) [Entitic mass] 28.6 pg Normal 27-34 [facility] Comment on above: Performed By: #### C BCA, CMP, 78311-2, TSHR, 3024-7, 9, 49441-9 #### [facility] ([id number]) [address], [address] [place] [address] MCHC (RBC) [Mass/Vol] 33.6 g/dL Normal 32-36 [facility] Comment on above: Performed By: #### C BCA, CMP, 18114-4, TSHR, 3024-7, 2132-05, 25747-0 #### [facility] ([id number]) [address], [address] [place] [address] MCV (RBC) [Entitic vol] 85 fL Normal 80-100 [facility] Comment on above: Performed By: #### C BCA, CMP, 08667-5, TSHR, 3023-7, 2132-05, 22530-2 #### [facility] ([id number]) [address], [address] [place] [address] Monocytes (Bld) [#/Vol] 0.5 10*3/uL Normal 0-0.9 [facility] Comment on above: Performed By: #### C BCA, CMP, 69278-7, TSHR, 3023-7, 2132-05, 20454-7 #### [facility] ([id number]) [address], [address] [place] [address] Monocytes/100 WBC (Bld) 6.3 % Normal [facility] Comment on above: Performed By: #### C BCA, CMP, 37605-5, TSHR, 3023-7, 2132-05, 40041-6 #### [facility] ([id number]) [address], [address] [place] [address] Neutrophils/100 WBC (Bld) 58.0 % Normal [facility] Comment on above: Performed By: #### C BCA, CMP, 73346-5, TSHR, 3023-7, 2132-05, 39476-2 #### [facility] ([id number]) [address], [address] [place] [address] Platelet mean volume (Bld) [Entitic vol] 8.7 fL Normal 7-12 [facility] Comment on above: Performed By: #### C BCA, CMP, 09671-4, TSHR, 3024-7, 2132-05, 61724-1 #### [facility] ([id number]) [address], [address] [place] [address] Platelets (Bld) [#/Vol] 278 10*3/uL Normal 150-450 [facility] Comment on above: Performed By: #### C BCA, CMP, 01225-1, TSHR, 3024-7, 9, 44977-3 #### [facility] ([id number]) [address], [address] [place] [address] RBC COUNT 4.63 X10E12/L Normal 3.80-5.20 [facility] Comment on above: Performed By: #### C BCA, CMP, 40882-4, TSHR, 4-7, 9, 69312-2 #### [facility] ([id number]) [address], [address] [place] [address] WBC (Bld) [#/Vol] 7.3 10*3/uL Normal 4.0-11.[address] [facility] Comment on above: Performed By: #### C BCA, CMP, 83594-0, TSHR, 3024-7, 2132-05, 26888-2 #### [facility] ([id number]) [address], [address] [place] [address] COMPREHENSIVE METABOLIC PANE John 11-26-2023 Albumin [Mass/Vol] 4.2 g/dL Normal 3.2-5.[address] [facility] Comment on above: Performed By: #### C BCA, CMP, 69690-7, TSHR, 3024-7, 2131-9, 35257-6 #### [facility] ([id number]) [address], [address] [place] [address] ALP [Catalytic activity/Vol] 92 U/L Normal 39-130 [facility] Comment on above: Performed By: #### C BCA, CMP, 77428-7, TSHR, 3024-7, 2132-05, 76182-9 #### [facility] ([id number]) [address], [address] [place] [address] ALT [Catalytic activity/Vol] 27 U/L Normal 0-31 [facility] Comment on above: Performed By: #### C BCA, CMP, 37863-3, TSHR, 3024-7, 2131-9, 59324-5 #### [facility] ([id number]) [address], [address] [place] [address] Anion gap [Moles/Vol] 11 mmol/L Normal 5-15 [facility] Comment on above: Performed By: #### C BCA, CMP, 17239-3, TSHR, 3023-7, 2132-05, 42821-9 #### [facility] ([id number]) [address], [address] [place] [address] AST [Catalytic activity/Vol] 27 U/L Normal 0-41 [facility] Comment on above: Performed By: #### C BCA, CMP, 95638-9, TSHR, 4-7, 9, 14163-8 #### [facility] ([id number]) [address], [address] [place] [address] Bilirubin [Mass/Vol] 0.4 mg/dL Normal 0.3-1.2 [facility] Comment on above: Performed By: #### C BCA, CMP, 67579-6, TSHR, 4-7, 9, 89107-1 #### [facility] ([id number]) [address], [address] [place] [address] Calcium [Mass/Vol] 9.0 mg/dL Normal 8.5-10.[address] [facility] Comment on above: Performed By: #### C BCA, CMP, 87307-6, TSHR, 4-7, 9, 07522-0 #### [facility] ([id number]) [address], [address] [place] [address] Chloride [Moles/Vol] 103 mmol/L Normal 98-109 [facility] Comment on above: Performed By: #### C BCA, CMP, 04427-5, TSHR, 3024-7, 9, 77342-3 #### [facility] ([id number]) [address], [address] [place] [address] CO2 [Moles/Vol] 24 mmol/L Normal 22-32 [facility] Comment on above: Performed By: #### C BCA, CMP, 29292-5, TSHR, 3023-7, 9, 28937-3 #### [facility] ([id number]) [address], [address] [place] [address] Creatinine [Mass/Vol] 0.92 mg/dL Normal 0.40-1.00 [facility] Comment on above: Result Comment: METH OD TRACEABLE TO IDMS STANDARD Performed By: #### C BCA, CMP, 13540-8, TSHR, 3023-7, 9, 11525-5 #### [facility] ([id number]) [address], [address] [place] [address] GFR/1.73 sq M.predicted among non-blacks MDRD (S/P/Bld) [Vol rate/Area] 82 mL/min/{1.73_m2} Normal >59 [facility] Comment on above: Result Comment: Reported eGFR is based on the CKD-EPI 2020 equation that does not use a race coefficient. Performed By: #### C BCA, CMP, 81933-4, TSHR, 4-7, 9, 15015-2 #### [facility] ([id number]) [address], [address] [place] [address] Glucose [Mass/Vol] 96 mg/dL Normal 65-[address] [facility] Comment on above: Performed By: #### C BCA, CMP, 19442-6, TSHR, 3024-7, 2131-9, 72621-2 #### [facility] ([id number]) [address], [address] [place] [address] Potassium [Moles/Vol] 3.8 mmol/L Normal 3.5-5.0 [facility] Comment on above: Performed By: #### C BCA, CMP, 01525-1, TSHR, 3024-7, 9, 95204-5 #### [facility] ([id number]) [address], [address] [place] [address] Protein [Mass/Vol] 7.2 g/dL Normal 6.0-8.[address] [facility] Comment on above: Performed By: #### C BCA, CMP, 14486-3, TSHR, 4-7, 9, 04831-5 #### [facility] ([id number]) [address], [address] [place] [address] Sodium [Moles/Vol] 138 mmol/L Normal 134-[address] [facility] Comment on above: Performed By: #### C BCA, CMP, 31699-2, TSHR, 3023-7, 9, 52398-4 #### [facility] ([id number]) [address], [address] [place] [address] Urea nitrogen [Mass/Vol] 14 mg/dL Normal 5-23 [facility] Comment on above: Performed By: #### C BCA, CMP, 75108-8, TSHR, 3024-7, 2131-9, 82968-4 #### [facility] ([id number]) [address] [place] [address] FREE T4on 11-26-2023 Free T4 [Mass/Vol] 0.75 ng/dL Normal 0.61-1.[address] [facility] Comment on above: Performed By: #### C BCA, CMP, 22742-5, TSHR, 3023-7, 2132-05, 26757-9 #### [facility] ([id number]) [address], [facility] [address] [place] [address] HGB A1C (GLYCO-HGB)on 2023 Glucose [Mass/Vol] 117 mg/dL Normal [facility] Comment on above: Performed By: #### C BCA, CMP, 49428-8, TSHR, 7, 2132-05, 69774-8 #### [facility] ([id number]) [address], [facility] [address] [place] [address] HbA1c (Bld) [Mass fraction] 5.7 % High 4.4-5.6 [facility] Comment on above: Result Comment: NOTE ADA Guidelines Result HgbA1c Normal : less than 5.7 % Prediabetes : 5.7 % to 6.4 % Diabetes : > 6.4 % Use with caution in patients with abnormal hemoglobin variants as the half-life of red blood cells and in vivo glycation rates are affected. Performed By: #### C BCA, CMP, 80593-1, TSHR, 7, 2132-05, 93876-3 #### [facility] ([id number]) [address], [address] [place] [address] Lipid 1996 panelon 4 Cholesterol [Mass/Vol] 202 mg/dL High 150-200 [facility] Comment on above: Performed By: #### C BCA, CMP, 64211-2, TSHR, 7, 2132-05, 18883-2 #### [facility] ([id number]) [address], [address] [place] [address] Cholesterol in HDL [Mass/Vol] 51 mg/dL Normal >39 [facility] Comment on above: Result Comment: HDL <40 mg/dL - High Risk HDL > or = 40mg/dL- Desirable HDL >60 mg/dL - Negative Risk Performed By: #### C BCA, CMP, 68071-6, TSHR, 3024-7, 2132-9, 62678-3 #### [facility] ([id number]) [address] [place] [address] Cholesterol in LDL [Mass/Vol] 117 mg/dL Normal <130 [facility] Comment on above: Result Comment: LDL <100 mg/dL - Desirable LDL >160 mg/dL - High Risk Performed By: #### C BCA, CMP, 31152-9, TSHR, 3024-7, 2132-9, 60864-6 #### [facility] ([id number]) [address] [place] [address] Cholesterol in VLDL [Mass/Vol] 34 mg/dL High 0-30 [facility] Comment on above: Performed By: #### C BCA, CMP, 86857-4, TSHR, 3024-7, 2132-9, 72392-2 #### [facility] ([id number]) [address], [address] [place] [address] CHOLESTEROL:HDL 4.0 Normal 1.0-5.0 [facility] Comment on above: Performed By: #### C BCA, CMP, 90893-7, TSHR, 3024-7, 2132-9, 76289-7 #### [facility] ([id number]) [address], [address] [place] [address] Triglyceride [Mass/Vol] 171 mg/dL High 27-150 [facility] Comment on above: Performed By: #### C BCA, CMP, 43142-3, TSHR, 3024-7, 2131-9, 28055-9 #### [facility] ([id number]) [address], [address] [place] [address] TSH WITH REFLEXon 11-26-2023 TSH 6.46 uIU/mL High 0.49-4.67 [facility] Comment on above: Performed By: #### C BCA, CMP, 42553-7, TSHR, 4-7, 2131-9, 52369-7 #### [facility] ([id number]) [address] [place] [address] VITAMIN B12on 11-26-2023 Cobalamin (Vitamin B12) [Mass/Vol] 415 pg/mL Normal 180-914 [facility] Comment on above: Performed By: #### C BCA, CMP, 65064-5, TSHR, 3023-7, 9, 89928-7 #### [facility] ([id number]) [address] [place] [address] Vitamin D+Metabolites [Mass/ Vol]on 11-26-2023 VITAMIN D 25 HYD TOT 18.4 ng/mL Low 30-100 [facility] Comment on above: Result Comment: Vitamin D status 25 [place] Vitamin D Deficiency <20 ng/mL Insufficiency 20-29 ng/mL Sufficiency 30-100 ng/mL Toxicity >100 ng/mL NOTE: A pediatric reference range has not been established by the teletype or varitype keyboard operator of this kit. The [employer] [employer] recommends a Vitamin D level of = or >20ng/mL in infants and children. Performed By: #### C BCA, CMP, 67262-6, TSHR, 3024-7, 2131-9, 52836-9 #### [facility] ([id number]) [address] [place] [address] XR SHOULDER LEFT (MIN 2 VIEW S)on [...] Edilma Richter MD 09/01/23 Final result Normal [facility] SCREENING MAMMOGRAM W/DAYDAY, BILATERAL*on 07-18-2022 SCREENING MAMMOGRAM [...] VERY IMPORTANT TO YOUR HEALTH. THE CURRENT [place] [employer] GUIDELINES RECOMMENDS ANNUAL MAMMOGRAPHY BEGINNING AT AGE 40 THIS FACILITY USES A REMINDER SYSTEM TO ENSURE ALL PATIENTS RECEIVE REMINDER NOTIFICATIONS AT THE APPROPRIATE TIME BASED ON THE RECOMMENDATIONS OF THIS EXAM. Report reported and signed by Rudolph Dixon on 07/22/2022 0744 Normal [facility] Basic Metabolic Panel w/ Ref whitney to MGon 02-07-2022 Anion gap [Moles/Vol] 8 mmol/L Low 9 - 17 mmol/L [facility] Calcium [Mass/Vol] 8.8 mg/dL 8.6 - 10. 4 mg/dL [facility] Chloride [Moles/Vol] 105 mmol/L 98 - 10 7 mmol/L [facility] CO2 [Moles/Vol] 25 mmol/L 20 - 31 mmol/L [facility] Creatinine [Mass/Vol] 0.83 mg/dL 0.50 - 0.90 mg/dL [facility] GFR >60 >60 mL/min [facility] GFR Non- >60 >60 mL/min [facility] GFR/1.73 sq M.predicted MDRD (S/P/Bld) [Vol rate/Area] [facility] Comment on above: Average GFR for 30-3 9 years old: 107 mL/min/1.73sq m Chronic Kidney Disease: <60 mL/min/1.73sq m Kidney failure: <15 mL/min/1.73sq m eGFR calculated using average adult body mass. Additional eGFR calculator available at: http://[email or web address] Glucose [Mass/Vol] 105 mg/dL High 70 - 99 mg/dL [facility] Interpretation and review of laboratory results Abnormal [facility] Potassium [Moles/Vol] 4.1 mmol/L 3.7 - 5.3 mmol/L [facility] Sodium [Moles/Vol] 138 mmol/L 135 - 144 mmol/L [facility] Urea nitrogen (BldV) [Mass/Vol] 12 mg/dL 6 - 20 mg/dL [facility] CBC with Auto Differentialon 02-07-2022 [facility] Absolute Lymph # 2[facility]20 [facility] Absolute Sabine # 0.40 [facility] Basophils (Bld) [#/Vol] 0.00 10*3/uL [facility] Basophils/100 WBC (Bld) 1 % 0 - 2 % [facility] Eosinophils/100 WBC (Bld) 5 % High 0 - 4 % [facility] Hematocrit (Bld) [Volume fraction] 37.5 % 36 - 46 % [facility] Hemoglobin.gastrointe stinal spec 1 Ql (Stl) 12.7 g/dL 12.0 - 16.0 g/dL [facility] Interpretation and review of laboratory results Abnormal [facility] Lymphocytes/100 WBC (Bld) 32 % 24 - 44 % [facility] MCH (RBC) [Entitic mass] 28.7 pg 26 - 34 pg [facility] MCHC (RBC) [Mass/Vol] 33.9 g/dL 31 - 3 7 g/dL [facility] MCV (RBC) [Entitic vol] 84.8 fL 80 - 100 fL [facility] Monocytes/100 WBC (Bld) 6 % 1 - 7 % [facility] Platelet distribution width (Bld) [Ratio] 14.6 % 11.5 - 14.9 % [facility] Platelet mean volume (Bld) [Entitic vol] 8.0 fL 6.0 - 12.0 fL [facility] Platelets (Bld) [#/Vol] 280 10*3/uL [facility] RBC (Bld) [#/Vol] 4.42 10*6/uL 4.0 - 5.2 m/uL [facility] Segmented neutrophils/100 WBC (Bld) 56 % 36 - 66 % [facility] Segs Absolute 3.90 [facility] WBC (Bld) [#/Vol] 7.0 10*3/uL [facility] Hepatic Function Panelon Albumin [Mass/Vol] 3.7 g/dL 3.5 - 5.2 g/dL [facility] ALP (Bld) [Catalytic activity/Vol] 90 U/L 35 - 104 U/L [facility] ALT [Catalytic activity/Vol] 12 U/L 5 - 33 U/L [facility] AST [Catalytic activity/Vol] 13 U/L <32 [facility] Bilirubin [Mass/Vol] mg/dL Low 0.3 - 1 .2 mg/dL [facility] Bilirubin, Indirect Can not be calculated 0.00 - 1.00 mg/dL [facility] Bilirubin.indirect [Mass/Vol] mg/dL <0.31 mg/dL [facility] Free PSA/Total PSA [Mass fraction] 6.4 g/dL 6.4 - 8.3 g/dL [facility] Interpretation and review of laboratory results Abnormal [facility] SURGICAL PATHOLOGY REPORTon 02-07-2022 Surgical Pathology Report [...] SURGICAL PATHOLOGY CONSULTATION Patient Name: DYAN AGUILAR [facility] Rec: [id number] Path Number: [id number] [facility] ANATOMIC PATHOLOGY [address] [place] [address]. [place], [place] [address] [facility] Basic Metabolic Panel w/ Ref whitney to MGon 02-06-2022 Anion gap [Moles/Vol] 8 mmol/L Low 9 - 17 mmol/L [facility] Calcium [Mass/Vol] 8.8 mg/dL 8.6 - 10. 4 mg/dL [facility] Chloride [Moles/Vol] 106 mmol/L 98 - 10 7 mmol/L [facility] CO2 [Moles/Vol] 27 mmol/L 20 - 31 mmol/L [facility] Creatinine [Mass/Vol] 0.78 mg/dL 0.50 - 0.90 mg/dL [facility] GFR >60 >60 mL/min [facility] GFR Non- >60 >60 mL/min [facility] GFR/1.73 sq M.predicted MDRD (S/P/Bld) [Vol rate/Area] [facility] Comment on above: Average GFR for 30-3 9 years old: 107 mL/min/1.73sq m Chronic Kidney Disease: <60 mL/min/1.73sq m Kidney failure: <15 mL/min/1.73sq m eGFR calculated using average adult body mass. Additional eGFR calculator available at: http://www.Avieon/multiple_crcl_2011.htm Glucose [Mass/Vol] 94 mg/dL 70 - 99 mg/dL [facility] Potassium [Moles/Vol] 4.2 mmol/L 3.7 - 5.3 mmol/L [facility] Sodium [Moles/Vol] 141 mmol/L 135 - 144 mmol/L [facility] Urea nitrogen (BldV) [Mass/Vol] 9 mg/dL 6 - 20 mg/dL [facility] CBC with Auto Differentialon 02-06-2022 Absolute Eos # 0.50 High [facility] Absolute Lymph # 2.30 [facility] SECO URS [facility] Absolute Sabine # 0.40 [facility] RS [facility] Basophils (Bld) [#/Vol] 0.00 10*3/uL [facility] Basophils/100 WBC (Bld) 1 % 0 - 2 % [facility] Eosinophils/100 WBC (Bld) 8 % High 0 - 4 % [facility] Hematocrit (Bld) [Volume fraction] 39.4 % 36 - 46 % [facility] Hemoglobin.gastrointe stinal spec 1 Ql (Stl) 13.4 g/dL 12.0 - 16.0 g/dL [facility] Interpretation and review of laboratory results Abnormal [facility] Lymphocytes/100 WBC (Bld) 34 % 24 - 44 % [facility] MCH (RBC) [Entitic mass] 28.6 pg 26 - 34 pg [facility] MCHC (RBC) [Mass/Vol] 34.0 g/dL 31 - 3 7 g/dL [facility] MCV (RBC) [Entitic vol] 84.3 fL 80 - 100 fL [facility] Monocytes/100 WBC (Bld) 6 % 1 - 7 % [facility] Platelet distribution width (Bld) [Ratio] 14.5 % 11.5 - 14.9 % [facility] Platelet mean volume (Bld) [Entitic vol] 7.9 fL 6.0 - 12.0 fL [facility] Platelets (Bld) [#/Vol] 316 10*3/uL [facility] RBC (Bld) [#/Vol] 4.67 10*6/uL 4.0 - 5.2 m/uL [facility] Segmented neutrophils/100 WBC (Bld) 51 % 36 - 66 % [facility] Segs Absolute 3.60 [facility] WBC (Bld) [#/Vol] 6.8 10*3/uL [facility] Hepatic Function Panelon Albumin [Mass/Vol] 4.1 g/dL 3.5 - 5.2 g/dL [facility] ALP (Bld) [Catalytic activity/Vol] 102 U/L 35 - 104 U/L [facility] ALT [Catalytic activity/Vol] 13 U/L 5 - 33 U/L [facility] AST [Catalytic activity/Vol] 17 U/L <32 [facility] Bilirubin [Mass/Vol] 0.17 mg/dL Low 0.3 - 1 .2 mg/dL [facility] Bilirubin, Indirect Can not be calculated 0.00 - 1.00 mg/dL [facility] Bilirubin.indirect [Mass/Vol] mg/dL <0.31 mg/dL [facility] Free PSA/Total PSA [Mass fraction] 6.8 g/dL 6.4 - 8.3 g/dL [facility] No Panel Informationon 02-06 Interpretation and review of laboratory results Abnormal [facility] Basic Metabolic Panel w/ Ref whitney to MGon 02-05-2022 Anion gap [Moles/Vol] 12 mmol/L 9 - 17 mmol/L [facility] Calcium [Mass/Vol] 8.7 mg/dL 8.6 - 10. 4 mg/dL [facility] Chloride [Moles/Vol] 100 mmol/L 98 - 10 7 mmol/L [facility] CO2 [Moles/Vol] 24 mmol/L 20 - 31 mmol/L [facility] Creatinine [Mass/Vol] 0.75 mg/dL 0.50 - 0.90 mg/dL [facility] GFR >60 >60 mL/min [facility] GFR Non- >60 >60 mL/min [facility] GFR/1.73 sq M.predicted MDRD (S/P/Bld) [Vol rate/Area] [facility] Comment on above: Average GFR for 30-3 9 years old: 107 mL/min/1.73sq m Chronic Kidney Disease: <60 mL/min/1.73sq m Kidney failure: <15 mL/min/1.73sq m eGFR calculated using average adult body mass. Additional eGFR calculator available at: http://www.Avieon/multiple_crcl_2011.htm Glucose [Mass/Vol] 94 mg/dL 70 - 99 mg/dL [facility] Potassium [Moles/Vol] 3.5 mmol/L Low 3.7 - 5.3 mmol/L [facility] Sodium [Moles/Vol] 136 mmol/L 135 - 144 mmol/L [facility] Urea nitrogen (BldV) [Mass/Vol] 9 mg/dL 6 - 20 mg/dL [facility] CBC with Auto Differentialon 02-05-2022 Absolute Eos # 0.40 [facility] Absolute Lymph # 1.90 [facility] Absolute Sabine # 0.40 [facility] RS [facility] Basophils (Bld) [#/Vol] 0.00 10*3/uL [facility] Basophils/100 WBC (Bld) 1 % 0 - 2 % [facility] Eosinophils/100 WBC (Bld) 5 % High 0 - 4 % [facility] Hematocrit (Bld) [Volume fraction] 37.9 % 36 - 46 % [facility] Hemoglobin.gastrointe stinal spec 1 Ql (Stl) 13.4 g/dL 12.0 - 16.0 g/dL [facility] Interpretation and review of laboratory results Abnormal [facility] Lymphocytes/100 WBC (Bld) 27 % 24 - 44 % [facility] MCH (RBC) [Entitic mass] 29.3 pg 26 - 34 pg [facility] MCHC (RBC) [Mass/Vol] 35.2 g/dL 31 - 3 7 g/dL [facility] MCV (RBC) [Entitic vol] 83.3 fL 80 - 100 fL [facility] Monocytes/100 WBC (Bld) 5 % 1 - 7 % [facility] Platelet distribution width (Bld) [Ratio] 14.6 % 11.5 - 14.9 % [facility] Platelet mean volume (Bld) [Entitic vol] 7.7 fL 6.0 - 12.0 fL [facility] Platelets (Bld) [#/Vol] 301 10*3/uL [facility] RBC (Bld) [#/Vol] 4.55 10*6/uL 4.0 - 5.2 m/uL [facility] Segmented neutrophils/100 WBC (Bld) 62 % 36 - 66 % [facility] Segs Absolute 4.40 [facility] WBC (Bld) [#/Vol] 7.1 10*3/uL [facility] CT ABDOMEN PELVIS W IV CONTR [...] 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 [facility] Chan Blakely MD - 02/05/2022 [...] with possible mild steatosis. Minimal sigmoid diverticulosis. [facility] Work Phone: CT ABDOMEN PELVIS W IV CONTR AST Additional Contrast? NoneOrdered By: Chan Olivas on 02-05-2022 [facility] Work Phone: Hepatic Function Panelon Albumin [Mass/Vol] 4.1 g/dL 3.5 - 5.2 g/dL [facility] ALP (Bld) [Catalytic activity/Vol] 105 U/L High 35 - 104 U/L [facility] ALT [Catalytic activity/Vol] 16 U/L 5 - 33 U/L [facility] AST [Catalytic activity/Vol] 20 U/L <32 [facility] Bilirubin [Mass/Vol] 0.19 mg/dL Low 0.3 - 1 .2 mg/dL [facility] Bilirubin, Indirect Can not be calculated 0.00 - 1.00 mg/dL [facility] Bilirubin.indirect [Mass/Vol] mg/dL <0.31 mg/dL [facility] Free PSA/Total PSA [Mass fraction] 7.0 g/dL 6.4 - 8.3 g/dL [facility] Magnesiumon 02-05-2022 Magnesium [Mass/Vol] 2.0 mg/dL 1.6 - 2 .6 mg/dL [facility] NM HEPATOBILIARYon No acute cholecystit is. Gallbladder ejection fraction is approximately 34%. [facility] CONSOLIDATED EXAMINATION: NUCLEAR MEDICINE HEPATOBILIARY SCINTIGRAPHY (HIDA SCAN) WITH EJECTION FRACTION. TECHNIQUE: Approximately 5.4 millicuries Tc99m Mebrofenin (Choletec) was administered IV. Then, dynamic images of the abdomen were obtained in the anterior projection for 60 mins. Due to a shortage/inavailability of CCK, one can (237 ml) Ensure plus was substitued orally. Images were obtained in the CHADIAN projection and regions of interest were drawn [...] range is based on a limited study. [facility] Clement Elder MD - 02/05/2022 EXAMINATION: NUCLEAR MEDICINE HEPATOBILIARY SCINTIGRAPHY (HIDA SCAN) WITH EJECTION FRACTION. TECHNIQUE: Approximately 5.4 millicuries Tc99m Mebrofenin (Choletec) was administered IV. Then, dynamic images of the abdomen were obtained in the anterior projection for 60 mins. Due to a shortage/inavailability of CCK, one can (237 ml) Ensure plus was substitued orally. Images were obtained in the CHADIAN projection and regions of interest were drawn [...] cholecystitis. Gallbladder ejection fraction is approximately 34%. [facility] Work Phone: Radiology Study observation (narrative) [employer] Phone: NM HEPATOBILIARYOrdered By: Clement Elder on 02-05-2022 [employer] Phone: No Panel Informationon 02-05 Interpretation and review of laboratory results Abnormal [facility] US GALLBLADDER RUQon 2 022 Pancreas/right kidne y: Limited visualization/assessment Increased echogenicity of the hepatic parenchyma suggests steatosis Otherwise unremarkable right upper quadrant sonogram RECOMMENDATIONS: Unavailable [facility] RIS CONSOLIDATED EXAMINATION: RIGHT UPPER [...] No evidence of right upper quadrant ascites. [facility] CONSOL[facility] Rosangela Cortes M [...] unremarkable right upper quadrant sonogram RECOMMENDATIONS: Unavailable [facility] Work Phone: Radiology Study observation (narrative) [facility] Work Phone: US GALLBLADDER RUQOrdered By : Rosangela Cortes on 02-05-2022 [facility] Work Phone: CBC with Auto Differentialon 02-04-2022 Absolute Eos # 0.10 [facility] [employer] Absolute Lymph # 2.00 [facility] Absolute Sabine # 0.50 [facility] [employer] Basophils (Bld) [#/Vol] 0.10 10*3/uL [facility] Basophils/100 WBC (Bld) 1 % 0 - 2 % [facility] Eosinophils/100 WBC (Bld) 1 % 0 - 4 % [facility] Hematocrit (Bld) [Volume fraction] 40.9 % 36 - 46 % [facility] Hemoglobin.gastrointe stinal spec 1 Ql (Stl) 14.0 g/dL 12.0 - 16.0 g/dL [facility] Interpretation and review of laboratory results Abnormal [facility] Lymphocytes/100 WBC (Bld) 17 % Low 24 - 44 % [facility] MCH (RBC) [Entitic mass] 28.6 pg 26 - 34 pg [facility] MCHC (RBC) [Mass/Vol] 34.3 g/dL 31 - 3 7 g/dL [facility] MCV (RBC) [Entitic vol] 83.3 fL 80 - 100 fL [facility] Monocytes/100 WBC (Bld) 4 % 1 - 7 % [facility] Platelet distribution width (Bld) [Ratio] 14.7 % 11.5 - 14.9 % [facility] Platelet mean volume (Bld) [Entitic vol] 8.2 fL 6.0 - 12.0 fL [facility] Platelets (Bld) [#/Vol] 350 10*3/uL [facility] RBC (Bld) [#/Vol] 4.91 10*6/uL 4.0 - 5.2 m/uL [facility] Segmented neutrophils/100 WBC (Bld) 77 % High 36 - 66 % [facility] Segs Absolute 9.00 [facility] WBC (Bld) [#/Vol] 11.7 10*3/uL High [facility] S [facility] CT ABDOMEN PELVIS W IV CONTR AST Additional Contrast? Noneon 02-04-2022 Radiology Study observation (narrative) [facility] Work Phone: Comprehensive Metabolic Pane john 02-04-2022 Albumin [Mass/Vol] 4.8 g/dL 3.5 - 5.2 g/dL [facility] ALP (Bld) [Catalytic activity/Vol] 120 U/L High 35 - 104 U/L [facility] ALT [Catalytic activity/Vol] 18 U/L 5 - 33 U/L [facility] Anion gap [Moles/Vol] 12 mmol/L 9 - 17 mmol/L [facility] AST [Catalytic activity/Vol] 23 U/L <32 [facility] Bilirubin [Mass/Vol] 0.16 mg/dL Low 0.3 - 1 .2 mg/dL [facility] Calcium [Mass/Vol] 9.9 mg/dL 8.6 - 10. 4 mg/dL [facility] Chloride [Moles/Vol] 98 mmol/L 98 - 10 7 mmol/L [facility] CO2 [Moles/Vol] 28 mmol/L 20 - 31 mmol/L [facility] Creatinine [Mass/Vol] 1 mg/dL High 0.50 - 0.90 mg/dL [facility] Free PSA/Total PSA [Mass fraction] 7.9 g/dL 6.4 - 8.3 g/dL [facility] GFR >60 >60 mL/min [facility] GFR Non- >60 >60 mL/min [facility] GFR/1.73 sq M.predicted MDRD (S/P/Bld) [Vol rate/Area] [facility] Comment on above: Average GFR for 30-3 9 years old: 107 mL/min/1.73sq m Chronic Kidney Disease: <60 mL/min/1.73sq m Kidney failure: <15 mL/min/1.73sq m eGFR calculated using average adult body mass. Additional eGFR calculator available at: http://www.Avieon/multiple_crcl_2012.htm Glucose [Mass/Vol] 115 mg/dL High 70 - 99 mg/dL [facility] Interpretation and review of laboratory results Abnormal [facility] Potassium [Moles/Vol] 3.7 mmol/L 3.7 - 5.3 mmol/L [facility] Sodium [Moles/Vol] 138 mmol/L 135 - 144 mmol/L [facility] Urea nitrogen (BldV) [Mass/Vol] 13 mg/dL 6 - 20 mg/dL [facility] HCG Qualitative, Serumon hCG Qual Negative NEGATIVE [facility] Comment on above: Specimens with hCG l evels near the threshold of the test (25 mIU/mL) may give a negative or indeterminate result. In such cases, another test should be performed with a new specimen in 48-72 hours. If early is suspected clinically in this setting, correlation with quantitative serum b-hCG level is suggested. [facility] Lipaseon 02-04-2022 Lipase [Catalytic activity/Vol] 41 U/L 13 - 60 U/L [facility] Microscopic Urinalysison Bacteria, UA FEW Abnormal None [facility] Casts UA 0 TO 2 /LPF [facility] Epithelial Cells UA 3 to 5 /HPF [facility] Interpretation and review of laboratory results Abnormal [facility] RBC, UA 0 TO 2 /HPF [facility] WBC, UA 3 to 5 /HPF [facility] No Panel Informationon 02-04 [facility] Urinalysis with Reflex to Cu ltureon 02-04-2022 Bilirubin Urine Negative NEGATIVE [facility] Color, UA Yellow Yellow [facility] Glucose, Ur Negative NEGATIVE [facility] Interpretation and review of laboratory results Abnormal [facility] Ketones Ql (U) TRACE Abnormal NEGATIVE [facility] Leukocyte esterase Test strip Ql (U) SMALL Abnormal NEGATIVE [facility] Nitrite, Urine Negative NEGATIVE [facility] pH, UA 6.5 [facility] Protein, UA Negative NEGATIVE [facility] Specific [place], UA 1.018 [facility] Turbidity UA Cloudy Abnormal Clear [facility] Urine Hgb Negative NEGATIVE [facility] Urobilinogen, Urine Normal Normal [facility] US Gallbladderon 01-23-2022 US Gallbladder FINDINGS: The [...] by Rudolph Dixon on 01/23/2022 1007 Normal [facility] Coding Summaryon 06-29-2018 Coding Summary CODING DATE: [...] Mina Murrieta Date Saved: 06/29/2018 12:10 pm [facility] Provider Orderson 06-14-2018 Protein mass conc [id number] [facility] .Auto Diff 106-11-2018 Auto Baso % 0.6 % Normal 0.2-2.[address] [facility] Comment on above: Performed By: #### 1 [id number], [id number], [id number], [id number], 0810478, 3878110 ####[facility] (DEFAULT)[address] [place] [address] Auto Sabine % 6 % Normal 1-[address] [facility] Comment on above: Performed By: #### 1 [id number], [id number], [id number], [id number], 1194336, 0649872 ####[facility] (DEFAULT)[address] [place] [address] Auto Neut % 59 % Normal 44-[address] [facility] Comment on above: Performed By: #### 1 [id number], [id number], 1813840, [id number], 0233640, 9282858 ####[facility] (DEFAULT)[address] [place] [address] Baso Abs# 0.0 x10 Normal 0.0-0.[address] [facility] Comment on above: Performed By: #### 1 [id number], [id number], 9481583, [id number], 8937960, 3812781 ####[facility] (DEFAULT)[address] [place] [address] Eos Abs# 0.2 x10 Normal 0.0-0.[address] [facility] Comment on above: Performed By: #### 1 [id number], [id number], 6318183, [id number], 5266013, 6312462 ####[facility] (DEFAULT)[address] [place] [address] Eosinophils/100 WBC Auto (Bld) 2.9 % Normal 0.9-4.[address] [facility] Comment on above: Performed By: #### 1 [id number], [id number], 4496373, [id number], 4766851, 1719883 ####[facility] (DEFAULT)[address] [place] [address] Lymphocytes Auto #/vol (Bld) 2.2 x10 Normal 1.3-2.[address] [facility] Comment on above: Performed By: #### 1 [id number], [id number], 3819659, [id number], 4829785, 1650556 ####[facility] (DEFAULT)[address] [place] [address] Lymphocytes/100 WBC Auto (Bld) 32 % Normal 14-[address] [facility] Comment on above: Performed By: #### 1 [id number], [id number], 9189417, [id number], 8906987, 6275287 ####[facility] (DEFAULT)[address] [place] [address] Sabine Abs# 0.4 x10 Normal 0.0-0.[address] [facility] Comment on above: Performed By: #### 1 [id number], [id number], 1038022, 6952123884, 3250324, 9129976 ####[facility] (DEFAULT)[address] [place] [address] Neut Abs# 4.1 x10 Normal 1.5-9.[address] [facility] Comment on above: Performed By: #### 1 [id number], [id number], 1380450, [id number], 9447637, 1710489 ####[facility] (DEFAULT)[address] [place] [address] CBC w/ Auto Diffon 8 Erythrocyte distribution width Auto Ratio (RBC) 13.0 % Normal 11.5-15.[address] [facility] Comment on above: Performed By: #### 1 [id number], [id number], 8043346, [id number], 4037392, 5461387 ####[facility] (DEFAULT)[address] [place] [address] Hematocrit Auto Volume Fraction (Bld) 40.1 % Normal 33.7-40.[address] [facility] Comment on above: Performed By: #### 1 [id number], [id number], 6273750, [id number], 9594303, 7215503 ####[facility] (DEFAULT)[address] [place] [address] Hemoglobin mass conc (Bld) 14.1 g/dL Normal 11.3-15.[address] [facility] Comment on above: Performed By: #### 1 1193770, [id number], 4348047, [id number], 9592090, 8938001 ####[facility] (DEFAULT)[address] [place] [address] Man Diff? Auto Normal [facility] Comment on above: Performed By: #### 1 [id number], [id number], 5658135, [id number], 7470598, 2754393 ####[facility] (DEFAULT)[address] [place] [address] MCH Auto Entitic mass (RBC) 30 pg Normal 24-[address] [facility] Comment on above: Performed By: #### 1 [id number], [id number], 8700903, 5208391194, 6032611, 2289855 ####[facility] (DEFAULT)[address] [place] [address] MCHC Auto mass conc (RBC) 35 g/dL Normal 26-[address] [facility] Comment on above: Performed By: #### 1 [id number], [id number], 4822042, 3075379033, 2135426, 5860437 ####[facility] (DEFAULT)[address] [place] [address] MCV Auto Entitic volume (RBC) 84 fL Normal 81-[address] [facility] Comment on above: Performed By: #### 1 2259605, [id number], 9958523, [id number], 0973339, 9844550 ####[facility] (DEFAULT)[address] [place] [address] Platelet mean volume Auto Entitic volume (Bld) 10.2 fL Normal 6.3-10.[address] [facility] Comment on above: Performed By: #### 1 [id number], [id number], 7881027, 3788249524, 6571742, 6560800 ####[facility] (DEFAULT)[address] [place] [address] Platelets Auto #/vol (Bld) 289 x10 Normal 138-[address] [facility] Comment on above: Performed By: #### 1 4710494, [id number], 1301523, 7978508482, 4781817, 4150758 ####[facility] (DEFAULT)[address] [place] [address] RBC Auto #/vol (Bld) 4.76 x10 Normal 3.70-5.30 [facility] Comment on above: Performed By: #### 1 4634582, [id number], 5492996, [id number], 1636742, 4400340 ####[facility] (DEFAULT)[address] [place] [address] WBC Auto #/vol (Bld) 7.0 x10 Normal 3.5-10.5 [facility] Comment on above: Performed By: #### 1 5296890, [id number], 6068645, 4225892319, 5417524, 3940975 ####[facility] (DEFAULT)[address] [place] [address] CMP Standardon 06-11-2018 eGFR Non AA >60 Invalid Interpretation Code [facility] Comment on above: Performed By: #### 1 [id number], [id number], 7890799, [id number], 3386087, 5103085 ####[facility] (DEFAULT)[address] [place] [address] eGFR AA >60 Invalid Interpretation Code [facility] Comment on above: Result Comment: [employer] daryl Kidney disease could be indicated at eGFRs of less than 60 ml/min/1.73m2. Kidney Failure is indicated at less than 15 ml/min/1.73m2 Performed By: #### 1 [id number], [id number], 5151894, [id number], 7772089, 5429889 ####[facility] (DEFAULT)[address] [place] [address] 890[address] Albumin mass conc 4.1 g/dL Normal 3.5-5.0 [facility] Comment on above: Performed By: #### 1 [id number], [id number], 8231787, [id number], 4446821, 2679989 ####[facility] (DEFAULT)[address] [place] [address] Albumin/Globulin mass ratio 1.1 {ratio} Low 1.4-2.[address] [facility] Comment on above: Performed By: #### 1 [id number], [id number], [id number], [id number], 9517236, [id number] ####[facility] (DEFAULT)[address] [place] [address]35[address] Alk Phos 76 IU/L Normal 32-[address] [facility] Comment on above: Performed By: #### 1 [id number], [id number], 1466800, [id number], 3279114, 8877589 ####[facility] (DEFAULT)[address] [place] [address] 34595 ALT/SGPT 21.0 IU/L Normal 14.0-54.[address] [facility] Comment on above: Performed By: #### 1 [id number], [id number], [id number], [id number], 5445331, 9868607 ####[facility] (DEFAULT)[address] [place] [address] Anion gap 3 molar conc 12.0 mmol/L Normal 5.0-19.[address] [facility] Comment on above: Performed By: #### 1 [id number], [id number], 3211624, [id number], 0283050, 5201447 ####[facility] (DEFAULT)[address] [place] [address]2019 AST/SGOT 23 IU/L Normal 15-41 [facility] [facility] Comment on above: Performed By: #### 1 6802162, [id number], 3963976, 2351472849, 5807321, 8088100 ####[facility] (DEFAULT)[address] [place] [address] Bili Total 0.5 mg/dL Normal 0.3-1.[address] [facility] Comment on above: Performed By: #### 1 5957173, 5749838843, 4717129, 9362387373, 0210083, 1073158 ####[facility] (DEFAULT)[address] [place] [address] Calcium mass conc 9.3 mg/dL Normal 8.9-10.3 [facility] Comment on above: Performed By: #### 1 5105779, 8902497055, 1552044, 2141593134, 6490904, 5667107 ####[facility] (DEFAULT)[address] [place] [address] Chloride molar conc 102 mmol/L Normal 101-111 [facility] Comment on above: Performed By: #### 1 4949222, 4090181218, 5804451, 6908293003, 4683353, 9510527 ####[facility] (DEFAULT)[address] [place] [address] CO2 molar conc 26 mmol/L Normal 21-[address] [facility] Comment on above: Performed By: #### 1 1390599, 0681308827, 2683361, 0326622800, 9725665, 6313000 ####[facility] (DEFAULT)[address] [place] [address] 18226 Creatinine mass conc 0.90 mg/dL Normal 0.60-1.30 [facility] Comment on above: Performed By: #### 1 6456749, 2359350327, 8498466, 5741199504, 2102032, 6206477 ####[facility] (DEFAULT)[address] [place] [address] Globulin Calculated mass conc (S) 3.6 g/dL Normal 1.5-4.[address] [facility] Comment on above: Performed By: #### 1 2691222, 3626880215, 3338825, 0849499227, 6500606, 4858927 ####[facility] (DEFAULT)[address] [place] [address] 17421 Glucose mass conc 99.0 mg/dL Normal 74.0-118.0 [facility] Comment on above: Performed By: #### 1 4169857, 0532631472, 6892735, 8780454040, 6417539, 4368156 ####[facility] (DEFAULT)[address] [place] [address] 56803 Osmolality 273 mOsm/L Invalid Interpretation Code [facility] Comment on above: Performed By: #### 1 0009933, 7028717176, 9653510, 9025534677, 1470792, 5435617 ####[facility] (DEFAULT)[address] [place] [address] 74[address] Potassium molar conc 4.4 mmol/L Normal 3.6-5.1 [facility] Comment on above: Performed By: #### 1 2620297, 4937533466, 1736958, 9867402199, 4722712, 0599084 ####[facility] (DEFAULT)[address] [place] [address] 33786 Protein mass conc 7.7 g/dL Normal 6.5-8.1 [facility] Comment on above: Performed By: #### 1 7409233, 5516106196, 5148270, 2912718752, 4713284, 1983506 ####[facility] (DEFAULT)[address] [place] [address] 51101 Sodium molar conc 136.0 mmol/L Normal 136.0-144. [address] [facility] Comment on above: Performed By: #### 1 8477415, 1357283054, 2585163, 4283114914, 0520512, 2345416 ####[facility] (DEFAULT)[address] [place] [address] 11384 Urea nitrogen mass conc 16 mg/dL Normal 8-[address] [facility] Comment on above: Performed By: #### 1 1213765, 4683005453, 0715637, 9868240078, 1737220, 5261173 ####[facility] (DEFAULT)[address] [place] [address] 25436 Urea nitrogen/Creatinine mass ratio 18.0 mg/mg High 4.6-16.[address] [facility] Comment on above: Performed By: #### 1 0208884, 8748503380, 5381507, 8192231128, 3447194, 2162532 ####[facility] (DEFAULT)[address] [place] [address] 07520 Lipid Panel Standardon 06-11 Cholesterol in HDL mass conc 65 mg/dL Normal 40-[address] [facility] Comment on above: Result Comment: High risk - <40 mg/dL. Performed By: #### 1 7763624, 0044822435, 3175986, 6714815851, 1193347, 3018262 ####[facility] (DEFAULT)[address] [place] [address] 52843 Cholesterol in LDL mass conc 126 mg/dL High 1-[address] [facility] Comment on above: Result Comment: Opti mal - Less than 100 mg/dL Borderline high risk - 130-159 mg/dL High risk - 160-189 mg/dL. Performed By: #### 1 8701546, 3243772058, 3884002, 8336719956, 5095190, 2929389 ####[facility] (DEFAULT)[address] [place] [address] 39596 Cholesterol mass conc 215.0 mg/dL High 66.0-200.0 [facility] Comment on above: Result Comment: Erica rable - Less than 200 mg/dL Borderline high risk - 200-239 mg/dL High risk - 240 mg/dL and over. Performed By: #### 1 4728162, 8985686178, 0634937, 5746898255, 8794817, 9160109 ####[facility] (DEFAULT)[address] [place] [address] 16815 Cholesterol.total/Cho lesterol in HDL mass ratio 3.3 {ratio} Normal 0.0-4.[address] [facility] Comment on above: Performed By: #### 1 1035575, 1527899132, 1923507, 8445563275, 5435343, 9964810 ####[facility] (DEFAULT)[address] [place] [address] 67555 Triglyceride mass conc 123.0 mg/dL Normal 0.0-150.[address] [facility] Comment on above: Performed By: #### 1 1898697, 7231965157, 5225629, 4782209231, 4888608, 0008802 ####[facility] (DEFAULT)[address] [place] [address] 60910 VLDL. 25 mg/dL Normal 5-[address] [facility] Comment on above: Performed By: #### 1 9136460, 2924610851, 1000192, 2727255161, 5262274, 4200606 ####[facility] (DEFAULT)[address] [place] [address] 76846 Provider Orderson 01-08-2018 Protein mass conc [id number]#1.00OTGTIFF [facility] Coding Summaryon 01-07-2018 Coding Summary CODING DATE: 018 [facility] STATUS: Home 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 APC [...] Laura Lu Date Saved: 01/07/2018 01:43 pm [facility] Consultation/Specialist Note on 01-06-2018 Consultation/Speciali st Note Patient: DYAN JONES : 32 years Sex: FEMALE : [birth year]Associated Diagnoses: Shortness of breathAuthor: Mummert DO, TimothyProcedurePulmonary function test with bronchodilator challenge procedureDate/ Time: 01/05/18 09:59:00.Performed by: [facility] .Referred by: TASH ESTEBAN.Indication: R06.02.Spirometry: FVC [...] or extrathoracic obstruction..Impression and PlanDiagnosisShortness of breath (DJX31-NB R06.02).In summary the patient demonstrates evidence of [...] EDT] Flaco Tran DO Normal [facility] Pulmonary Procedureon 2017 Protein mass conc [id number]#1.00OTGTIFF [facility] Coding Summaryon 01-04-2018 Coding Summary CODING DATE: [facility] STATUS: Home 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 ADMIT [...] Celeste Cai Date Saved: 01/04/2018 04:58 pm [facility] Coding Summary CODING DATE: [facility] STATUS: Home 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 APC [...] Celeste Cai Date Saved: 01/04/2018 04:57 pm [facility] Coding Summaryon 12-31-2017 Coding Summary CODING DATE: [facility] STATUS: Home 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 APC [...] Laura Lu Date Saved: 12/31/2017 08:02 am [facility] Provider Orderson 12-31-2017 Protein mass conc [id number]#1.00OTGTIFF Normal [facility] .Auto Diff 1on 12-30-2017 Auto Baso % 0.4 % Normal 0.2-2.[address] [facility] Comment on above: Performed By: #### 1 8962995, 3385178518, 2154732, 3088034993, 9987719, 1227627 ####[facility] (DEFAULT)[address] [place] [address] Auto Sabine % 6 % Normal 1-[address] [facility] Comment on above: Performed By: #### 1 0593961, 9415387788, 5287671, 7617436352, 8216543, 5512086 ####[facility] (DEFAULT)[address] [place] [address] Auto Neut % 58 % Normal 44-[address] [facility] Comment on above: Performed By: #### 1 5728809, 8964186735, 5834303, 7544128920, 4945311, 0418687 ####[facility] (DEFAULT)[address] [place] [address] Baso Abs# 0.0 x10 Normal 0.0-0.[address] [facility] Comment on above: Performed By: #### 1 9541202, 4951966629, 7703241, 4207455057, 2264013, 8138045 ####[facility] (DEFAULT)[address] [place] [address] Eos Abs# 0.2 x10 Normal 0.0-0.[address] [facility] Comment on above: Performed By: #### 1 3425452, 6247154821, 9018189, 0899059552, 4417638, 1297131 ####[facility] (DEFAULT)[address] [place] [address] Eosinophils/100 WBC Auto (Bld) 2.0 % Normal 0.9-4.[address] [facility] Comment on above: Performed By: #### 1 2551169, 2723040213, 1151715, 5748845647, 4882570, 6654585 ####[facility] (DEFAULT)[address] [place] [address] Lymphocytes Auto #/vol (Bld) 3.2 x10 High 1.3-2.[address] [facility] Comment on above: Performed By: #### 1 2210230, 4336295576, 9515839, 8039084384, 9869835, 6376678 ####[facility] (DEFAULT)[address] [place] [address] Lymphocytes/100 WBC Auto (Bld) 33 % Normal 14-[address] [facility] Comment on above: Performed By: #### 1 4109737, 7233467418, 7431499, 2484775282, 1477008, 1976054 ####[facility] (DEFAULT)[address] [place] [address] Sabine Abs# 0.6 x10 Normal 0.0-0.[address] [facility] Comment on above: Performed By: #### 1 3475763, 4028914983, 3195571, 4213493109, 9748556, 2640526 ####[facility] (DEFAULT)[address] [place] [address] Neut Abs# 5.5 x10 Normal 1.5-9.[address] [facility] Comment on above: Performed By: #### 1 7056038, 3990617958, 4299380, 6160166686, 1374000, 7252699 ####[facility] (DEFAULT)[address] [place] [address] CBC w/ Auto Diffon 8 Erythrocyte distribution width Auto Ratio (RBC) 13.5 % Normal 11.5-15.[address] [facility] Comment on above: Performed By: #### 1 8551626, 8246028563, 6546110, 2584956051, 6527336, 6158720 ####[facility] (DEFAULT)[address] [place] [address] Hematocrit Auto Volume Fraction (Bld) 38.8 % Normal 33.7-40.[address] [facility] Comment on above: Performed By: #### 1 2328316, 7624594542, 3024401, 8233806486, 9510167, 1426098 ####[facility] (DEFAULT)[address] [place] [address] Hemoglobin mass conc (Bld) 13.7 g/dL Normal 11.3-15.[address] [facility] Comment on above: Performed By: #### 1 2971753, 0167124879, 1164767, 3763997695, 2654690, 7058368 ####[facility] (DEFAULT)[address] [place] [address] Man Diff? Auto Normal [facility] Comment on above: Performed By: #### 1 1924573, 6523957991, 6156371, 9348570575, 4890591, 4156900 ####[facility] (DEFAULT)[address] [place] [address] MCH Auto Entitic mass (RBC) 30 pg Normal 24-[address] [facility] Comment on above: Performed By: #### 1 9138535, 8961321789, 9879912, 8756316800, 9951048, 4003559 ####[facility] (DEFAULT)[address] [place] [address] MCHC Auto mass conc (RBC) 35 g/dL Normal 26-[address] [facility] Comment on above: Performed By: #### 1 2712640, 1045272150, 8722312, 8386085107, 5253980, 4329546 ####[facility] (DEFAULT)[address] [place] [address] MCV Auto Entitic volume (RBC) 85 fL Normal 81-[address] [facility] Comment on above: Performed By: #### 1 0182213, 7938135992, 7124723, 2779870735, 8704431, 9091503 ####[facility] (DEFAULT)[address] [place] [address] Platelet mean volume Auto Entitic volume (Bld) 10.1 fL Normal 6.3-10.[address] [facility] Comment on above: Performed By: #### 1 7198999, 3190958900, 2213964, 0394442173, 5990529, 4579677 ####[facility] (DEFAULT)[address] [place] [address] Platelets Auto #/vol (Bld) 336 x10 Normal 138-[address] [facility] Comment on above: Performed By: #### 1 8674612, 8192193651, 0678127, 8423893145, 3751472, 2798532 ####[facility] (DEFAULT)[address] [place] [address] RBC Auto #/vol (Bld) 4.57 x10 Normal 3.70-5.30 [facility] Comment on above: Performed By: #### 1 6979716, 7292092013, 1522177, 7725417348, 8229498, 2040224 ####[facility] (DEFAULT)[address] [place] [address] WBC Auto #/vol (Bld) 9.5 x10 Invalid Interpretation Code [facility] Comment on above: Performed By: #### 1 2031177, 3022399239, 6066003, 9035455385, 9733191, 0296300 ####[facility] (DEFAULT)[address] [place] [address] CMP Standardon 12-30-2017 eGFR Non AA >60 Invalid Interpretation Code [facility] Comment on above: Performed By: #### 1 9731798, 2522075141, 5157275, 3999225168, 7722635, 9745636 ####[facility] (DEFAULT)[address] [place] [address] eGFR AA >60 Invalid Interpretation Code [facility] Comment on above: Result Comment: [employer] Operator daryl Kidney disease could be indicated at eGFRs of less than 60 ml/min/1.73m2. Kidney Failure is indicated at less than 15 ml/min/1.73m2 Performed By: #### 1 2242594, 9926910971, 3022183, 1049804828, 4000330, 2351101 ####[facility] (DEFAULT)[address] [place] [address] Albumin mass conc 4.3 g/dL Normal 3.5-5.0 [facility] Comment on above: Performed By: #### 1 9541967, 6058383837, 3547156, 7130077658, 2855639, 1944709 ####[facility] (DEFAULT)[address] [place] [address] Albumin/Globulin mass ratio 1.4 {ratio} Normal 1.4-2.[address] [facility] Comment on above: Performed By: #### 1 0920390, 8827104106, 5628792, 9072696316, 3014109, 3956364 ####[facility] (DEFAULT)[address] [place] [address] Alk Phos 70 IU/L Normal 32-[address] [facility] Comment on above: Performed By: #### 1 8819946, 8117502322, 9083207, 1219240449, 0052898, 7800394 ####[facility] (DEFAULT)[address] [place] [address] ALT/SGPT 19.0 IU/L Normal 14.0-54.[address] [facility] Comment on above: Performed By: #### 1 9563324, 8357230453, 5324381, 4494542155, 2253858, 5993758 ####[facility] (DEFAULT)[address] [place] [address] Anion gap 3 molar conc 12.0 mmol/L Normal 5.0-19.[address] [facility] Comment on above: Performed By: #### 1 9598283, 0991235185, 9431213, 9796232256, 8361725, 4886181 ####[facility] (DEFAULT)[address] [place] [address] 86247 AST/SGOT 24 IU/L Normal 15-[address] [facility] Comment on above: Performed By: #### 1 7076908, 8747018311, 9731195, 9654437039, 7614230, 2764786 ####[facility] (DEFAULT)[address] [place] [address] Bili Total 0.2 mg/dL Low 0.3-1.[address] [facility] Comment on above: Performed By: #### 1 2149419, 5346208376, 0175520, 4318564899, 7772265, 6595751 ####[facility] (DEFAULT)[address] [place] [address] 67872 Calcium mass conc 9.3 mg/dL Normal 8.9-10.3 [facility] Comment on above: Performed By: #### 1 8773001, 6307722443, 9443153, 3650904288, 1171565, 0589790 ####[facility] (DEFAULT)[address] [place] [address] Chloride molar conc 99 mmol/L Low 101-111 [facility] Comment on above: Performed By: #### 1 1542896, 0022155905, 5936489, 5315403353, 4066276, 8563931 ####[facility] (DEFAULT)[address] [place] [address] CO2 molar conc 28 mmol/L Normal 21-[address] [facility] Comment on above: Performed By: #### 1 2344413, 0740730307, 4201508, 4385208339, 5430925, 3114677 ####[facility] (DEFAULT)[address] [place] [address] Creatinine mass conc 0.94 mg/dL Normal 0.60-1.30 [facility] Comment on above: Performed By: #### 1 7460095, 5131061937, 6567337, 3429987028, 6836517, 4634436 ####[facility] (DEFAULT)[address] [place] [address] Globulin Calculated mass conc (S) 3.1 g/dL Normal 1.5-4.[address] [facility] Comment on above: Performed By: #### 1 5028877, 3971584492, 6655098, 5208631341, 9109440, 1109838 ####[facility] (DEFAULT)[address] [place] [address] Glucose mass conc 114.0 mg/dL Normal 74.0-118.0 [facility] Comment on above: Performed By: #### 1 9917489, 5315206208, 2201778, 4227633442, 7000335, 2228478 ####[facility] (DEFAULT)[address] [place] [address] Osmolality 272 mOsm/L Invalid Interpretation Code [facility] Comment on above: Performed By: #### 1 6129138, 0540130832, 1965703, 5579099896, 5878592, 4410009 ####[facility] (DEFAULT)[address] [place] [address] Potassium molar conc 4.0 mmol/L Normal 3.6-5.1 [facility] Comment on above: Performed By: #### 1 6892192, 5891103785, 0448121, 3241869322, 8788983, 3972804 ####[facility] (DEFAULT)[address] [place] [address] Protein mass conc 7.4 g/dL Normal 6.5-8.1 [facility] Comment on above: Performed By: #### 1 3941048, 4724388708, 9912010, 7022352869, 0366367, 8862907 ####[facility] (DEFAULT)[address] [place] [address] Sodium molar conc 135.0 mmol/L Low 136.0-144. [address] [facility] Comment on above: Performed By: #### 1 6026436, 9196332385, 4324655, 5606888417, 4247037, 4482560 ####[facility] (DEFAULT)[address] [place] [address] Urea nitrogen mass conc 17 mg/dL Normal 8-[address] [facility] Comment on above: Performed By: #### 1 6457617, 1815678274, 8060167, 1024752231, 7934788, 3593857 ####[facility] (DEFAULT)[address] [place] [address] Urea nitrogen/Creatinine mass ratio 18.0 mg/mg High 4.6-16.[address] [facility] Comment on above: Performed By: #### 1 3858813, 3995008259, 6032728, 0555816129, 0908470, 0629207 ####[facility] (DEFAULT)[address] [place] [address] D-Dimeron 12-30-2017 D-Dimer 0.28 mg/L FEU Normal 0.19-0.[address] [facility] Comment on above: Performed By: #### 1 4073343, 6821517663, 9572754, 8051834701, 9339127, 2699242 ####[facility] (DEFAULT)[address] [place] [address] ED Clinical Summaryon 2017 ED Clinical Summary [facility] - Emergency [address] [place] [address] ed Clinical SummaryPERSON INFORMATIONName: DYAN JONES Age: 32 Years Sex: FEMALEDOB: [birth year] MRN: Acct#:Visit Reason: Chest pain; Shortness of breath; SOB, MID BACK PAIN Arrival: 12/30/17 19:08:00 Discharge: 12/30/17 20:26:00LOS: 000 01:18 Check In: 12/30/17 19:08:00 Checkout:12/30/17 20:26:00Address:[address] [place] [address]KYS: TASH ESTEBANPROSEKOU INFORMATIONProvider Role Assigned UnassSoila Nuñez [...] Adult; Nonspecific Chest PainFollow-Up:With: Address: When:TASH ESTEBAN [address] [place] [address], [address] [place], [place] [id number] Business (1) Within 3 to 5 daysDIAGNOSIS:Atypical chest pain; DyspneaPatient Understands: Yes - Patient/family/caregiver verbalizes understanding of instructions givenComment: Normal [facility] ED Note - Physicianon 2017 ED Note - Physician Patient: BYRON JONES : 32 years Sex: FEMALE : [birth year]Associated Diagnoses: Dyspnea; Atypical chest painAuthor: Dino Rivas InformationTime seen: Date & time 12/30/17 19:12:00.History source: Patient.Arrival mode: Private vehicle.History limitation: None.Additional information: Chief Complaint from Nursing Triage Note : Chief Gjbagbeng99/18/18 19:12 EDT Chief Complaint Patient states she became SOB a few days ago and can't catch her breath/feel like she can fully expand. Was seen by her PCP today and had a CXR, but this afternoon states she developed chest pressure and L shoulder pain, radiating to her jaw 4/10 .History of Present Aptmcbv88-rmws-wgc female presents to the emergency department complaining [...] 10 scale. She did not take any ckug-huw-qalmose or prescriptions medication for her symptoms. She [...] been selected or recorded..Social history:Social & Psychosocial DfpurjOpeabiv70/09/2016 Smoking tobacco use: Never Smoker.Problem list:Active Problems [...] Dyspnea[SOB], No.Results review: Lab results : Lab Hngmaikfa00/18/18 19:37 EDT Sodium Level 135.0 mmol/L LOW [...] % Auto Lymph % 33 % Auto Sabine % 6 % Auto Eos % 2.0 % Auto Baso % 0.4 % Neut Abs# 5.5 x103/mcL Lymph Abs# 3.2 x103/mcL HI Sabine Abs# 0.6 x103/mcL Eos Abs# 0.2 x103/mcL Baso Abs# 0.0 x103/mcL D-Dimer 0.28 mg/L FEU Tube Collected Yes.Chest X-Ray: Chest x-ray was completed earlier in the day as an outpatient. This was interpreted by the radiologist and showed no active disease..Impression and PlanDiagnosisDyspnea (AJS68-QB R06.0, Discharge, Medical)Atypical chest pain (ZFV29-MC R07.89, Discharge, Medical)PlanCondition: Improved, Stable.Disposition: Discharged: Time [...] MD[Verified on: 12/30/2017 21:10 EDT] Soila Rivas [facility] ED Patient Education Noteon 12-30-2017 ED [...] if you start to feel better.? Take dpwm-egn-yscyxcv and prescription medicines only as told by [...] Reviewed: 05/25/2017[employer] Patient Education ? 2017 [employer].Pulmonary MedicineShortness of Breath, AdultShortness of breath is [...] Slowly return to your usual activities.? Take tadg-lzx-mrbvygf and prescription medicines, including oxygen and inhaled [...] Reviewed: 02/05/2017[employer] Patient Education ? 2017 [employer]. Normal [facility] ED Patient Summaryon 018 ED Patient Summary [facility] - Emergency [address] [place] [address] pATIENT DISCHARGE INSTRUCTIONSPatient InformationName: DYAN JONES Age: 32 YearsDate of : [birth year]MRN: [id number] For Visit: Chest pain; Shortness of breath; SOB, MID BACK PAINArrival Time: 12/30/17 19:08:00[facility]: [facility] Physician: Kiersten ESTEBAN Physician: Edison Mcallister MDComment:Visit Diagnosis:Diagnoses This Visit Atypical chest pain (R07.89) Chest pain ([id number]) Dyspnea (R06.0) Shortness of breath ([id number])If you received any narcotics, sedation, or any [...] sign any legal documentsWith: Address: When:TASH EULALIA [address] [place] [address], [address] [place], [place] [id number] Business (1) Within 3 to 5 daysMedication Information:The exam and treatment you received today in the [facility] Emergency Department were for an urgent problem and are not intended as complete care. It is important for you to follow up with a doctor, nurse practitioner, or physician?s golf player assistant for ongoing care. If your symptoms [...] we can reach you if necessary.[facility] Emergency Department has provided you with a complete list of medications post discharge. Please inform your district manager primary care sales/provider of your visit and for further instruction [...] Slowly return to your usual activities.? Take plvq-sfa-xepfyjj and prescription medicines, including oxygen and inhaled [...] Reviewed: 02/05/2017[employer] Patient Education ? 2017 [employer]Nonspecific Chest PainChest pain can be caused [...] if you start to feel better.? Take gxcb-gbj-dqybtjt and prescription medicines only as told by [...] Reviewed: 05/25/2017[employer] Patient Education ? 2017 [employer]. Viruses or BacteriaWhat?s got you sick?Antibiotics only [...] and Prevention May [address] [facility] Extra Redon 12-30-2017 Tube Collected Yes Invalid Interpretation Code [facility] Comment on above: Performed By: #### 1 4027388, 2133970103, 9486909, 9327039655, 1325478, 3289276 ####[facility] (DEFAULT)[address] [place] [address] Troponin Ion 12-30-2017 Troponin I.cardiac mass conc ng/mL Normal <=0.[address] [facility] Comment on above: Performed By: #### 1 7152742, 9153287962, 9108527, 4256738033, 1983367, 0903674 ####[facility] [facility] (DEFAULT)[address] [place] [address] XR Chest 2 Viewson 8 XR Chest 2 Views ADDENDUMAdditional l ateral view of the chest was obtained which fails to demonstratethe small linear opacity overlying the thoracic spine noted originally,confirming that the original finding is related to overlying artifact and notan opaque foreign body.JEY Rae #: [id number]: 12/31/2017T: 12/31/2017 Final Dictated by: Eliseo Lyn [...] PROCESS SEEN IN THE CHEST.JEY Rae #: [id number]: 12/30/2017T: 12/30/2017 Final Dictated by: Eliseo Lyn MD DT/TM: 12/30/17 1:02Signed (Electronic Signature): Eliseo Lyn MD 12/31/17 5:39 amTechnologist: ASHELY Samaniego [facility] Coding Summaryon 07-15-2017 Coding Summary CODING DATE: 017 [facility] STATUS: Home 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 APC [...] Cai' Revised Date Saved: 04/06/2017 04:11 pm [facility] Vital Signs Date Time Vital Sign Value Performing Clinician Facility 01-19-2025 10:05-0400 Body mass index (BMI) [Ratio] 40.83 kg/m2 Matt Blanquita DO Work Phone: [facility] 01-19-2025 10:05-0400 Body weight 112.15 kg Matt Blanquita DO Work Phone: [facility] 01-19-2025 10:05-0400 Diastolic blood pressure 86 mm[Hg] Matt Blanquita DO Work Phone: [facility] 01-19-2025 10:05-0400 Systolic blood pressure 128 mm[Hg] Matt Blanquita DO Work Phone: [facility] 01-03-2025 08:47-0400 Body mass index (BMI) [Ratio] 41.28 kg/m2 Matt Blanquita DO Work Phone: [facility] 01-03-2025 08:47-0400 Body weight 113.4 kg Matt Blanquita DO Work Phone: [facility] 01-03-2025 08:47-0400 Diastolic blood pressure 90 mm[Hg] Matt Blanquita DO Work Phone: [facility] 01-03-2025 08:47-0400 Systolic blood pressure 128 mm[Hg] Matt Blanquita DO Work Phone: [facility] 12-07-2024 08:52-0400 Body mass index (BMI) [Ratio] 39.94 kg/m2 Lon Bustos MD Work Phone: [facility] 12-07-2024 08:52-0400 Body weight 108.86 kg Lon Bustos MD Work Phone: [facility] 12-07-2024 08:52-0400 Diastolic blood pressure 106 mm[Hg] Lon Bustos MD Work Phone: [facility] 12-07-2024 08:52-0400 Heart rate 83 /min Lon Bustos MD Work Phone: [facility] 12-07-2024 08:52-0400 Systolic blood pressure 141 mm[Hg] Lon Bustos MD Work Phone: [facility] 09-20-2024 08:42-0500 Body mass index (BMI) [Ratio] 39.14 kg/m2 Tiffanie Waters CNM Work Phone: [facility] 09-20-2024 08:42-0500 Body weight 107.5 kg Tiffanie Waters CNM Work Phone: [facility] 09-20-2024 08:42-0500 Diastolic blood pressure 80 mm[Hg] Tiffanie Waters CNM Work Phone: [facility] 09-20-2024 08:42-0500 Systolic blood pressure 122 mm[Hg] Tiffanie Waters CNM Work Phone: [facility] 02-07-2022 15:40-0400 Body temperature 97.7 [degF] Edilma Chan DO [facility]: [facility] 02-07-2022 15:40-0400 Diastolic blood pressure 90 mm[Hg] Edilma Chan DO Work Phone: [facility] 02-07-2022 15:40-0400 Heart rate 86 /min Edilma Chan DO Work Phone: [facility] [employer] 02-07-2022 15:40-0400 Respiratory rate 16 /min Edilma Chan DO Work Phone: [facility] [employer] 02-07-2022 15:40-0400 SaO2% (BldA) [Mass fraction] 93 % Edilma Chan [employer] Work Phone: [facility] 02-07-2022 15:40-0400 Systolic blood pressure 137 mm[Hg] Edilma Chan [employer] Work Phone: [facility] 02-04-2022 20:33-0400 Body height 165.1 cm Edilma Chan [employer] Work Phone: [facility] 02-04-2022 20:33-0400 Body mass index (BMI) [Ratio] 39.11 kg/m2 Edilma Chan [employer] Work Phone: [facility] 02-04-2022 20:33-0400 Body weight 106.59 kg Edilma Chan [employer] Phone: [facility] Encounters Encounter Date Encounter Type Care Provider Facility Start: 01-19-2025 End: 01-24-2025 External Result Encounter Matt Blanquita DO Work Phone: [facility] External Department Unsolicited Start: 01-19-2025 End: 01-24-2025 External Result Encounter Matt Blanquita DO Work Phone: [facility] External Department Unsolicited Start: 01-19-2025 End: 01-19-2025 Patient encounter procedure Matt Blanquita DO Work Phone: [facility] Comment on above: Pre-op examination; Menorrhagia with regular cycle; Abnormal uterine bleeding; Pelvic pain in female; Skin tag of labia Start: 01-19-2025 End: 01-19-2025 Preprocedural examination done Matt Blanquita DO Work Phone: [facility] Start: 01-19-2025 End: 01-19-2025 ambulatory MATT BLANQUITA [...] uterine bleeding); Elevated TSH; Hypertension, unspecified type ([facility]/HCC) Start: 01-03-2025 End: 01-03-2025 ambulatory MATT BLANQUITA Not Available Start: 12-07-2024 End: 12-07-2024 Office outpatient new 45 minutes Lon Bustos MD Work Phone: [facility] - Lon Bustos MD Comment on above: TIA (transient ische kellen attack) (Primary Dx); Hypertensive crisis Start: 12-07-2024 End: 12-07-2024 ambulatory LON BUSTOS [facility] Start: 11-29-2024 End: 11-29-2024 Telephone encounter Amee Kan [facility], A Department of [facility] Comment on above: New Patient Start: 11-28-2024 End: 11-28-2024 Refolegario Addison MD Work Phone: [facility] Start: 11-01-2024 End: 11-02-2024 [facility] Start: 09-20-2024 End: 09-20-2024 Bamboo flowsheet [...] Start: 05-24-2024 End: 05-24-2024 ambulatory ISAIAH Ortega [facility] Start: 05-20-2024 End: 05-20-2024 ambulatory TIFFANIE KAURO Not Available Start: 05-05-2024 End: 05-05-2024 ambulatory TIFFANIE Dante FLORO Not Available Start: 04-21-2024 End: 04-21-2024 ambulatory TIFFANIE Dante FLORO Not Available Start: 04-01-2024 End: 04-01-2024 ambulatory ISAAIH DAVIS Not Available Start: 03-02-2024 End: 03-02-2024 ambulatory ISAIAH Ortega [facility] Start: 12-26-2023 End: 12-29-2023 ambulatory ISAIAH Ortega [facility] Start: 11-26-2023 End: 11-27-2023 ambulatory ISAIAH Shannon [facility] Start: 11-26-2023 Encounter for genera l adult medical examination without abnormal findings [facility] Start: 09-01-2023 End: 09-01-2023 Emergency department patient visit CRISTINA FUNEZ [facility] Start: 02-04-2022 End: 02-07-2022 Emergency department patient visit Edilma Chan DO Work Phone: [facility] Comment on above: Pain of upper abdome n (Primary Dx); Chronic GERD; Cholecystitis Start: 06-12-2018 End: 06-12-2018 Patient encounter [facility]ASH M [facility] Facility:[facility] Start: 01-05-2018 End: 01-06-2018 Patient encounter [facility] Facility:[facility] Start: 12-31-2017 End: 01-04-2018 Patient encounter TASH Hernandez [facility] Facility:[facility] Start: 12-30-2017 End: 01-04-2018 [facility] Procedures Date Procedure Procedure Detail Performing Clinician Start: 01-19-2025 PATHOLOGY REQUEST FO R LAB BETSEY Matt Bainso DO Work Phone: Start: 01-03-2025 ALL THYROID STIM HORMONE Matt Blanquita DO Work Phone: Start: 01-03-2025 ALL THYROXINE (T4) FREE Sense[employer] DO Work Phone: Start: 04-21-2024 Microscopic observat ion [Identifier] in Cervix by Cyto stain appCREARo DO Work Phone: Start: 02-07-2022 End: 02-07-2022 [...] Screening for malign ant neoplasm of cervix [facility] Start: 02-20-2026 DTaP,Tdap and Td Vaccines (7 - Td or Tdap) DTaP,Tdap and Td Vaccines (7 - Td or Tdap) [facility] Start: 02-20-2026 DTaP/Tdap/Td vaccine (7 - Td or Tdap) DTaP/Tdap/Td vaccine (7 - Td or Tdap) [facility] Start: 12-07-2025 Adult BMI Screening Adult BMI Screen ing [facility] Start: 12-07-2025 Tobacco Screening Tobacco Screening [facility] Start: 11-02-2025 Tobacco Screening Tobacco Screening [facility] Start: 11-01-2025 Adult BMI Screening Adult BMI Screen ing [facility] Start: 06-20-2025 Screening for malign ant neoplasm of cervix [facility] Start: 05-15-2025 Influenza vaccination Influenz a Vaccine (Season Ended) [facility] Start: 04-26-2025 End: 04-26-2025 Patient encounter procedure 04/26/2025 9:00 AM EDT Office Visit [facility] [address] [place] [phone] Evelin Tiffanie L, CNM [address] [facility], [place] [id number] [facility] Start: 03-07-2025 End: 03-07-2025 Patient encounter procedure 03/07/2025 8:45 AM EDT Office Visit [facility] - Lon Bustos MD [address] [place] [address] [address] [place] [address] Lon Bustos MD [address] [place] [address] [address] [place] [address] [facility] - Lon Bustos MD Start: 03-01-2025 End: 03-01-2025 Patient encounter procedure 03/01/2025 9:00 AM EDT Procedure visit [facility] - Vargas Valdivai MD [address] [place] [address] [address] [place] [address] [facility] Renetta Valdivia MD Start: 02-23-2025 End: 02-23-2025 Patient encounter procedure 02/23/2025 8:30 AM EDT Office Visit [facility] [address] [place] [address] Parvni Moreland PA [address] [place], [place] [address] [facility] Start: 01-19-2025 End: 01-19-2025 Patient encounter procedure 01/19/2025 9:30 AM EDT Procedure Visit [facility] [address] [place] [address] Matt Juares, DO [address] [place] [address] [facility] Start: 01-03-2025 End: 01-03-2026 [...] (dysfunctional uterine bleeding) Expected: 01/03/2025, Expires: 07/05/2025 [facility] Comment on above: Expected: 01/03/2025 , Expires: 07/05/2025 Start: 01-03-2025 End: 01-03-2025 Patient encounter procedure 01/03/2025 8:50 AM EDT Office Visit [facility] OB [address] [place] [phone] Matt Juares, DO [address] [place] [address] Irregular bleeding; DUB (dysfunctional uterine bleeding) [facility] Comment on above: Irregular bleeding; DUB (dysfunctional uterine bleeding) Start: 12-07-2024 End: 12-07-2024 Patient encounter procedure 12/07/2024 9:00 AM EDT Office Visit [facility] - Lon Bustos MD [address] [place] [phone] Lon Bustos MD [address] [place] [id number] [facility] - Lon Bustos MD Start: 09-20-2024 End: 09-20-2024 Patient encounter procedure 09/20/2024 8:30 AM EST Office Visit [facility] [address] [place] [address] Tiffanie Waters, LISETTE [address] [place] [address] Arrived [facility] Comment on above: Arrived Start: 05-15-2024 COVID-19 Vaccine ( season) COVID-19 Vaccine ( season) [facility] [employer] [facility] Start: 05-15-2024 Influenza vaccination [facility] Start: 05-15-2022 Influenza vaccination Flu vacc ine (Season Ended) [facility] Start: 11-23-2021 Screening for malign ant neoplasm of cervix Pap Smear [facility] [employer] Start: 2021 Diabetes screen Diabetes screen [facility] Start: 08-01-2021 COVID-19 Vaccine (3 - Booster for Moderna series) COVID-19 Vaccine (3 - Booster for Moderna series) [employer] [facility] Start: 2016 Screening for malign ant neoplasm of cervix [facility] Start: 11-17-2007 Screening for malign ant neoplasm of cervix Pap smear [facility] Start: 2004 Adult BMI Follow Up Plan Adult BMI Follow Up Plan [facility] [employer] Start: 2004 Hepatitis C screening Hepatitis C sc reen [facility] Start: 2001 HIV screening HIV screen [facility] [employer] Start: 1998 Depression Screen Depression Screen [employer] [facility] Start: 1998 Depression Screening Depression Scre ening [facility] [employer] Start: 11-17-1987 Varicella vaccine (1 of 2 - 2-dose childhood series) Varicella vaccine (1 of 2 - 2-dose childhood series) [facility] [employer] Basic Metabolic Pane l w/ Reflex to MG Basic Metabolic Panel w/ Reflex to MG Lab Routine Daily until discontinued starting 02/05/2022, 2 completed [facility] Work Phone: Comment on above: Daily until disconti nued starting 02/05/2022, 2 completed CBC W Auto Different ial panel - Blood CBC with Auto Differential Lab Routine Daily until discontinued starting 02/05/2022, 2 completed [employer] Phone: Comment on above: Daily until disconti nued starting 02/05/2022, 2 completed End: 12-07-2025 EEG EEG Neurology Routine Hypertensive crisis 1 Occurrences starting 12/07/2024 until 12/07/2025 [facility] Work Phone: Comment on above: 1 Occurrences starti ng 12/07/2024 until 12/07/2025 Hepatic function 200 0 panel - Serum or Plasma Hepatic Function Panel Lab Routine Daily until discontinued starting 02/05/2022, 2 completed [employer] Phone: Comment on above: Daily until disconti nued starting 02/05/2022, 2 completed Oxygen therapy [[facility] Data Set] Initiate Oxygen Therapy Protocol Respiratory Care Routine As Needed until discontinued starting 02/05/2022 [employer] Phone: Comment on above: As Needed until disc ontinued starting 02/05/2022 Surgical Pathology Surgical Path ology Lab Routine Chronic GERD Release Upon Ordering for 1 Occurrences starting 02/06/2022 [employer] Phone: Comment on above: Release Upon Orderin g for 1 Occurrences starting 02/06/2022 Surgical Pathology Surgical Path ology Lab Routine Cholecystitis Release Upon Ordering for 1 Occurrences starting 02/07/2022 [employer] Phone: Comment on above: Release Upon Orderin g for 1 Occurrences starting 02/07/2022 End: 02-07-2022 SURGICAL PATHOLOGY REPORT SURGICAL PATHOLOGY REPORT Lab Routine Once for 1 Occurrences starting 02/07/2022 until 02/07/2022 [employer] Phone: Comment on above: Once for 1 Occurrenc es starting 02/07/2022 until 02/07/2022 Thyrotropin [Units/volume] in Serum or Plasma TSH Lab Routine Irregular bleeding DUB (dysfunctional uterine bleeding) Elevated TSH Ordered: 01/03/2025 [facility] Comment on above: Ordered: 01/03/2025 Thyroxine (T4) free [Mass/volume] in Serum or Plasma T4, free Lab Routine Irregular bleeding DUB (dysfunctional uterine bleeding) Elevated TSH Ordered: 01/03/2025 [facility] Comment on above: Ordered: 01/03/2025 Immunizations Immunization Date Immunization Notes Care Provider Urvashi rosebal 11-23-2018 influenza virus vaccine, unspecified formulation Félix Addison MD [facility] 02-21-2016 tetanus toxoid, redu america diphtheria toxoid, and acellular pertussis vaccine, adsorbed Tiffanie Floro CNM Work Phone: [facility] Payers Date Payer Category Payer [place] [employer] [facility] Managed Care - Other ANTHEM [id number] 2023 Unknown [id number] 2023 Unknown [id number] [id number] 2021 Unknown [id number] [id number]. [id number] 2021 Unknown [id number] 2017 Unknown [id number] 1986 Unknown [id number] 2.16.840.1.841168.3.579.2. 1286 1986 Unknown [id number] 2.16.840.1.299934.3.579.2. 176 1986 Unknown [id number] 2.16.840.1.845747.3.579.2. 176 1986 Unknown [id number] 2.16.840.1.195969.3.579.2. 1286 1986 Unknown [id number] 2.16.840.1.717530.3.579.2. 1286 1986 Unknown [id number] 2.16.840.1.840380.3.579.2. 1286 1986 Unknown [id number] 2.16.840.1.967514.3.579.2. 1286 1986 Unknown [id number] 2.16.840.1.305432.3.579.2. 1259 1986 Unknown [id number] 2.16.840.1.955809.3.579.2. 1259 1986 Unknown [id number] 2.16.840.1.690706.3.579.2. 1259 1986 Unknown [id number] 2.16.840.1.954326.3.579.2. 1259 1986 Unknown [id number] 2.16.840.1.072808.3.579.2. 1259 1986 Unknown [id number] 2.16.840.1.122514.3.579.2. 1259 1986 Unknown [id number] 2.16.840.1.403930.3.579.2. 1259 1986 Unknown [id number] 2.16.840.1.057643.3.579.2. 1259 Social History Date Type Detail Facility Start: 01-28-2013 End: 04-21-2024 Tobacco smoking status NHIS Never smoked tobacco [employer] Phone: Start: 01-28-2013 End: 04-21-2024 Tobacco use and exposure Smokeless tobacco non-user [employer] Phone: Start: 02-07-2022 Alcohol intake Current non-drinker of alcohol (finding) [employer] Phone: Start: 02-07-2022 End: 09-20-2024 Alcohol intake [facility] Start: 02-05-2022 History SDOH Alcohol Frequency 1 [employer] Phone: Start: 1985 Sex Assigned At Not on file [employer] Phone: Start: 01-26-2022 End: 02-05-2022 Exposure to SARS-CoV-2 (event) Not sure [employer] Phone: Start: 04-21-2024 End: 01-03-2025 Alcoholic beverage intake Current drinker of alcohol (finding) [facility] Start: 04-21-2024 End: 09-20-2024 Tobacco use panel [facility] Start: 1985 Sex assigned at Female [facility] Start: 11-26-2022 Gender identity Identifies as female gender (finding) [facility] Start: 04-20-2024 Sexual orientation Choose not to disclose [facility] Has the electric, ga s, oil, or water company threatened to shut off services in your home in past 12Mo No [facility] In the past 12 month s, has lack of transportation kept you from medical appointments or from getting medications? No [employer] [facility] Start: 11-23-2018 Alcohol Comment [facility] Start: 04-19-2015 Sex Female (finding) [facility] [employer] [facility] Goals Date Patient Goal Desired Activity [...] on 02/10/[address] Juares at [facility]. MEDICATIONS Current Outpatient Medications Medication Instructions amLODIPine [...] nursing note reviewed. Exam conducted with a advisory services associate present. Vitals: Estimated body mass index is [...] reviewed, and patient is to proceed to [facility] OR. Follow Up: Patient is to follow up between 1-2 weeks post op to assess proper healing and recovery from procedure. Documented by Rosangela Roach LPN on behalf of: Matt Juares DO documented in this encounter [facility] 01-16-2025 Note EXAM: US PELVIC COMP LETE [...] II, MD, PHD at 24-Jan-2025 08:11:53 AM [facility] Not Available Comment on above: Order [...] nursing note reviewed. Exam conducted with a advisory services associate present. Vitals: Estimated body mass index is [...] Gynecology Pt [facility] from [facility] with complaints of heavy irregular bleeding. Pt [...] Matt Juares DO documented in this encounter [facility] 12-07-2024 History of Presen t illness Narrative [...] confusion at the time. Her is a director marketing analytics who assessed her and took her to [...] tremor or other abnormal movements. Eyes closed mzyusa-he-bjav testing is accurate. No ataxia. Normal gait. Assessment/Plan: 1. TIA (transient ischemic attack) - [facility] - [place], [place] 2. Hypertensive crisis - EEG; Future [...] Lon Bustos MD [facility] 11-29-2024 Miscellaneous Notes Please ask the following questions to the new patient that you are scheduling: Patient scheduled from New Patient Referral 1. IS THIS DUE TO AN ACCIDENT? - NO 2. IS THIS WORKER'S COMP? PLEASE VERIFY IF THIS IS WORKERS COMP AND DOCUMENT (We do not accept any new workers comp cases) - NO 3. WHAT INSURANCE? - [place]/ BCBS out of state o/trust 4. HAVE [...] SCHEDULE APPOINTMENT? -Patient [facility] Telephone encounter Note Please ask the following questions to the new patient that you are scheduling: Patient scheduled from New Patient Referral 1. IS THIS DUE TO AN ACCIDENT? - NO 2. IS THIS WORKER'S COMP? PLEASE VERIFY IF THIS IS WORKERS COMP AND DOCUMENT (We do not accept any new workers comp cases) - NO 3. WHAT INSURANCE? - [place]/ BCBS out of state o/trust 4. HAVE [...] 8. WHO CALLED TO SCHEDULE APPOINTMENT? -[facility] History of Presen t illness Narrative PROBLEM VISIT Dyan Aguilar is 38 y.o. 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 Images were obtained in the CHADIAN projection and regions of interest were drawn [...] Home [] Home with Home Health [] Care Home Facility [] [facility] Patient is admitted as inpatient status because of co-morbidities listed above, severity of signs and symptoms as outlined, requirement for current medical therapies and most importantly because of direct risk to patient if care not provided in a hospital setting. Sanford Saldaña MD, MD [facility] Hospitalist Family Services Assistant spoke with Dr. Saldaña regarding patients increase in pain that was not controlled by Tylenol. Family Services Assistant received order for Morphine 1 mg q6hPRN. Order placed at this time. Dr. Vora notified of consult. Admitted to room 2057 from ED per wheelchair. Oriented to room and call light. Vitals and assessment completed. No distress noted. documented in this encounter [facility] [employer] Phone: 02-07-2022 Hospital course Narrative Hospitalist Discharge [...] sent to [facility] - [place], [place] - [address] [address] - P [phone] - F [phone] [address] [address] cephALEXin 500 MG capsule ondansetron 4 MG [...] substitued orally. Images were obtained in the CHADIAN projection and regions of interest were drawn [...] discharge plan documented in this encounter [facility] [employer] Phone: 02-07-2022 Hospital Discharg e Alex Selby [...] one has not been made. 6.) Call [phone] if you have any questions or concerns. The following attachments cannot be sent through Care Everywhere.cephalexin (Nicaraguan)ondansetron (oral) (Nicaraguan)acetaminophen and oxycodone (Nicaraguan)Cholecystectomy: Post-op (Nicaraguan)documented in this encounter [facility] [employer] Phone: Evaluation note Diagnosis Pain of upper abdomen- Primary Abdominal pain, other specified site Chronic GERD Cholecystitis Cholecystitis, unspecified documented in this encounter [employer] Work Phone: evaluation note* Diagnosis Irregular bleeding- Primary Irregular menstrual cycle documented [facility] encounter [facility] Diagnosis TIA (transient ischemic attack)- Primary Unspecified transient cerebral ischemia Hypertensive crisis Hypertensive encephalopathy [facility] Diagnosis Irregular bleeding Irregular [...] tag of labia documented in this encounter [facility] HealthcareInstructionsNot on filedocumented in this encounterProBethesda North Hospital SystemInstructionsNot on filedocumented in this encounterProBethesda North Hospital SystemInstructionsNot on filedocumented in this encounterProBethesda North Hospital System Summary Purpose Family History No Family History Records FoundNo Family History Records FoundNo Family History Records FoundNo Family History Records FoundNo Family History Records FoundNo Family History Records FoundNo Family History Records FoundNo Family History Records Found Advance Directives No Advanced Directives Records FoundDocuments on File Type Date Recorded 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 Expl 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 ACP-Advance Directive ACP-Power of Casing 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 Latest Code Status on File Code Status Date Activated Date Inactivated Comments Full Code 02/05/2022 3:12 AM Date Activated Date Inactivated Comments 11/01/2024 8:38 PM 11/02/2024 5:58 PM Date Activated Date Inactivated Comments 11/01/2024 8:38 PM 11/02/2024 5:58 PM Additional Source Comments INFORMATION SOURCE (unrecogn ized section and content) DATE CREATED AUTHOR 07/12/2018 [facility] DATE CREATED AUTHOR AUTHOR'S ORGANIZ ATION 07/22/2022 [facility] dical Specialist DATE CREATED AUTHOR AUTHOR'S ORGANIZ ATION 11/27/2023 [facility] DATE CREATED AUTHOR AUTHOR'S ORGANIZ ATION 12/29/2023 [facility] DATE CREATED AUTHOR AUTHOR'S ORGANIZ ATION 05/26/2024 [facility] DATE CREATED AUTHOR AUTHOR'S ORGANIZ ATION 11/03/2024 [facility] DATE CREATED AUTHOR AUTHOR'S ORGANIZ ATION 12/08/2024 [facility] DATE CREATED AUTHOR AUTHOR'S ORGANIZ ATION 01/25/2025 [facility] dical Specialists EPIC Reason for Visit (unrecogniz ed section and content) Reason Comments Abdominal Pain Specialty Diagnoses / Procedures Referred By Jasmine kilgore Referred To Contact Diagnoses Upper abdominal pain Pain of upper abdomen Vera Arteaga MD [address] [place] [address] [facility] [address] [place] [address] Referral ID Status Reason Start Date Expiration Date Visits Re quested Visits Authorized [id number] 1 1 Reason Comments Menstrual Problem Reason Comments Med Refill Reason Onset Date Comments New Patient 11/29/2024 Reason Comments 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 Ct was done and results on chart. Specialty Diagnoses / Procedures Referred By Jasmine kilgore Referred To Contact Neurology Diagnoses TIA (transient ischemic attack) Vera Arteaga MD [address] , [address] [address] Phone: tel: fax: [facility] [address] [facility] [place] [address] Phone: tel: fax: Referral ID Status Reason Start Date Expiration Date Visits Requested Visits Authorized [id number] Pending Review Specialty Services Required 11/02/2024 11/02/2025 1 1 Reason Comments Irregular Bleeding Specialty Diagnoses / Procedures Referred By Jasmine kilgore Referred To Contact Obstetrics and Gynecology Diagnoses Irregular bleeding DUB (dysfunctional uterine bleeding) Procedures ME OFFICE/OUTPATIENT NEW HIGH MDM 60 MINUTES Tiffanie Waters, CNM [address] [place] [address] Phone: tel: fax: Matt Juares, [address] [place] [address] Phone: tel: fax: Referral ID Status Reason Start Date Expiration Date V isits Requested Visits Authorized [id number] Closed Specialty Services Required 11/01/2024 04/30/2025 1 [...] (Given - Provider: Edilma Chakraborty APRN - LANGUAGE TUTOR) ceFAZolin (ANCEF) 2000 mg in dextrose 5 [...] Annie Autohold - Reason: Unreviewed Transfer Orders)1319 (BANNER Unhold - Provider: Karlo Mccray RN) 0759 (Given - Provider: Alex Robbins RN)1205 (BANNER Hold - Provider: [facility] Autohold - Reason: Unreviewed Transfer Orders)1534 (BANNER Unhold - Provider: Alex Robbins RN) famotidine [...] 0758 (Given - Provider: Alex Robbins RN)1205 (BANNER Hold - Provider: Annie Autohold - Reason: [...] (Anesthesia Volume Adjustment - Provider: Kristy Pritchett)1319 (BANNER Unhold - Provider: Karlo Mccray RN) 1205 (BANNER Hold - Provider: [facility] Autohold - Reason: Unreviewed Transfer Orders)1534 (MAR [...] Alternative - Provider: Alex Robbins RN) 1028 (BANNER Hold - Provider: [facility] Autohold - Reason: Unreviewed Transfer Orders)1319 (BANNER Unhold - Provider: Karlo Mccray RN) 1205 (BANNER Hold - Provider: [facility] Autohold - Reason: Unreviewed Transfer Orders)1534 (BANNER Unhold - Provider: Alex Robbins RN) acetaminophen (TYLENOL) tablet 650 mg(Linked Group 1) 650 mg, Oral, EVERY 6 HOURS PRN, Starting on Thu02/05/22 at 0312, Until Discontinued, Pain Mild (1-3), Fever, For temp greater than 100.4 F (38 C), Maximum dose of acetaminophen is 4000 mg from all sources in 24 hours. 1449 (Given - Provider: Alex Robbins RN) 1028 (BANNER Hold - Provider: [facility] Autohold - Reason: Unreviewed Transfer Orders)1319 (BANNER Unhold - Provider: Karlo Mccray RN) 1205 (BANNER Hold - Provider: [facility] Autohold - Reason: Unreviewed Transfer Orders)1534 (BANNER Unhold - Provider: Alex Robbins RN) bupivacaine [...] Mar Autohold - Reason: Unreviewed Transfer Orders)1534 (BANNER Unhold - Provider: Alex Robbins RN) ondansetron (ZOFRAN) injection 4 mg(Linked Group 2) 4 mg, IntraVENous, EVERY 6 HOURS PRN, Starting on Thu02/05/22 at 0312, Until Discontinued, Nausea, Vomiting, Administer if oral route cannot be used. 1028 (BANNER Hold - Provider: [facility] Autohold - Reason: Unreviewed Transfer Orders)1319 (BANNER Unhold - Provider: Karlo Mccray RN) 1205 (BANNER Hold - Provider: [facility] Autohold - Reason: Unreviewed Transfer Orders)1534 (BANNER Unhold - Provider: Alex Robbins RN) ondansetron (ZOFRAN-ODT) disintegrating tablet 4 mg(Linked Group 2) 4 mg, Oral, EVERY 8 HOURS PRN, Starting on Thu02/05/22 at 0312, Until Discontinued, Nausea, Vomiting 1028 (BANNER Hold - Provider: [facility] Autohold - Reason: Unreviewed Transfer Orders)1319 (BANNER Unhold - Provider: Karlo Mccray RN) 1205 (BANNER Hold - Provider: [facility] Autohold - Reason: Unreviewed Transfer Orders)1534 (BANNER Unhold - Provider: Alex Robbins RN) oxyCODONE-acetaminophen (PERCOCET) 5-325 MG per tablet 1 tablet Mg/kg dosing is based on the oxycodone component., 1 tablet, Oral, EVERY 4 HOURS PRN, Starting on Thu02/07/22 at 1534, Until Discontinued, Pain Moderate (4-6), Maximum dose of acetaminophen is 4000 mg from all sources in 24 hours. 1607 (Given - Provider: Alxe Robbins RN) polyethylene glycol (GLYCOLAX) packet 17 g 17 g, Oral, DAILY PRN, Starting on Thu02/05/22 at 0312, Until Discontinued, Constipation, First line therapy for constipation 1028 (BANNER Hold - Provider: [facility] Autohold - Reason: Unreviewed Transfer Orders)1319 (BANNER Unhold - Provider: Karlo Mccray RN) 1205 (BANNER Hold - Provider: [facility] Autohold - Reason: Unreviewed Transfer Orders)1534 (BANNER Unhold - Provider: Alex Robbins RN)1608 (Given [...] RN) 1205 (MAR Hold - Provider: [facility] Autohold - Reason: Unreviewed Transfer Orders)1534 (MAR [...] Alternative - Provider: Alex Robbins RN) 1028 (BANNER Hold - Provider: Annie Autohold - Reason: Unreviewed Transfer Orders)1319 (BANNER Unhold - Provider: Karlo Mccray RN) 1205 (BANNER Hold - Provider: [facility] Autohold - Reason: Unreviewed Transfer Orders)1534 (BANNER Unhold - Provider: Alex Robbins RN) sodium chloride flush 0.9 % injection 10 mL 10 mL, IntraVENous, PRN, Starting on Thu02/05/22 at 1129, Until Discontinued, Line Care, Other, flushing radioactive doses 1202 (Given - Provider: Allie Reynoso) 1028 (BANNER Hold - Provider: [facility] Autohold - Reason: Unreviewed Transfer Orders)1319 (BANNER Unhold - Provider: Karlo Mccray RN) 1205 (BANNER Hold - Provider: [facility] Autohold - Reason: Unreviewed Transfer Orders)1534 (BANNER Unhold - Provider: Alex Robbins RN) sodium chloride flush 0.9 % injection 10 mL 10 mL, IntraVENous, PRN, Starting on Thu02/04/22 at 2337, Until Discontinued, Line Care 1028 (BANNER Hold - Provider: [facility] Autohold - Reason: Unreviewed Transfer Orders)1319 (BANNER Unhold - Provider: Karlo Mccray RN) 1205 (BANNER Hold - Provider: [facility] Autohold - Reason: Unreviewed Transfer Orders)1534 (BANNER Unhold - Provider: Alex Robbins RN) sodium [...] IZABELLA) 1205 (NOV Hold - Provider: [facility] Autohold - Reason: Unreviewed Transfer Orders)1534 (NOV [...]
Care Teams (unrecognized sec tion and content) Substance Abuse Clinician Relationship Specialty Start Date End Date Adilene Gracia, HAIRCUTTER - COUNTY MANAGER [address] [place] [address] PCP - General Family Medicine 02/05/22 Substance Abuse Clinician Relationship Specialty Start Date End Date Isaiah Davis NP [address] [place] [address] PCP - General Family Medicine 03/03/24 Substance Abuse Clinician Relationship Specialty Start Date End Date Isaiah Davis, INSTRUMENT STERILIZER [address] [place] [place] [address] PCP - General Family Medicine 03/03/24 Substance Abuse Clinician Relationship Specialty Start Date End Date Isaiah Santos, HAIRCUTTER-COUNTY MANAGER [address] [place] [address] PCP - General Family Medicine 11/26/23 Substance Abuse Clinician Relationship Specialty Start Date End Date Isaiah Santos, HAIRCUTTER-COUNTY MANAGER [address] [place] [address] PCP - General Family Medicine 11/26/23 Substance Abuse Clinician Relationship Specialty Start Date End Date Isaiah Santos, HAIRCUTTER-COUNTY MANAGER [address] [place] [address] PCP - General Family Medicine 11/26/23 Substance Abuse Clinician Relationship Specialty Start Date End Date Isaiah Davis, INSTRUMENT STERILIZER [address] [place] [place] [address] PCP - General Family Medicine 03/03/24 Substance Abuse Clinician Relationship Specialty Start Date End Date Isaiah Davis, INSTRUMENT STERILIZER [address] [place] [place] [address] PCP - General Family Medicine 03/03/24 Substance Abuse Clinician Relationship Specialty Start Date End Date Isaiah Davis, INSTRUMENT STERILIZER [address] [place] [place] [address] PCP - General Family Medicine 03/03/24 Substance Abuse Clinician Relationship Specialty Start Date End Date Isaiah Davis NP [address] [place] [address] PCP - General Family Medicine 03/03/24 FOR [...] BE BASED ON THE PRIMARY CLINICAL RECORDS. [facility]. provides no warranty or guarantee of the accuracy or completeness of information in this document.
--- NOTE | 2025-02-01 08:04 | ECG_ITS ---
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 Measurements Intervals Geff Rate: 70 P: 41 [place]: 174 QRS: 4 QRSD: 104 T: 0 QT: 388 QTc: 419 Interpretive Statements SINUS RHYTHM POSSIBLE RIGHT VENTRICULAR CONDUCTION DELAY [RSR (QR) IN V1/V2] Borderline ECG No previous ECG available for comparison Electronically Signed On 02-01-2025 21:45:01 EDT by BRYAN ALVES M.D.
== END 2025-02-01 07:58 | disposition home or self-care (01) ==
LOC: PST 07:58
PROVIDERS: Visit Provider Obstetrics & Gynecology
DX: Z01.810 Encounter for preprocedural cardiovascular examination (principal); N92.0 Excessive and frequent menstruation with regular cycle; N93.9 Abnormal uterine and vaginal bleeding, unspecified; R10.2 Pelvic and perineal pain; N90.89 Other specified noninflammatory disorders of vulva and perineum
CPT/HCPCS: 93005

== ENCOUNTER 2025-02-10 07:24 | Day surgery (SDC) | payer BC, SELFPAY ==
[2025-02-01 09:00] VITALS: BP 113/80; PULSE 75; TEMP 36.5; O2SAT 100; BMI 42.1
--- OUTSIDE RECORDS SUMMARY | 2025-02-10 07:27 | XMS_ITS | Encounter Summary ---
Author Organization [facility] Address [address] [place] [address] Care Team Providers Care Audio Narrator Name Role Phone Savannah Davis NP Primary Care Provider [phone] Encounter Details Date Type Department Care Team (Late st Contact Info) Description 02/01/2025 Clinisync Result Encounter [facility] External Department Unsolicited Ariana Juares DO [address] [facility] [address] [place], [place] [id number] Social History Tobacco Use Types Packs/Day Years Used Date Smoking Tobacco: Never Smokeless Tobacco: Never Alcohol Use Standard Drinks/Week Comments Yes 0 (1 standard drink = 0.6 oz pur e alcohol) Comments No Sex and Gender Information Value Date Recorded Sex Assigned at Female 04/20/2024 3:39 PM EDT Legal Sex Female 8:00 PM EDT Gender Identity Female 11/26/2022 8:00 PM EDT Sexual Orientation Choose not to disclose 2023 3:39 PM EDT documented as of this encounter Plan of Treatment Upcoming Encounters Date Type Department Care Team (Late st Contact Info) Description 02/23/2025 8:30 AM EDT Office Visit [facility] [address] [place] [id number] Parvin Moreland PA [address] [place] [address] 04/26/2025 9:00 AM EDT Office Visit [facility] OB [address] [place] [id number] Felicia Waters, [facility] [address] [place], [place] [id number] documented as of this encounter Procedures Procedure Name Priority Date/Time Associated Diagnosis Comments ECG 12-LEAD 02/01/2025 8:48 AM EDT documented in this encounter Results * ECG 12-LEAD (02/01/2025 8:48 AM EDT) Anatomical Region Laterality Modality Other 02/01/2025 8:48 AM EDT Narrative 02/01/2025 9:45 PM EDT [address] [address] Electrocardiograph Report Signed Patient: GALO WILEY MR#: [id number] : 1985 Acct:[id number] Age/Sex: 39 / F ADM Date: 02/01/25 Loc: PST Attending Dr: Ariana Juares D.O. Ordering Physician: Ariana Juares D.O. 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 Measurements Intervals [place] Rate: 70 P: 41 RI: 174 QRS: 4 QRSD: 104 T: 0 QT: 388 QTc: 419 Interpretive Statements SINUS RHYTHM POSSIBLE RIGHT VENTRICULAR CONDUCTION DELAY [RSR (QR) IN V1/V2] Borderline ECG No previous ECG available for comparison Electronically Signed On 02-01-2025 21:45:01 EDT by BRYAN ALVES M.D. Dictated By: BRYAN ALVES Signed By: 02/01/251 DD/ TD/TT: Post Exchange Manager: Procedure Note Radiology, Radiologist, - 02/01/[address] [address] Electrocardiograph Report Signed Patient: GALO WILEYMR#: [id number] : 1985Acct:[id number] Age/Sex: 39 / FADM Date: 02/01/25 Loc: PST Attending Dr: Ariana Juares D.O. Ordering Physician: Ariana Juares D.O. 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 Measurements Intervals [place] Rate: 70 P: 41 RI: 174 QRS: 4 QRSD: 104 T: 0 QT: 388 QTc: 419 Interpretive Statements SINUS RHYTHM POSSIBLE RIGHT VENTRICULAR CONDUCTION DELAY [RSR (QR) IN V1/V2] Borderline ECG No previous ECG available for comparison Electronically Signed On 02-01-2025 21:45:01 EDT by BRYAN ALVES M.D. Dictated By: BRYAN ALVES Signed By:02/01/25 2149 DD/ 0848 TD/TT: Post Exchange Manager: us Ariana Juares DO [facility] Final Result documented in this encounter Visit Diagnoses Not on filedocumented in this encounter Care Teams Audio Narrator Relationship Specialty Start Date End Date Savannah Davis NP [address] [place] [address] PCP - General Family Medicine 03/03/24 documented as of this encounter
--- OUTSIDE RECORDS SUMMARY | 2025-02-10 07:27 | XMS_ITS | Patient Health Record ---
Author Organization [facility] [place] Address [address] [place] [address] Care Team Providers Care Dat Instructor Name Role Phone Tash Keyes PA-C Primary Care Provider Unavail able Allergies No Known Allergies Reason For Referral No Information Medications Medication SIG (Take, Route, Frequency, Duration) Notes Start Date End Date Status Cetirizine HCl 10 MG 1 tablet Orally BID for 30 day(s) 03/22/2020 Active Ivermectin 3 MG 6 tabs at same time Orally take 6 tabs today then 6 tabs on day 7 for 7 days 03/22/2020 Active Losartan Potassium A ctive Mometasone Furoate A ctive Triamcinolone Acetonide Active Triamcinolone Acetonide 0.1 % 1 application to affected area Externally Twice a day prn itch for 14 days 03/22/2020 Active Social History Tobacco Use: Social History Observation Description Date Details (start date - stop date) Never Smoker NA - NA Tobacco Use/Smoking Question Answer Notes Patient is a nonsmoker Problems Problem Type SNOMED Code ICD Code Onset Dates Problem Status W/U Status Risk Notes Problem Chronic cholecystitis (68684548) Chronic cholecystitis (K81.1) Active confirmed Problem Gastroduodenitis (K29.90) Active confirmed Plan Of Treatment No Information Insurance Providers Payer Name Payer Address Payer Phone Subscriber Number Group Number Insured Name Patient Relationship to Insured Coverage Start Date Coverage End Date [employer] PPO PLUS LOCAL PLAN [address] [place] [address] [id number] Dyan Wiley Self - patient is the insured Medications Administered Medication Instructions Date of Administration Dosage Notes Kenalog 03/22/2020 4 mL Medical (General) History Medical History History ICD Code NO PACE/ DEFIB Surgical History Surgery Date(Month/Year) Cholecystectomy 02/2022
--- OUTSIDE RECORDS SUMMARY | 2025-02-10 07:27 | XMS_ITS | Clinical Summary ---
Author Organization [facility] Address [address] [place] [address] Care Team Providers Care Property Claim Rep Name Role Phone Savannah Santos APRN - BOOKKEEPING CLERK Primary Care Provider Allergies No known active allergies Medications metFORMIN (GLUCOPHAGE-XR) 500 MG extended release tabletIndications:P re-diabetes Take 1 tablet by mouth daily (with breakfast) 90 tablet 5 Active aspirin 81 MG chewable tabletIndications:H istory of TIA (transient ischemic attack) Take 1 tablet by mouth every morning 90 tablet 5 Active atorvastatin (LIPITOR) 20 MG tabletIndications:H istory of TIA (transient ischemic attack),Mixed hyperlipidemia Take 1 tablet by mouth nightly 90 tablet 5 Active losartan (COZAAR) 100 MG tabletIndications:P rimary hypertension,Acquir ed hypothyroidism,Peguero ett's esophagus without dysplasia,Chronic fatigue,Daytime hypersomnia,Mixed hyperlipidemia,Hypo glycemia Take 1 tablet by mouth daily 90 tablet 1 5 06/04/20 25 Active levothyroxine (SYNTHROID) 25 MCG tabletIndications:A cquired hypothyroidism Take 1 tablet by mouth daily 90 tablet 1 5 06/12/20 25 Active amLODIPine (NORVASC) 10 MG tabletIndications:P rimary hypertension Take 1 tablet by mouth nightly 90 tablet 04/11/20 Active bisoprolol-hydroCHL OROthiazide (ZIAC) 2.5-6.25 MG per tabletIndications:P rimary hypertension Take 1 tablet by mouth daily 30 tablet 3 Active nitrofurantoin, macrocrystal-monohy drate, (MACROBID) 100 MG capsuleIndications: Urinary frequency,Acute low back pain, unspecified back pain laterality, unspecified whether sciatica present Take 1 capsule by mouth 2 times daily for 10 days 20 capsule 01/28/20 Active Problems Problem Noted Date Diagnosed Date Class 3 severe obesity due t o excess calories with serious comorbidity and body mass index (BMI) of 40.0 to 44.9 in adult 01/11/2025 History of TIA (transient ischemic attack) 01/11 Bilateral edema of lower extremity 01/11/2025 Pre-diabetes 11/09/2024 TIA (transient ischemic attack) 11/09/2024 Raynaud's disease without gangrene 09/01/2024 Family history of carcinoma in situ of cervix ut shari 03/03/2024 Family history of uterine cancer 03/03/2024 Abnormal mammogram 07/08/2023 10/13/2023 Acquired hypothyroidism 07/08/2023 10/13/19 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 07/08/2023 10/13/2023 Chronic fatigue 07/08/2023 10/13/2023 Hyperlipidemia 07/08/2023 10/13/2023 Hypoglycemia 07/08/2023 10/13/2023 Lipoprotein deficiency disorder 07/08/2023 10/13/2023 Obesity (BMI 35.0-39.9 without comorbidity) 06/1510/13/2023 Primary hypertension 09/27/2013 Resolved Problems Problem Noted Date Diagnosed Date Resolved Date Chronic cholecystitis 10/13/2023 10/13/20232023 Major depressive disorder, s kiara episode, unspecified 07/08/2023 10/13/2023 10/13/2023 Pain of upper abdomen 02/05/20222023 Migraine headache 09/27/2013 10/13/2023 Anxiety 02/23/2013 10/13/2023 Encounters Date Type Department Care Team Description 01/24/2025 Orders Only [facility] [address] [facility] [place] [address] Savannah Santos, NURSE EMERGENCY ROOM - BOOKKEEPING CLERK Primary hypertension (Primary Dx) 01/17/2025 Orders Only [facility] [address] [facility] [place] [address] Rosanne Hahn MA Urinary frequency (Primary Dx); Acute low back pain, unspecified back pain laterality, unspecified whether sciatica present 01/11/2025 9:20 AM EDT Office Visit [facility] [address] [facility] [place] [address] Savannah Santos, NURSE EMERGENCY ROOM - BOOKKEEPING CLERK Primary hypertension (Primary Dx); Bilateral edema of lower extremity; History of TIA (transient ischemic attack); Acquired hypothyroidism; Class 3 severe obesity due to excess calories with serious comorbidity and body mass index (BMI) of 40.0 to 44.9 in adult (HCC); Chronic fatigue; Pre-diabetes 12/31/2024 Orders Only [address] [place] [address] Savannah Santos, NURSE EMERGENCY ROOM - BOOKKEEPING CLERK Uncontrolled hypertension (Primary Dx) 12/30/2024 Refill [facility] [address] [facility] [place] [address] Savannah Santos, NURSE EMERGENCY ROOM - BOOKKEEPING CLERK Medication Refill 12/20/2024 Orders Only [facility] [address] [facility] [place] [address] Savannah Santos, NURSE EMERGENCY ROOM - BOOKKEEPING CLERK Uncontrolled hypertension 12/13/2024 Refill [facility] [address] [facility] [place] [address] Savannah Santos, NURSE EMERGENCY ROOM - BOOKKEEPING CLERK Medication Refill 12/07/2024 Orders Only [facility] [address] [facility] [place] [address] Savannah Santos, NURSE EMERGENCY ROOM - BOOKKEEPING CLERK 12/06/2024 Telephone [facility] [address] [place] [address] Savannah Santos, RADHA Jackson CNP 11/29/2024 Refill [facility] [address] [place] [address] Savannah Santos, RADHA - YOUSIF Medication Refill from Last 3 Months Immunizations Immunization Administration Dates Next Due COVID-19, MODERNA LETTY cox r, Primary or Immunocompromised, (age 12y+), IM, 100 mcg/0.5mL 03/01/2021,02/01/2021 DTP 06/01/1987,03/30/1987,01/19/1987 DTaP vaccine 03/27/1992,06/13/1988 Hepatitis B 09/18/2014,09/14/2012 Hib vaccine 11/28/1988 Influenza A ([id number]) Vaccine PF IM 07/19/2009 MMR, PRIORIX, M-M-R II, (age 12m+), SC, 0.5mL 09/22/2019,03/04/1988 Polio OPV 03/27/1992, 8,06/01/1987,1986 TDaP, ADACEL (age 10y-64y), BOOSTRIX (age 10y+), IM, 0.5mL 02/21/2016 Family History Medical History Relation Name Comments Heart Disease Father MA Prostate Cancer Father Skin Cancer Father Uterine Cancer Mother Relation Name Status Comments Brother 1 Alive Brother 2 Alive Father Alive Mother Alive Sister Alive Social History Tobacco Use Types Packs/Day Years Used Date Smoking Tobacco: Never Smokeless Tobacco: Never Alcohol Use Standard Drinks/Week Comments No 0 (1 standard drink = 0.6 oz pur e alcohol) [facility] Utilities Answer Date Recorded In the past 12 months has [employer], gas, oil, or water [employer] threatened to shut off services in your home? No 11/09/2024 AUDIT-C Answer Date Recorded Q1: How often do you have a drink containing alc ohol? Monthly or less 09/01/2023 Q2: How many drinks containi ng alcohol do you have on a typical day when you are drinking? 1 or 2 09/01/2023 Q3: How often do you have si x or more drinks on one occasion? Never 09/01/2023 Overall Financial Resource Strain (CARDIA) Answe r Date Recorded How hard is it for you to pa y for the very basics like food, housing, medical care, and heating? Not hard at all 10/13/2023 PHQ-2 Answer Date Recorded PHQ-9 Total Score 0 11/09/2024 Hunger Vital Sign Answer Date Recorded Within the past 12 months, y ou worried that your food would run out before you got the money to buy more. Never true 11/09/19 25 Within the past 12 months, t he food you bought just didn't last and you didn't have money to get more. Never true 11/09/2024 PRAPARE - Transportation Answer Date Re corded In the past 12 months, has l ack of transportation kept you from medical appointments or from getting medications? No 10/16 In the past 12 months, has l ack of transportation kept you from meetings, work, or from getting things needed for daily living? No 11/09/2024 Housing Stability Vital Sign Answer Baldomero e Recorded Unable to Pay for Housing in the Last Year Not o n file 10/13/2023 Number of Places Lived in the Last Year Not on f ile 10/13/2023 In the last 12 months, was t here a time when you did not have a steady place to sleep or slept in a usp (including now)? No 10/13/2023 Housing Stability Vital Sign Answer Baldomero e Recorded In the last 12 months, was t here a time when you were not able to pay the mortgage or rent on time? No 11/09/2024 In the past 12 months, how m any times have you moved where you were living? 0 11/09/2024 At any time in the past 12 m [place], were you homeless or living in a usp (including now)? No 11/09/2024 Food Insecurity Answer Date Recorded Within the past 12 months, y ou worried that your food would run out before you got the money to buy more. 1 11/09/2024 Within the past 12 months, t he food you bought just didn't last and you didn't have money to get more. 1 11/09/2024 Comments No Sex and Gender Information Value Date Recorded Sex Assigned at Female 11/06/2024 8:19 AM EST Legal Sex Female 1:12 PM EST Gender Identity Not on file Sexual Orientation Straight 11/06/2024 8: 19 AM EST Last Filed Vital Signs Vital Sign Reading Time Taken Comments Blood Pressure 130/94 01/11/2025 9:21 AM EDT Pulse 79 01/11/2025 9:21 AM EDT Temperature 37 C (98.6 F) 01/11/2025 9:21 AM EDT Respiratory Rate 18 01/11/2025 9:21 AM EDT Oxygen Saturation 98% 01/11/2025 9:21 AM EDT Inhaled Oxygen Concentration - - Weight 113.4 kg (250 lb) 01/11/2025 9:21 AM EDT Height 165.1 cm (5' 5 ) 01/11/2025 9:21 AM EDT Body Mass Index 41.6 01/11/2025 9:21 AM EDT Plan of Treatment Upcoming Encounters Date Type Department Care Team (Late st Contact Info) Description 02/14/2025 2:40 PM EDT Office Visit [facility] [address] [facility] [place] [address] Savannah Santos, NURSE EMERGENCY ROOM - BOOKKEEPING CLERK [address] [place] [address] 4 WEEK F/U Health Maintenance Due Date Last Done Comments A1C test (Diabetic or Prediabetic) 1996 HIV screen 2001 Hepatitis C screen 2004 Pap smear 11/17/2007 Lipids 03/07/2016 03/07/2015, 10/05/2013 Cervical cancer screen 2016 HPV (without or with Pap) 2016 COVID-19 Vaccine ( season) 2024 03/01/2021, 02/01/2021 Depression Screen 11/09/2025 11/09/2024, 11/09/2024 DTaP/Tdap/Td vaccine (7 - Td or Tdap) 02/20/2026 02/21/2016, 03/27/1992, 06/13/1988, Additional history exists Flu vaccine (Season Ended) 2037 07/19/2009 P ostponed from 04/14/2025 (Patient Refused) Hib vaccine Completed 11/28/1988 Polio vaccine Completed 03/27/1992, 05/17, 06/01/1987, Additional history exists Hepatitis B vaccine Discontinued 09/18/2014, 3 Depression Monitoring Discontinued 11/09/2024, 025 HPV vaccine Aged Out No longer eligi ble based on patient's age to complete this topic Hepatitis A vaccine Aged Out No longe r eligible based on patient's age to complete this topic Meningococcal (ACWY) vaccine Aged Out No longer eligible based on patient's age to complete this topic Meningococcal B vaccine Aged Out No l onger eligible based on patient's age to complete this topic Pneumococcal 0-49 years Vaccine Aged Out No longer eligible based on patient's age to complete this topic Varicella vaccine Discontinued Procedures Procedure Name Priority Date/Time Associated Diagnosis Comments LIPID PANEL Routine 03/07/2015 8:15 AM EDT Annual physical exam from Last 3 Months or Most Recently Relevant to Health Maintenance Results * (ABNORMAL) Lipid Panel (03/07/2015 8:15 AM EDT) [facility] Cholesterol 203(H) <200 mg/dL 03/07/2015 4:02 PM EDT [facility] Comment: Cholesterol Guidelines: <200 Desirable 200-240 Borderline >240 Undesirable HDL 64 >40 mg/dL 03/07/2015 4:02 PM EDT [facility] Comment: HDL Guidelines: <40 Undesirable 40-59 Borderline >59 Desirable LDL Cholesterol 121 0 - 130 mg/dL 03/07/2015 4:02 PM EDT [facility] Comment: LDL Guidelines: <100 Desirable 100-129 Near to/above Desirable 130-159 Borderline >159 Undesirable Direct (measured) LDL and calculated LDL are not interchangeable tests. Chol/HDL Ratio 3.2 <5 03/07/2015 4:02 PM EDT [facility] Comment: Triglycerides 89 <150 mg/dL 03/07/2015 4:02 PM EDT [facility] Comment: Triglyceride Guidelines: <150 Desirable 150-199 Borderline 200-499 High >499 Very high Based on AHA Guidelines for fasting triglyceride, June 2012. Performed at [facility] [address] [place] [address] VLDL NOT REPORTED 1 - 30 mg/dL [facility] BLOOD SPECIMEN / Unknown 03/07/2015 8:15 AM EDT 03/07/2015 12:50 PM EDT us Sanford Villasenor Rai, MD CHEMISTRY ORDERABLES Final Resu lt [facility] [address] [place] [address], [facility] [phone] [facility] from Last 3 Months or Most Recently Relevant to Health Maintenance Insurance [facility] Advance Directives * Full Code (Latest Code Status on File) Date Activated Date Inactivated Comments 02/05/2022 3:12 AM 02/07/2022 8:46 PM Care Teams Property Claim Rep Relationship Specialty Start Date End Date Savannah Santos, NURSE EMERGENCY ROOM - BOOKKEEPING CLERK [address] [place] [address] PCP - General Family Medicine 10/13/23
--- OUTSIDE RECORDS SUMMARY | 2025-02-10 07:27 | XMS_ITS | Encounter Summary ---
Author Organization [facility] Address [address] [place] [address] Care Team Providers Care Ballpoint Pens Assembler Name Role Phone Savannah Davis NP Primary Care Provider [phone] Encounter Details Date Type Department Care Team (Late st Contact Info) Description 01/13/2025 Orders Only [facility] [address] [place] [address] [place] [address] Karen Rock LPN [address] [place] [address] Social History Tobacco Use Types Packs/Day Years [...] AM EDT Office Visit [facility] [address] [place] [address] [place] [address] Parvin Moreland PA [address] [place], [place] [id number] 04/26/2025 9:00 AM EDT Office Visit [facility] [address] [place] [id number] Felicia [place], LORENAM [address] [place] [address] documented as of this encounter Procedures Procedure Name Priority Date/Time Associated Diagnosis Comments PAP SMEAR Routine 04/21/2024 12:00 AM EDT documented in this encounter Results * Pap Smear (04/21/2024 12:00 AM EDT) Swab Cervical swab / Unknown us [facility] Nurse LAB CYTOLOGY ORDERABLES Final Result EXTERNAL LAB documented in this encounter Visit Diagnoses Not on filedocumented in this encounter Care Teams Ballpoint Pens Assembler Relationship Specialty Start Date End Date Savannah Davis, EUGENE [address] [place] [address] PCP - General Family Medicine 03/03/24 documented as of this encounter
--- OUTSIDE RECORDS SUMMARY | 2025-02-10 07:27 | XMS_ITS | Clinical Summary ---
Author Organization [facility] Healthcare Address [address] [place] [address] Care Team Providers Care Assistant Produce Manager Name Role Phone Savannah Davis NP Primary Care Provider [phone] Allergies No known active allergies Medications levothyroxine (Synthroid, Levoxyl) 25 MCG tabletIndicatio ns:Hypothyroidi sm, unspecified type (CMS/HCC) TAKE 1 TABLET BY MOUTH ONCE DAILY IN THE MORNING ON AN EMPTY STOMACH 30 tablet 3 Active losartan (Cozaar) 100 MG tablet Take 100 mg by mouth Daily 4 Active aspirin 81 MG chewable tablet Chew 81 mg in the morning. 5 Active atorvastatin (Lipitor) 20 MG tablet Take 20 mg by mouth in the morning. 5 Active metFORMIN XR (Glucophage-XR) 500 MG 24 hr tablet Take 500 mg by mouth in the morning. Take with meals. 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 07/08/2023 Chronic fatigue 07/08/2023 Chronic obstructive pulmonary disease 07/08/2023 Daytime hypersomnia 07/08/2023 Hyperlipidemia 07/08/2023 Hypertension 07/08/2023 Hypoglycemia 07/08/2023 Lipoprotein deficiency disorder 07/08/2023 Major depressive disorder, single episode, unspe cified 07/08/2023 Moderate asthma with exacerbation 07/08/2023 Obesity 07/08/2023 Encounters Date Type Department Care Team Description 02/01/2025 Clinisync Result Encounter [facility] External Department Unsolicited Ariana Juares, 01/19/2025 9:30 AM EDT Procedure Visit [facility] [address] [place] [address] Ariana Juares, Pre-op examination; Menorrhagia with regular cycle; Abnormal uterine bleeding; Pelvic pain in female; Skin tag of labia 01/19/2025 Abstract [facility] [address] [place] [address] Ariana Juares, 01/19/2025 External Result Encounter [facility]S External Department Unsolicited Ariana Juares, DO 01/18/2025 Travel 01/16/2025 4:00 PM EDT Ancillary Procedure [facility] ULTR[facility] [address] [facility] [place] [address] Irregular bleeding; DUB (dysfunctional uterine bleeding) 01/16/2025 Travel 01/15/2025 Travel 01/13/2025 Orders Only [facility] [address] [place] [address] Karen Rock LPN 01/03/2025 8:50 AM EDT Office Visit [facility]OM[facility] [address] [place] [address] Ariana Juares, Irregular bleeding; DUB (dysfunctional uterine bleeding); Elevated TSH; Hypertension, unspecified type ([facility]/HCC) 01/03/2025 Clinisync Result Encounter [facility]S External Department Unsolicited Ariana Juares, DO 01/03/2025 Bamboo flowsheet [facility] [address] [place] [address] Ariana Juares DO 01/03/2025 Travel from Last 3 Months Immunizations Immunization Administration Dates Next Due Tdap 02/21/2016 Family History Medical History Relation Name Comments Melanoma Father Prostate cancer Father Breast cancer Father's Sister All 4 Aunts had Breast Cancer Ovarian cancer Maternal Grandmother Uterine cancer Mother Cervical cancer Paternal Grandmother Relation Name Status Comments Father Alive Father's Sister Alive Maternal Grandmother Mother Alive Paternal Grandmother Social History Tobacco Use Types Packs/Day Years Used Date Smoking Tobacco: Never Smokeless Tobacco: Never Tobacco Cessation:Counseling Given: Not Answered Alcohol Use Standard Drinks/Week Comments Yes 0 (1 standard drink = 0.6 oz pur e alcohol) Comments No Sex and Gender Information Value Date Recorded Sex Assigned at Female 04/20/2024 3:39 PM EDT Legal Sex Female 8:00 PM EDT Gender Identity Female 11/26/2022 8:00 PM EDT Sexual Orientation Choose not to disclose 2023 3:39 PM EDT Last Filed Vital Signs Vital Sign Reading Time Taken Comments Blood Pressure 128/86 01/19/2025 10:05 AM EDT Pulse - - Temperature - - Respiratory Rate - - Oxygen Saturation - - Inhaled Oxygen Concentration - - Weight 112 kg (247 lb 4 oz) 01/19/2025 10:05 AM EDT Height 165.7 cm (5' 5.25 ) 01/01/2023 12:00 PM E DT Body Mass Index 40.83 01/01/2023 12:00 PM EDT Plan of Treatment Upcoming Encounters Date Type Department Care Team (Late st Contact Info) Description 02/23/2025 8:30 AM EDT Office Visit [facility] OB [address] [facility] [phone] Parvin Moreland PA [address] [place] [address] 04/26/2025 9:00 AM EDT Office Visit [facility] OB [address] [place] [address] Felicia Waters CNM [address] [place] [address] Health Maintenance Due Date Last Done Comments Influenza Vaccine (Season Ended) 2025 HPV/Cotest 06/20/2025 06/20/2020, 11/23/2018 Cervical Cancer Screening 04/21/2027 Pap Smear 04/21/2027 04/21/2024 Procedures Procedure Name Priority Date/Time Associated Diagnosis Comments ECG 12-LEAD 02/01/2025 8:48 AM EDT PATHOLOGY REQUEST FOR LAB BETSEY Routine 01/19/2025 12:00 AM EDT US PELVIC COMPLETE W/ TV Routine 01/16/2025 4:33 PM EDT Irregular bleeding DUB (dysfunctional uterine bleeding) ALL MISCELLANEOUS TEST Routine 10:15 AM EDT ALL THYROID STIM HORMONE Routine 01/03/2025 10:15 AM EDT ALL THYROXINE (T4) FREE Routine 01/03/2025 10:15 AM EDT PAP SMEAR Routine 04/21/2024 12:00 AM EDT Q - THINPREP(R) TIS AND HPV MRNA E6/E7 RFL HPV 16,18/45 Routine 06/20/2020 from Last 3 Months or Most Recently Relevant to Health Maintenance Results * ECG 12-LEAD (02/01/2025 8:48 AM EDT) Anatomical Region Laterality Modality Other 02/01/2025 8:48 AM EDT Narrative 02/01/2025 9:45 PM EDT The [address] [address] Electrocardiograph Report Signed Patient: DYAN WILEY MR#: [id number] : 1985 Acct:[id number] Age/Sex: 39 / F ADM Date: 02/01/25 Loc: PST Attending Dr: Ariana Juares D.O. Ordering Physician: Ariana Juares D.O. Date of Service: 02/01/25 Procedure(s): ECG 12 lead Accession Number(s): [id number] cc: [facility] Test Date: 2025-02-01 Pat Name: DYAN WILEY Department: Room: - Gender: Female Sharepoint Admin: : 1985 Requested By: ARIANA JUARES Order Number: [id number] Reading MD: BRYAN ALVES M.D. Measurements Intervals [place] Rate: 70 P: 41 SC: 174 QRS: 4 QRSD: 104 T: 0 QT: 388 QTc: 419 Interpretive Statements SINUS RHYTHM POSSIBLE RIGHT VENTRICULAR CONDUCTION DELAY [RSR (QR) IN V1/V2] Borderline ECG No previous ECG available for comparison Electronically Signed On 02-01-2025 21:45:01 EDT by BRYAN ALVES M.D. Dictated By: BRYAN ALVES Signed By: 02/01/252144 DD/ 0848 TD/TT: Magnetic Tape Winder: Procedure Note Radiology, Radiologist, MD - 02/01/2025 [place] [address] Electrocardiograph Report Signed Patient: DYAN WILEYMR#: [id number] : 1985Acct:[id number] Age/Sex: 39 / FADM Date: 02/01/25 Loc: [facility] Attending Dr: Ariana Juares D.O. Ordering Physician: Ariana Juares D.O. Date of Service: 02/01/25 Procedure(s): ECG 12 lead Accession Number(s): [id number] cc: [facility] Test Date: 2025-02-01 Pat Name: DYAN WILEY Department: Room: - Gender: Female Sharepoint Admin: : 1985 Requested By: ARIANA JUARES Order Number: [id number] Reading MD: BRYAN ALVES M.D. Measurements Intervals [place] Rate: 70 P: 41 SC: 174 QRS: 4 QRSD: 104 T: 0 QT: 388 QTc: 419 Interpretive Statements SINUS RHYTHM POSSIBLE RIGHT VENTRICULAR CONDUCTION DELAY [RSR (QR) IN V1/V2] Borderline ECG No previous ECG available for comparison Electronically Signed On 02-01-2025 21:45:01 EDT by BRYAN ALVES M.D. Dictated By: BRYAN ALVES Signed By:02/01/25 2145 DD/ 0848 TD/TT: Magnetic Tape Winder: us Ariana Blanquita DO [facility] Final Result * PATHOLOGY REQUEST FOR LAB BETSEY (01/19/2025 12:00 AM EDT) PATHOLOGY REQUEST FOR LAB BETSEY 01/24/2025 3:21 PM EDT [facility] Comment:See report. Scanned copy available in EMR. Other Topography unknown / Unknown 01/19/2025 01/19/2025 1:12 PM EDT Narrative [facility] - 01/24/2025 3:21 PM EDT EMBX us Ariana Blanquita DO LAB BLOOD ORDERABLES Final Resul t [facility] [address] [place] [address], [facility] [address] [place] [address] * US Pelvis w/ TV (01/16/2025 4:33 PM EDT) Anatomical Region Laterality Modality Pelvis Ultrasound 01/24/2025 8:12 AM EDT Narrative 01/24/2025 8:13 AM EDT EXAM: US PELVIC COMPLETE W/ TV HISTORY: Heavy menses, pre-ablation surgery [...] PHD at 24-Jan-2025 08:11:53 AM [facility] Procedure Note Edilma Hanson MD - 01/24/2025 EXAM: US PELVIC COMPLETE W/ TV HISTORY: Heavy menses, pre-ablation surgery evaluation. COMPARISON: Pelvic ultrasound 05/20/2024. TECHNIQUE: Two-dimensional transabdominal grayscale ultrasound imaging ofthe pelvis was performed. Color flow Doppler imaging of the ovaries wasalso performed. Transvaginal was performed. FINDINGS: UTERUS 8.3 x 5.3 x 5.7 cm The uterus is anteverted in position and demonstrates a normal,homogeneous echotexture. ENDOMETRIUM 0.4 cm The endometrium demonstrates a normal, homogeneous echotexture. RIGHT OVARY 3.5 x 1.8 x 2.9 cm The right ovary demonstrates a normal echotexture. There is normal colorDoppler flow. LEFT OVARY 2.4 x 1.2 x 1.5 cm The left ovary demonstrates a normal echotexture. There is normal colorDoppler flow. No fluid is present within the cul-de-sac. IMPRESSION: 1. Unremarkable ultrasound of the pelvis. 2. Normal color Doppler flow within the bilateral ovaries. Interpreted by: Electronically signed by EDILMA HANSON II, MD, PHD [id number] 08:11:53 AM [facility] us Ariana Blanquita DO [facility] US PROCEDURES Final Result * ALL THYROXINE (T4) FREE (01/03/2025 10:15 AM EDT) FREE T4 0.97 0.76 - 1.46 ng/dL [facility] 01/03/2025 10:1 5 AM EDT 01/03/2025 10:16 AM EDT Narrative [facility] - 01/03/2025 11:23 AM EDT Ariana Blanquita DO [facility] Final Result [facility] * ALL THYROID STIM HORMONE (01/03/2025 10:15 AM EDT) THYROID STIMULATING HORMONE 3.365 0.358 - 3.740 uIU/mL [facility] 01/03/2025 10:1 5 AM EDT 01/03/2025 10:16 AM EDT Narrative [facility] - 01/03/2025 11:23 AM EDT Ariana Blanquita DO [facility] Final Result Performing Organization Address City/[facility] Co de Phone Number [facility] * ALL MISCELLANEOUS TEST (01/03/2025 10:15 AM EDT) MISCELLANEOUS TEST COMMENT . [facility] Comment: Test Ordered: [id number] 21-Hydroxylase Antibodies 21-Hydroxylase Antibodies Negative ES Reference Range: . Reference Interval: Negative This result is a qualitative determination of autoantibodies to 21-Hydroxylase (21-OH Abs) in patient serum. 21-OH Abs occur in autoimmune [place]'s disease, whether isolated or part of type I or type II autoimmune polyglandular syndrome. This result should be used in conjunction with other clinical and laboratory findings and is not a substitute for functional testing required to diagnose adrenal insufficiency. Performed at: [employer] [address] [place] [id number] Associate Professor Of Violin: Braxton Duffy MD, Phone: [phone] Performed at: [facility] [address] [id number] Associate Professor Of Violin: Kolton Aguilar PhD, Phone: [phone] 01/03/2025 10:1 5 AM EDT 01/03/2025 10:16 AM EDT Narrative [facility] - 01/07/2025 1:07 AM EDT [id number] Adrenal 21-Hydroxylase Autoantibodies ([employer]) Ariana Blanquita DO [facility] Final Result [facility] * Pap Smear (04/21/2024 12:00 AM EDT) Swab Cervical swab / Unknown [facility] B[facility] Ob Blanquita Nurse LAB CYTOLOGY ORDERABLES Final Result EXTERNAL LAB * Q - THINPREP(R) TIS AND HPV MRNA E6/E7 RFL HPV 16,18/45 (06/20/2020) CLINICAL INFORMATION: None given [facility] LMP: None given [facility]TERNAL [facility] PREV. PAP: None given [facility] ACY EXTERNAL LAB PREV. BX: None given [facility] SOURCE: None given [facility] STATEMENT OF ADEQUACY: SEE NOTE [facility] Comment: Satisfactory for evaluation. Endocervical/transformation zone component present. INTERPRETATION/RE SULT: Negative for intraepithelial lesion or malignancy. [facility] COMMENT: This Pap test has been evaluated with computer assisted technology. [facility] ASSISTANT CHIEF NURSING OFFICER: SEE NOTE See Note: NO [facility] Comment: Reference Range: ZL, CT(ASCP) CT screening location: [place] [address]. COMMENT SEE NOTE [facility] Comment: EXPLANATORY NOTE: The Pap is a screening test for cervical cancer. It is not a diagnostic test and is subject to false negative and false positive results. It is most reliable when a satisfactory sample, regularly obtained, is submitted with relevant clinical findings and history, and when the Pap result is evaluated along with historic and current clinical information. HPV MRNA E6/E7 Not Detected Not Detected [facility] Comment: This test was performed using the APTIMA HPV Assay ([employer] This assay detects E6/E7 viral messenger RNA (mRNA) from 14 high-risk HPV types (16,18,31,33,35,39,45,51,52,56,58,59,66,68). The analytical performance characteristics of this assay have been determined by [employer]. The modifications have not been cleared or approved by the FDA. This assay has been validated pursuant to the CLIA regulations and is used for clinical purposes. 06/20/2020 Adilene Gracia NP [facility] Final Result [facility] from Last 3 Months or Most Recently Relevant to Health Maintenance Insurance BS Care Teams Assistant Produce Manager Relationship Specialty Start Date End Date Savannah Davis NP [address] [place] [address] PCP - General Family Medicine 03/03/24
--- OUTSIDE RECORDS SUMMARY | 2025-02-10 07:27 | XMS_ITS | Encounter Summary ---
Author Organization [facility] Address [address] [place] [address] Care Team Providers Care Image Archivist Name Role Phone Adilene Gracia ROLL UP GUIDER OPERATOR Unavailable Dyan Boswell MD Primary Care Provider [phone] Savannah Davis NP Primary Care Provider [phone] Reason for Visit * Reason Comments Med Refill Encounter Details Date Type Department Care Team (Late st Contact Info) Description 05/02/2023 Refill [facility] [address] [place] [address] Adilene Gracia ROLL UP GUIDER OPERATOR Hypothyroidism, unspecified type (CMS/HCC) (Primary Dx) Social History Tobacco Use Types Packs/Day Years Used Date Smoking Tobacco: Never Assessed Comments Unknown Sex and Gender Information Value Date Recorded Sex Assigned at Female 04/20/2024 3:39 PM EDT Legal Sex Female 8:00 PM EDT Gender Identity Female 11/26/2022 8:00 PM EDT Sexual Orientation Choose not to disclose 2023 3:39 PM EDT documented as of this encounter Miscellaneous Notes * Telephone Encounter - Dyan Boswell MD - 05/02/2023 3:31 PM EDT Approvals with refills documented in this encounter Plan of Treatment Upcoming Encounters Date Type Department Care Team (Late st Contact Info) Description 02/23/2025 8:30 AM EDT Office Visit [facility] [address] [facility] [place] [phone] Parvin Moreland PA [address] [facility] [place] [address] 04/26/2025 9:00 AM EDT Office Visit [facility] OB [address] [place] [address] Felicia Waters, CNM [address] [place], [place] [id number] documented as of this encounter Visit Diagnoses Diagnosis Hypothyroidism, unspecified type (CMS/HCC)- Primary documented in this encounter Care Teams Image Archivist Relationship Specialty Start Date End Date Adilene Gracia NP PCP - [employer] 02/12/22 Dyan Boswell MD [facility] [place], [place] [id number] PCP - General Family Medicine 01/20/23 03/02/24 Savannah Davis NP [facility] [place] [address] PCP - General Family Medicine 03/03/24 documented as of this encounter
--- OUTSIDE RECORDS SUMMARY | 2025-02-10 07:27 | XMS_ITS | Encounter Summary ---
Author Organization [facility] Address [address] [place] [address] Care Team Providers Care Decay Control Operator Name Role Phone Savannah Santos APRN - EXECUTIVE COMMUNITY PLANNING Primary Care Provider Encounter Details Date Type Department Care Team (Late st Contact Info) Description 01/24/2025 Orders Only [facility] [address] [facility] [place] [address] Savannah Santos, TAR POT MAN - EXECUTIVE COMMUNITY PLANNING [address] [place] [address] Primary hypertension (Primary Dx) Social History Tobacco Use Types Packs/Day Years Used Date Smoking Tobacco: Never Smokeless Tobacco: Never Alcohol Use Standard Drinks/Week Comments No 0 (1 standard drink = 0.6 oz pur e alcohol) [facility] Utilities Answer Date Recorded In the past 12 months has [employer] electric, gas, oil, or water [employer] threatened to shut off services in your [...] place to sleep or slept in a correction (including now)? No 10/13/2023 Housing Stability Vital Sign Answer Baldomero e Recorded In the last 12 months, was t here a time when you were not able to pay the mortgage or rent on time? No 11/09/2024 In the past 12 months, how m any times have you moved where you were living? 0 11/09/2024 At any time in the past 12 m [facility], were you homeless or living in a correction (including now)? No 11/09/2024 Food Insecurity Answer [...] Orientation Straight 11/06/2024 8: 19 AM EST documented as of this encounter Progress Notes * Savannah Santos APRN - CNP - 01/24/2025 11:56 AM EDT Sent new medication documented in this encounter Plan of Treatment Upcoming Encounters Date Type Department Care Team (Late st Contact Info) Description 02/14/2025 2:40 PM EDT Office Visit [facility] [address] [place] [address] Savannah Santos APRN - CNP [address] [place] [address] 4 WEEK F/U documented as of this encounter Visit Diagnoses Diagnosis Primary hypertension- Primary Unspecified essential hypertension documented in this encounter Care Teams Decay Control Operator Relationship Specialty Start Date End Date Savannah Santos APRN - CNP [address] [place] [address] PCP - General Family Medicine 10/13/23 documented as of this encounter
--- OUTSIDE RECORDS SUMMARY | 2025-02-10 07:27 | XMS_ITS | Encounter Summary ---
Author Organization [facility] Address [address] [place] [address] Care Team Providers Care Finance Executive Name Role Phone Savannah Santos EQUITY TRADER - ENVIRONMENTAL FIELD TEAM MEMBER Primary Care Provider Reason for Visit * Reason Onset Date Comments Medication Refill 04/23/2014 Encounter Details Date Type Department Care Team (Late st Contact Info) Description 04/23/2014 Refill [facility] [address] [place] [address] Sanford Rader MD Medication Refill Social History Tobacco Use Types Packs/Day Years [...] AM EST documented as of this encounter Plan of Treatment Upcoming Encounters Date Type Department Care Team (Late st Contact Info) Description 02/14/2025 2:40 PM EDT Office Visit [facility] [address] [facility] [address] [place] [address] Savannah Santos, EQUITY TRADER - ENVIRONMENTAL FIELD TEAM MEMBER [address] [place] [address] 4 WEEK F/U documented as of this encounter Visit Diagnoses Not on filedocumented in this encounter Care Teams Finance Executive Relationship Specialty Start Date End Date Savannah Santos, EQUITY TRADER - ENVIRONMENTAL FIELD TEAM MEMBER [address] [place] [address] PCP - General Family Medicine 10/13/23 documented as of this encounter
--- OUTSIDE RECORDS SUMMARY | 2025-02-10 07:27 | XMS_ITS | Encounter Summary ---
Author Organization [facility] Address [address] [place] [address] Care Team Providers Care Creel Operator Name Role Phone Savannah Davis NP Primary Care Provider [phone] Encounter Details Date Type Department Care Team (Late st Contact Info) Description 01/19/2025 Abstract [facility] [address] [facility] [place] [address] Matt Juares DO [address] [place] [address] Dr Richard Ramirez, [facility] Social History Tobacco Use Types Packs/Day Years [...] 02/23/2025 8:30 AM EDT Office Visit [facility] [address] [place] [address] Parvin Moreland PA [address] [facility] [address] [place], [facility] 04/26/2025 9:00 AM EDT Office Visit [facility] OB [address] [place] [address] Felicia Waters, CNM [address] [place] [address] documented as of this encounter Visit Diagnoses Not on filedocumented in this encounter Care Teams Creel Operator Relationship Specialty Start Date End Date Savannah Davis, WAREHOUSE GENERAL LABORER [address] [place] [address] PCP - General Family Medicine 03/03/24 documented as of this encounter
--- OUTSIDE RECORDS SUMMARY | 2025-02-10 07:28 | XMS_ITS | CCD ---
Author Organization [facility] Care Team Providers Care Tabulating Supervisor Name Role Phone HEMMER, TSAH M Unavailable Unavailable HEMMER, TASH M Unavailable [...] Adilene Westbrook APRN, CNP Primary Care Provider [phone] ISAIAH SANTOS Referring Unavail able ISAIAH SANTOS [...] P edy Isaiah Rodgers Primary Care P roansley LON BUSTOS Attending Unavailable VERA ARTEAGA Referring [...] Propensity to adverse reactions to drug (disorder) [facility] Repository (1 source) No known allergies; Translations: [No known allergies] Propensity to adverse reactions to drug (disorder) [facility] Repository Medications Current Medications Medication Drug Class(es) Dates Sig (Normalized) Sig (Original) Acetaminophen (1 source) Start: 02-05-2022 acetaminophen (TYLENOL) tablet 650 mg aspirin 81 mg chewable tablet (10 sources) Platelet Aggregation Inhibitor, Nonsteroidal Anti-inflammatory Drug Start: 11-29-2024 aspirin 81 MG chewable tablet Chew 81 mg in the morning. 11/29/2024 Active Start: 11-02-2024 End: 12-02-2024 take 1 tablet by mouth in the morning aspirin 81 mg Take 1 tablet (81 mg total) by mouth in the morning for 30 days. 30 tablet 11/02/2024 12/02/2024 Active atorvastatin 20 mg oral tablet (10 sources) HMG-CoA Reductase Inhibitor Start: 11-02-2024 End: [...] Active levothyroxine sodium 0.025 mg oral tablet (14 sources) l-Thyroxine Start: 05-02-2023 take 1 tablet by mouth once daily in the morning levothyroxine (Synthroid, Levoxyl) 25 MCG tablet Indications: Hypothyroidism, unspecified type (CMS/HCC) TAKE 1 TABLET BY MOUTH ONCE DAILY IN THE MORNING ON AN EMPTY STOMACH 30 tablet 05/02/2023 Active losartan potassium 100 mg oral tablet (18 sources) Angiotensin 2 Receptor Benito Start: 03-12-2024 [...] hydrochloride 500 mg extended release oral tablet (7 sources) Biguanide Start: 11-09-2024 End: 02-07-2025 take [...] 02/14/2022 Active amLODIPine 5 mg oral tablet (7 sources) Dihydropyridine Calcium Channel Benito Start: 12-31-2024 [...] Daily 12/30/2024 01/19/2025 Discontinued polyethylene glycol 3350 00503 mg powder for oral solution (1 source) [...] pain, unspecified] Onset: 02-05-2022 Episodic Anxiety disorders (15 sources) Anxiety; Translations: [Anxiety disorder, unspecified] Onset: 02-23-2013 02-23-2013 Chronic Asthma (10 sources) Moderate asthma; Translations: [Unspecified asthma with (acute) exacerbation] Onset: 07-08-2023 07-08-2023 Chronic Biliary tract disease (1 source) Cholecystitis; Translations: [Cholecystitis, unspecified] Episodic Chronic obstructive pulmonary disease and bronchiectasis (10 sources) Chronic obstructive lung disease; Translations: [Chronic obstructive pulmonary disease, unspecified] Onset: 07-08-2023 07-08-2023 Chronic Disorders of lipid metabolism (15 sources) Mixed hyperlipidemia; Translations: [Hyperlipidemia] Onset: 07-08-2023 07-08-2023 Chronic Esophageal disorders (12 sources) Gastroesophageal reflux disease; Translations: [Gastro-esophageal reflux disease without esophagitis] Onset: 07-08-2023 Chronic Essential hypertension (18 sources) Hypertensive disorder; Translations: [Essential (primary) hypertension] Onset: 09-27-2013 09-27-2013 Chronic Headache; including migraine (1 source) Migraine; Translations: [Migraine, unspecified, not intractable, without status migrainosus] Onset: 09-27-2013 09-27-2013 Chronic Hypertension with complications and secondary hypertension (2 sources) Hypertensive crisis; Translations: [Hypertensive crisis, unspecified] 12-07-2024 Chronic Malaise and fatigue (11 sources) Chronic fatigue, unspecified; Translations: [Fatigue] Onset: 07-08-2023 07-08-2023 Chronic Menstrual disorders (5 sources) Irregular periods; Translations: [Irregular menstruation, unspecified] 11-01-2024 Chronic Mood disorders (10 sources) Major depression, single episode; Translations: [Major depressive disorder, single episode, unspecified] Onset: 07-08-2023 07-08-2023 Chronic Other endocrine disorders (1 source) Hypoglycemia, unspecified; Translations: [Hypoglycemia, unspecified] Onset: 11-26-2023 Chronic Other endocrine disorders (10 sources) Hypoglycemia; Translations: [Hypoglycemia, unspecified] Onset: 07-08-2023 [...] Chronic Other nutritional; endocrine; and metabolic disorders (10 sources) Lipoprotein deficiency disorder; Translations: [Lipoprotein deficiency] Onset: 07-08-2023 07-08-2023 Chronic Other nutritional; endocrine; and metabolic disorders (10 sources) Obesity; Translations: [Obesity, unspecified] Onset: 07-08-2023 07-08-2023 Chronic Other nutritional; endocrine; and metabolic disorders (4 sources) Obesity caused by energy imbalance; Translations: [Class 2 obesity due to excess calories with body mass index (BMI) of 39.0 to 39.9 in adult] Onset: 11-02-2024 11-02-2024 Chronic Residual codes; unclassified (1 source) Hypersomnia, unspecified; Translations: [Hypersomnia, unspecified] Onset: 11-26-2023 Chronic Residual codes; unclassified (10 sources) Daytime hypersomnia; Translations: [Hypersomnia, unspecified] Onset: 07-08-2023 07-08-2023 Chronic Residual codes; unclassified (1 source) Sleep disorder, unspecified; Translations: [Sleep disorder, unspecified] Onset: 12-26-2023 Episodic Thyroid disorders (15 sources) Hypothyroidism, unspecified; Translations: [Acquired hypothyroidism] Onset: [...] conditions (not mental disorders or infectious disease) (12 sources) Mammography abnormal; Translations: [Other abnormal and inconclusive findings on diagnostic imaging of breast] Onset: 07-08-2023 07-08-2023 Episodic Unclassified (4 sources) Onset: 11-23-2018 11-23-2018 Results Test Name Value Interpretation Reference Range Facility ECG 12-LEADon 02-01-2025 [place] [address] Electrocardiograph Report Signed Patient: DYAN AGUILAR MR#: [id number] : 1985 Acct:[id number] Age/Sex: 39 / F ADM Date: 02/01/25 Loc: [facility] Attending Dr: Matt Juares D.O. Ordering Physician: Matt Juares D.O. 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 Measurements Intervals [place] Rate: 70 P: 41 CT: 174 QRS: 4 QRSD: 104 T: 0 QT: 388 QTc: 419 Interpretive Statements SINUS RHYTHM POSSIBLE RIGHT VENTRICULAR CONDUCTION DELAY [RSR (QR) IN V1/V2] Borderline ECG No previous ECG available for comparison Electronically Signed On 02-01-2025 21:45:01 EDT by BRYAN ALVES M.D. Dictated By: BRYAN ALVES Signed By: 02/01/252144 DD/ 7 TD/TT: Emergency Medcl Emt: [facility] RadiologyIrene MD - 02/01/2025 [place] [address] Electrocardiograph Report Signed Patient: DYAN AGUILAR MR#: [id number] : 1985 Acct:[id number] Age/Sex: 39 / F ADM Date: 02/01/25 Loc: [facility] Attending Dr: Matt Juares D.O. Ordering Physician: Matt Juares D.O. 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 Measurements Intervals [place] Rate: 70 P: 41 CT: 174 QRS: 4 QRSD: 104 T: 0 QT: 388 QTc: 419 Interpretive Statements SINUS RHYTHM POSSIBLE RIGHT VENTRICULAR CONDUCTION DELAY [RSR (QR) IN V1/V2] Borderline ECG No previous ECG available for comparison Electronically Signed On 02-01-2025 21:45:01 EDT by BRYAN ALVES M.D. Dictated By: BRYAN ALVES Signed By: 02/01/252144 DD/ TD/TT: Emergency Medcl Emt: [facility] Radiology Study observation (narrative) [facility] ECG 12-LEADOrdered By: Radio logist Radiology on 02-01-2025 [facility] Work Phone: PATHOLOGY REQUEST FOR LAB CO RPon 01-24-2025 PATHOLOGY REQUEST FOR LAB BETSEY [facility] Comment on above: See report. Scanned copy available in EMR. [facility] ALL THYROID STIM HORMONEon 0 01-03-2025 TSH Qn 3.365 m[IU]/L [facility] ALL THYROXINE (T4) FREEon Free T4 [Mass/Vol] 0.97 ng/dL 0.76 - 1.46 ng/dL [facility] No Panel Informationon 01-03 [facility] CBC AND AUTO DIFFon 11-02-19 25 ABSOLUTE BASOPHIL 0.0 X10E9/L Normal 0.0-0.2 [facility] Comment on above: Performed By: #### C BCA, CMP, 25657-7 ####[facility] ([id number])[address] [place] [address] 55889#### 40068-1, HA1C ####[facility] ([id number])[address] [place] [address], [address] [place] [address] 11149 ABSOLUTE NEUTROPHIL 1.6 X10E9/L Normal 1.5-6.6 [facility] Comment on above: Performed By: #### C BCA, CMP, 93659-4 ####[facility] ([id number])[address] [place] [address] 10361#### 30775-9, HA1C ####[facility] ([id number])[address] [place] [address], [address] [place] [address] 16232 Basophils/100 WBC (Bld) 0.8 % Normal [facility] Comment on above: Performed By: #### C BCA, CMP, 20516-0 ####[facility] ([id number])[address] [place] [address] 28705#### 74587-5, HA1C ####[facility] ([id number])[address] [place] [address], [address] [place] [address] 63032 Eosinophils (Bld) [#/Vol] 0.1 10*3/uL Normal 0.0-0.4 [facility] Comment on above: Performed By: #### C BCA, CMP, ####[facility] ([id number])[address] [place] [address] 50338#### 54916-2, HA1C ####[facility] ([id number])[address], [address] [place] [address] 86443 Eosinophils/100 WBC (Bld) 3.2 % Normal [facility] Comment on above: Performed By: #### C BRENDA, CMP, 51942-7 ####[facility] ([id number])[address] [place] [address] 84200#### 97716-6, HA1C ####[facility] ([id number])0 [facility], [address] [place] [address] 06774 Erythrocyte distribution width (RBC) [Ratio] 13.6 % Normal 11.5-15.0 [facility] Comment on above: Performed By: #### Reid BCA, CMP, 69732-9 ####[facility] ([id number])[address] [place] [address] 24668#### 46501-6, HA1C ####[facility] ([id number])0 [facility], [address] [place] [address] 51487 Hematocrit (Bld) [Volume fraction] 38.4 % Normal 35-47 [facility] Comment on above: Performed By: #### C BCA, CMP, 59881-2 ####[facility] ([id number])[address] [place] [address] 72601#### 35601-6, HA1C ####[facility] ([id number])0 [facility], [address] [place] [address] 27794 Hemoglobin (Bld) [Mass/Vol] 13.3 g/dL Normal 11.7-15.5 [facility] Comment on above: Performed By: #### C BCA, CMP, 54161-7 ####[facility] ([id number])[address] [place] [address] 11037#### 52274-8, HA1C ####[facility] ([id number])[address] [address] Lymphocytes (Bld) [#/Vol] 1.8 10*3/uL Normal 1.0-3.5 [facility] Comment on above: Performed By: #### C BCA, CMP, 05470-0 ####[facility] ([id number])[address] [place] [address] 52331#### 31652-8, HA1C ####[facility] ([id number])[address] [place] [address] 62116 Lymphocytes/100 WBC (Bld) 44.6 % Normal [facility] Comment on above: Performed By: #### Reid BCA, CMP, 19521-0 ####[facility] ([id number])[address] [place] [address] 93597#### 70607-7, HA1C ####[facility] ([id number])[address] [place] [address] 13791 MCH (RBC) [Entitic mass] 29.1 pg Normal 27-34 [facility] Comment on above: Performed By: #### C BCA, CMP, 66396-9 ####[facility] ([id number])[address] [place] [address] 71883#### 29340-9, HA1C ####[facility] ([id number])[address] [place] [address] 96423 MCHC (RBC) [Mass/Vol] 34.6 g/dL Normal 32-36 [facility] Comment on above: Performed By: #### C BCA, CMP, ####[facility] ([id number])[address] [place] [address] 23299#### 29907-2, HA1C ####[facility] ([id number])[address] [place] [address] [place] [address] 34812 MCV (RBC) [Entitic vol] 84 fL Normal 80-100 [facility] Comment on above: Performed By: #### C BCA, CMP, 87530-9 ####[facility] ([id number])[address] [place] [address] 57857#### 39755-3, HA1C ####[facility] ([id number])[address] [place] [address] 02353 Monocytes (Bld) [#/Vol] 0.5 10*3/uL Normal 0-0.9 [facility] Comment on above: Performed By: #### Reid BCA, CMP, ####[facility] ([id number])[address] [place] [address] 51160#### 77156-6, HA1C ####[facility] ([id number])[address] [place] [address] 12221 Monocytes/100 WBC (Bld) 11.9 % Normal [facility] Comment on above: Performed By: #### Reid BCA, CMP, ####[facility] ([id number])[address] [place] [address] 43307#### 25113-4, HA1C ####[facility] ([id number])[address] [place] [address] 35688 Neutrophils/100 WBC (Bld) 39.5 % Normal [facility] Comment on above: Performed By: #### C BCA, CMP, ####[facility] ([id number])[address] [place] [address] 40077#### 71490-1, HA1C ####[facility] ([id number])[address] [facility], [address] [place] [address] 39983 Platelet mean volume (Bld) [Entitic vol] 8.6 fL Normal 7-12 [facility] Comment on above: Performed By: #### C BCA, CMP, 83545-5 ####[facility] ([id number])[address] [place] [address] 33315#### 47724-5, HA1C ####[facility] ([id number])[address] [place] [address], [address] [place] [address] 81103 Platelets (Bld) [#/Vol] 249 10*3/uL Normal 150-450 [facility] Comment on above: Performed By: #### Reid GUTIERREZ, CMP, 82221-5 ####[facility] ([id number])[address] [place] [address] 42971#### 11837-1, HA1C ####[facility] ([id number])[address] [place] [address], [address] [address] RBC COUNT 4.57 X10E12/L Normal 3.80-5.20 [facility] Comment on above: Performed By: #### Reid BCA, CMP, 62932-6 ####[facility] ([id number])[address] [place] [address] 31149#### 19487-5, HA1C ####[facility] ([id number])[facility], [address] [place] [address] 99089 WBC (Bld) [#/Vol] 4.0 10*3/uL Normal 4.0-11.0 [facility] Comment on above: Performed By: #### Reid BCA, CMP, ####[facility] ([id number])[address] [place] [address] 33936#### 87168-0, HA1C ####[facility] ([id number])[address] [place] [address], [address] [place] [address] 26991 COMPREHENSIVE METABOLIC PANE John 11-02-2024 Albumin [Mass/Vol] 3.6 g/dL Normal 3.2-5.3 [facility] Comment on above: Performed By: #### C BCA, CMP, 20921-8 ####[facility] ([id number])[address] [place] [address] 25457#### 32276-2, HA1C ####[facility] ([id number])[address] [place] [address], [address] [place] [address] 84890 ALP [Catalytic activity/Vol] 76 U/L Normal 39-130 [facility] Comment on above: Performed By: #### C BCA, CMP, 04520-5 ####[facility] ([id number])[address] [place] [address] 64048#### 14736-5, HA1C ####[facility] ([id number])[address] [place] [address], [address] [place] [address] 88456 ALT [Catalytic activity/Vol] 30 U/L Normal 0-31 [facility] Comment on above: Performed By: #### C BCA, CMP, 81131-4 ####[facility] ([id number])[address] [place] [address] 24525#### 14380-9, HA1C ####[facility] ([id number])[address] [place] [address], [address] [place] [address] 31246 Anion gap [Moles/Vol] 11 mmol/L Normal 5-15 [facility] Comment on above: Performed By: #### C BCA, CMP, ####[facility] ([id number])[address] [place] [address] 72889#### 14424-3, HA1C ####[facility] ([id number])[address] [facility], [address] [place] [address] 09611 AST [Catalytic activity/Vol] 24 U/L Normal 0-41 [facility] Comment on above: Performed By: #### C BCA, CMP, 38987-7 ####[facility] ([id number])[address] [place] [address] 19784#### 89063-7, HA1C ####[facility] ([id number])[address] [place] [address], [address] [place] [address] 71206 Bilirubin [Mass/Vol] 0.2 mg/dL Low 0.3-1.2 [facility] Comment on above: Performed By: #### C BCA, CMP, 65293-3 ####[facility] ([id number])[address] [place] [address] 01270#### 32219-8, HA1C ####[facility] ([id number])[address] [place] [address], [address] [place] [address] 83436 Calcium [Mass/Vol] 8.8 mg/dL Normal 8.5-10.5 [facility] Comment on above: Performed By: #### C BCA, CMP, 56297-3 ####[facility] ([id number])[address] [place] [address] 58283#### 44792-0, HA1C ####[facility] ([id number])[address] [place] [address], [address] [place] [address] 93837 Chloride [Moles/Vol] 103 mmol/L Normal 98-109 [facility] Comment on above: Performed By: #### C BCA, CMP, 75446-3 ####[facility] ([id number])[address] [place] [address] 17302#### 12939-4, HA1C ####[facility] ([id number])[address] [address] [place] [address] 37418 CO2 [Moles/Vol] 23 mmol/L Normal 22-32 [facility] Comment on above: Performed By: #### C BRENDA CMP, 36157-1 ####[facility] ([id number])[address] [place] [address] 86391#### 19093-4, HA1C ####[facility] ([id number])[address], [address] [place] [address] 57633 Creatinine [Mass/Vol] 0.86 mg/dL Normal 0.40-1.00 [facility] Comment on above: Result Comment: METH OD TRACEABLE TO IDMS STANDARD Performed By: #### C THAO GUTIERREZ, ####[facility] ([id number])[address] [place] [address] 07131#### 07935-0, HA1C ####[facility] ([id number])[address] [address] GFR/1.73 sq M.predicted among non-blacks MDRD (S/P/Bld) [Vol rate/Area] 89 mL/min/{1.73_m2} Normal >59 [facility] Comment on above: Result Comment: Reported eGFR is based on the CKD-EPI 2020 equation that does not use a race coefficient. Performed By: #### C BCA, CMP, ####[facility] ([id number])[address] [place] [address] 31139#### 75323-8, HA1C ####[facility] ([id number])[address] [address] [place] [address] 53217 Glucose [Mass/Vol] 102 mg/dL High 65-99 [facility] Comment on above: Performed By: #### C BCA, CMP, ####[facility] ([id number])[address] [place] [address] 68731#### 07589-6, HA1C ####[facility] ([id number])[address], [address] [place] [address] Potassium [Moles/Vol] 3.8 mmol/L Normal 3.5-5.0 [facility] Comment on above: Performed By: #### C BCA, CMP, 88036-3 ####[facility] ([id number])[address] [place] [address] 09879#### 26443-4, HA1C ####[facility] ([id number])[address], [address] [place] [address] 51106 Protein [Mass/Vol] 6.6 g/dL Normal 6.0-8.0 [facility] Comment on above: Performed By: #### C BCA, CMP, 37272-9 ####[facility] ([id number])[address] [place] [address] 22186#### 34878-2, HA1C ####[facility] ([id number])[address], [address] [place] [address] 71016 Sodium [Moles/Vol] 137 mmol/L Normal 134-146 [facility] Comment on above: Performed By: #### C BCA, CMP, 27133-5 ####[facility] ([id number])[address] [place] [address] 36672#### 50198-5, HA1C ####[facility] ([id number])[address], [address] [place] [address] Urea nitrogen [Mass/Vol] 18 mg/dL Normal 5-23 [facility] Comment on above: Performed By: #### C BCA, CMP, ####[facility] ([id number])[address] [place] [address] 00781#### 28235-8, HA1C ####[facility] ([id number])[address] [facility], [address] [place] [address] 14337 HGB A1C (GLYCO-HGB)on 2024 Glucose [Mass/Vol] 117 mg/dL Normal [facility] Comment on above: Performed By: #### C BRENDA, CMP, 39270-2 ####[facility] ([id number])[address] [place] [address] 54777#### 50677-9, HA1C ####[facility] ([id number])[address] [facility], [address] [place] [address] 84656 HbA1c (Bld) [Mass fraction] 5.7 % High 4.4-5.6 [facility] Comment on above: Result Comment: NOTE ADA Guidelines Result HgbA1c Normal : less than 5.7 % Prediabetes : 5.7 % to 6.4 % Diabetes : > 6.4 % Use with caution in patients with abnormal hemoglobin variants as the half-life of red blood cells and in vivo glycation rates are affected. Performed By: #### C BRENDA, CMP, 21119-8 ####[facility] ([id number])[address] [place] [address] 62788#### 46663-6, HA1C ####[facility] ([id number])[address] [facility], [address] [place] [address] 35012 Lipid 1996 panelon Cholesterol [Mass/Vol] 166 mg/dL Normal 150-200 [facility] Comment on above: Performed By: #### C BCA, CMP, 59441-5 ####[facility] ([id number])[address] [place] [address] [place] [address]#### 97600-7, HA1C ####[facility] ([id number])[address] [place] [address] 53268 Cholesterol in HDL [Mass/Vol] 51 mg/dL Normal >39 [facility] Comment on above: Result Comment: HDL <40 mg/dL - High Risk HDL > or = 40mg/dL- Desirable HDL >60 mg/dL - Negative Risk Performed By: #### Reid GUTIERREZ, THAO, 94172-8 ####[facility] ([id number])[address] [place] [address] 85409#### 09994-9, HA1C ####[facility] ([id number])[address] [place] [address]6091 Cholesterol in LDL [Mass/Vol] 85 mg/dL Normal <130 [facility] Comment on above: Result Comment: LDL <100 mg/dL - Desirable LDL >160 mg/dL - High Risk Performed By: #### Reid GUTIERREZ, CMP, 53614-0 ####[facility] ([id number])[address] [place] [address]#### 81637-9, HA1C ####[facility] ([id number])[address] [place] [address] 72192 Cholesterol in VLDL [Mass/Vol] 30 mg/dL Normal 0-30 [facility] Comment on above: Performed By: #### Reid GUTIERREZ, CMP, 12233-1 ####[facility] ([id number])[address] [place] [address]#### 47701-4, HA1C ####[facility] ([id number])[address] [place] [address] CHOLESTEROL:HDL 3.3 Normal 1.0-5.0 [facility] Comment on above: Performed By: #### C BRENDA [facility], 27186-8 ####[facility] ([id number])[address] [place] [address]#### 54004-2, HA1C ####[facility] ([id number])[address] [place] [address], [address] [address] Triglyceride [Mass/Vol] 152 mg/dL High 27-150 [facility] Comment on above: Performed By: #### C BRENDA [facility], 71482-4 ####[facility] ([id number])[address] [place] [address] 88736#### 90252-7, HA1C ####[facility] ([id number])[address] [place] [address], [address] [address] MAGNESIUMon 11-02-2024 Magnesium [Mass/Vol] 2.0 mg/dL Normal 1.8-2.6 [facility] Comment on above: Performed By: #### C BRENDA [facility], 27564-5 ####[facility] ([id number])[address] [place] [address] 56349#### 27333-5, HA1C ####[facility] ([id number])[address] [place] [address], [address] [address] MR BRAIN WO CONTon 5 MR BRAIN [...] Wasserman MD on 11/02/2024 7:51 AM Normal [facility] BASIC METABOLIC PANLon 11-01 Anion gap [Moles/Vol] 10 mmol/L Normal 5-15 [facility] Comment on above: Performed By: #### C BCA, PINR, 12404-5, BMP, 39645-8 #### [facility] ([id number]) [address] [place] [address]695 Calcium [Mass/Vol] 9.0 mg/dL Normal 8.5-10.5 [facility] Comment on above: Performed By: #### C BCA, PINR, 47361-2, BMP, 62582-1 #### [facility] ([id number]) [address] [place] [address] 10061 Chloride [Moles/Vol] 98 mmol/L Normal 98-109 [facility] Comment on above: Performed By: #### C BCA, PINR, 71567-7, BMP, 83213-2 #### [facility] ([id number]) [address] [place] [address] 07904 CO2 [Moles/Vol] 29 mmol/L Normal 22-32 [facility] Comment on above: Performed By: #### C BCA, PINR, 15740-9, BMP, 66797-1 #### [facility] ([id number]) [address] [place] [address] 65633 Creatinine [Mass/Vol] 0.86 mg/dL Normal 0.40-1.00 [facility] Comment on above: Result Comment: METH OD TRACEABLE TO IDMS STANDARD Performed By: #### C BCA, PINR, 33487-2, BMP, 64967-6 #### [facility] ([id number]) [address] [place] [address] 41493 GFR/1.73 sq M.predicted among non-blacks MDRD (S/P/Bld) [Vol rate/Area] 89 mL/min/{1.73_m2} Normal >59 [facility] Comment on above: Result Comment: Reported eGFR is based on the CKD-EPI 2020 equation that does not use a race coefficient. Performed By: #### C BCA, PINR, 58932-9, BMP, 58995-0 #### [facility] ([id number]) [address] [place] [address] 19657 Glucose [Mass/Vol] 112 mg/dL High 65-99 [facility] Comment on above: Performed By: #### C BCA, PINR, 55397-6, BMP, 71922-8 #### [facility] ([id number]) [address] [place] [address] 62410 Potassium [Moles/Vol] 4.1 mmol/L Normal 3.5-5.0 [facility] Comment on above: Performed By: #### C BCA, PINR, 71931-5, BMP, 98210-1 #### [facility] ([id number]) [address] [place] [address] 50757 Sodium [Moles/Vol] 137 mmol/L Normal 134-146 [facility] Comment on above: Performed By: #### C BCA, PINR, 31341-7, BMP, 03427-8 #### [facility] ([id number]) [address] [place] [address] 84066 Urea nitrogen [Mass/Vol] 15 mg/dL Normal 5-23 [facility] Comment on above: Performed By: #### C BCA, PINR, 45310-5, BMP, 80325-2 #### [facility] ([id number]) [address] [place] [address] 13810 CBC AND AUTO DIFFon 11-01-19 25 ABSOLUTE BASOPHIL 0.0 X10E9/L Normal 0.0-0.2 [facility] Comment on above: Performed By: #### C BCA, PINR, 79800-6, BMP, 66981-6 #### [facility] ([id number]) [address] [place] [address]2652 ABSOLUTE NEUTROPHIL 2.0 X10E9/L Normal 1.5-6.6 [facility] Comment on above: Performed By: #### C BCA, PINR, 38905-8, BMP, 95080-4 #### [facility] ([id number]) [address] [place] [address] 68412 Basophils/100 WBC (Bld) 0.9 % Normal [facility] Comment on above: Performed By: #### Reid BCA, PINR, 88495-7, BMP, 90541-0 #### [facility] ([id number]) [address] [place] [address] 60770 Eosinophils (Bld) [#/Vol] 0.1 10*3/uL Normal 0.0-0.4 [facility] Comment on above: Performed By: #### Reid BCA, PINR, 49951-3, BMP, 68324-1 #### [facility] ([id number]) [address] [place] [address] 71620 Eosinophils/100 WBC (Bld) 2.0 % Normal [facility] Comment on above: Performed By: #### C BCA, PINR, 93631-6, BMP, 94285-6 #### [facility] ([id number]) [address] [place] [address] 75661 Erythrocyte distribution width (RBC) [Ratio] 13.6 % Normal 11.5-15.0 [facility] Comment on above: Performed By: #### C BCA, PINR, 49656-4, BMP, 49084-8 #### [facility] ([id number]) [address] [place] [address] 51715 Hematocrit (Bld) [Volume fraction] 39.8 % Normal 35-47 [facility] Comment on above: Performed By: #### C BRENDA, PINR, 14854-1, BMP, 66747-9 #### [facility] ([id number]) [address] [place] [address] 41243 Hemoglobin (Bld) [Mass/Vol] 13.4 g/dL Normal 11.7-15.5 [facility] Comment on above: Performed By: #### Reid GUTIERREZ, PINR, 76547-6, BMP, 12255-5 #### [facility] ([id number]) [address] [place] [address] 62548 Lymphocytes (Bld) [#/Vol] 1.8 10*3/uL Normal 1.0-3.5 [facility] Comment on above: Performed By: #### C BRENDA, PINR, 26850-1, BMP, 13545-3 #### [facility] ([id number]) [address] [place] [address] 94651 Lymphocytes/100 WBC (Bld) 39.4 % Normal [facility] Comment on above: Performed By: #### Reid GUTIERREZ, PINR, 77106-6, BMP, 86521-2 #### [facility] ([id number]) [address] [place] [address] 69040 MCH (RBC) [Entitic mass] 28.3 pg Normal 27-34 [facility] Comment on above: Performed By: #### Reid GUTIERREZ, PINR, 03921-3, BMP, 87812-2 #### [facility] ([id number]) [address] [place] [address] 37004 MCHC (RBC) [Mass/Vol] 33.6 g/dL Normal 32-36 [facility] Comment on above: Performed By: #### C BCA, PINR, 46140-8, BMP, 43116-1 #### [facility] ([id number]) [address] [place] [address] 73346 MCV (RBC) [Entitic vol] 84 fL Normal 80-100 [facility] Comment on above: Performed By: #### Reid BCA, PINR, 87969-3, BMP, 15517-6 #### [facility] ([id number]) [address] [place] [address] 96376 Monocytes (Bld) [#/Vol] 0.6 10*3/uL Normal 0-0.9 [facility] Comment on above: Performed By: #### Reid BCA, PINR, 11241-1, BMP, 17747-0 #### [facility] ([id number]) [address] [place] [address] 16209 Monocytes/100 WBC (Bld) 13.3 % Normal [facility] Comment on above: Performed By: #### Reid BCA, PINR, 32617-8, BMP, 83147-5 #### [facility] ([id number]) [address] [place] [address] 44680 Neutrophils/100 WBC (Bld) 44.4 % Normal [facility] Comment on above: Performed By: #### Reid BCA, PINR, 44845-1, BMP, 40748-4 #### [facility] ([id number]) [address] [place] [address] 72115 Platelet mean volume (Bld) [Entitic vol] 8.4 fL Normal 7-12 [facility] Comment on above: Performed By: #### Reid BCA, PINR, 55688-4, BMP, 80646-7 #### [facility] ([id number]) [address] [place] [address] [place] [address] Platelets (Bld) [#/Vol] 252 10*3/uL Normal 150-450 [facility] Comment on above: Performed By: #### C BCA, PINR, 90194-8, BMP, 01858-1 #### [facility] ([id number]) [address] [place] [address] RBC COUNT 4.73 X10E12/L Normal 3.80-5.20 [facility] Comment on above: Performed By: #### C BCA, PINR, 91940-2, BMP, 83694-1 #### [facility] ([id number]) [address] [place] [address] 47029 WBC (Bld) [#/Vol] 4.5 10*3/uL Normal 4.0-11.0 [facility] Comment on above: Performed By: #### C BCA, PINR, 78170-4, BMP, 60307-6 #### [facility] ([id number]) [address] [place] [address] BRAIN WO CONT STROKE ALER Ton 11-01-2024 CT BRAIN WO CONT STROKE ALERT [...] Sam MD on 11/01/2024 7:36 PM Normal [facility] CT CTA CAROTIDon 11-01-2024 CT CTA [...] supervision. Automated exposure control utilized. The [place] Symptomatic Carotid Endarterectomy Trial (NASCET) method for [...] Garvey MD on 11/01/2024 8:04 PM Normal [facility] CT CTA HEADon 11-01-2024 CT CTA [...] Garvey MD on 11/01/2024 7:56 PM Normal [facility] Glucose Glucometer (BldC) [M ass/Vol]on 11-01-2024 Glucose [Mass/Vol] 110 mg/dL High 65-99 [facility] HCG ( test) Ql (U)o n 11-01-2024 Beta HCG ( test) Ql (U) Negative Normal NEG [facility] Comment on above: Performed By: #### 2 106-3 #### [facility] ([id number]) [address] [place] [address] 25986 PROTIME AND INRon 11-01-2024 INR Coag (PPP) [Relative time] 1.0 {INR} Normal 0.8-1.1 [facility] Comment on above: Performed By: #### C BCA, PINR, 22909-4, BMP, 15952-7 #### [facility] ([id number]) [address] [place] [address] 78302 PT Coag (PPP) [Time] 11.5 s Normal 9.8-13.2 [facility] Comment on above: Result Comment: NEW REFERENCE RANGE Performed By: #### C BCA, PINR, 10075-0, BMP, 41328-1 #### [facility] ([id number]) [address] [place] [address] 74069 Troponin I.cardiac High sens itivity method [Mass/Vol]on 11-01-2024 1 HOUR TROP I, HIGH SENSITIVITY 4 ng/L Normal <16 [facility] Comment on above: Performed By: #### 8 9579-7 ####[facility] ([id number])[address] [place] [address]80 TROPONIN I, HIGH SENSITIVITY 3 ng/L Normal <16 [facility] Comment on above: Performed By: #### C BCA, PINR, 03493-0, BMP, 27624-9 #### [facility] ([id number]) [address] [place] [address] 62570 URN MACROSCOPIC NURon 2024 BILIRUBIN SAMAN Negative Normal NEG [facility] Comment on above: Performed By: #### N UM ####[facility] ([id number])[address] [place] [address] [place] [address] BLOOD/HGB SAMAN Negative Normal NEG [facility] Comment on above: Performed By: #### N UM ####[facility] ([id number])[address] [place] [address] [place] [address] GLUCOSE SAMAN Negative Normal NEG [facility] Comment on above: Performed By: #### N UM ####[facility] ([id number])[address] [place] [address] [place] [address] KETONES SAMAN Negative Normal NEG [facility] Comment on above: Performed By: #### N UM ####[facility] ([id number])[address] [place] [address] [place] [address] LEUKOCYTE ESTERASE SAMAN Negative Normal NEG [facility] Comment on above: Performed By: #### N UM ####[facility] ([id number])[address] [place] [address] [place] [address] NITRITE SAMAN Negative Normal NEG [facility] Comment on above: Performed By: #### N UM ####[facility] ([id number])[address] [place] [address] [place] [address] PH SAMAN 7.0 Normal 5.0-8.5 [facility] Comment on above: Performed By: #### N UM ####[facility] ([id number])[address] [place] [address] [place] [address] PROTEIN SAMAN Negative Normal NEG [facility] Comment on above: Performed By: #### N UM ####[facility] ([id number])[address] [place] [address] SPECIFIC GRAVITY SAMAN 1.010 Normal 1.003-1 .03 5 [facility] Comment on above: Performed By: #### N UM ####[facility] ([id number])[address] [place] [address]269 UROBILINOGEN SAMAN 0.2 eu/dL Normal <1.1 [facility] Comment on above: Performed By: #### N UM ####[facility] ([id number])[address] [place] [address]20 aPTT Coag (PPP) [Time]on aPTT Coag (Bld) [Time] 34 s Normal 26-37 [facility] Comment on above: Result Comment: NEW REFERENCE RANGE Performed By: #### C BCA, PINR, 53713-1, BMP, 94148-4 #### [facility] ([id number]) [address] [place] [address]27 THYROID PROFILEon 05-24-2024 Free T4 [Mass/Vol] 0.81 ng/dL Normal 0.61-1.60 [facility] Comment on above: Performed By: #### T HYR #### [facility] ([id number]) [address] [place] [address], [address] [place] [address] TSH 4.17 uIU/mL Normal 0.49-4.67 [facility] Comment on above: Performed By: #### T HYR #### [facility] ([id number]) [address] [place] [address], [address] [place] [address] US PELVIS TRANSVAGINALon US PELVIS TRANSVAGINAL TITLE [...] report is generated using voice recognition reporting (Digicompanion). On occasion [employer]ve[employer] erroneously drops words from the report or replaces the spoken word with similar sounding words. Please call with any questions/concerns regarding this report.* Dictated and transcribed 05/05/2024/tm This report has been electronically signed and [...] IS VERY IMPORTANT TO YOUR HEALTH. THE [employer] GUIDELINES RECOMMEND THAT WOMEN 40 [...] Free T4 [Mass/Vol] 0.69 ng/dL Normal 0.61-1.60 [facility] Comment on above: Performed By: #### T [facility], 3024-7 #### [facility] ([id number]) [address], [address] [place] [address] TSH WITH REFLEXon 03-02-2024 TSH 4.80 uIU/mL High 0.49-4.67 [facility] Comment on above: Performed By: #### T SHR, 7 #### [facility] ([id number]) [address], [address] [place] [address] CBC AND AUTO DIFFon 11-26-19 24 ABSOLUTE BASOPHIL 0.1 X10E9/L Normal 0.0-0.2 [facility] Comment on above: Performed By: #### C BCA, CMP, 77018-8, TSHR, 3024-03, 2132-05, 58679-5 #### [facility] ([id number]) [address], [address] [place] [address] ABSOLUTE NEUTROPHIL 4.2 X10E9/L Normal 1.5-6.6 [facility] Comment on above: Performed By: #### C BCA, CMP, 90723-2, TSHR, 3024-03, 2132-05, 65676-0 #### [facility] ([id number]) [address], [address] [place] [address] Basophils/100 WBC (Bld) 1.2 % Normal [facility] Comment on above: Performed By: #### C BCA, CMP, 29447-5, TSHR, 3024-03, 2132-05, 60589-8 #### [facility] ([id number]) [address], [address] [place] [address] Eosinophils (Bld) [#/Vol] 0.3 10*3/uL Normal 0.0-0.4 [facility] Comment on above: Performed By: #### C BCA, CMP, 62506-2, TSHR, 3024-03, 2132-05, 94817-5 #### [facility] ([id number]) [address], [address] [place] [address] Eosinophils/100 WBC (Bld) 3.6 % Normal [facility] Comment on above: Performed By: #### C BCA, CMP, 28647-5, TSHR, 3024-7, 2132-05, 85416-5 #### [facility] ([id number]) [address], [facility] [address] [place] [address] Erythrocyte distribution width (RBC) [Ratio] 13.9 % Normal 11.5-15.0 [facility] Comment on above: Performed By: #### C BCA, CMP, 04233-1, TSHR, 3023-7, 2132-05, 43709-5 #### [facility] ([id number]) [address] [address] [place] [address] Hematocrit (Bld) [Volume fraction] 39.4 % Normal 35-47 [facility] Comment on above: Performed By: #### C BCA, CMP, 57245-3, TSHR, 7, 2132-05, 54549-7 #### [facility] ([id number]) [address] [address] [place] [address] Hemoglobin (Bld) [Mass/Vol] 13.3 g/dL Normal 11.7-15.5 [facility] Comment on above: Performed By: #### C BCA, CMP, 70807-0, TSHR, 7, 2132-05, 81521-5 #### [facility] ([id number]) [address] [address] Lymphocytes (Bld) [#/Vol] 2.3 10*3/uL Normal 1.0-3.5 [facility] Comment on above: Performed By: #### C BCA, CMP, 11424-4, TSHR, 3023-7, 2132-05, 92282-1 #### [facility] ([id number]) [address] [address] [place] [address] Lymphocytes/100 WBC (Bld) 30.9 % Normal [facility] Comment on above: Performed By: #### C BCA, CMP, 97632-1, TSHR, 3023-7, 2132-05, 91145-9 #### [facility] ([id number]) [address], [address] [place] [address] MCH (RBC) [Entitic mass] 28.6 pg Normal 27-34 [facility] Comment on above: Performed By: #### C BCA, CMP, 78323-3, TSHR, 3023-7, 2132-05, 84649-4 #### [facility] ([id number]) [address], [address] [place] [address] MCHC (RBC) [Mass/Vol] 33.6 g/dL Normal 32-36 [facility] Comment on above: Performed By: #### C BCA, CMP, 59952-2, TSHR, 7, 2132-05, 35191-3 #### [facility] ([id number]) [address], [address] [place] [address] MCV (RBC) [Entitic vol] 85 fL Normal 80-100 [facility] Comment on above: Performed By: #### C BCA, CMP, 06993-1, TSHR, 3023-7, 2132-05, 90919-2 #### [facility] ([id number]) [address], [address] [place] [address] Monocytes (Bld) [#/Vol] 0.5 10*3/uL Normal 0-0.9 [facility] Comment on above: Performed By: #### C BCA, CMP, 53042-3, TSHR, 3023-7, 2132-05, 55329-0 #### [facility] ([id number]) [address], [address] [place] [address] Monocytes/100 WBC (Bld) 6.3 % Normal [facility] Comment on above: Performed By: #### C BCA, CMP, 54479-6, TSHR, 3024-7, 9, 38630-5 #### [facility] ([id number]) [address], [address] [place] [address] Neutrophils/100 WBC (Bld) 58.0 % Normal [facility] Comment on above: Performed By: #### C BCA, CMP, 18380-3, TSHR, 302-7, 9, 84418-6 #### [facility] ([id number]) [address], [address] [place] [address] Platelet mean volume (Bld) [Entitic vol] 8.7 fL Normal 7-12 [facility] Comment on above: Performed By: #### C BCA, CMP, 27753-0, TSHR, 3023-7, 2132-05, 41568-4 #### [facility] ([id number]) [address], [address] [place] [address] Platelets (Bld) [#/Vol] 278 10*3/uL Normal 150-450 [facility] Comment on above: Performed By: #### C BCA, CMP, 78706-4, TSHR, 3023-7, 2132-05, 11566-4 #### [facility] ([id number]) [address], [address] [place] [address] RBC COUNT 4.63 X10E12/L Normal 3.80-5.20 [facility] Comment on above: Performed By: #### C BCA, CMP, 45603-5, TSHR, 4-7, 9, 53165-3 #### [facility] ([id number]) [address], [address] [place] [address] WBC (Bld) [#/Vol] 7.3 10*3/uL Normal 4.0-11.0 [facility] Comment on above: Performed By: #### C BCA, CMP, 93039-4, TSHR, 3024-7, 2132-9, 71560-7 #### [facility] ([id number]) [address], [address] [place] [address] COMPREHENSIVE METABOLIC PANE John 11-26-2023 Albumin [Mass/Vol] 4.2 g/dL Normal 3.2-5.3 [facility] Comment on above: Performed By: #### C BCA, CMP, 42472-1, TSHR, 3024-7, 2131-9, 94983-7 #### [facility] ([id number]) [address], [address] [place] [address] ALP [Catalytic activity/Vol] 92 U/L Normal 39-130 [facility] Comment on above: Performed By: #### C BCA, CMP, 53310-7, TSHR, 3024-7, 2131-9, 40655-7 #### [facility] ([id number]) [address], [address] [place] [address] ALT [Catalytic activity/Vol] 27 U/L Normal 0-31 [facility] Comment on above: Performed By: #### C BCA, CMP, 91812-1, TSHR, 3024-7, 2131-9, 11142-3 #### [facility] ([id number]) [address], [address] [place] [address] Anion gap [Moles/Vol] 11 mmol/L Normal 5-15 [facility] Comment on above: Performed By: #### C BCA, CMP, 45612-2, TSHR, 3024-7, 2-9, 97748-3 #### [facility] ([id number]) [address], [address] [place] [address] AST [Catalytic activity/Vol] 27 U/L Normal 0-41 [facility] Comment on above: Performed By: #### C BCA, CMP, 94660-0, TSHR, 3024-7, 2131-9, 83413-0 #### [facility] ([id number]) [address], [address] [place] [address] Bilirubin [Mass/Vol] 0.4 mg/dL Normal 0.3-1.2 [facility] Comment on above: Performed By: #### C BCA, CMP, 35608-5, TSHR, 4-7, 9, 55789-3 #### [facility] ([id number]) [address], [address] [place] [address] Calcium [Mass/Vol] 9.0 mg/dL Normal 8.5-10.5 [facility] Comment on above: Performed By: #### C BCA, CMP, 48151-8, TSHR, 3023-7, 9, 15956-0 #### [facility] ([id number]) [address], [address] [place] [address] Chloride [Moles/Vol] 103 mmol/L Normal 98-109 [facility] Comment on above: Performed By: #### C BCA, CMP, 23082-3, TSHR, 3023-7, 9, 86682-3 #### [facility] ([id number]) [address], [address] [place] [address] CO2 [Moles/Vol] 24 mmol/L Normal 22-32 [facility] Comment on above: Performed By: #### C BCA, CMP, 81372-3, TSHR, 3024-7, 2131-9, 89464-8 #### [facility] ([id number]) [address], [address] [place] [address] Creatinine [Mass/Vol] 0.92 mg/dL Normal 0.40-1.00 [facility] Comment on above: Result Comment: METH OD TRACEABLE TO IDMS STANDARD Performed By: #### C BCA, CMP, 69135-3, TSHR, 3024-7, 2132-05, 56238-4 #### [facility] ([id number]) [address], [facility] [address] [place] [address] GFR/1.73 sq M.predicted among non-blacks MDRD (S/P/Bld) [Vol rate/Area] 82 mL/min/{1.73_m2} Normal >59 [facility] Comment on above: Result Comment: Reported eGFR is based on the CKD-EPI 2020 equation that does not use a race coefficient. Performed By: #### C BCA, CMP, 27179-5, TSHR, 3024-03, 2132-05, 49731-4 #### [facility] ([id number]) [address], [address] [address] Glucose [Mass/Vol] 96 mg/dL Normal 65-99 [facility] Comment on above: Performed By: #### C BCA, CMP, 56649-8, TSHR, 3024-03, 2132-05, 29733-3 #### [facility] ([id number]) [address], [address] [place] [address] Potassium [Moles/Vol] 3.8 mmol/L Normal 3.5-5.0 [facility] Comment on above: Performed By: #### C BCA, CMP, 58646-4, TSHR, 3024-03, 2132-05, 92473-4 #### [facility] ([id number]) [address], [address] [place] [address] Protein [Mass/Vol] 7.2 g/dL Normal 6.0-8.0 [facility] Comment on above: Performed By: #### C BCA, CMP, 66101-6, TSHR, 3024-03, 2132-05, 50851-6 #### [facility] ([id number]) [address], [address] [place] [address] Sodium [Moles/Vol] 138 mmol/L Normal 134-146 [facility] Comment on above: Performed By: #### C BCA, CMP, 89390-5, TSHR, 4-7, 9, 80069-2 #### [facility] ([id number]) [address], [address] [place] [address] Urea nitrogen [Mass/Vol] 14 mg/dL Normal 5-23 [facility] Comment on above: Performed By: #### C BCA, CMP, 86587-7, TSHR, 4-7, 9, 89116-4 #### [facility] ([id number]) [address], [address] [place] [address] FREE T4on 11-26-2023 Free T4 [Mass/Vol] 0.75 ng/dL Normal 0.61-1.60 [facility] Comment on above: Performed By: #### C BCA, CMP, 41709-2, TSHR, 3023-7, 9, 11301-9 #### [facility] ([id number]) [address], [address] [place] [address] HGB A1C (GLYCO-HGB)on 2023 Glucose [Mass/Vol] 117 mg/dL Normal [facility] Comment on above: Performed By: #### C BCA, CMP, 48280-5, TSHR, 4-7, 9, 71682-4 #### [facility] ([id number]) [address], [address] [place] [address] HbA1c (Bld) [Mass fraction] 5.7 % High 4.4-5.6 [facility] Comment on above: Result Comment: NOTE ADA Guidelines Result HgbA1c Normal : less than 5.7 % Prediabetes : 5.7 % to 6.4 % Diabetes : > 6.4 % Use with caution in patients with abnormal hemoglobin variants as the half-life of red blood cells and in vivo glycation rates are affected. Performed By: #### C BCA, CMP, 37428-6, TSHR, 3024-7, 2131-9, 00829-1 #### [facility] ([id number]) [address], [address] [place] [address] Lipid 1996 panelon 4 Cholesterol [Mass/Vol] 202 mg/dL High 150-200 [facility] Comment on above: Performed By: #### C BCA, CMP, 82490-6, TSHR, 3024-7, 2131-9, 44860-5 #### [facility] ([id number]) [address], [address] [place] [address] Cholesterol in HDL [Mass/Vol] 51 mg/dL Normal >39 [facility] Comment on above: Result Comment: HDL <40 mg/dL - High Risk HDL > or = 40mg/dL- Desirable HDL >60 mg/dL - Negative Risk Performed By: #### C BCA, CMP, 61264-0, TSHR, 4-7, 9, 46188-7 #### [facility] ([id number]) [address], [address] [place] [address] Cholesterol in LDL [Mass/Vol] 117 mg/dL Normal <130 [facility] Comment on above: Result Comment: LDL <100 mg/dL - Desirable LDL >160 mg/dL - High Risk Performed By: #### C BCA, CMP, 19922-0, TSHR, 3024-7, 2-9, 80297-3 #### [facility] ([id number]) [address], [address] [place] [address] Cholesterol in VLDL [Mass/Vol] 34 mg/dL High 0-30 [facility] Comment on above: Performed By: #### C BCA, CMP, 14722-9, TSHR, 3024-7, 9, 23316-6 #### [facility] ([id number]) [address], [address] [place] [address] CHOLESTEROL:HDL 4.0 Normal 1.0-5.0 [facility] Comment on above: Performed By: #### C BCA, CMP, 54644-4, TSHR, 3023-7, 9, 12698-9 #### [facility] ([id number]) [address], [address] [place] [address] Triglyceride [Mass/Vol] 171 mg/dL High 27-150 [facility] Comment on above: Performed By: #### C BCA, CMP, 57762-1, TSHR, 3023-7, 2132-05, 53701-8 #### [facility] ([id number]) [address], [address] [place] [address] TSH WITH REFLEXon 11-26-2023 TSH 6.46 uIU/mL High 0.49-4.67 [facility] Comment on above: Performed By: #### C BCA, CMP, 04353-8, TSHR, 3023-7, 2132-05, 00119-0 #### [facility] ([id number]) [address], [address] [place] [address] VITAMIN B12on 11-26-2023 Cobalamin (Vitamin B12) [Mass/Vol] 415 pg/mL Normal 180-914 [facility] Comment on above: Performed By: #### C BCA, CMP, 75036-5, TSHR, 3023-7, 9, 21088-0 #### [facility] ([id number]) [address], [address] [place] [address] Vitamin D+Metabolites [Mass/ Vol]on 11-26-2023 VITAMIN D 25 HYD TOT 18.4 ng/mL Low 30-100 [facility] Comment on above: Result Comment: Vitamin D status 25 [place] Vitamin D Deficiency <20 ng/mL Insufficiency 20-29 ng/mL Sufficiency 30-100 ng/mL Toxicity >100 ng/mL NOTE: A pediatric reference range has not been established by the senior administrator support of this kit. The [place] [employer] recommends a Vitamin D level of = or >20ng/mL in infants and children. Performed By: #### C BCA, CMP, 61447-3, TSHR, 3024-7, 2132-9, 72976-5 #### [facility] ([id number]) [address] [facility], [address] [place] [address] XR SHOULDER LEFT (MIN 2 VIEW S)on [...] Edilma Richter MD 09/01/23 Final result Normal [facility] SCREENING MAMMOGRAM W/DAYDAY, BILATERAL*on 07-18-2022 SCREENING [...] VERY IMPORTANT TO YOUR HEALTH. THE CURRENT [employer] [employer]WORK GUIDELINES RECOMMENDS ANNUAL MAMMOGRAPHY BEGINNING AT AGE 40 THIS FACILITY USES A REMINDER SYSTEM TO ENSURE ALL PATIENTS RECEIVE REMINDER NOTIFICATIONS AT THE APPROPRIATE TIME BASED ON THE RECOMMENDATIONS OF THIS EXAM. Report reported and signed by Rudolph Dixon on 07/22/[address] [facility] Customs Inspector Basic Metabolic Panel w/ Ref whitney to MGon 02-07-2022 Anion gap [Moles/Vol] 8 mmol/L Low 9 - 17 mmol/L [facility] Calcium [Mass/Vol] 8.8 mg/dL 8.6 - 10. 4 mg/dL [facility] Chloride [Moles/Vol] 105 mmol/L 98 - 10 7 mmol/L [facility] CO2 [Moles/Vol] 25 mmol/L 20 - 31 mmol/L [facility] Creatinine [Mass/Vol] 0.83 mg/dL 0.50 - 0.90 mg/dL [facility] GFR >60 >60 mL/min [facility] GFR Non- >60 >60 mL/min [facility] GFR/1.73 sq M.predicted MDRD (S/P/Bld) [Vol rate/Area] [facility] Comment on above: Average GFR for 30-3 9 years old: 107 mL/min/1.73sq m Chronic Kidney Disease: <60 mL/min/1.73sq m Kidney failure: <15 mL/min/1.73sq m eGFR calculated using average adult body mass. Additional eGFR calculator available at: http://www.eShares.[employer]/multiple_crcl_2012.htm Glucose [Mass/Vol] 105 mg/dL High 70 - 99 mg/dL [facility] Interpretation and review of laboratory results Abnormal [facility] Potassium [Moles/Vol] 4.1 mmol/L 3.7 - 5.3 mmol/L [facility] Sodium [Moles/Vol] 138 mmol/L 135 - 144 mmol/L [facility] Urea nitrogen (BldV) [Mass/Vol] 12 mg/dL 6 - 20 mg/dL [facility] CBC with Auto Differentialon 02-07-2022 Absolute Eos # 0.40 [facility] Absolute Lymph # 2.20 [facility] SECO URS [facility] Absolute [place] # 0.40 [facility] Basophils (Bld) [#/Vol] 0.00 10*3/uL [facility] Basophils/100 WBC (Bld) 1 % 0 - 2 % [facility] Eosinophils/100 WBC (Bld) 5 % High 0 - 4 % [facility] Hematocrit (Bld) [Volume fraction] 37.5 % 36 - 46 % [facility] Hemoglobin.gastrointe stinal spec 1 Ql (Stl) 12.7 g/dL 12.0 - 16.0 g/dL [facility] Interpretation and review of laboratory results Abnormal [facility] Lymphocytes/100 WBC (Bld) 32 % 24 - 44 % [facility] MCH (RBC) [Entitic mass] 28.7 pg 26 - 34 pg [facility] MCHC (RBC) [Mass/Vol] 33.9 g/dL 31 - 3 7 g/dL [facility] MCV (RBC) [Entitic vol] 84.8 fL 80 - 100 fL [facility] Monocytes/100 WBC (Bld) 6 % 1 - 7 % [facility] Platelet distribution width (Bld) [Ratio] 14.6 % 11.5 - 14.9 % [facility] Platelet mean volume (Bld) [Entitic vol] 8.0 fL 6.0 - 12.0 fL [facility] Platelets (Bld) [#/Vol] 280 10*3/uL [facility] RBC (Bld) [#/Vol] 4.42 10*6/uL 4.0 - 5.2 m/uL [facility] Segmented neutrophils/100 WBC (Bld) 56 % 36 - 66 % [facility] Segs Absolute 3.90 [facility] WBC (Bld) [#/Vol] 7.0 10*3/uL [facility] Hepatic Function Panelon Albumin [Mass/Vol] 3.7 g/dL 3.5 - 5.2 g/dL [facility] ALP (Bld) [Catalytic activity/Vol] 90 U/L 35 - 104 U/L [facility] ALT [Catalytic activity/Vol] 12 U/L 5 - 33 U/L [facility] AST [Catalytic activity/Vol] 13 U/L <32 [facility] Bilirubin [Mass/Vol] mg/dL Low 0.3 - 1 .2 mg/dL [facility] Bilirubin, Indirect Can not be calculated 0.00 - 1.00 mg/dL [facility] Bilirubin.indirect [Mass/Vol] mg/dL <0.31 mg/dL [facility] Free PSA/Total PSA [Mass fraction] 6.4 g/dL 6.4 - 8.3 g/dL [facility] Interpretation and review of laboratory results Abnormal [facility] SURGICAL PATHOLOGY REPORTon 02-07-2022 Surgical Pathology Report [...] GASTRIC BODY BIOPSY Gross Description A. DYAN EDGEZZO, FUNDIC POLYP One joy-white tissue fragment, 0.3 x 0.2 x 0.2 cm. Entirely 1cs. B. DYAN EDGEZZO, GE JUNCTION Five joy-white tissue fragments from 0.2 to 0.4 cm and are 1.0 x 0.8 x 0.2 cm in aggregate. Entirely 1cs. C. DYAN EDGEZZO, GASTRIC BODY BIOPSY One joy-white tissue fragment, 0.3 x 0.2 x 0.1 cm. Entirely 1cs. mpb tm Microscopic Description A-C. Microscopic examination performed. SURGICAL PATHOLOGY CONSULTATION Patient Name: DYAN AGUILAR [facility] Rec: [id number] Path Number: [id number] [facility] ANATOMIC PATHOLOGY [address] [place] [address]. [place], [place] [address] [facility] [employer] [facility] Basic Metabolic Panel w/ Ref whitney to MGon 02-06-2022 Anion gap [Moles/Vol] 8 mmol/L Low 9 - 17 mmol/L [facility] [employer] Calcium [Mass/Vol] 8.8 mg/dL 8.6 - 10. 4 mg/dL [facility] [employer] Chloride [Moles/Vol] 106 mmol/L 98 - 10 7 mmol/L [facility] [employer] CO2 [Moles/Vol] 27 mmol/L 20 - 31 mmol/L [facility] [employer] [facility] Creatinine [Mass/Vol] 0.78 mg/dL 0.50 - 0.90 mg/dL [facility] GFR >60 >60 mL/min [facility] GFR Non- >60 >60 mL/min [facility] [employer] [facility] GFR/1.73 sq M.predicted MDRD (S/P/Bld) [Vol rate/Area] [facility] Comment on above: Average GFR for 30-3 9 years old: 107 mL/min/1.73sq m Chronic Kidney Disease: <60 mL/min/1.73sq m Kidney failure: <15 mL/min/1.73sq m eGFR calculated using average adult body mass. Additional eGFR calculator available at: http://www.eShares.com/multiple_crcl_2012.htm Glucose [Mass/Vol] 94 mg/dL 70 - 99 mg/dL [facility]in[facility]: [employer] Potassium [Moles/Vol] 4.2 mmol/L 3.7 - 5.3 mmol/L [facility] Sodium [Moles/Vol] 141 mmol/L 135 - 144 mmol/L [facility] [employer] Urea nitrogen (BldV) [Mass/Vol] 9 mg/dL 6 - 20 mg/dL [facility] CBC with Auto Differentialon 02-06-2022 Absolute Eos # 0.50 High [facility] Absolute Lymph # 2.30 [facility] [facility] Absolute [place] # 0.40 [facility] RS [facility] Basophils (Bld) [#/Vol] 0.00 10*3/uL [facility] Basophils/100 WBC (Bld) 1 % 0 - 2 % [facility] Eosinophils/100 WBC (Bld) 8 % High 0 - 4 % [facility] Hematocrit (Bld) [Volume fraction] 39.4 % 36 - 46 % [facility] Hemoglobin.gastrointe stinal spec 1 Ql (Stl) 13.4 g/dL 12.0 - 16.0 g/dL [facility] Interpretation and review of laboratory results Abnormal [facility] Lymphocytes/100 WBC (Bld) 34 % 24 - 44 % [facility] MCH (RBC) [Entitic mass] 28.6 pg 26 - 34 pg [facility] MCHC (RBC) [Mass/Vol] 34.0 g/dL 31 - 3 7 g/dL [facility] MCV (RBC) [Entitic vol] 84.3 fL 80 - 100 fL [facility] Monocytes/100 WBC (Bld) 6 % 1 - 7 % [facility] Platelet distribution width (Bld) [Ratio] 14.5 % 11.5 - 14.9 % [facility] Platelet mean volume (Bld) [Entitic vol] 7.9 fL 6.0 - 12.0 fL [facility] Platelets (Bld) [#/Vol] 316 10*3/uL [facility] RBC (Bld) [#/Vol] 4.67 10*6/uL 4.0 - 5.2 m/uL [facility] Segmented neutrophils/100 WBC (Bld) 51 % 36 - 66 % [facility] Segs Absolute 3.60 [facility] WBC (Bld) [#/Vol] 6.8 10*3/uL [facility] Hepatic Function Panelon Albumin [Mass/Vol] 4.1 g/dL 3.5 - 5.2 g/dL [facility] ALP (Bld) [Catalytic activity/Vol] 102 U/L 35 - 104 U/L [facility] ALT [Catalytic activity/Vol] 13 U/L 5 - 33 U/L [facility] AST [Catalytic activity/Vol] 17 U/L <32 [facility] Bilirubin [Mass/Vol] 0.17 mg/dL Low 0.3 - 1 .2 mg/dL [facility] Bilirubin, Indirect Can not be calculated 0.00 - 1.00 mg/dL [facility] Bilirubin.indirect [Mass/Vol] mg/dL <0.31 mg/dL [facility] Free PSA/Total PSA [Mass fraction] 6.8 g/dL 6.4 - 8.3 g/dL [facility] No Panel Informationon 02-06 Interpretation and review of laboratory results Abnormal [facility] Basic Metabolic Panel w/ Ref whitney to MGon 02-05-2022 Anion gap [Moles/Vol] 12 mmol/L 9 - 17 mmol/L [facility] Calcium [Mass/Vol] 8.7 mg/dL 8.6 - 10. 4 mg/dL [facility] Chloride [Moles/Vol] 100 mmol/L 98 - 10 7 mmol/L [facility] CO2 [Moles/Vol] 24 mmol/L 20 - 31 mmol/L [facility] Creatinine [Mass/Vol] 0.75 mg/dL 0.50 - 0.90 mg/dL [facility] GFR >60 >60 mL/min [facility] GFR Non- >60 >60 mL/min [facility] GFR/1.73 sq M.predicted MDRD (S/P/Bld) [Vol rate/Area] [facility] Comment on above: Average GFR for 30-3 9 years old: 107 mL/min/1.73sq m Chronic Kidney Disease: <60 mL/min/1.73sq m Kidney failure: <15 mL/min/1.73sq m eGFR calculated using average adult body mass. Additional eGFR calculator available at: http://www.eShares.[employer]/multiple_crcl_2012.htm Glucose [Mass/Vol] 94 mg/dL 70 - 99 mg/dL [facility] Potassium [Moles/Vol] 3.5 mmol/L Low 3.7 - 5.3 mmol/L [facility] Sodium [Moles/Vol] 136 mmol/L 135 - 144 mmol/L [facility] Urea nitrogen (BldV) [Mass/Vol] 9 mg/dL 6 - 20 mg/dL [facility] CBC with Auto Differentialon 02-05-2022 Absolute Eos # 0.40 [facility] Absolute Lymph # 1.90 [facility] Absolute [place] # 0.40 [facility] Basophils (Bld) [#/Vol] 0.00 10*3/uL [facility] Basophils/100 WBC (Bld) 1 % 0 - 2 % [facility] Eosinophils/100 WBC (Bld) 5 % High 0 - 4 % [facility] Hematocrit (Bld) [Volume fraction] 37.9 % 36 - 46 % [facility] Hemoglobin.gastrointe stinal spec 1 Ql (Stl) 13.4 g/dL 12.0 - 16.0 g/dL [facility] Interpretation and review of laboratory results Abnormal [facility] Lymphocytes/100 WBC (Bld) 27 % 24 - 44 % [facility] MCH (RBC) [Entitic mass] 29.3 pg 26 - 34 pg [facility] MCHC (RBC) [Mass/Vol] 35.2 g/dL 31 - 3 7 g/dL [facility] MCV (RBC) [Entitic vol] 83.3 fL 80 - 100 fL [facility] Monocytes/100 WBC (Bld) 5 % 1 - 7 % [facility] Platelet distribution width (Bld) [Ratio] 14.6 % 11.5 - 14.9 % [facility] Platelet mean volume (Bld) [Entitic vol] 7.7 fL 6.0 - 12.0 fL [facility] Platelets (Bld) [#/Vol] 301 10*3/uL [facility] RBC (Bld) [#/Vol] 4.55 10*6/uL 4.0 - 5.2 m/uL [facility] Segmented neutrophils/100 WBC (Bld) 62 % 36 - 66 % [facility] Segs Absolute 4.40 [facility] WBC (Bld) [#/Vol] 7.1 10*3/uL [facility] CT ABDOMEN PELVIS W IV CONTR AST Additional Contrast? Noneon 02-05-2022 Hepatomegaly with po ssible mild steatosis. Minimal sigmoid diverticulosis. 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 [facility] Chan Olivas MD - 02/05/2022 EXAMINATION: CT OF THE [...] with possible mild steatosis. Minimal sigmoid diverticulosis. [facility] Work Phone: CT ABDOMEN PELVIS W IV CONTR AST Additional Contrast? NoneOrdered By: Chan Olivas on 02-05-2022 [facility] Work Phone: Hepatic Function Panelon Albumin [Mass/Vol] 4.1 g/dL 3.5 - 5.2 g/dL [facility] ALP (Bld) [Catalytic activity/Vol] 105 U/L High 35 - 104 U/L [facility] ALT [Catalytic activity/Vol] 16 U/L 5 - 33 U/L [place] [facility] AST [Catalytic activity/Vol] 20 U/L <32 [facility] Bilirubin [Mass/Vol] 0.19 mg/dL Low 0.3 - 1 .2 mg/dL [facility] Bilirubin, Indirect Can not be calculated 0.00 - 1.00 mg/dL [place] [facility] Bilirubin.indirect [Mass/Vol] mg/dL <0.31 mg/dL [facility] Free PSA/Total PSA [Mass fraction] 7.0 g/dL 6.4 - 8.3 g/dL [facility] Magnesiumon 02-05-2022 Magnesium [Mass/Vol] 2.0 mg/dL 1.6 - 2 .6 mg/dL [facility] NM HEPATOBILIARYon No acute cholecystit is. Gallbladder ejection fraction is approximately 34%. [facility] CONSOLIDATED EXAMINATION: NUCLEAR MEDICINE HEPATOBILIARY SCINTIGRAPHY (HIDA SCAN) WITH EJECTION FRACTION. TECHNIQUE: Approximately 5.4 millicuries Tc99m Mebrofenin (Choletec) was administered IV. Then, dynamic images of the abdomen were obtained in the anterior projection for 60 mins. Due to a shortage/inavailability of CCK, one can (237 ml) Ensure plus was substitued orally. Images were obtained in the [place] projection and regions of interest were drawn [...] range is based on a limited study. [facility] Clement Shultz MD - 02/05/2022 EXAMINATION: NUCLEAR MEDICINE HEPATOBILIARY SCINTIGRAPHY (HIDA SCAN) WITH EJECTION FRACTION. TECHNIQUE: Approximately 5.4 millicuries Tc99m Mebrofenin (Choletec) was administered IV. Then, dynamic images of the abdomen were obtained in the anterior projection for 60 mins. Due to a shortage/inavailability of CCK, one can (237 ml) Ensure plus was substitued orally. Images were obtained in the [place] projection and regions of interest were drawn [...] cholecystitis. Gallbladder ejection fraction is approximately 34%. Remote Assistant Phone: Radiology Study observation (narrative) Remote Assistant Phone: NM HEPATOBILIARYOrdered By: Clement Elder on 02-05-2022 [facility] Work Phone: No Panel Informationon 02-05 Interpretation and review of laboratory results Abnormal [employer] [facility] US GALLBLADDER RUQon 022 Pancreas/right kidne y: Limited visualization/assessment Increased echogenicity of the hepatic parenchyma suggests steatosis Otherwise unremarkable right upper quadrant sonogram RECOMMENDATIONS: Unavailable [facility] CON[facility] EXAMINATION: RIGHT UPPER QUADRANT ULTRASOUND 02/05/2022 [...] No evidence of right upper quadrant ascites. [facility] Rosangela Cortes M D - 02/05/2022 [...] unremarkable right upper quadrant sonogram RECOMMENDATIONS: Unavailable [facility] Work Phone: Radiology Study observation (narrative) Remote Assistant Phone: US GALLBLADDER RUQOrdered By : Rosangela Cortes on 02-05-2022 [facility] Work Phone: CBC with Auto Differentialon 02-04-2022 Absolute Eos # 0.10 [facility] Absolute Lymph # 2.00 [facility] Absolute [place] # 0.50 [facility] Basophils (Bld) [#/Vol] 0.10 10*3/uL [facility] Basophils/100 WBC (Bld) 1 % 0 - 2 % [facility] Eosinophils/100 WBC (Bld) 1 % 0 - 4 % [facility] Hematocrit (Bld) [Volume fraction] 40.9 % 36 - 46 % [facility] Hemoglobin.gastrointe stinal spec 1 Ql (Stl) 14.0 g/dL 12.0 - 16.0 g/dL [facility] Interpretation and review of laboratory results Abnormal [facility] Lymphocytes/100 WBC (Bld) 17 % Low 24 - 44 % [facility] MCH (RBC) [Entitic mass] 28.6 pg 26 - 34 pg [facility] MCHC (RBC) [Mass/Vol] 34.3 g/dL 31 - 3 7 g/dL [facility] MCV (RBC) [Entitic vol] 83.3 fL 80 - 100 fL [facility] Monocytes/100 WBC (Bld) 4 % 1 - 7 % [facility] Platelet distribution width (Bld) [Ratio] 14.7 % 11.5 - 14.9 % [facility] Platelet mean volume (Bld) [Entitic vol] 8.2 fL 6.0 - 12.0 fL [facility] Platelets (Bld) [#/Vol] 350 10*3/uL [facility] RBC (Bld) [#/Vol] 4.91 10*6/uL 4.0 - 5.2 m/uL [facility] Segmented neutrophils/100 WBC (Bld) 77 % High 36 - 66 % [facility] Segs Absolute 9.00 [facility] WBC (Bld) [#/Vol] 11.7 10*3/uL High [facility]ili [facility] ABDOMEN PELVIS W IV CONTR AST Additional Contrast? Noneon 02-04-2022 Radiology Study observation (narrative) [facility] Work Phone: Comprehensive Metabolic Pane john 02-04-2022 Albumin [Mass/Vol] 4.8 g/dL 3.5 - 5.2 g/dL [facility] Citizen.VC ALP (Bld) [Catalytic activity/Vol] 120 U/L High 35 - 104 U/L [facility] ALT [Catalytic activity/Vol] 18 U/L 5 - 33 U/L [facility] Citizen[employer]VC Anion gap [Moles/Vol] 12 mmol/L 9 - 17 mmol/L [facility] [employer] AST [Catalytic activity/Vol] 23 U/L <32 [facility] Citizen[employer]VC Bilirubin [Mass/Vol] 0.16 mg/dL Low 0.3 - 1 .2 mg/dL [facility] [employer] Calcium [Mass/Vol] 9.9 mg/dL 8.6 - 10. 4 mg/dL [facility] Chloride [Moles/Vol] 98 mmol/L 98 - 10 7 mmol/L [facility] [employer] CO2 [Moles/Vol] 28 mmol/L 20 - 31 mmol/L [facility] Creatinine [Mass/Vol] 1 mg/dL High 0.50 - 0.90 mg/dL [facility] Free PSA/Total PSA [Mass fraction] 7.9 g/dL 6.4 - 8.3 g/dL [facility] Citizen[employer]VC GFR >60 >60 mL/min [facility] GFR Non- >60 >60 mL/min [facility] [facility] GFR/1.73 sq M.predicted MDRD (S/P/Bld) [Vol rate/Area] [facility] Comment on above: Average GFR for 30-3 9 years old: 107 mL/min/1.73sq m Chronic Kidney Disease: <60 mL/min/1.73sq m Kidney failure: <15 mL/min/1.73sq m eGFR calculated using average adult body mass. Additional eGFR calculator available at: http://www.[employer]/multiple_crcl_2011.htm Glucose [Mass/Vol] 115 mg/dL High 70 - 99 mg/dL [facility] Interpretation and review of laboratory results Abnormal [facility] Potassium [Moles/Vol] 3.7 mmol/L 3.7 - 5.3 mmol/L [facility] Sodium [Moles/Vol] 138 mmol/L 135 - 144 mmol/L [facility] Urea nitrogen (BldV) [Mass/Vol] 13 mg/dL 6 - 20 mg/dL [facility] HCG Qualitative, Serumon hCG Qual Negative NEGATIVE [facility] Comment on above: Specimens with hCG l evels near the threshold of the test (25 mIU/mL) may give a negative or indeterminate result. In such cases, another test should be performed with a new specimen in 48-72 hours. If early is suspected clinically in this setting, correlation with quantitative serum b-hCG level is suggested. [facility] Lipaseon 02-04-2022 Lipase [Catalytic activity/Vol] 41 U/L 13 - 60 U/L [facility] Microscopic Urinalysison Bacteria, UA FEW Abnormal None [facility] Casts UA 0 TO 2 /LPF [facility] Epithelial Cells UA 3 to 5 /HPF [facility] Interpretation and review of laboratory results Abnormal [facility] RBC, UA 0 TO 2 /HPF [facility] WBC, UA 3 to 5 /HPF [facility] No Panel Informationon 02-04 [facility] Urinalysis with Reflex to Cu ltureon 02-04-2022 Bilirubin Urine Negative NEGATIVE [facility] Color, UA Yellow Yellow [facility] Glucose, Ur Negative NEGATIVE [facility] Interpretation and review of laboratory results Abnormal [facility] Ketones Ql (U) TRACE Abnormal [facility] Leukocyte esterase Test strip Ql (U) SMALL Abnormal NEGATIVE [facility] Nitrite, Urine Negative NEGATIVE [facility] pH, UA 6.5 [facility] Protein, UA Negative NEGATIVE [facility] Specific [place], UA 1.018 [facility] Turbidity UA Cloudy Abnormal Clear [facility] Urine Hgb Negative NEGATIVE [facility] Urobilinogen, Urine Normal Normal [facility] US Gallbladderon 01-23-2022 US Gallbladder FINDINGS: The [...] by Rudolph Dixon on 01/23/[address] 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 ADMIT [...] [place] Date Saved: 06/29/2018 12:10 pm [facility] Provider [place] 06-14-2018 Protein mass conc [id number] [facility] .Auto Diff 1on 06-11-2018 Auto Baso % 0.6 % Normal 0.2-2.0 [facility] Comment on above: Performed By: #### 1 8748503, 0742670695, 0432346, 3262988059, 4671298, 6793168 ####[facility] (DEFAULT)[address] [place] [address] Auto [place] % 6 % Normal - [facility] Comment on above: Performed By: #### 1 2632089, 8920882659, 3301516, 5433845406, 2016764, 7471147 ####[facility] (DEFAULT)[address] [place] [address] 17284 Auto Neut % 59 % Normal 44-88 [facility] Comment on above: Performed By: #### 1 0604848, 6386568097, 8023977, 2678077319, 1895502, 4630040 ####[facility] (DEFAULT)[address] [place] [address] Baso Abs# 0.0 x10 Normal 0.0-0.2 [facility] Comment on above: Performed By: #### 1 3687441, 5577440376, 1269539, 0367688849, 8000219, 4273886 ####[facility] (DEFAULT)[address] [place] [address] Eos Abs# 0.2 x10 Normal 0.0-0.4 [facility] Comment on above: Performed By: #### 1 8366644, 1833860274, 5675159, 2510617882, 8904360, 7127212 ####[facility] (DEFAULT)[address] [place] [address] 62299 Eosinophils/100 WBC Auto (Bld) 2.9 % Normal 0.9-4.0 [facility] Comment on above: Performed By: #### 1 0988859, 3608790888, 5328974, 7972719498, 8238138, 8361560 ####[facility] (DEFAULT)[address] [place] [address] 19181 Lymphocytes Auto #/vol (Bld) 2.2 x10 Normal 1.3-2.9 [facility] Comment on above: Performed By: #### 1 8107181, 2425061175, 7878921, 9473937779, 4698454, 2387259 ####[facility] (DEFAULT)[address] [place] [address] 21680 Lymphocytes/100 WBC Auto (Bld) 32 % Normal 14-48 [facility] Comment on above: Performed By: #### 1 0685130, 7114341455, 5079962, 4525632951, 0004682, 4806844 ####[facility] (DEFAULT)[address] [place] [address] [place] Abs# 0.4 x10 Normal 0.0-0.8 [facility] Comment on above: Performed By: #### 1 6233914, 0791449543, 2431710, 6132526309, 7604351, 9867264 ####[facility] (DEFAULT)[address] [place] [address] Neut Abs# 4.1 x10 Normal 1.5-9.2 [facility] Comment on above: Performed By: #### 1 9361794, 3173413624, 1971827, 8162344742, 4749203, 9413629 ####[facility] (DEFAULT)[address] [place] [address] CBC w/ Auto Diffon 8 Erythrocyte distribution width Auto Ratio (RBC) 13.0 % Normal 11.5-15.0 [facility] Comment on above: Performed By: #### 1 9348455, 2969498454, 5107811, 9047370202, 7701572, 2107813 ####[facility] (DEFAULT)[address] [place] [address] Hematocrit Auto Volume Fraction (Bld) 40.1 % Normal 33.7-40.4 [facility] Comment on above: Performed By: #### 1 5839760, 9097089990, 1320115, 1324867229, 3614374, 2068325 ####[facility] (DEFAULT)[address] [place] [address] Hemoglobin mass conc (Bld) 14.1 g/dL Normal 11.3-15.9 [facility] Comment on above: Performed By: #### 1 3649068, 4017974723, 5365016, 2307598773, 4238510, 4096285 ####[facility] (DEFAULT)[address] [place] [address] Man Diff? Auto Normal [facility] Comment on above: Performed By: #### 1 8217735, 3136324481, 4474605, 7551166408, 8943714, 1493580 ####[facility] (DEFAULT)[address] [place] [address] MCH Auto Entitic mass (RBC) 30 pg Normal 24-34 [facility] Comment on above: Performed By: #### 1 5433096, 7741545679, 6727188, 4498775265, 3865350, 6256066 ####[facility] (DEFAULT)[address] [place] [address] MCHC Auto mass conc (RBC) 35 g/dL Normal 26-37 [facility] Comment on above: Performed By: #### 1 2047683, 4041922956, 9832175, 8291825299, 8513440, 7026362 ####[facility] (DEFAULT)[address] [place] [address] MCV Auto Entitic volume (RBC) 84 fL Normal 81-100 [facility] Comment on above: Performed By: #### 1 5035465, 4173288770, 0730354, 4057883466, 9170371, 4394510 ####[facility] (DEFAULT)[address] [place] [address] Platelet mean volume Auto Entitic volume (Bld) 10.2 fL Normal 6.3-10.2 [facility] Comment on above: Performed By: #### 1 9928000, 9507973129, 5582968, 6318650574, 3812876, 8038174 ####[facility] (DEFAULT)[address] [place] [address] Platelets Auto #/vol (Bld) 289 x10 Normal 138-427 [facility] Comment on above: Performed By: #### 1 4502038, 7194672741, 5536770, 8314043636, 6607395, 3200109 ####[facility] (DEFAULT)[address] [place] [address] RBC Auto #/vol (Bld) 4.76 x10 Normal 3.70-5.30 [facility] Comment on above: Performed By: #### 1 4323205, 6107254904, 7409397, 1432549791, 9194729, 3951320 ####[facility] (DEFAULT)[address] [place] [address] 19250 WBC Auto #/vol (Bld) 7.0 x10 Normal 3.5-10.5 [facility] Comment on above: Performed By: #### 1 5978525, 6959727520, 3967138, 3504604955, 0612232, 2232765 ####[facility] (DEFAULT)[address] [place] [address] CMP Standardon 06-11-2018 eGFR Non AA >60 Invalid Interpretation Code [facility] Comment on above: Performed By: #### 1 2510085, 7031518347, 1829945, 1442375255, 8869455, 5860223 ####[facility] (DEFAULT)[address] [place] [address] eGFR AA >60 Invalid Interpretation Code [facility] Comment on above: Result Comment: Automated Access Systems Technician daryl Kidney disease could be indicated at eGFRs of less than 60 ml/min/1.73m2. Kidney Failure is indicated at less than 15 ml/min/1.73m2 Performed By: #### 1 2404626, 2622402696, 8486811, 3086719428, 8292979, 9813353 ####[facility] (DEFAULT)[address] [place] [address] Albumin mass conc 4.1 g/dL Normal 3.5-5.0 [facility] Comment on above: Performed By: #### 1 4885640, 0113142214, 2578691, 2408076673, 0190847, 6439976 ####[facility] (DEFAULT)[address] [place] [address] Albumin/Globulin mass ratio 1.1 {ratio} Low 1.4-2.6 [facility] Comment on above: Performed By: #### 1 0667639, 5696583663, 6752307, 4432945116, 1867819, 8037397 ####[facility] (DEFAULT)[address] [place] [address] 56848 Alk Phos 76 IU/L Normal 32-91 [facility] Comment on above: Performed By: #### 1 7375410, 6930949049, 8698668, 4078826626, 5980105, 5430433 ####[facility] (DEFAULT)[address] [place] [address] ALT/SGPT 21.0 IU/L Normal 14.0-54.0 [facility] Comment on above: Performed By: #### 1 2808793, 4390891165, 9747536, 5742673939, 2490381, 5408571 ####[facility] (DEFAULT)[address] [place] [address] Anion gap 3 molar conc 12.0 mmol/L Normal 5.0-19.0 [facility] Comment on above: Performed By: #### 1 8760211, 6788303169, 2696632, 7415762038, 6681240, 8950642 ####[facility] (DEFAULT)[address] [place] [address] AST/SGOT 23 IU/L Normal 15-41 [facility] Comment on above: Performed By: #### 1 5019174, 3632558482, 3199295, 9954233673, 1150551, 4808340 ####[facility] (DEFAULT)[address] [place] [address] 25937 Bili Total 0.5 mg/dL Normal 0.3-1.2 [facility] Comment on above: Performed By: #### 1 9368296, 2763604579, 2925465, 2637782590, 3389932, 8895403 ####[facility] (DEFAULT)[address] [place] [address] 83724 Calcium mass conc 9.3 mg/dL Normal 8.9-10.3 [facility] Comment on above: Performed By: #### 1 3322702, 8156337228, 9064645, 9308742136, 5152142, 3461468 ####[facility] (DEFAULT)[address] [place] [address] 04137 Chloride molar conc 102 mmol/L Normal 101-111 [facility] Comment on above: Performed By: #### 1 2770236, 5869068911, 7860438, 6334276977, 6811862, 6420000 ####[facility] (DEFAULT)[address] [place] [address] 51857 CO2 molar conc 26 mmol/L Normal 21-32 [facility] Comment on above: Performed By: #### 1 5491097, 8261204136, 5428433, 5513892327, 1221211, 8371697 ####[facility] (DEFAULT)[address] [place] [address] 74939 Creatinine mass conc 0.90 mg/dL Normal 0.60-1.30 [facility] Comment on above: Performed By: #### 1 4713107, 2315967823, 0287320, 5630474615, 6403795, 9897828 ####[facility] (DEFAULT)[address] [place] [address] 64249 Globulin Calculated mass conc (S) 3.6 g/dL Normal 1.5-4.3 [facility] Comment on above: Performed By: #### 1 7486230, 7143747661, 0860694, 5967773237, 5899552, 0312432 ####[facility] (DEFAULT)[address] [place] [address] 25740 Glucose mass conc 99.0 mg/dL Normal 74.0-118.0 [facility] Comment on above: Performed By: #### 1 5256761, 2058755893, 9862289, 0450427571, 5285584, 4323179 ####[facility] (DEFAULT)[address] [place] [address] 91135 Osmolality 273 mOsm/L Invalid Interpretation Code [facility] Comment on above: Performed By: #### 1 7708860, 4594943011, 0586547, 9089485648, 0129002, 8374973 ####[facility] (DEFAULT)[address] [place] [address] 21871 Potassium molar conc 4.4 mmol/L Normal 3.6-5.1 [facility] Comment on above: Performed By: #### 1 7631402, 4461805260, 3053323, 1119371630, 5659334, 0605209 ####[facility] (DEFAULT)[address] [place] [address] 82790 Protein mass conc 7.7 g/dL Normal 6.5-8.1 [facility] Comment on above: Performed By: #### 1 0262194, 8807108058, 2262996, 1291148378, 2535516, 9894125 ####[facility] (DEFAULT)[address] [place] [address] 48659 Sodium molar conc 136.0 mmol/L Normal 136.0-144. 0 [facility] Comment on above: Performed By: #### 1 4782822, 2198996190, 8702435, 0160393137, 7520904, 4296052 ####[facility] (DEFAULT)[address] [place] [address] 86202 Urea nitrogen mass conc 16 mg/dL Normal 8-26 [facility] Comment on above: Performed By: #### 1 0595030, 4904481830, 2129136, 5273454332, 6025821, 6161640 ####[facility] (DEFAULT)[address] [place] [address] 98804 Urea nitrogen/Creatinine mass ratio 18.0 mg/mg High 4.6-16.2 [facility] Comment on above: Performed By: #### 1 4813759, 0730760822, 8616203, 6372208406, 8558908, 9091904 ####[facility] (DEFAULT)[address] [place] [address] 45521 Lipid Panel Standardon 06-11 Cholesterol in HDL mass conc 65 mg/dL Normal 40-71 [facility] Comment on above: Result Comment: High risk - <40 mg/dL. Performed By: #### 1 3717706, 3733931387, 5417818, 7744468057, 1098183, 9213404 ####[facility] (DEFAULT)[address] [place] [address] 62082 Cholesterol in LDL mass conc 126 mg/dL High 1-100 [facility] Comment on above: Result Comment: Opti mal - Less than 100 mg/dL Borderline high risk - 130-159 mg/dL High risk - 160-189 mg/dL. Performed By: #### 1 0316768, 0545331491, 1336661, 5502198781, 3879681, 8259365 ####[facility] (DEFAULT)[address] [place] [address] 59971 Cholesterol mass conc 215.0 mg/dL High 66.0-200.0 [facility] Comment on above: Result Comment: Erica rable - Less than 200 mg/dL Borderline high risk - 200-239 mg/dL High risk - 240 mg/dL and over. Performed By: #### 1 6869933, 9215790692, 4912987, 3225710382, 6767672, 0686086 ####[facility] (DEFAULT)[address] [place] [address] 97580 Cholesterol.total/Cho lesterol in HDL mass ratio 3.3 {ratio} Normal 0.0-4.5 [facility] Comment on above: Performed By: #### 1 9185134, 2111286755, 6468313, 5558842065, 4558300, 0568239 ####[facility] (DEFAULT)[address] [place] [address] 96565 Triglyceride mass conc 123.0 mg/dL Normal 0.0-150.0 [facility] Comment on above: Performed By: #### 1 6634076, 1252019543, 2230116, 1134050679, 0678212, 4579123 ####[facility] (DEFAULT)[address] [place] [address] 36350 VLDL. 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 APC [...] Laura Lu Date Saved: 01/07/2018 01:43 pm Normal [facility] Consultation/Specialist Note on 01-06-2018 Consultation/Speciali st Note Patient: DYAN JONES : 32 years Sex: FEMALE : 87Associated Diagnoses: Shortness of breathAuthor: Mummert DO, TimothyProcedurePulmonary function test with bronchodilator challenge procedureDate/ Time: 01/05/18 09:59:00.Performed by: [facility] .Referred by: TASH ESTEBAN.Indication: R06.02.Spirometry: FVC [...] or extrathoracic obstruction..Impression and PlanDiagnosisShortness of breath (HBI57-ZS R06.02).In summary the patient demonstrates 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 There is a marked bronchodilator response. There is no evidence of a diffusion impairment. There is no hyperinflation, borderline air trapping is noted. There is no evidence of fixed or variable intrathoracic or extrathoracic obstruction. Please correlate clinically.[Electronically Signed on: 01/06/2018 15:47 EDT] Mummert DOFlaco[Verified on: 01/06/2018 15:47 EDT] Mummert DOFlaco [facility] Procedureon 2017 Protein mass conc [id number]#1.00OTGTIFF [facility] Coding Summaryon 01-04-2018 Coding Summary CODING DATE: [facility] STATUS: Home 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 ADMIT [...] result in slightly different terminology. Coded By: Mihir Cai' Date Saved: 01/04/2018 04:58 pm [facility] Coding Summary CODING DATE: [facility] STATUS: Home 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 APC [...] Cai Date Saved: 01/04/2018 04:57 pm [facility] Coding Summaryon 12-31-2017 Coding Summary CODING DATE: 018 [facility] STATUS: Home 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 APC [...] Lu Date Saved: 12/31/2017 08:02 am [facility] Provider [place] 12-31-2017 Protein mass conc [id number]#1.00OTGTIFF [facility] .Auto Diff 1on 12-30-2017 Auto Baso % 0.4 % Normal 0.2-2.0 [facility] Comment on above: Performed By: #### 1 8241228, 8316846652, 5832367, 0835726707, 3569377, 5240094 ####[facility] (DEFAULT)[address] [place] [address] 86292 Auto [place] % 6 % Normal 1-12 [facility] Comment on above: Performed By: #### 1 2599168, 1668496439, 8089350, 7274667201, 6467583, 3705606 ####[facility] (DEFAULT)[address] [place] [address] 36693 Auto Neut % 58 % Normal 44-88 [facility] Comment on above: Performed By: #### 1 6964805, 1191530201, 9410118, 8964168655, 3993414, 4491597 ####[facility] (DEFAULT)[address] [place] [address] Baso Abs# 0.0 x10 Normal 0.0-0.2 [facility] Comment on above: Performed By: #### 1 1736655, 5851282958, 2713446, 1766783886, 4158723, 5731269 ####[facility] (DEFAULT)[address] [place] [address] 89862 Eos Abs# 0.2 x10 Normal 0.0-0.4 [facility] Comment on above: Performed By: #### 1 9513312, 6302244938, 1212401, 9430179256, 5363222, 4296141 ####[facility] (DEFAULT)[address] [place] [address] 20164 Eosinophils/100 WBC Auto (Bld) 2.0 % Normal 0.9-4.0 [facility] Comment on above: Performed By: #### 1 7427359, 8666429955, 9655671, 5248954883, 5220820, 7764485 ####[facility] (DEFAULT)[address] [place] [address] 76709 Lymphocytes Auto #/vol (Bld) 3.2 x10 High 1.3-2.9 [facility] Comment on above: Performed By: #### 1 4553878, 7035701666, 0540944, 2324153573, 2574293, 3082504 ####[facility] (DEFAULT)[address] [place] [address] 73949 Lymphocytes/100 WBC Auto (Bld) 33 % Normal 14-48 [facility] Comment on above: Performed By: #### 1 1517010, 1061079089, 6333102, 2988440177, 4834712, 7619732 ####[facility] (DEFAULT)[address] [place] [address] 06074 [place] Abs# 0.6 x10 Normal 0.0-0.8 [facility] Comment on above: Performed By: #### 1 3032177, 3812131172, 1622916, 9134526728, 4524725, 3827373 ####[facility] (DEFAULT)[address] [place] [address] Neut Abs# 5.5 x10 Normal 1.5-9.2 [facility] Comment on above: Performed By: #### 1 9825137, 9713232563, 8223489, 2393165440, 7838593, 0409145 ####[facility] (DEFAULT)[address] [place] [address] CBC w/ Auto Diffon 8 Erythrocyte distribution width Auto Ratio (RBC) 13.5 % Normal 11.5-15.0 [facility] Comment on above: Performed By: #### 1 0612562, 3773036690, 6285577, 7181667712, 6121169, 1452352 ####[facility] (DEFAULT)[address] [place] [address] Hematocrit Auto Volume Fraction (Bld) 38.8 % Normal 33.7-40.4 [facility] Comment on above: Performed By: #### 1 1110139, 3116179871, 3652920, 7598830493, 3602643, 1659671 ####[facility] (DEFAULT)[address] [place] [address] Hemoglobin mass conc (Bld) 13.7 g/dL Normal 11.3-15.9 [facility] Comment on above: Performed By: #### 1 1498748, 9433112405, 0127723, 3193125120, 3811206, 7672518 ####[facility] (DEFAULT)[address] [place] [address] Man Diff? Auto Normal [facility] Comment on above: Performed By: #### 1 6506618, 0312210911, 6852159, 8408728992, 2982554, 8077756 ####[facility] (DEFAULT)[address] [place] [address] MCH Auto Entitic mass (RBC) 30 pg Normal 24-34 [facility] Comment on above: Performed By: #### 1 2416258, 9764414019, 0741468, 2592128628, 0776676, 9809357 ####[facility] (DEFAULT)[address] [place] [address] MCHC Auto mass conc (RBC) 35 g/dL Normal 26-37 [facility] Comment on above: Performed By: #### 1 4839629, 8875757082, 9039133, 7071564889, 0572102, 1616968 ####[facility] (DEFAULT)[address] [place] [address] MCV Auto Entitic volume (RBC) 85 fL Normal 81-100 [facility] Comment on above: Performed By: #### 1 1096416, 1059874029, 2547016, 3303726150, 8701404, 1465765 ####[facility] (DEFAULT)[address] [place] [address] Platelet mean volume Auto Entitic volume (Bld) 10.1 fL Normal 6.3-10.2 [facility] Comment on above: Performed By: #### 1 7662800, 4924521474, 5912196, 8955961907, 3384197, 5915165 ####[facility] (DEFAULT)[address] [place] [address] Platelets Auto #/vol (Bld) 336 x10 Normal 138-427 [facility] Comment on above: Performed By: #### 1 8422205, 9619419180, 4059011, 2075458453, 7696422, 0720868 ####[facility] (DEFAULT)[address] [place] [address] RBC Auto #/vol (Bld) 4.57 x10 Normal 3.70-5.30 [facility] Comment on above: Performed By: #### 1 7380243, 7519115375, 5709779, 5996708384, 9810728, 6341587 ####[facility] (DEFAULT)[address] [place] [address] WBC Auto #/vol (Bld) 9.5 x10 Invalid Interpretation Code [facility] Comment on above: Performed By: #### 1 4043132, 0963633186, 1307301, 7854394870, 7522598, 9424974 ####[facility] (DEFAULT)[address] [place] [address] CMP Standardon 12-30-2017 eGFR Non AA >60 Invalid Interpretation Code [facility] Comment on above: Performed By: #### 1 7407392, 1303086798, 6965912, 2839855343, 1447808, 4354008 ####[facility] (DEFAULT)[address] [place] [address] eGFR AA >60 Invalid Interpretation Code [facility] Comment on above: Result Comment: Automated Access Systems Technician daryl Kidney disease could be indicated at eGFRs of less than 60 ml/min/1.73m2. Kidney Failure is indicated at less than 15 ml/min/1.73m2 Performed By: #### 1 9032506, 3302042822, 7605907, 7402652955, 4627548, 2326565 ####[facility] (DEFAULT)[address] [place] [address] Albumin mass conc 4.3 g/dL Normal 3.5-5.0 [facility] Comment on above: Performed By: #### 1 3925024, 3637040039, 7742306, 5833249592, 6023330, 5046735 ####[facility] (DEFAULT)[address] [place] [address] Albumin/Globulin mass ratio 1.4 {ratio} Normal 1.4-2.6 [facility] Comment on above: Performed By: #### 1 [id number], [id number], [id number], [id number], [id number], [id number] ####[facility] (DEFAULT)[address] [place] [address] Alk Phos 70 IU/L Normal 32-91 [facility] Comment on above: Performed By: #### 1 [id number], [id number], [id number], [id number], [id number], [id number] ####[facility] (DEFAULT)[address] [place] [address] ALT/SGPT 19.0 IU/L Normal 14.0-54.0 [facility] Comment on above: Performed By: #### 1 [id number], [id number], [id number], [id number], [id number], [id number] ####[facility] (DEFAULT)[address] [place] [id number] Anion gap 3 molar conc 12.0 mmol/L Normal 5.0-19.0 [facility] [facility] Comment on above: Performed By: #### 1 [id number], [id number], [id number], [id number], [id number], [id number] ####[facility] (DEFAULT)[address] [place] [address] 70944 AST/SGOT 24 IU/L Normal 15-41 [facility] Comment on above: Performed By: #### 1 [id number], [id number], [id number], [id number], [id number], [id number] ####[facility] (DEFAULT)[address] [place] [address] Bili Total 0.2 mg/dL Low 0.3-1.2 [facility] Comment on above: Performed By: #### 1 [id number], [id number], [id number], [id number], 2978148, 7014988 ####[facility] (DEFAULT)[address] [place] [address] Calcium mass conc 9.3 mg/dL Normal 8.9-10.3 [facility] Comment on above: Performed By: #### 1 [id number], [id number], [id number], [id number], 7167062, 0824974 ####[facility] (DEFAULT)[address] [place] [address] 93857 Chloride molar conc 99 mmol/L Low 101-111 [facility] Comment on above: Performed By: #### 1 [id number], [id number], [id number], [id number], 9133704, [id number] ####[facility] (DEFAULT)[address] [place] [address] 73650 CO2 molar conc 28 mmol/L Normal 21-32 [facility] Comment on above: Performed By: #### 1 [id number], [id number], 9227023, [id number], 4878012, 3677148 ####[facility] (DEFAULT)[address] [place] [address] Creatinine mass conc 0.94 mg/dL Normal 0.60-1.30 [facility] Comment on above: Performed By: #### 1 [id number], [id number], [id number], [id number], 5780870, 8573724 ####[facility] (DEFAULT)[address] [place] [address] 89021 Globulin Calculated mass conc (S) 3.1 g/dL Normal 1.5-4.3 [facility] Comment on above: Performed By: #### 1 [id number], [id number], [id number], [id number], 6476463, 1838759 ####[facility] (DEFAULT)[address] [place] [address] 78111 Glucose mass conc 114.0 mg/dL Normal 74.0-118.0 [facility] Comment on above: Performed By: #### 1 [id number], [id number], 7354991, [id number], 2984391, 0260230 ####[facility] (DEFAULT)[address] [place] [address] 57818 Osmolality 272 mOsm/L Invalid Interpretation Code [facility] Comment on above: Performed By: #### 1 [id number], [id number], 4354263, [id number], 9901527, 7936416 ####[facility] (DEFAULT)[address] [place] [address] 86750 Potassium molar conc 4.0 mmol/L Normal 3.6-5.1 [facility] Comment on above: Performed By: #### 1 [id number], [id number], 5081755, [id number], 0282722, 5156345 ####[facility] (DEFAULT)[address] [place] [address] 08789 Protein mass conc 7.4 g/dL Normal 6.5-8.1 [facility] Comment on above: Performed By: #### 1 3635205, [id number], 6615935, [id number], 5503953, 0401588 ####[facility] (DEFAULT)[address] [place] [address] 02890 Sodium molar conc 135.0 mmol/L Low 136.0-144. 0 [facility] Comment on above: Performed By: #### 1 [id number], [id number], 8485494, [id number], 6991919, 0995671 ####[facility] (DEFAULT)[address] [place] [address] 29827 Urea nitrogen mass conc 17 mg/dL Normal 8-26 [facility] Comment on above: Performed By: #### 1 [id number], [id number], 8411676, [id number], 4339632, 3868623 ####[facility] (DEFAULT)[address] [place] [address] 93609 Urea nitrogen/Creatinine mass ratio 18.0 mg/mg High 4.6-16.2 [facility] Comment on above: Performed By: #### 1 [id number], [id number], 3426402, [id number], 5232949, 0384284 ####[facility] (DEFAULT)[address] [place] [address] 69617 D-Dimeron 12-30-2017 D-Dimer 0.28 mg/L FEU Normal 0.19-0.50 [facility] Comment on above: Performed By: #### 1 [id number], [id number], 9436245, [id number], 0998234, 8612440 ####[facility] (DEFAULT)[address] [place] [address] 70608 ED Clinical Summaryon 2017 ED Clinical Summary [facility] - Emergency [address] [place] [address] ed Clinical SummaryPERSON INFORMATIONName: DYAN JONES Age: 32 Years Sex: FEMALEDOB: [birth year] MRN: Acct#:Visit Reason: Chest pain; Shortness of breath; SOB, MID BACK PAIN Arrival: 12/30/17 19:08:00 Discharge: 12/30/17 20:26:00LOS: 000 01:18 Check In: 12/30/17 19:08:00 Checkout:12/30/17 20:26:00Address:[address] [address]PYH: CHUCK ESTEBAN INFORMATIONProvider Role Assigned UnassignedSoila Rivas ED 12/30/17 19:12:27NesbittGaye ED Nurse 12/30/17 19:14:25VITALS INFORMATIONVital Sign Triage [...] Adult; Nonspecific Chest PainFollow-Up:With: Address: When:TASH ESTEBAN [address] [place] [address], [facility] [place] [phone] Business (1) Within 3 to 5 daysDIAGNOSIS:Atypical chest pain; DyspneaPatient Understands: Yes - Patient/family/caregiver verbalizes understanding of instructions givenComment: [facility] Note - Physicianon 2017 ED Note - Physician Patient: BYRON JONES : 32 years Sex: FEMALE : [birth year]Associated Diagnoses: Dyspnea; Atypical chest painAuthor: Dino Rivas InformationTime seen: Date & time 12/30/17 19:12:00.History source: Patient.Arrival mode: Private vehicle.History limitation: None.Additional information: Chief Complaint from Nursing Triage Note : Chief Ghqueosad26/18/18 19:12 EDT Chief Complaint Patient states she became SOB a few days ago and can't catch her breath/feel like she can fully expand. Was seen by her PCP today and had a CXR, but this afternoon states she developed chest pressure and L shoulder pain, radiating to her jaw 12/22 .History of Present Pmaocaa57-lmhv-xxl female presents to the emergency department complaining [...] 10 scale. She did not take any bqer-wqs-ycmzwgc or prescriptions medication for her symptoms. She [...] been selected or recorded..Social history:Social & Psychosocial LcfbcmMnomlol01/09/2016 Smoking tobacco use: Never Smoker.Problem list:Active Problems [...] Dyspnea[SOB], No.Results review: Lab results : Lab Rfmfpexxi80/18/18 19:37 EDT Sodium Level 135.0 mmol/L LOW [...] % Auto Lymph % 33 % Auto [place] % 6 % Auto Eos % 2.0 % Auto Baso % 0.4 % Neut Abs# 5.5 x103/mcL Lymph Abs# 3.2 x103/mcL HI [place] Abs# 0.6 x103/mcL Eos Abs# 0.2 x103/mcL Baso Abs# 0.0 x103/mcL D-Dimer 0.28 mg/L FEU Tube Collected Yes.Chest X-Ray: Chest x-ray was completed earlier in the day as an outpatient. This was interpreted by the radiologist and showed no active disease..Impression and PlanDiagnosisDyspnea (ZCK92-IR R06.0, Discharge, Medical)Atypical chest pain (TBG85-DA R07.89, Discharge, Medical)PlanCondition: Improved, Stable.Disposition: Discharged: Time [...] Soila Rivas[Electronically Signed on: 01/01/2018 00:12 EDT] Maurice Argueta MD[Verified on: 12/30/2017 21:10 EDT] Soila Rivas [facility] ED Patient Education Noteon 12-30-2017 ED Patient [...] if you start to feel better.? Take aufm-hxr-dpvofvw and prescription medicines only as told by [...] Reviewed: 05/25/2017[employer] Patient Education ? 2017 [employer]Pulmonary MedicineShortness of Breath, AdultShortness of breath is [...] Slowly return to your usual activities.? Take hecd-qst-gpvgjnr and prescription medicines, including oxygen and inhaled [...] Released: 05/26/2002 Document Revised: 03/21/2017 Document Reviewed: 02/05/2017[employer] Interactive Patient Education ? 2017 [employer]. Normal [facility] ED Patient Summaryon 018 ED Patient Summary [facility] - Emergency [address] [place], [place] [id number] pATIENT DISCHARGE INSTRUCTIONSPatient InformationName: DYAN JONES Age: 32 YearsDate of : [birth year]MRN: [id number] For Visit: Chest pain; Shortness of breath; SOB, MID BACK PAINArrival Time: 12/30/17 19:08:00Phone: [facility] Care Physician: Kiersten ESTEBAN Physician: Edison Mcallister MDComment:Visit Diagnosis:Diagnoses This Visit Atypical chest pain (R07.89) Chest pain ([id number]) Dyspnea (R06.0) Shortness of breath ([id number])If you received any narcotics, sedation, or any [...] or sign any legal documentsWith: Address: When:TASH ESTEBAN [address] [place] [address], [address] [place] [phone] Business (1) Within 3 to 5 daysMedication Information:The exam and treatment you received today in the [facility] Emergency Department were for an urgent problem and are not intended as complete care. It is important for you to follow up with a doctor, nurse practitioner, or physician?s assistant analyst for ongoing care. If your symptoms become [...] number so we can reach you if necessary.[facility] Emergency Department has provided you with a complete list of medications post discharge. Please inform your box toe stitcher/provider of your visit and for further instruction [...] Slowly return to your usual activities.? Take jlzx-fms-uewzhjw and prescription medicines, including oxygen and inhaled [...] Reviewed: 02/05/2017[employer] Patient Education ? 2017 [employer].Nonspecific Chest PainChest pain can be caused by [...] if you start to feel better.? Take vsbv-txj-ionhgoz and prescription medicines only as told by [...] Reviewed: 05/25/2017[employer] Patient Education ? 2017 [employer]. Viruses or BacteriaWhat?s got you sick?Antibiotics only [...] Disease Control and Prevention May 2014 Normal [facility] Extra Redon 12-30-2017 Tube Collected Yes Invalid Interpretation Code [facility] Comment on above: Performed By: #### 1 [id number], [id number], [id number], [id number], 8971692, [id number] ####[facility] (DEFAULT)[address] [place] [address] 46361 Troponin Ion 12-30-2017 Troponin I.cardiac mass conc ng/mL Normal <=0.03 [facility] Comment on above: Performed By: #### 1 [id number], [id number], [id number], [id number], 0608718, 6810741 ####[facility] (DEFAULT)[address] [place] [address] 60176 XR Chest 2 Viewson 8 XR Chest 2 Views ADDENDUMAdditional l ateral view of the chest was obtained which fails to demonstratethe small linear opacity overlying the thoracic spine noted originally,confirming that the original finding is related to overlying artifact and notan opaque foreign body.JEY Rae #: [id number]: 12/31/2017T: 12/31/2017 Final Dictated by: Eliseo Lyn MD SDictated DT/TM: 12/31/17 6:29Signed (Electronic Signature): Eliseo Lyn [...] PROCESS SEEN IN THE CHEST.JEY Rae #: [id number]: 12/30/2017T: 12/30/2017 Final Dictated by: Eliseo Lyn MD SDictated DT/TM: 12/30/17 1:02Signed (Electronic Signature): Eliseo Lyn MD 12/31/17 5:39 amTechnologist: ASHELY [facility] Coding Summaryon 07-15-2017 Coding Summary CODING DATE: 017 [facility] STATUS: Home 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 APC [...] Revised Date Saved: 04/06/2017 04:11 pm [facility] Vital Signs Date Time Vital Sign Value Performing Clinician Facility 01-19-2025 10:05-0400 Body mass index (BMI) [Ratio] 40.83 kg/m2 [employer] Work Phone: [facility] 01-19-2025 10:05-040 Body weight 112.15 kg [employer] Work Phone: [facility] 01-19-2025 10:05-0400 Diastolic blood pressure 86 mm[Hg] [facility] Work Phone: [facility] 01-19-2025 10:05-0400 Systolic blood pressure 128 mm[Hg] [facility] Work Phone: [facility] 01-03-2025 08:47-0400 Body mass index (BMI) [Ratio] 41.28 kg/m2 Matt Blanquita DO Work Phone: [facility] 01-03-2025 08:47-0400 Body weight 113.4 kg Matt Blanquita DO Work Phone: [facility] 01-03-2025 08:47-0400 Diastolic blood pressure 90 mm[Hg] Matt Blanquita DO Work Phone: [facility] 01-03-2025 08:47-0400 Systolic blood pressure 128 mm[Hg] Matt Blanquita DO Work Phone: [facility] 12-07-2024 08:52-0400 Body mass index (BMI) [Ratio] 39.94 kg/m2 Lon Bustos MD Work Phone: [facility] 12-07-2024 08:52-0400 Body weight 108.86 kg Lon Bustos MD Work Phone: [facility] 12-07-2024 08:52-0400 Diastolic blood pressure 106 mm[Hg] Lon Bustos MD Work Phone: [facility] 12-07-2024 08:52-0400 Heart rate 83 /min Lon Bustos MD Work Phone: [facility] 12-07-2024 08:52-0400 Systolic blood pressure 141 mm[Hg] Lon Bustos MD Work Phone: [facility] 09-20-2024 08:42-0500 Body mass index (BMI) [Ratio] 39.14 kg/m2 Tiffanie Waters CNM Work Phone: [facility] 09-20-2024 08:42-0500 Body weight 107.5 kg Tiffanie Waters CNM Work Phone: [facility] 09-20-2024 08:42-0500 Diastolic blood pressure 80 mm[Hg] Tiffanie Waters CNM Work Phone: [facility] 09-20-2024 08:42-0500 Systolic blood pressure 122 mm[Hg] Tiffanie Waters CNM Work Phone: [facility] 02-07-2022 15:40-0400 Body temperature 97.7 [degF] Edilma Chan DO Work Phone: [facility] 02-07-2022 15:40-0400 Diastolic blood pressure 90 mm[Hg] Edilma Salcidolesallyson DO Work Phone: [facility] 02-07-2022 15:40-0400 Heart rate 86 /min Edilma Salcidolesallyson DO Work Phone: [facility] 02-07-2022 15:40-0400 Respiratory rate 16 /min Edilma Chan DO Work Phone: [facility] 02-07-2022 15:40-0400 SaO2% (BldA) [Mass fraction] 93 % Edilma Chan DO Work Phone: [facility] 02-07-2022 15:40-0400 Systolic blood pressure 137 mm[Hg] Edilma Chan DO Work Phone: [facility] 02-04-2022 20:33-0400 Body height 165.1 cm Edilma Salcidolesallyson MALDONADO Work Phone: [facility] 02-04-2022 20:33-0400 Body mass index (BMI) [Ratio] 39.11 kg/m2 Edilma Chan DO Work Phone: [facility] 02-04-2022 20:33-0400 Body weight 106.59 kg Edilma Salcidolesallyson DO Work Phone: [facility] Encounters Encounter Date Encounter Type Care Provider Facility Start: 02-01-2025 End: 02-01-2025 Clinisync Result Encounter Matt Juares DO Work Phone: [facility] External Department Unsolicited Start: 02-01-2025 End: 02-01-2025 Clinisync Result Encounter Matt Blanquita DO Work Phone: [facility] External Department Unsolicited Start: 01-19-2025 End: 01-24-2025 External Result Encounter Matt Blanquita DO Work Phone: [facility] External Department Unsolicited Start: 01-19-2025 End: 01-24-2025 External Result Encounter Matt Blanquita DO Work Phone: [facility] External Department Unsolicited Start: 01-19-2025 End: 01-19-2025 Patient encounter procedure Matt Blanquita DO Work Phone: [facility] Comment on above: Pre-op examination; Menorrhagia with regular cycle; Abnormal uterine bleeding; Pelvic pain in female; Skin tag of labia Start: 01-19-2025 End: 01-19-2025 Preprocedural examination done Matt Blanquita DO Work Phone: [facility] Start: 01-19-2025 End: 01-19-2025 ambulatory MATT BLANQUITA Not Available Start: 01-16-2025 End: 01-16-2025 ambulatory MATT BLANQUITA Not Available Start: 01-03-2025 End: 01-03-2025 Bamboo flowsheet Matt Blanquita DO Work Phone: [facility] Start: 01-03-2025 End: 01-03-2025 Bamboo flowsheet Matt Blanquita DO Work Phone: [facility] Start: 01-03-2025 End: 01-03-2025 Clinisync Result Encounter Matt Blanquita DO Work Phone: [facility] External Department Unsolicited Start: 01-03-2025 End: 01-03-2025 Office outpatient visit 15 minutes Matt Blanquita DO Work Phone: [facility] Comment on above: Irregular bleeding; DUB (dysfunctional uterine bleeding); Elevated TSH; Hypertension, unspecified type ([facility]/HCC) Start: 01-03-2025 End: 01-03-2025 ambulatory MATT BLANQUITA Not Available Start: 12-07-2024 End: 12-07-2024 Office outpatient new 45 minutes Lon Bustos MD Work Phone: [facility] - Lon Bustos MD Comment on above: TIA (transient ische kellen attack) (Primary Dx); Hypertensive crisis Start: 12-07-2024 End: 12-07-2024 ambulatory LON BUSTOS [facility] Start: 11-29-2024 End: 11-29-2024 Telephone encounter Amee Loreta [facility], A Department of [facility] Comment on above: New Patient Start: 11-28-2024 End: 11-28-2024 Refill [facility]élix Addison [facility] Start: 11-01-2024 End: 11-02-2024 ambulatory ISAIAH Ortega [facility] Start: 09-20-2024 End: 09-20-2024 Bamboo flowsheet Tiffanie L Floro CNM Work Phone: [facility] Start: 09-20-2024 End: 09-20-2024 Bamboo flowsheet Tiffanie L Floro CNM Work Phone: [facility] Start: 09-20-2024 End: 09-20-2024 Office outpatient visit 15 minutes Tiffanie L Floro CNM Work Phone: [facility] Comment on above: Irregular bleeding ( Primary Dx) Start: 09-20-2024 End: 09-20-2024 ambulatory TIFFANIE L FLORO Not Available Start: 05-24-2024 End: 05-24-2024 ambulatory [facility] Start: 05-20-2024 End: 05-20-2024 ambulatory TIFFANIE L FLORO Not Available Start: 05-05-2024 End: 05-05-2024 ambulatory TIFFANIE L FLORO Not Available Start: 04-21-2024 End: 04-21-2024 ambulatory TIFFANIE L FLORO Not Available Start: 04-01-2024 End: 04-01-2024 ambulatory ISAIAH Ortega JULIANNE Not Available Start: 03-02-2024 End: 03-02-2024 ambulatory ISAIAH Ortega [facility] Start: 12-26-2023 End: 12-29-2023 ambulatory ISAIAH Shannon [facility] Start: 11-26-2023 End: 11-27-2023 ambulatory ISAIAH Ortega [facility] Start: 11-26-2023 Encounter for vladimir l adult medical examination without abnormal findings [facility] Start: 09-01-2023 End: 09-01-2023 Emergency department patient visit CRISTINA Feliciano DEE DEE [facility] Start: 02-04-2022 End: 02-07-2022 Emergency department patient visit Edilma Chan DO Work Phone: [facility] Med Surg Comment on above: Pain of upper abdome n (Primary Dx); Chronic GERD; Cholecystitis Start: 06-12-2018 End: 06-12-2018 Patient encounter [facility] Facility:[facility] Start: 01-05-2018 End: 01-06-2018 Patient encounter [facility] Facility:[facility] Start: 12-31-2017 End: 01-04-2018 Patient encounter [facility] Start: 12-30-2017 End: 01-04-2018 Emergency department patient visit [facility] Facility:[facility] Procedures Date Procedure Procedure Detail Performing Clinician Start: 02-01-2025 ECG 12-LEAD Matt Fazi o DO Work Phone: Start: 01-19-2025 PATHOLOGY REQUEST FO R LAB [facility] Matt Blanquita DO Work Phone: Start: 01-03-2025 ALL THYROID STIM HORMONE Matt Blanquita DO Work Phone: Start: 01-03-2025 ALL THYROXINE (T4) FREE Matt Blanquita DO Work Phone: Start: 04-21-2024 Microscopic observat ion [Identifier] in Cervix by Cyto stain Matt Blanquita DO Work Phone: Start: 02-07-2022 End: 02-07-2022 [...] PA Start: 02-05-2022 Hepatic function panel Latonia Matrisciano PA Start: 02-04-2022 Ct abdomen & pelvis w/contrast material Edilma Chan DO Work Phone: Start: 02-04-2022 Urinalysis microscopic only Edilma Chan DO Work Phone: Start: 02-04-2022 Urnls dip stick/tabl et rgnt auto w/o microscopy Edilma Chan DO Work Phone: Start: 02-04-2022 Comprehensive metabo lic panel Edilma Chan DO Work Phone: Start: 11-23-2018 Microscopic observat ion [Identifier] in Cervix by Cyto stain Félix Addison MD Work Phone: Plan of Treatment Date Care Activity Detail Author Start: 04-21-2027 Screening for malign ant neoplasm of cervix [facility] Start: 02-20-2026 DTaP,Tdap and Td Vaccines (7 - Td or Tdap) DTaP,Tdap and Td Vaccines (7 - Td or Tdap) [facility] Start: 02-20-2026 DTaP/Tdap/Td vaccine (7 - Td or Tdap) DTaP/Tdap/Td vaccine (7 - Td or Tdap) [facility] Start: 12-07-2025 Adult BMI Screening Adult BMI Screen ing [facility] Start: 12-07-2025 Tobacco Screening Tobacco Screening [facility] Start: 11-02-2025 Tobacco Screening Tobacco Screening [facility] Start: 11-01-2025 Adult BMI Screening Adult BMI Screen ing [facility] Start: 06-20-2025 Screening for malign ant neoplasm of cervix [facility] Start: 05-15-2025 Influenza vaccination Influenz a Vaccine (Season Ended) [facility] Start: 04-26-2025 End: 04-26-2025 Patient encounter procedure 04/26/2025 9:00 AM EDT Office Visit [facility] [address] [place] [address] Tiffanie aWters, LORENAM [address] [place] [address] [facility] Start: 03-07-2025 End: 03-07-2025 Patient encounter procedure 03/07/2025 8:45 AM EDT Office Visit [facility] - Lon Bustos MD [address] [place] [address] [address] [place] [phone] Lon Bustos MD [address] [place] [address], [facility] [address] [place] [address] [facility] Renetta Bustos MD Start: 03-01-2025 End: 03-01-2025 Patient encounter procedure 03/01/2025 9:00 AM EDT Procedure visit [facility] Renetta Valdivia MD [address] [place] [address] [address] [place] [phone] [facility] Renetta Valdivia MD Start: 02-23-2025 End: 02-23-2025 Patient encounter procedure 02/23/2025 8:30 AM EDT Office Visit [facility] [address] [place] [place] [address] Parvin Moreland, RAYMUNDO [address] [place], [place] [id number] [facility] Start: 01-19-2025 End: 01-19-2025 Patient encounter procedure 01/19/2025 9:30 AM EDT Procedure Visit [facility] [address] [place] [place] [address] Matt Juares, [address] [place], [place] [id number] [facility] Start: 01-03-2025 End: 01-03-2026 [...] (dysfunctional uterine bleeding) Expected: 01/03/2025, Expires: 07/05/2025 [facility] Comment on above: Expected: 01/03/2025 , Expires: 07/05/2025 Start: 01-03-2025 End: 01-03-2025 Patient encounter procedure 01/03/2025 8:50 AM EDT Office Visit [facility] [address] [place] [phone] Matt Juares DO [address] [place] [address] Irregular bleeding; DUB (dysfunctional uterine bleeding) [facility] Comment on above: Irregular bleeding; DUB (dysfunctional uterine bleeding) Start: 12-07-2024 End: 12-07-2024 Patient encounter procedure 12/07/2024 9:00 AM EDT Office Visit [facility] - Lon Bustos MD [address] [place] [phone] Lon Bustos MD [address] [place] [address] [facility] - Lon Bustos MD Start: 09-20-2024 End: 09-20-2024 Patient encounter procedure 09/20/2024 8:30 AM EST Office Visit [facility] [address] [place] [address] Tiffanie Waters, LORENAM [address] [place] [address] Arrived [facility] Comment on above: Arrived Start: 05-15-2024 COVID-19 Vaccine ( season) COVID-19 Vaccine () [facility] Start: 05-15-[address] [facility] Start: 05-15-2022 Influenza vaccination Flu vacc ine (Season Ended) [facility] [employer] Start: 11-23-2021 Screening for malign ant neoplasm of cervix Pap Smear [facility] [employer] Start: 2021 Diabetes screen Diabetes screen [facility] [employer] Start: 08-01-2021 COVID-19 Vaccine (3 - Booster for Moderna series) COVID-19 Vaccine (3 - Booster for Moderna series) [facility] [employer] Start: 2016 Screening for malign ant neoplasm of cervix [facility] [employer] Start: 11-17-2007 Screening for malign ant neoplasm of cervix Pap smear [facility] [employer] Start: 2004 Adult BMI Follow Up Plan Adult BMI Follow Up Plan [facility] [employer] Start: 2004 Hepatitis C screening Hepatitis C sc reen [facility] [employer] Start: 2001 HIV screening HIV screen [facility] [employer] Start: 1998 Depression Screen Depression Screen [facility] [employer] Start: 1998 Depression Screening Depression Scre ening [facility] [employer] Start: 11-17-1987 Varicella vaccine (1 of 2 - 2-dose childhood series) Varicella vaccine (1 of 2 - 2-dose childhood series) [facility] [place] Basic Metabolic Pane l w/ Reflex to MG Basic Metabolic Panel w/ Reflex to MG Lab Routine Daily until discontinued starting 02/05/2022, 2 completed [facility] Work Phone: Comment on above: Daily until disconti nued starting 02/05/2022, 2 completed CBC W Auto Different ial panel - Blood CBC with Auto Differential Lab Routine Daily until discontinued starting 02/05/2022, 2 completed [place] [facility] [employer] Work Phone: Comment on above: Daily until disconti nued starting 02/05/2022, 2 completed End: 12-07-2025 EEG EEG Neurology Routine Hypertensive crisis 1 Occurrences starting 12/07/2024 until 12/07/2025 [place] Phone: Comment on above: 1 Occurrences starti ng 12/07/2024 until 12/07/2025 Hepatic function 200 0 panel - Serum or Plasma Hepatic Function Panel Lab Routine Daily until discontinued starting 02/05/2022, 2 completed Remote Assistant Phone: Comment on above: Daily until disconti nued starting 02/05/2022, 2 completed Oxygen therapy [[facility] Data Set] Initiate Oxygen Therapy Protocol Respiratory Care Routine As Needed until discontinued starting 02/05/2022 Remote Assistant Phone: Comment on above: As Needed until disc ontinued starting 02/05/2022 Surgical Pathology Surgical Path ology Lab Routine Chronic GERD Release Upon Ordering for 1 Occurrences starting 02/06/2022 Remote Assistant Phone: Comment on above: Release Upon Orderin g for 1 Occurrences starting 02/06/2022 Surgical Pathology Surgical Path ology Lab Routine Cholecystitis Release Upon Ordering for 1 Occurrences starting 02/07/2022 Remote Assistant Phone: Comment on above: Release Upon Orderin g for 1 Occurrences starting 02/07/2022 End: 02-07-2022 SURGICAL PATHOLOGY REPORT SURGICAL PATHOLOGY REPORT Lab Routine Once for 1 Occurrences starting 02/07/2022 until 02/07/2022 Remote Assistant Phone: Comment on above: Once for 1 Occurrenc es starting 02/07/2022 until 02/07/2022 Thyrotropin [Units/volume] in Serum or Plasma TSH Lab Routine Irregular bleeding DUB (dysfunctional uterine bleeding) Elevated TSH Ordered: 01/03/2025 [facility] Comment on above: Ordered: 01/03/2025 Thyroxine (T4) free [Mass/volume] in Serum or Plasma T4, free Lab Routine Irregular bleeding DUB (dysfunctional uterine bleeding) Elevated TSH Ordered: 01/03/2025 [facility] Comment on above: Ordered: 01/03/2025 Immunizations Immunization Date Immunization Notes Care Provider Fa [facility] 11-23-2018 influenza virus vaccine, unspecified formulation Félix Addison MD Work Phone: [facility] 02-21-2016 tetanus toxoid, redu [place] diphtheria toxoid, and acellular pertussis vaccine, adsorbed Tiffanie Floro CNM Work Phone: [facility] Payers Date Payer Category Payer Blue Cross [facility] - Other ANTHEM [id number] 2023 Unknown [id number] 2023 Unknown [id number] 2021 Blue Cross Blue Shield BCBS [id number] 2021 Unknown [id number] [id number]. [id number] 2021 Unknown [id number] 2017 Unknown [id number] 1986 Unknown [id number] 2.16.840.1.916694.3.579.2. 1286 1986 Unknown [id number] 2.16.840.1.805398.3.579.2. 176 1986 Unknown [id number] 2.16.840.1.400399.3.579.2. 176 1986 Unknown [id number] 2.16.840.1.453855.3.579.2. 1286 1986 Unknown [id number] 2.16.840.1.446498.3.579.2. 1286 1986 Unknown [id number] 2.16.840.1.998737.3.579.2. 1286 1986 Unknown [id number] 2.16.840.1.212721.3.579.2. 1286 1986 Unknown [id number] 2.16840.1.259224.3.579.2. 9 1986 Unknown [id number] 2.16.840.1.928935.3.579.2. 1259 1986 Unknown [id number] 2.16.840.1.061264.3.579.2. 1259 1986 Unknown [id number] 2.16.840.1.738149.3.579.2. 9 1986 Unknown [id number] 2.16840.1.970265.3.579.2. 1259 1986 Unknown [id number] 2.16.840.1.692543.3.579.2. 1259 1986 Unknown [id number] 2.16.840.1.780461.3.579.2. 1259 1986 Unknown [id number] 2.16.840.1.762712.3.579.2. 1259 Social History Date Type Detail Facility Start: 01-28-2013 End: 04-21-2024 Tobacco smoking status NMIS Never smoked tobacco [facility] [employer] Work Phone: Start: 01-28-2013 End: 04-21-2024 Tobacco use and exposure Smokeless tobacco non-user Remote Assistant Phone: Start: 02-07-2022 Alcohol intake Current non-drinker of alcohol (finding) Remote Assistant Phone: Start: 02-07-2022 End: 09-20-[address] [facility]: 02-05-2022 History SDOH Alcohol Frequency 1 Remote Assistant Phone: Start: 1985 Sex Assigned At Not on file Remote Assistant Phone: Start: 01-26-2022 End: 02-05-2022 Exposure to SARS-CoV-2 (event) Not sure Remote Assistant Phone: Start: 04-21-2024 End: 01-03-2025 Alcoholic beverage intake Current drinker of alcohol (finding) [facility] Start: 04-21-2024 End: 09-20-2024 Tobacco use panel [facility] Start: 1985 Sex assigned at Female [facility] Start: 11-26-2022 Gender identity Identifies as female gender (finding) [facility] Start: 04-20-2024 Sexual orientation Choose not to disclose [facility] Has the electric, [employer], [employer], or water company threatened to shut off services in your home in past 12Mo No [facility] In the past 12 month s, has lack of transportation kept you from medical appointments or from getting medications? No [facility] Start: 11-23-2018 [address] [facility] Start: 04-19-2015 Sex Female (finding) [facility] Goals Date Patient Goal Desired Activity /State Personal health goal Comment on above: Formatting of this n ote might be different from the original. Evaluation of progress towards goal: feeling most issues resolved, some hand numbness, await testing Clinical Notes 02-07-2022 to 01-19-2025 Rosangela Roahc LPN - 01/19/2025 9:30 AM Bertha Weber LPN - 01/03/2025 8:50 AM SOFITLon Bustos MD - 12/07/2024 9:00 AM EDTTelephone Encounter - Amee Kan - 11/29/2024 10:02 AM EDT Note Date [...] removal left labia on 02/10/[address] uJares at [facility]. MEDICATIONS Current Outpatient Medications Medication Instructions [...] nursing note reviewed. Exam conducted with a registered safety engineer present. Vitals: Estimated body mass index is [...] reviewed, and patient is to proceed to [facility] OR. Follow Up: Patient is to follow up between 1-2 weeks post op to assess proper healing and recovery from procedure. Documented by Rosangela Roach LPN on behalf of: Matt Juares DO documented in this encounter [facility] 01-16-2025 Note EXAM: US PELVIC COMP [...] II, MD, PHD at 24-Jan-2025 08:11:53 AM [facility] Not Available Comment on above: Order [...] nursing note reviewed. Exam conducted with a registered safety engineer present. Vitals: Estimated body mass index is [...] Gynecology Pt presents as a referral from [facility] with complaints of heavy irregular bleeding. [...] Matt Juares DO documented in this encounter [facility] 12-07-2024 History of Presen t illness [...] confusion at the time. Her is a ross carrier driver who assessed her and took her to [...] tremor or other abnormal movements. Eyes closed [id number] testing is accurate. No ataxia. Normal gait. Assessment/Plan: 1. TIA (transient ischemic attack) - [facility] - [place], [place] 2. Hypertensive crisis - EEG; Future [...] Lon Bustos MD [facility] this encounter [facility]24 Miscellaneous Notes Please ask the following questions to the new patient that you are scheduling: Patient scheduled from New Patient Referral 1. IS THIS DUE TO AN ACCIDENT? - NO 2. IS THIS WORKER'S COMP? PLEASE VERIFY IF THIS IS WORKERS COMP AND DOCUMENT (We do not accept any new workers comp cases) - NO 3. WHAT INSURANCE? - [place]/ BCBS out of state ppo/trust 4. HAVE YOU EVER BEEN SEEN BY A NEUROLOGIST BEFORE? IF YES, WHO AND WHEN? IS THIS A SECOND OPINION? -NO 5. ANY CHANCE OF NOW OR BEFORE YOUR APPOINTMENT? - NO 6. OFFERED RAIN FOR SOONER APPOINTMENT? -NO 7. PATIENT IS SCHEDULED ON/WITH: - 12/07/[address] at [address] Bustos 8. WHO CALLED TO SCHEDULE APPOINTMENT? -[facility]24 Telephone encounter Note Please ask the following questions to the new patient that you are scheduling: Patient scheduled from New Patient Referral 1. IS THIS DUE TO AN ACCIDENT? - NO 2. IS THIS WORKER'S COMP? PLEASE VERIFY IF THIS IS WORKERS COMP AND DOCUMENT (We do not accept any new workers comp cases) - NO 3. WHAT INSURANCE? - [place]/ BCBS out of state ppo/trust 4. HAVE YOU EVER BEEN SEEN BY A NEUROLOGIST BEFORE? IF YES, WHO AND WHEN? IS THIS A SECOND OPINION? -NO 5. ANY CHANCE OF NOW OR BEFORE YOUR APPOINTMENT? - NO 6. OFFERED RAIN FOR SOONER APPOINTMENT? -NO 7. PATIENT IS SCHEDULED ON/WITH: - 12/07/24 at [address] Bustos 8. WHO CALLED TO SCHEDULE APPOINTMENT? -[facility] 09-20-2024 History of Presen t illness Narrative PROBLEM VISIT Dyan Aguilar is 38 y.o. a patient of [facility] Here for heavy periods Last pap: 04/21/24 Last mammogram: Patient's last menstrual period was 09/20/2024 (exact date). History: Past Medical History: Diagnosis Date Hypertension (CMS/HCC) Hypothyroid (CMS/HCC) Past Surgical History: Procedure Laterality Date GALLBLADDER SURGERY 2021 Family History Problem Relation Name Age of Onset Uterine cancer Mother Prostate cancer Father Melanoma Father Ovarian cancer Maternal Grandmother Cervical cancer Paternal Grandmother @SOCHX@ Allergies: No Known Allergies Medications: Current Outpatient [...] MA,09/20/2024 8:50 AM documented in this encounter [facility] 02-07-2022 History of Presen t illness Narrative Patient discharged from unit to home. Follow up appointments gone over with patient. Instructions and education also provided to patient before departure from unit. All questions answered at this time. Patient taken down for surgery at this time. Patient in bathroom for CHG shower. Hospitalist Progress Note 02/06/2022 2:37 PM Subjective: Admit Date: 02/04/2022 PCP: RADHA Amador CNP Full Code C/c: Chief Complaint Patient presents [...] substitued orally. Images were obtained in the [place] projection and regions of interest were drawn [...] Home [] Home with Home Health [] [facility] Facility [] [facility] Patient is admitted as inpatient status because of co-morbidities listed above, severity of signs and symptoms as outlined, requirement for current medical therapies and most importantly because of direct risk to patient if care not provided in a hospital setting. Sanford Saldaña MD, MD [facility] Hospitalist Surgical Scrub Tech spoke with Dr. Saldaña regarding patients increase in pain that was not controlled by Tylenol. Surgical Scrub Tech received order for Morphine 1 mg q6hPRN. Order placed at this time. Dr. Vora notified of consult. Admitted to room 2057 from ED per wheelchair. Oriented to room and call light. Vitals and assessment completed. No distress noted. documented in this encounter [facility] [employer] Phone: 02-07-2022 Hospital course Narrative Hospitalist Discharge [...] These medications [facility] [place] [address] - [place], [place] - [facility] [address] - P [phone] - F [phone] [facility] [address], [place] [phone] cephALEXin 500 MG capsule ondansetron 4 MG [...] substitued orally. Images were obtained in the [place] projection and regions of interest were drawn [...] and discharge plan documented in this encounter [facility] Work Phone: 02-07-2022 Hospital Discharg e Alex Selby RN - 02/07/2022 Your information: Name: Dyan Aguilar : 1985 Your instructions: What to do after [...] one has not been made. 6.) Call [phone] if you have any questions or concerns. The following attachments cannot be sent through Care Everywhere.cephalexin (Iranian)ondansetron (oral) (Iranian)acetaminophen and oxycodone (Iranian)Cholecystectomy: Post-op (Iranian)documented in this encounter Remote Assistant Phone: Evaluation note Diagnosis Pain of upper abdomen- Primary Abdominal pain, other specified site Chronic GERD Cholecystitis Cholecystitis, unspecified documented in this encounter Remote Assistant Phone: evaluation note* Diagnosis Irregular bleeding- Primary Irregular menstrual cycle documented [facility] Diagnosis TIA (transient ischemic attack)- Primary Unspecified transient cerebral ischemia Hypertensive crisis Hypertensive encephalopathy documented in this encounter [facility]* Diagnosis Irregular bleeding Irregular menstrual cycle DUB (dysfunctional uterine bleeding) Other disorder of menstruation and other abnormal bleeding from female genital tract Elevated TSH Other abnormal blood chemistry Hypertension, unspecified type (CMS/HCC) documented in this encounter [facility] Healthcare[facility]* Diagnosis Pre-op examination Menorrhagia with regular cycle Abnormal uterine bleeding Unspecified disorder of menstruation and other abnormal bleeding from female genital tract Pelvic pain in female Unspecified symptom associated with female genital organs Skin tag of labia documented in this encounter [facility] HealthcareInstructionsNot on filedocumented in this encounterProMedica Health SystemInstructionsNot on filedocumented in this encounterProFlower Hospital SystemInstructionsNot on filedocumented in this encounterProFlower Hospital System Summary Purpose Family History No Family History Records FoundNo Family History Records FoundNo Family History Records FoundNo Family History Records FoundNo Family History Records FoundNo Family History Records FoundNo Family History Records FoundNo Family History Records Found Advance Directives Documents on File Type Date Recorded Patient Plating Inspector Expl anation ACP-Advance Directive ACP-Power of Office System Analyst Latest Code Status on File Code Status Date Activated Date Inactivated Comments Full Code 02/05/2022 3:12 AM Date Activated Date Inactivated Comments 11/01/2024 8:38 PM 11/02/2024 5:58 PM Date Activated Date Inactivated Comments 11/01/2024 8:38 PM 11/02/2024 5:58 PM Additional Source Comments INFORMATION SOURCE (unrecogn ized section and content) DATE CREATED AUTHOR 07/12/2018 [facility] DATE CREATED AUTHOR AUTHOR'S ORGANIZ ATION 07/22/2022 [facility] dical Specialist DATE CREATED AUTHOR AUTHOR'S ORGANIZ ATION 11/27/2023 [facility] DATE CREATED AUTHOR AUTHOR'S ORGANIZ ATION 12/29/2023 [facility] DATE CREATED AUTHOR AUTHOR'S ORGANIZ ATION 05/26/2024 [facility] DATE CREATED AUTHOR AUTHOR'S ORGANIZ ATION 11/03/2024 [facility] DATE CREATED AUTHOR AUTHOR'S ORGANIZ ATION 12/08/2024 [facility] DATE CREATED AUTHOR AUTHOR'S ORGANIZ ATION 01/25/2025 [facility] dical Specialists EPIC Reason for Visit (unrecogniz ed section and content) Reason Comments Abdominal Pain Specialty Diagnoses / Procedures Referred By Contyonny t Referred To Contact Diagnoses Upper abdominal pain Pain of upper abdomen Vera Arteaga MD [address] [place] [address] [facility] [address] [place] [address] Referral ID Status Reason Start Date Expiration Date Visits Re quested Visits Authorized [id number] 1 1 Reason Comments Menstrual Problem Reason Comments Med Refill Reason Onset Date Comments New Patient 11/29/2024 Reason Comments 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 Ct was done and results on chart. Specialty Diagnoses / Procedures Referred By Jasmine kilgore Referred To Contact Neurology Diagnoses TIA (transient ischemic attack) Vera Arteaga MD [address] [place] , [address] [address] Phone: tel: fax: [facility] [address] [facility] [place] [address] Phone: tel: fax: Referral ID Status Reason Start Date Expiration Date Visits Requested Visits Authorized [id number] Pending Review Specialty Services Required 11/02/2024 11/02/2025 1 1 Reason Comments Irregular Bleeding Specialty Diagnoses / Procedures Referred By Jasmine kilgore Referred To Contact Obstetrics and Gynecology Diagnoses Irregular bleeding DUB (dysfunctional uterine bleeding) Procedures CT OFFICE/OUTPATIENT NEW HIGH MDM 60 MINUTES Tiffanie Waters, CNM [address] [place] [address] Phone: tel: fax: Matt Juares, DO [address] [facility] [place] [address] Phone: tel: fax: Referral ID Status Reason Start Date Expiration Date V isits Requested Visits Authorized [id number] Closed Specialty Services Required 11/01/2024 04/30/2025 1 [...] of surgery) 1308 (Given - Provider: Edilma Chakraborty, WINDOWS [employer] DEPLOYMENT LEAD - OPERATOR [employer]) ceFAZolin (ANCEF) 2000 mg in dextrose 5 [...] 0824 (Given - Provider: Karlo Mccray RN)1028 ([facility] Hold - Provider: [facility] [employer] - Reason: Unreviewed Transfer Orders)1319 ([facility] Unhold - Provider: Karlo Mccray RN) 0759 (Given - Provider: Alex Robbins RN)1205 ([facility] Hold - Provider: [facility] [employer] - Reason: Unreviewed Transfer Orders)1534 ([facility] Unhold - Provider: Alex Robibns RN) famotidine (PEPCID) tablet 40 mg (COMPLETED) [...] 0758 (Given - Provider: Alex Robbins RN)1205 ([facility] Hold - Provider: [facility] [employer] - Reason: Unreviewed Transfer Orders)1534 ([facility] Unhold - Provider: Alex Robbins RN) morphine sulfate (PF) injection 4 mg (COMPLETED) 4 mg, IntraVENous, ONCE, 1 dose, On Thu02/05/22 at 0015 0036 (Given - Provider: Kaley Carrasco, IZABELLA) sodium chloride flush 0.9 % injection 5-40 [...] Alex Robbins RN)1205 (MAR Hold - Provider: Mar [employer] [...] (Rate/Dose Verify - Provider: Enoc Mendes RN)1205 (NOV Hold - Provider: [facility] [employer] - Reason: Unreviewed Transfer Orders)1213 (New Bag - Provider: Kaley Payne RN)1534 (NOV Unhold - Provider: Alex Robbins RN)1612 (New Bag - Provider: Alex Robbins RN)1757 (Stopped - Provider: Alex Robbins RN) PRN [...] less into rate field of order. 1028 (NOV Hold - Provider: [facility] [employer] - Reason: Unreviewed Transfer Orders)1138 (New Bag - Provider: Kristy Pritchett)1155 (Anesthesia Volume Adjustment - Provider: Kristy Pritchett)1319 (NOV Unhold - Provider: Karlo Mccray RN) 1205 (NOV Hold - Provider: [facility] [employer] - Reason: Unreviewed Transfer Orders)1534 (NOV Unhold - Provider: Alex Robbins RN)1758 (Stopped [...] Mccray RN) 1205 (MAR Hold - Provider: [facility] [employer] - Reason: Unreviewed Transfer Orders)1534 (MAR Unhold - Provider: Alex Robbins RN) acetaminophen (TYLENOL) tablet 650 mg(Linked Group 1) 650 mg, Oral, EVERY 6 HOURS PRN, Starting on Thu02/05/22 at 0312, Until Discontinued, Pain Mild (1-3), Fever, For temp greater than 100.4 F (38 C), Maximum dose of acetaminophen is 4000 mg from all sources in 24 hours. 1449 (Given - Provider: Alex Robbins RN) 1028 ([facility] Hold - Provider: [facility] [employer] - Reason: Unreviewed Transfer Orders)1319 (MAR Unhold - Provider: Karlo Mccray RN) 1205 ([facility] Hold - Provider: [facility] [employer] - Reason: Unreviewed Transfer Orders)1534 ([facility] Unhold - Provider: Alex Robbins RN) bupivacaine [...] Robbins RN) 1028 (MAR Hold - Provider: [facility] [employer] - Reason: Unreviewed Transfer Orders)1319 ([facility] Unhold - Provider: Karlo Mccray RN) 1205 ([facility] Hold - Provider: [facility] [employer] - Reason: Unreviewed Transfer Orders)1534 ([facility] Unhold - Provider: Alex Robbins RN) ondansetron (ZOFRAN) injection 4 mg(Linked Group 2) 4 mg, IntraVENous, EVERY 6 HOURS PRN, Starting on Thu02/05/22 at 0312, Until Discontinued, Nausea, Vomiting, Administer if oral route cannot be used. 1028 ([facility] Hold - Provider: [facility] [employer] - Reason: Unreviewed Transfer Orders)1319 ([facility] Unhold - Provider: Karlo Mccray RN) 1205 ([facility] Hold - Provider: [facility] [employer] - Reason: Unreviewed Transfer Orders)1534 ([facility] Unhold - Provider: Alex Robbins RN) ondansetron (ZOFRAN-ODT) disintegrating tablet 4 mg(Linked Group 2) 4 mg, Oral, EVERY 8 HOURS PRN, Starting on Thu02/05/22 at 0312, Until Discontinued, Nausea, Vomiting 1028 ([facility] Hold - Provider: Annie [employer] - Reason: Unreviewed Transfer Orders)1319 ([facility] Unhold - Provider: Karlo Mccray RN) 1205 ([facility] Hold - Provider: [facility] [employer] - Reason: Unreviewed Transfer Orders)1534 ([facility] Unhold - Provider: Alex Robbins RN) oxyCODONE-acetaminophen [...] Constipation, First line therapy for constipation 1028 ([facility] Hold - Provider: [facility] [employer] - Reason: Unreviewed Transfer Orders)1319 ([facility] Unhold - Provider: Karlo Mccray RN) 1205 ([facility] Hold - Provider: [facility] [employer] - Reason: Unreviewed Transfer Orders)1534 ([facility] Unhold - Provider: Alex Robbins RN)1608 (Given [...] Alternative - Provider: Alex Robbins RN) 1028 ([facility] Hold - Provider: [facility] [employer] - Reason: Unreviewed Transfer Orders)1319 ([facility] Unhold - Provider: Karlo Mccray RN) 1205 ([facility] Hold - Provider: [facility] [employer] - Reason: Unreviewed Transfer Orders)1534 ([facility] Unhold - Provider: Alex Robbins RN) potassium [...] (Given - Provider: Alex Robbins RN) 1028 ([facility] Hold - Provider: [facility] [employer] - Reason: Unreviewed Transfer Orders)1319 ([facility] Unhold - Provider: Karlo Mccray RN) 1205 ([facility] Hold - Provider: [facility] [employer] - Reason: Unreviewed Transfer Orders)1534 ([facility] Unhold - Provider: Alex Robbins RN) potassium [...] Alternative - Provider: Alex Robbins RN) 1028 ([facility] Hold - Provider: [facility] [employer] - Reason: Unreviewed Transfer Orders)1319 ([facility] Unhold - Provider: Karlo Mccray RN) 1205 ([facility] Hold - Provider: [facility] [employer] - Reason: Unreviewed Transfer Orders)1534 ([facility] Unhold - Provider: Alex Robbins RN) sodium chloride flush 0.9 % injection 10 mL 10 mL, IntraVENous, PRN, Starting on Thu02/05/22 at 1129, Until Discontinued, Line Care, Other, flushing radioactive doses 1202 (Given - Provider: Allie Reynoso) 1028 ([facility] Hold - Provider: [facility] [employer] - Reason: Unreviewed Transfer Orders)1319 ([facility] Unhold - Provider: Karlo Mccray RN) 1205 ([facility] Hold - Provider: [facility] [employer] - Reason: Unreviewed Transfer Orders)1534 ([facility] Unhold - Provider: Alex Robbins RN) sodium chloride flush 0.9 % injection 10 mL 10 mL, IntraVENous, PRN, Starting on Thu02/04/22 at 2337, Until Discontinued, Line Care 1028 ([facility] Hold - Provider: [facility] [employer] - Reason: Unreviewed Transfer Orders)1319 ([facility] Unhold - Provider: Karlo Mccray RN) 1205 ([facility] Hold - Provider: [facility] [employer] - Reason: Unreviewed Transfer Orders)1534 ([facility] Unhold - Provider: Alex Robbins RN) sodium [...] or Central Line = 20 mL/lumen 1028 ([facility] Hold - Provider: [facility] [employer] - Reason: Unreviewed Transfer Orders)1319 ([facility] Unhold - Provider: Karlo Mccray RN) 1205 ([facility] Hold - Provider: Annie [employer] - Reason: [...]
Care Teams (unrecognized sec tion and content) Tabulating Supervisor Relationship Specialty Start Date End Date Adilene Gracia, RADHA - GLASSINE MACHINE TENDER [address] [place] [address] PCP - General Family Medicine 02/05/22 Tabulating Supervisor Relationship Specialty Start Date End Date Isaiah Davis, SUPREME COURT JUDGE [address] [place] [id number] PCP - General Family Medicine 03/03/24 Tabulating Supervisor Relationship Specialty Start Date End Date Isaiah Davis, SUPREME COURT JUDGE [address] [place] [id number] PCP - General Family Medicine 03/03/24 Tabulating Supervisor Relationship Specialty Start Date End Date Isaiah Santos, WINDOWS 7 DEPLOYMENT LEAD-GLASSINE MACHINE TENDER [address] [place] [id number] PCP - General Family Medicine 11/26/23 Tabulating Supervisor Relationship Specialty Start Date End Date Isaiah Santos, WINDOWS 7 DEPLOYMENT LEAD-GLASSINE MACHINE TENDER [address] [place] [address] PCP - General Family Medicine 11/26/23 Tabulating Supervisor Relationship Specialty Start Date End Date Isaiah Santos, WINDOWS 7 DEPLOYMENT LEAD-GLASSINE MACHINE TENDER [address] [place] [address] PCP - General Family Medicine 11/26/23 Tabulating Supervisor Relationship Specialty Start Date End Date Isaiah Davis, SUPREME COURT JUDGE [address] [place] [address] PCP - General Family Medicine 03/03/24 Tabulating Supervisor Relationship Specialty Start Date End Date Isaiah Davis, SUPREME COURT JUDGE [address] [place] [address] PCP - General Family Medicine 03/03/24 Tabulating Supervisor Relationship Specialty Start Date End Date Isaiah Davis, SUPREME COURT JUDGE [address] [place] [address] PCP - General Family Medicine 03/03/24 Tabulating Supervisor Relationship Specialty Start Date End Date Isaiah Davis, SUPREME COURT JUDGE [address] [place] [address] PCP - General Family Medicine 03/03/24 FOR [...] BE BASED ON THE PRIMARY CLINICAL RECORDS. [facility] provides no warranty or guarantee of the accuracy or completeness of information in this document.
[2025-02-10 07:32] LABS: Basophils Absolute Auto 0.1 10^3/uL (0.0-0.1); Basophils Percent Auto 0.8 % (0.2-2.0); Eosinophils Absolute Auto 0.3 10^3/uL (0.0-0.7); Eosinophils Percent Auto 2.7 % (0.9-7.0); Hematocrit 37.3 % (36.0-48.0); Immature Granulocytes Abs Auto 0.03 10^3/uL (0.00-0.03); Immature Granulocytes Pct Auto 0.3 % (0.0-0.5); Lymphocytes Absolute Auto 2.4 10^3/uL (1.2-3.8); Lymphocytes Percent Auto 23.6 % (20.5-60.0); Mean Corpuscular HGB Conc 34.9 g/dL (29.9-35.2); Mean Corpuscular Hemoglobin 29.6 pg (26.7-34.0); Mean Platelet Volume 9.8 fL (9.5-13.5); Monocytes Absolute Auto 0.5 10^3/uL (0.3-0.8); Neutrophils Absolute Auto 6.9 10^3/uL (1.4-6.5); Neutrophils Percent Auto 67.6 % (43.0-75.0); Platelet Count 290 10^3/uL (150-450); Red Blood Count 4.39 10^6/uL (4.20-5.40); Red Cell Distribution Width 12.6 % (11.0-15.0); White Blood Count 10.1 10^3/uL (4.0-11.0)
[2025-02-10 07:44] VITALS: BP 120/81; PULSE 87; TEMP 35.9; O2SAT 100; BMI 42.1
[2025-02-10] MEDS: LACTATED RINGER'S SOLUTION 1,000 ML 50 ML IV (07:56)
[2025-02-10 07:57] LABS: HCG Quantitative <1 mIU/mL
[2025-02-10 08:01] LABS: Glucometer 105 mg/dL (74-106)
--- NOTE | 2025-02-10 09:33 | PM.ONB ---
Brief Operative Note Date of procedure: 02/10/25 Pre-op diagnosis general: menorrhagia, skin tags Post-op diagnosis: same as pre-op Procedure: NAME OF PROCEDURE: [ ] Azra endometrial ablation with hysteroscopy. removal of lt labial and rt thigh skin tag PROCEDURE: The patient was taken back to the OR where she was prepped and draped in the normal sterile fashion after being placed in the dorsal lithotomy position, after being placed under general anesthesia without difficulty.? A weighted speculum was placed into the vagina. The anterior lip was grasped with a single tooth tenaculum. The patient was then sounded to approximated 8cm. The patient?s cervix was gently dilated using hegardilators. The hysteroscope was passed through the cervix into the uterus where both ostia were seen. No gross evidence of polyps, fibroids or malignancy. The cervical length was noted to be 4 cm. The total cavity length is 4cm.? The Azra ablation apparatus was set to approximately 4cm in length. This was placed through the cervix and into the uterus. After the seal was tested, at that time the total ablation of 120 seconds was performed with the Azra withoutdifficulty. All instruments were removed from the vagina. Excellent hemostasis noted.? Sponge and lap count correct times 2.? Patient taken to recovery in stable condition. please note a rt thigh and lt labial skin tag was removed using forcep and scissors, sent of to pathology Anesthesia: MAC Surgeon: Matt Juares Estimated blood loss (mL): 5 Pathology: other (skin tags) Condition: stable Disposition: PACU
[2025-02-10 09:40] VITALS: BP 117/73; PULSE 86; TEMP 36.3; O2SAT 94
[2025-02-10 09:55] VITALS: BP 112/71; PULSE 66; O2SAT 100
[2025-02-10 10:10] VITALS: BP 121/88; PULSE 69; O2SAT 100
[2025-02-10 10:25] VITALS: BP 121/70; PULSE 69; O2SAT 100
[2025-02-10 10:45] VITALS: BP 123/85; PULSE 72; O2SAT 99
== END 2025-02-10 10:45 | disposition home or self-care (01) ==
PROVIDERS: Visit Provider Obstetrics & Gynecology
PROC: (CPT 952; principal; 2025-02-10 08:40)
PROC: (CPT 952; 2025-02-10 08:40)
DX: N92.0 Excessive and frequent menstruation with regular cycle (principal); N93.9 Abnormal uterine and vaginal bleeding, unspecified; R10.2 Pelvic and perineal pain; D22.71 Melanocytic nevi of right lower limb, including hip; D28.0 Benign neoplasm of vulva; I10 Essential (primary) hypertension; Z86.73 Personal history of transient ischemic attack (TIA), and cerebral infarction without residual deficits; E03.9 Hypothyroidism, unspecified
CPT/HCPCS: 11200; 58563; 36415; 82948; 84702; 85025; 88305; J1885; J2250; J2405; J2704; J3010